=== PATIENT | female | born 1965 ===

== ENCOUNTER → 2020-01-28 09:34 | Outpatient (BNVA) | payer BC, SELFPAY | PROVIDERS: PCP Internal Medicine; Visit Provider Internal Medicine Cardiovascular Disease | DX: Z76.89 Persons encountering health services in other specified circumstances (principal) ==

== ENCOUNTER → 2020-02-03 08:39 | Outpatient (BNVA) | payer BC, SELFPAY | PROVIDERS: PCP Internal Medicine; Referring Provider Internal Medicine; Visit Provider Student in an Organized Health Care Education/Training Program | DX: Z76.89 Persons encountering health services in other specified circumstances (principal) ==

== ENCOUNTER → 2020-04-01 14:09 | Outpatient (REF) | payer BC, SELFPAY ==
--- NOTE | 2020-04-01 14:16 | ECG_ITS ---
Hook-up date: 2020-04-01 14:28:00 Duration: 47:59:00 Test Indications: PALPITATIONS Medications: [id number] QRS complexes 9 Ventricular ectopics which represent <1 % of total QRS comp. 5 Supraventricular ectopics which represent <1 % of total QRS comp. * Paced QRS complexs which represent % of total QRS comp. VENTRICULAR ECTOPY 9 Isolated 0 Bigeminal Cycles 0 Couplets 0 Runs 0 Beats in Runs * Beats LONGEST at * BPM at :: -- * Beats FASTEST at * BPM at :: -- SUPRAVENTRICULAR ECTOPY 5 Isolated 0 Couplets 0 Runs 0 Beats in Runs * Beats LONGEST at * BPM at :: -- * Beats FASTEST at * BPM at :: -- HEART RATES 63 MIN at 05:36:31 2020-04-02 87 AVG 118 MAX at 12:34:45 2020-04-02 LONGEST RR 0.9760 secs at 06:26:23 2020-04-02 S-T LEVELS Channel 1 - 128 mm at 14:28:00 2020-04-01 - 128 mm at 14:28:00 2020-04-01 Channel 2 - 128 mm at 14:28:00 2020-04-01 - 128 mm at 14:28:00 2020-04-01 Channel 3 - 128 mm at 03:34:71 -- - 128 mm at 03:34:71 Basic rhythm Normal sinus rhythm No long pause or profound bradycardia No dangerous dysrhythm periods Patient did not report any symptoms in the diary Referred By: Giuliano Shelton Overread By: DELBERT GIBSON MD
== END ==
LOC: HO.CARD 14:09
PROVIDERS: PCP Internal Medicine; Visit Provider Internal Medicine Cardiovascular Disease
DX: R00.2 Palpitations (principal)
CPT/HCPCS: 93225; 93226

== ENCOUNTER → 2021-06-08 14:58 | Outpatient (BNVA) | payer BC, SELFPAY | PROVIDERS: PCP Internal Medicine; Referring Provider Internal Medicine; Visit Provider Internal Medicine Cardiovascular Disease | DX: R07.9 Chest pain, unspecified (principal); M54.2 Cervicalgia; M79.606 Pain in leg, unspecified | CPT/HCPCS: 93005 ==

== ENCOUNTER 2022-11-08 11:31 | Outpatient (AMB) | payer BC, SELFPAY ==
--- NOTE | 2022-11-08 11:36 | MHC.OFFVIS ---
Intake Vital Signs 11/08/22 11:37 Height 5 ft 5 in Weight 189 lb 2.506 oz BMI 31.5 BP 140/84 H Blood Pressure Location Lt brachial Position Sitting Pulse 88 Pulse Source Monitor Intake Visit Reasons: follow up per patient Intake Note: Follow up with EKG. Prototype Model Maker Required: No Accompanied by: Self / Same As Patient Allergies hydrochlorothiazide Allergy (Unknown, Verified 11/08/22 11:38) Leg cramps lisinopril Allergy (Unknown, Verified 11/08/22 11:38) Cough sulfamethoxazole [From Bactrim] Allergy (Verified 11/08/22 11:38) Hives trimethoprim [From Bactrim] Allergy (Verified 11/08/22 11:38) Hives Medication List - Last Reconciled 11/08/22 by Giuliano Shelton MD amlodipine 10 mg PO DAILY 90 days cholecalciferol (vitamin D3) 50 mcg PO DAILY clonazepam 0.5 mg PO BID PRN metoprolol succinate ER 25 mg PO DAILY HPI HPI Comments History of Present Illness Details 56-year-old female here for follow-up. She was seen for chest pain previously. She was referred for stress echocardiogram. She underwent stress test on 12/18/2019 which she was able to exercise for 8 minutes achieving 10.[address] No abnormal [address]-T changes were noticed on the EKG and no significant wall motion abnormalities were noticed pre and post stress. She is here for follow-up today. Blood pressure is 142/84. She has been taking amlodipine 2 times a week. She was started on Toprol by Dr. Romero but she has not started Toprol yet. She is worried that her blood pressure may drop from it. She has no chest pain or shortness of breath. She is very anxious and seems quite stressed. She is saying that she is stressed at work all the time. 11/08/22/: She returns for follow-up. She has been taking amlodipine 10 mg daily and Toprol-XL 25 mg at bedtime. She said her blood pressure readings have been high and at work specially when she is under stress blood pressure readings at are as high as 200/130. She also has been experiencing some pressure-like feeling in her chest which is again random and can happen at any time. She was experiencing it during the office visit today too. She has significant is ID and has been using clonazepam as needed. She was given sertraline but could not tolerate it. She has never tried bupropion before. [facility] Medical History COVID-19 virus infection Family history of cancer Surgical History H/O: hysterectomy History of fusion of cervical spine Family History Father Diabetes Prostate cancer HTN (hypertension) CVD (cardiovascular disease) Mother HTN (hypertension) Cervical cancer Lung cancer Maternal Grandmother Lung cancer Daughter In good health Daughter No problems noted. Brother In good health Son No problems noted. Social History Housing: House Alcohol intake: current Alcohol intake frequency: holidays/special occasions only Patient Tobacco Use Status: Current everyday Tobacco user Tobacco use type: Cigarette Cigarette Packs Per Day: 1 Cigarettes Per Day: 10 Years Smoked: 40 +/- e-Cigarette/Vaping Use: Never Used Second Hand Smoke Exposure: No service: No Current occupational status: employed Cognitive needs: No Hearing needs: No Vision needs: No Review of Systems Const Denies weakness ENT Denies dizziness Card Denies chest pain, Denies chest pain with activity, Denies syncope, Denies rapid heart rate, Denies pedal edema, Denies edema, Denies leg edema, Denies lightheadedness, Denies palpitations, Denies dyspnea, Denies dyspnea on exertion and Denies orthopnea Resp Denies cough, Denies dyspnea and Denies dyspnea on exertion GI Denies hematochezia and Denies change in stool character Musc Denies abnormal gait, Denies muscle cramps, Denies muscle weakness, Denies numbness, Denies radiating pain into limb and Denies tingling Neuro Denies abnormal gait, Denies dizziness, Denies syncope, Denies numbness, Denies tingling and Denies weakness Endo Denies palpitations Physical Exam Vital Signs: Last Vital Signs Pulse 88 11/08/22 11:37 BP 140/84 H 11/08/22 11:37 BMI result Body Mass Index 31.5 GENERAL APPEARANCE: in no acute distress, pleasant. NECK: no carotid bruit, no jugular venous distention. SKIN: no suspicious lesions, warm and dry. HEART: no murmurs, regular rate and rhythm. LUNGS: clear to auscultation bilaterally. ABDOMEN: soft, nontender. EXTREMITIES: no edema. PERIPHERAL PULSES: equal. NEUROLOGIC: No gross deficits, AAO X 3 Office Procedures EKG Details: Sinus rhythm 88 beats per minute, septal infarct, QTC 481 milliseconds. [id number], Complete Assessment & Plan Assessment & Plan (1) Hypertension: Code(s): I10 - Essential (primary) hypertension Qualifiers: Hypertension type: essential hypertension Qualified Code(s): I10 - Essential (primary) hypertension (2) Chest pain: Code(s): R07.9 - Chest pain, unspecified Plan Pleasant 57 year female here for follow-up. She has hypertension and is currently taking amlodipine 10 mg daily and metoprolol succinate 25 mg daily. At work she is under stress and at times she has noticed her blood pressure to be quite high and is reporting blood pressure reading more than 200/100. She definitely has anxiety and has been using clonazepam for that. I think she needs to be in a better agent for anxiety disorder. Continue amlodipine 10 mg daily. Changing metoprolol succinate to carvedilol 6.25 mg twice a day. I think beta-geoff will help her with sympathetic surge that she is describing while at work. She has some pressure-like feeling in the chest which happens randomly. EKGs showing septal infarct right thing that is due to lead placement. I think we control blood pressure and then reassess her. If she continues to get chest discomfort then we will arrange exercise stress test for her. She previously had a stress echocardiogram with [facility] in December 2019 which was felt to be normal with adequate workload. Thank you for allowing me to participate in the care of your patient. Please feel free to contact me if you have any questions. Medications: New carvedilol must administer with a meal/food 6.25 mg PO BID 60 tabs 3RF I10 - Essential (primary) hypertension Coding Level of Care Code Est Pt Level 4 (24581) Diagnoses Hypertension I10 Hypertension type: essential hypertension Chest pain R07.9 CPT Codes EKG - CPT: [id number], Complete ([id number])
[2022-11-08 11:37] VITALS: BP 140/84; PULSE 88; BMI 31.5
== END 2022-11-08 12:00 | disposition home or self-care (01) ==
PROVIDERS: PCP Nurse Practitioner Family; Referring Provider Nurse Practitioner Family; Visit Provider Internal Medicine Cardiovascular Disease
DX: I10 Essential (primary) hypertension (principal); R07.9 Chest pain, unspecified
CPT/HCPCS: 93010; 99214

== ENCOUNTER → 2022-11-08 11:31 | Outpatient (BNVA) | payer BC, SELFPAY | PROVIDERS: PCP Nurse Practitioner Family; Referring Provider Nurse Practitioner Family; Visit Provider Internal Medicine Cardiovascular Disease | DX: I10 Essential (primary) hypertension (principal); R07.9 Chest pain, unspecified; Z79.899 Other long term (current) drug therapy | CPT/HCPCS: 93005 ==

== ENCOUNTER 2022-12-29 16:43 | Outpatient (AMB) | payer BC, SELFPAY ==
[2022-12-29 16:47] VITALS: BP 140/86; PULSE 103; O2SAT 96; BMI 31.6
--- NOTE | 2022-12-29 16:47 | A.OFFPC_ITS ---
Vital Signs 12/29/22 16:47 Height 5 ft 5 in Weight 190 lb BMI 31.6 BP 140/86 H Blood Pressure Location Lt brachial Position Sitting Pulse 103 H Pulse Source Pulse Oximeter Pulse Oximetry (%) 96 Oxygen Delivery Method Room Air Intake Visit Reasons: [facility] 12/17/22 Allergies hydrochlorothiazide Allergy (Unknown, Verified 12/29/22 16:56) Leg cramps lisinopril Allergy (Unknown, Verified 12/29/22 16:56) Cough sulfamethoxazole [From Bactrim] Allergy (Verified 12/29/22 16:56) Hives trimethoprim [From Bactrim] Allergy (Verified 12/29/22 16:56) Hives Medication List - Last Reconciled 12/29/22 by BONNIE Kim albuterol sulfate 90 mcg/actuation 2 inhalations inhalation Q4-6H PRN amlodipine 10 mg PO DAILY 90 days cholecalciferol (vitamin D3) 50 mcg PO DAILY clonazepam 0.5 mg PO BID PRN Tobacco use date assessed: 12/29/22 Dental Screening Dental Screen Date: 12/29/22 Did you have a dental visit in the last 12 months?: Yes Did you have a dental problem in the last 6 months where you did not have access to dental care?: No Was dental information given to patient?: Patient has dentist HPI [facility] 12/17/22 HPI Details Patient is a 57-year-old female who presents today to follow-up after [facility] Emergency Department visit 12/17/2022. Discharge diagnosis bronchitis. Patient presented to the emergency department with shortness of breath, headache, cough. COVID and flu swabs were negative. Random glucose was 176. AST 142, ALT 178. Patient was diagnosed with COPD exacerbation, she reports she was not diagnosed with COPD in the past. Patient reports smoking for the past 40 years and she has nicotine gum and patch at home. She has an upcoming low-dose chest CT scan 01/10/2023 at [facility]. Patient was discharged home with prednisone that she finished. She also uses albuterol inhaler p.r.n.. She reports intermittent cough with clear sputum as well as nasal clear discharge. Reports that her symptoms are improving. Patient also have diagnosis of fatty liver and she was seen by GI provider in the past and would like to reestablish with them as well. Reports intermittent right upper abdominal pain. Reports no alcohol consumption for the past 6 months. Patient was encouraged to complete her blood work, also will order A1c due to elevated glucose in hospital. [facility] Medical History (Updated 12/31/22 @ 07:37 by BONNIE Kim) Neck pain Leg pain Alcohol abuse, in remission COVID-19 virus infection Family history of cancer Surgical History History of fusion of cervical spine H/O: hysterectomy Family History Father Diabetes Prostate cancer HTN (hypertension) CVD (cardiovascular disease) Mother HTN (hypertension) Cervical cancer Lung cancer Maternal Grandmother Lung cancer Daughter In good health Daughter No problems noted. Brother In good health Son No problems noted. Social History Housing: House Alcohol intake: current Alcohol intake frequency: holidays/special occasions only Patient Tobacco Use Status: Current everyday Tobacco user Tobacco use type: Cigarette Cigarette Packs Per Day: 1 Cigarettes Per Day: 10 Years Smoked: 40 +/- Packs Per Year: 0 Packs per year/per ci.00 e-Cigarette/Vaping Use: Never Used Second Hand Smoke Exposure: No service: No Current occupational status: employed Cognitive needs: No Hearing needs: No Vision needs: No Questionnaire Thrive Questionnaire Date Thrive assessed: 08/05/21 AUDIT C Alcohol Use Questionnaire (AUDIT-C) 1. How often do you have a drink containing alcohol?: Never 3. How often do you have six or more drinks on one occasion?: Never Total Score: 0 Score Reviewed/Action Taken: No FREDY-7 AMB Questionnaire FREDY-7 Date FREDY - 7 assessed: 01/20/22 Source: Developed by Drs. Rome Grullon, Ginny Reyes, Nikko Mahajan and colleagues, with an educational rodney from [employer]. Review of Systems Const Denies body aches, Denies chills, Denies fever(s) and Denies headache(s) Eyes Denies change in vision ENT Denies dizziness, Denies otalgia, Denies headache(s), Reports nasal discharge, Denies sinus pain and Denies sore throat Card Denies chest pain, Denies edema, Denies lightheadedness and Denies dyspnea Resp Reports cough, Denies dyspnea and Denies wheezing GI Reports abdominal pain Denies dysuria Musc Denies myalgias Skin/Breast Denies rash Neuro Denies dizziness and Denies headache(s) Aller/Immun Denies wheezing Physical exam (Primary Care) Vital Signs: Last Vital Signs Pulse 103 H 12/29/22 16:47 BP 140/86 H 12/29/22 16:47 Pulse Ox 96 12/29/22 16:47 Oxygen Delivery Method Room Air 12/29/22 16:47 BMI result Body Mass Index 31.6 Tobacco/Smoking Status: Tobacco use Status Tobacco use date assessed 12/29/22 12/29/22 16:50 Patient Tobacco Use Status Current everyday Tobacco 12/29/22 16:48 Tobacco use type Cigarette 12/29/22 16:48 e-Cigarette/Vaping Use Never Used 12/29/22 16:48 Thrive Assessment: Date of Thrive Assessment Date Thrive assessed 08/05/21 12/29/22 16:48 Const General: cooperative and no acute distress Orientation/consciousness: patient oriented x3 HENMT Head: Yes normocephalic and Yes atraumatic Face and sinus: Yes sinuses nontender Mouth: oropharynx normal and moist mucous membranes Throat: Yes posterior oropharynx normal Eyes General: appearance normal, both eyes and all related structures Neck Neck: Yes normal visual inspection and Yes full ROM Resp Effort & Inspection: normal respiratory effort and able to speak in complete sentences Auscultation: clear to auscultation bilaterally, no crackles, no rales, no rhonchi and no wheezes Cardio Rate: regular rate Rhythm: regular rhythm Heart sounds: S1 normal heart sound present and S2 normal heart sound present GI Palpation (GI): Soft to palpation, not firm, Tenderness to palpation present (GI) in the RUQ; with no rebound tenderness, no guarding, not rigid and no hepatosplenomegaly Auscultation: normal bowel sounds Skin General skin exam: no rashes or lesions noted Neuro General: patient oriented x3 Gait exam (Neuro): Normal gait present Extrem General: Yes full ROM and No edema Office Procedures Flu Questionnaire Does the patient have a severe egg allergy?: No Does the patient have severe life threatening allergies?: No Does the patient have a fever or illness today?: No Has the patient ever had Guillain-[place] Syndrome?: No Has the patient ever had any past reaction to a flu shot?: No Immunizations flu vacc [id number] 6mos up(PF) 60 mcg(15 mcgx4)/0.5 mL IM syringe Performing Provider: BONNIE Kim [facility] Administered by: NANDA Wiseman on 12/29/22 16:55 Dose Route Admin Location Dispensed Lot Number Expiration Date NDC Electrocardiograph Operator 0.5 mL IM Left Deltoid 0.5 mL [id number] 09/16/23 [id number] [employer] VIS Given Date VIS Provided VIS Publication Date 12/29/22 Single Vaccine 20 Eligibility Eligibility Date Funding Source Not [facility] Eligible 12/29/22 Private Assessment and Plan Assessment & Plan (1) Bronchitis: Code(s): J40 - Bronchitis, not specified as acute or chronic Plan: Lungs are clear to auscultation Continue albuterol inhaler p.r.n. Will order PFTs - patient reports smoking for the past 40 years and reports she was not diagnosed in the past with COPD Signs and symptoms reviewed when to notify provider or go to the emergency department (2) Elevated glucose: Code(s): R73.09 - Other abnormal glucose Plan: A1c ordered (3) Fatty liver: Code(s): K76.0 - Fatty (change of) liver, not elsewhere classified Plan: Patient would like to reestablish with GI provider, referral placed Low-cholesterol diet and weight loss (4) Tobacco abuse: Code(s): Z72.0 - Tobacco use Plan: Encouraged smoking cessation Plan Patient was encouraged to complete her blood work Keep appointment with PCP as scheduled or follow-up sooner as needed Orders: Orders Influenza [id number] Immunization 12/29/22 Z23 - Encounter for immunization Hemoglobin A1c 12/29/22 R73.09 - Other abnormal glucose PFT pulmonary function test 12/29/22 J40 - Bronchitis, not specified as acute or chronic, Z72.0 - Tobacco use Referrals Gastroenterology Referral K76.0 - Fatty (change of) liver, not elsewhere classified Coding Level of Care Code Est Pt Level 3 (20150) Diagnoses Bronchitis J40 Elevated glucose R73.09 Fatty liver K76.0 Tobacco abuse Z72.0
== END 2022-12-29 17:16 | disposition home or self-care (01) ==
PROVIDERS: PCP Nurse Practitioner Family; Visit Provider Nurse Practitioner Family
DX: Z23 Encounter for immunization (principal)
CPT/HCPCS: 90471; 90686; 99213

== ENCOUNTER 2023-03-08 13:55 | Outpatient (AMB) | payer BC, SELFPAY ==
--- NOTE | 2023-03-08 13:55 | MHC.PC.OV ---
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 Required: No Allergies hydrochlorothiazide Allergy (Unknown, Verified 03/08/23 13:56) Leg cramps lisinopril Allergy (Unknown, Verified 03/08/23 13:56) Cough sulfamethoxazole [From Bactrim] Allergy (Verified 03/08/23 13:56) Hives trimethoprim [From Bactrim] Allergy (Verified 03/08/23 13:56) Hives Medication List - Last Reconciled 03/08/23 by Tariq Romero MD albuterol sulfate 90 mcg/actuation 2 inhalations inhalation Q4-6H PRN amlodipine 10 mg PO DAILY 90 days cholecalciferol (vitamin D3) 50 mcg PO DAILY clonazepam 0.5 mg PO TID PRN 30 days Tobacco use date assessed: 03/08/23 HPI Follow up,[facility], HPI Details 57-year-old obese female smoker with generalized anxiety disorder hypercholesterolemia hypertension last seen in July 2021. Due for mammogram, and colonoscopy,. Review of the notes was seen by nurse practitioner in December following hospitalization for bronchitis and before that in May was seen by the nurse practitioner patient has renal calculi also. Patient when seen in the hospital for the bronchitis was told that the liver function was elevated a lot and was told to follow-up. Blood work has not been done and will be doing them. ON LICENSE OF [facility] Medical History (Updated 03/08/23 @ 14:13 by Tariq Romero MD) COVID-19 virus infection Neck pain Leg pain Alcohol abuse, in remission Family history of cancer Surgical History History of fusion of cervical spine H/O: hysterectomy Family History Father Diabetes Prostate cancer HTN (hypertension) CVD (cardiovascular disease) Mother HTN (hypertension) Cervical cancer Lung cancer Maternal Grandmother Lung cancer Daughter In good health Daughter No problems noted. Brother In good health Son No problems noted. Social History Housing: House Alcohol intake: current Alcohol intake frequency: holidays/special occasions only Patient Tobacco Use Status: Current everyday Tobacco user Tobacco use type: Cigarette Cigarette Packs Per Day: 1 Cigarettes Per Day: 10 Years Smoked: 40 +/- e-Cigarette/Vaping Use: Never Used Second Hand Smoke Exposure: No service: No Current occupational status: employed Cognitive needs: No Hearing needs: No Vision needs: No Questionnaire Thrive Questionnaire Date Thrive assessed: 08/05/21 AUDIT C Alcohol Use Questionnaire (AUDIT-C) 1. How often do you have a drink containing alcohol?: Never 3. How often do you have six or more drinks on one occasion?: Never Total Score: 0 Score Reviewed/Action Taken: No FREDY-7 AMB Questionnaire FREDY-7 Date FREDY - 7 assessed: 01/20/22 Source: Developed by Drs. Rome Grullon, Ginny Reyes, Nikko Mahajan and colleagues, with an educational rodney from [employer]. Physical exam (Primary Care) Tobacco/Smoking Status: Tobacco use Status Tobacco use date assessed 03/08/23 03/08/23 13:58 Patient Tobacco Use Status Current everyday Tobacco 03/08/23 13:58 Tobacco use type Cigarette 03/08/23 13:58 e-Cigarette/Vaping Use Never Used 03/08/23 13:58 Thrive Assessment: Date of Thrive Assessment Date Thrive assessed 08/05/21 03/08/23 13:58 Telehealth Telehealth Location of provider rendering services: practice address Location of patient: address on file Patient Identification confirmed using: Name, : Yes Telehealth method: video (iphone ) Patient verbally consented to treatment: Yes Patient verbally consented to billing insurance company: Yes Patient informed of any privacy concerns related to visit: Yes Minutes spent on Phone/Video with Pt.: 25 Assessment and Plan Assessment & Plan (1) Nephrolithiasis: Comment: February 2022 right renal calculi multiple Code(s): N20.0 - Calculus of kidney Plan: Keep well hydrated (2) Tobacco abuse: Code(s): Z72.0 - Tobacco use Plan: Strongly advised to stop! (3) Hypertension: Code(s): I10 - Essential (primary) hypertension Qualifiers: Hypertension type: essential hypertension Qualified Code(s): I10 - Essential (primary) hypertension Plan: Continue with blood pressure medication. Decrease salt intake and exercise on amlodipine 10 mg once a day (4) Generalized anxiety disorder: Code(s): F41.1 - Generalized anxiety disorder Plan: Continue with therapy. (5) Breast cancer screening by mammogram: Code(s): Z12.31 - Encounter for screening mammogram for malignant neoplasm of breast Plan: reminded (6) Colon cancer screening: Code(s): Z12.11 - Encounter for screening for malignant neoplasm of colon Plan: appointment sunday with Dr. Frausto (7) COVID-19 virus infection: Comment: December 2020, 03/08/2023 Code(s): U07.1 - COVID-19 Plan: Increase oral fluids call if there is a problem. Orders: Orders Complete Blood Count Auto Diff Today K76.0 - Fatty (change of) liver, not elsewhere classified Free T4 (Free Thyroxine) Today K76.0 - Fatty (change of) liver, not elsewhere classified Vitamin B12 and Folate Today K76.0 - Fatty (change of) liver, not elsewhere classified Vitamin D 25-OH Total Today K76.0 - Fatty (change of) liver, not elsewhere classified Comprehensive Met. Panel Today K76.0 - Fatty (change of) liver, not elsewhere classified Lipid Panel Today E78.00 - Pure hypercholesterolemia, unspecified, K76.0 - Fatty (change of) liver, not elsewhere classified Thyroid Stimulating Hormone Today K76.0 - Fatty (change of) liver, not elsewhere classified Medications: Refilled amlodipine Must call and schedule cardiology appt for refills 10 mg PO DAILY 90 tabs 2RF 90 days I10 - Essential (primary) hypertension Coding Level of Care Code Est Pt Level 4 (90023) Diagnoses Nephrolithiasis N20.0 Tobacco abuse Z72.0 Essential hypertension I10 Hypertension type: essential hypertension Generalized anxiety disorder F41.1 Breast cancer screening by mammogram Z12.31 Colon cancer screening Z12.11 COVID-19 virus infection U07.1
== END 2023-03-08 16:14 | disposition home or self-care (01) ==
LOC: HO.HMGH 13:55
PROVIDERS: PCP Internal Medicine; Visit Provider Internal Medicine
DX: N20.0 Calculus of kidney (principal); Z72.0 Tobacco use; I10 Essential (primary) hypertension; F41.1 Generalized anxiety disorder; Z12.31 Encounter for screening mammogram for malignant neoplasm of breast; Z12.11 Encounter for screening for malignant neoplasm of colon; U07.1 COVID-19
CPT/HCPCS: 99214

== ENCOUNTER 2023-03-26 15:11 | Outpatient (AMB) | payer BC, SELFPAY ==
[2023-03-26 15:15] VITALS: BP 140/70; PULSE 97; BMI 31.8
--- NOTE | 2023-03-26 15:15 | MHC.OFFVIS ---
Intake Vital Signs 03/26/23 15:15 Height 5 ft 5 in Weight 190 lb 14.725 oz BMI 31.8 BP 140/70 H Blood Pressure Location Rt brachial Position Sitting Pulse 97 Intake Visit Reasons: 4 wk fu Intake Note: 4 wk f/up pt its having some slight chest pain. 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 Accompanied by: Self / Same As Patient Allergies hydrochlorothiazide Allergy (Unknown, Verified 03/08/23 13:56) Leg cramps lisinopril Allergy (Unknown, Verified 03/08/23 13:56) Cough sulfamethoxazole [From Bactrim] Allergy (Verified 03/08/23 13:56) Hives trimethoprim [From Bactrim] Allergy (Verified 03/08/23 13:56) Hives Medication List - Last Reconciled 03/26/23 by Giuliano Shelton MD albuterol sulfate 90 mcg/actuation 2 inhalations inhalation Q4-6H PRN amlodipine 10 mg PO DAILY 90 days cholecalciferol (vitamin D3) 50 mcg PO DAILY clonazepam 0.5 mg PO TID PRN 30 days HPI HPI Comments History of Present Illness Details 56-year-old female here for follow-up. She was seen for chest pain previously. She was referred for stress echocardiogram. She underwent stress test on 12/18/2019 which she was able to exercise for 8 minutes achieving 10.[address] No abnormal ST-T changes were noticed on the EKG and no significant wall motion abnormalities were noticed pre and post stress. She is here for follow-up today. Blood pressure is 142/84. She has been taking amlodipine 2 times a week. She was started on Toprol by Dr. Romero but she has not started Toprol yet. She is worried that her blood pressure may drop from it. She has no chest pain or shortness of breath. She is very anxious and seems quite stressed. She is saying that she is stressed at work all the time. 11/08/22/: She returns for follow-up. She has been taking amlodipine 10 mg daily and Toprol-XL 25 mg at bedtime. She said her blood pressure readings have been high and at work specially when she is under stress blood pressure readings at are as high as 200/130. She also has been experiencing some pressure-like feeling in her chest which is again random and can happen at any time. She was experiencing it during the office visit today too. She has significant is ID and has been using clonazepam as needed. She was given sertraline but could not tolerate it. She has never tried bupropion before. March 2023: She returns for follow-up. She continues to have mildly elevated blood pressures. She said she did not parts picker carvedilol. We will send a script for her and she plans to pick it up and start taking it. She continues to get chest pains off and on. These are usually nonexertional. She also is complaining of fatigue and tiredness. She gets out of breath easily. [facility] Medical History (Updated 03/08/23 @ 14:13 by Tariq Romero MD) COVID-19 virus infection Neck pain Leg pain Alcohol abuse, in remission Family history of cancer Surgical History History of fusion of cervical spine H/O: hysterectomy Family History Father Diabetes Prostate cancer HTN (hypertension) CVD (cardiovascular disease) Mother HTN (hypertension) Cervical cancer Lung cancer Maternal Grandmother Lung cancer Daughter In good health Daughter No problems noted. Brother In good health Son No problems noted. Social History Housing: House Alcohol intake: current Alcohol intake frequency: holidays/special occasions only Patient Tobacco Use Status: Current everyday Tobacco user Tobacco use type: Cigarette Cigarette Packs Per Day: 1 Cigarettes Per Day: 10 Years Smoked: 40 +/- e-Cigarette/Vaping Use: Never Used Second Hand Smoke Exposure: No service: No Current occupational status: employed Cognitive needs: No Hearing needs: No Vision needs: No Review of Systems Const Reports chills, Reports fatigue, Reports fever(s), Reports frequent falls, Reports weakness, Reports weight gain and Reports weight loss ENT Reports dizziness Card Reports chest pain, Reports leg edema, Reports lightheadedness, Reports palpitations, Reports dyspnea and Reports dyspnea on exertion Resp Reports cough, Reports dyspnea and Reports dyspnea on exertion GI Reports hematochezia Musc Reports abnormal gait, Reports muscle weakness, Reports numbness, Reports radiating pain into limb and Reports tingling Neuro Reports abnormal gait, Reports dizziness, Reports frequent falls, Reports numbness, Reports tingling and Reports weakness Endo Reports fatigue and Reports palpitations Physical Exam Vital Signs: BMI result Body Mass Index 31.8 GENERAL APPEARANCE: in no acute distress, pleasant. NECK: no carotid bruit, no jugular venous distention. SKIN: no suspicious lesions, warm and dry. HEART: no murmurs, regular rate and rhythm. LUNGS: clear to auscultation bilaterally. ABDOMEN: soft, nontender. EXTREMITIES: no edema. PERIPHERAL PULSES: equal. NEUROLOGIC: No gross deficits, AAO X 3 Office Procedures EKG Details: Sinus rhythm 97 beats per minute, otherwise normal EKG, QTC 469 milliseconds. [id number], Complete Assessment & Plan Assessment & Plan (1) Chest pain: Code(s): R07.9 - Chest pain, unspecified (2) Dyspnea: Code(s): R06.00 - Dyspnea, unspecified (3) Hypertension: Code(s): I10 - Essential (primary) hypertension Qualifiers: Hypertension type: essential hypertension Qualified Code(s): I10 - Essential (primary) hypertension Plan Pleasant 57 year female here for follow-up. She has background history of hypertension. She is on amlodipine 10 mg daily. I have advised her to start carvedilol 6.25 mg twice a day because her blood pressure is elevated. Will send a script for her. She continues to complain of chest discomfort off and on. She also has dyspnea with activity. We will arrange stress echocardiogram for her. Follow-up with us in 4 months. Thank you for allowing me to participate in the care of your patient. Please feel free to contact me if you have any questions. Orders: Orders CA echo stress exercise Today R07.9 - Chest pain, unspecified Medications: New carvedilol must administer with a meal/food 6.25 mg PO BID 100 tabs 3RF I10 - Essential (primary) hypertension Coding Level of Care Code Est Pt Level 4 (69848) Diagnoses Chest pain R07.9 Dyspnea R06.00 Essential hypertension I10 Hypertension type: essential hypertension CPT Codes EKG - CPT: 18945-[id number], Complete ([id number])
== END 2023-03-26 15:47 | disposition home or self-care (01) ==
PROVIDERS: PCP Internal Medicine; Visit Provider Internal Medicine Cardiovascular Disease
DX: R07.9 Chest pain, unspecified (principal); R06.00 Dyspnea, unspecified; I10 Essential (primary) hypertension
CPT/HCPCS: 93010; 99214

== ENCOUNTER → 2023-03-26 15:11 | Outpatient (BNVA) | payer BC, SELFPAY | PROVIDERS: PCP Nurse Practitioner Family; Visit Provider Internal Medicine Cardiovascular Disease | DX: R07.9 Chest pain, unspecified (principal); R06.00 Dyspnea, unspecified; I10 Essential (primary) hypertension | CPT/HCPCS: 93005 ==

== ENCOUNTER 2023-04-16 14:59 | Outpatient (AMB) | payer BC, SELFPAY ==
[2023-04-16 15:00] VITALS: BP 130/86; PULSE 98; O2SAT 99; BMI 31.6
--- NOTE | 2023-04-16 15:00 | A.OFFPC_ITS ---
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 Allergies hydrochlorothiazide Allergy (Unknown, Verified 04/16/23 15:00) Leg cramps lisinopril Allergy (Unknown, Verified 04/16/23 15:00) Cough sulfamethoxazole [From Bactrim] Allergy (Verified 04/16/23 15:00) Hives trimethoprim [From Bactrim] Allergy (Verified 04/16/23 15:00) Hives Medication List - Last Reconciled 04/16/23 by Tariq Romero MD albuterol sulfate 90 mcg/actuation 2 inhalations inhalation Q4-6H PRN amlodipine 10 mg PO DAILY 90 days carvedilol 6.25 mg PO BID cholecalciferol (vitamin D3) 1,250 mcg PO QWEEK 90 days clonazepam 0.5 mg PO TID PRN 30 days Tobacco use date assessed: 04/16/23 Dental Screening Dental Screen Date: 04/16/23 Did you have a dental visit in the last 12 months?: Yes Did you have a dental problem in the last 6 months where you did not have access to dental care?: No Was dental information given to patient?: Patient has dentist HPI Discuss Lab Results HPI Details 57-year-old obese female smoker with hyp ertension generalized anxiety disorder coming in for follow-up patient also has a history of nephrolithiasis. Patient was seen in February and was reminded about colonoscopy and mammogram. Patient did see gastroenterology March 2023. Scheduled for colonoscopy June 05 blood work done showing erythrocytosis hypertriglyceridemia to 345 elevated liver function test and very low vitamin-D. Patient also was seen by Cardiology blood pressure remains to be elevated and has not picked up carvedilol. Patient will be arranged to have another stress echocardiogram.. reminded mammogram, on Sunday US abd to be done. Otherwise patient continues to be anxious and able to handle changes 100 time. [facility] Medical History (Updated 04/16/23 @ 15:32 by Tariq Romero MD) COVID-19 virus infection Neck pain Leg pain Alcohol abuse, in remission Family history of cancer Surgical History History of fusion of cervical spine H/O: hysterectomy Family History Father Diabetes Prostate cancer HTN (hypertension) CVD (cardiovascular disease) Mother HTN (hypertension) Cervical cancer Lung cancer Maternal Grandmother Lung cancer Daughter In good health Daughter No problems noted. Brother In good health Son No problems noted. Social History Housing: House Alcohol intake: current Alcohol intake frequency: holidays/special occasions only Patient Tobacco Use Status: Current everyday Tobacco user Tobacco use type: Cigarette Cigarette Packs Per Day: 1 Cigarettes Per Day: 10 Years Smoked: 40 +/- e-Cigarette/Vaping Use: Never Used Second Hand Smoke Exposure: No service: No Current occupational status: employed Cognitive needs: No Hearing needs: No Vision needs: No Questionnaire PHQ-9 Over the last 2 weeks, how often have you been bothered by any of the following problems? 1. Little interest or pleasure in doing things: not at all 2. Feeling down, depressed, or hopeless: not at all 3. Trouble falling or staying asleep, or sleeping too much: not at all 4. Feeling tired or having little energy: not at all 5. Poor appetite or overeating: not at all 6. Feeling bad about yourself - or that you are a failure or have let yourself or your family down: not at all 7. Trouble concentrating on things, such as reading the newspaper or watching television: not at all 8. Moving or speaking so slowly that other people could have noticed. Or the opposite - being so fidgety or restless that you have been moving around a lot more than usual: not at all 9. Thoughts that you would be better off or of hurting yourself in some way: not at all Total score: 0 Depression Screening Interpretation: Negative Depression Screening Done: Yes 54962 - PHQ-9 Billing: Yes Source: Developed by Drs. Rome Grullon, Ginny Reyes, Nikko Mahajan and colleagues, with an educational rodney from [employer]. Thrive Questionnaire Date Thrive assessed: 08/05/21 AUDIT C Alcohol Use Questionnaire (AUDIT-C) 1. How often do you have a drink containing alcohol?: Never 3. How often do you have six or more drinks on one occasion?: Never Total Score: 0 Score Reviewed/Action Taken: No FREDY-7 AMB Questionnaire FREDY-7 Date FREDY - 7 assessed: 04/16/23 Source: Developed by Drs. Rome Grullon, Ginny Reyes, Nikko Mahajan and colleagues, with an educational rodney from [employer]. Physical exam (Primary Care) Vital Signs: Last Vital Signs Pulse 98 04/16/23 15:00 BP 130/86 04/16/23 15:00 Pulse Ox 99 04/16/23 15:00 Oxygen Delivery Method Room Air 04/16/23 15:00 BMI result Body Mass Index 31.6 Tobacco/Smoking Status: Tobacco use Status Tobacco use date assessed 04/16/23 04/16/23 15:01 Patient Tobacco Use Status Current everyday Tobacco 04/16/23 15:01 Tobacco use type Cigarette 04/16/23 15:01 e-Cigarette/Vaping Use Never Used 04/16/23 15:01 PHQ-9: PHQ-9 Score PHQ-9: Total score 0 04/16/23 15:01 Depression Screening Interpretation: Negative Thrive Assessment: Date of Thrive Assessment Date Thrive assessed 08/05/21 04/16/23 15:01 Const General: alert; No acute distress Eyes Conjunctivae: conjunctivae normal Resp Auscultation: clear to auscultation bilaterally Cardio Rate: regular rate Rhythm: regular rhythm GI Inspection: Yes normal to inspection Extrem General: Yes normal to inspection and No edema Assessment and Plan Assessment & Plan (1) Colon cancer screening: Code(s): Z12.11 - Encounter for screening for malignant neoplasm of colon Plan: Patient has seen gastroenterology and scheduled for June 05. Noted elevated liver function tests which need to be followed up ultrasound pending (2) Tobacco abuse: Comment: Lung cancer screening program November 2021 Code(s): Z72.0 - Tobacco use Plan: Strongly advised to stop smoking! (3) Chest pain: Code(s): R07.9 - Chest pain, unspecified Plan: Patient has seen the cardiology and stress echo ordered (4) Hypercholesterolemia: Code(s): E78.00 - Pure hypercholesterolemia, unspecified Plan: Avoid fried foods, chicken skin, eggs, butter margarine, pastries and meat. Be it pork or beef they have a lot of cholesterol LDL goal of less than 130 and triglyceride of less than 150 (5) Vitamin D deficiency: Code(s): E55.9 - Vitamin D deficiency, unspecified Plan: Will request for vitamin-D. (6) Hypertension: Code(s): I10 - Essential (primary) hypertension Qualifiers: Hypertension type: essential hypertension Qualified Code(s): I10 - Essential (primary) hypertension Plan: Continue with blood pressure medication. Decrease salt intake and exercise patient on amlodipine 10 mg once a day and advised by Cardiology to get the carvedilol. (7) Generalized anxiety disorder: Code(s): F41.1 - Generalized anxiety disorder Plan: Continue with present medication and advised to follow-up with counseling (8) Erythrocytosis: Code(s): D75.1 - Secondary polycythemia Plan: Discussed my concerns about erythrocytosis and so will do a referral to Hematology Oncology. (9) Conjunctivitis: Code(s): H10.9 - Unspecified conjunctivitis Plan: Antibiotics sent in Orders: Orders Lipid Panel 3 Months E78.00 - Pure hypercholesterolemia, unspecified Complete Blood Count Auto Diff 3 Months E55.9 - Vitamin D deficiency, unspecified Comprehensive Met. Panel 3 Months E78.00 - Pure hypercholesterolemia, unspecified Vitamin D 25-OH Total 3 Months E55.9 - Vitamin D deficiency, unspecified Referrals Hematology & Oncology Referral D75.1 - Secondary polycythemia Medications: New fenofibrate 160 mg PO DAILY 90 tabs 1RF E78.00 - Pure hypercholesterolemia, unspecified cholecalciferol (vitamin D3) 1,250 mcg PO QWEEK 90 days 13 caps 1RF E55.9 - Vitamin D deficiency, unspecified gentamicin 0.3% Right eye 1 drp ophthalmic (eye) TID 5 days 5 mL 0RF H10.9 - Unspecified conjunctivitis Coding Level of Care Code Est Pt Level 4 (80041) Diagnoses Colon cancer screening Z12.11 Tobacco abuse Z72.0 Chest pain R07.9 Hypercholesterolemia E78.00 Vitamin D deficiency E55.9 Essential hypertension I10 Hypertension type: essential hypertension Generalized anxiety disorder F41.1 Erythrocytosis D75.1 Conjunctivitis H10.9
== END 2023-04-16 16:23 | disposition home or self-care (01) ==
PROVIDERS: PCP Internal Medicine; Visit Provider Internal Medicine
DX: Z12.11 Encounter for screening for malignant neoplasm of colon (principal); Z72.0 Tobacco use; R07.9 Chest pain, unspecified; E78.00 Pure hypercholesterolemia, unspecified; E55.9 Vitamin D deficiency, unspecified; I10 Essential (primary) hypertension; F41.1 Generalized anxiety disorder; D75.1 Secondary polycythemia; H10.9 Unspecified conjunctivitis
CPT/HCPCS: 99214

== ENCOUNTER → 2023-05-16 10:23 | Outpatient (BNV) | payer BC, SELFPAY | PROVIDERS: PCP Internal Medicine; Referring Provider Internal Medicine; Visit Provider Internal Medicine Medical Oncology | DX: D75.1 Secondary polycythemia (principal) | CPT/HCPCS: 99204 ==

== ENCOUNTER 2023-07-25 16:11 | Outpatient (AMB) | payer BC, SELFPAY ==
[2023-07-25 16:14] VITALS: BP 134/82; PULSE 82; BMI 31.8
--- NOTE | 2023-07-25 16:14 | A.OFFPC_ITS ---
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 Accompanied by: Self / Same As Patient Allergies hydrochlorothiazide Allergy (Unknown, Verified 07/25/23 16:14) Leg cramps lisinopril Allergy (Unknown, Verified 07/25/23 16:14) Cough sulfamethoxazole [From Bactrim] Allergy (Verified 07/25/23 16:14) Anaphylaxis trimethoprim [From Bactrim] Allergy (Verified 07/25/23 16:14) Anaphylaxis Medication List - Last Reconciled 07/25/23 by Tariq Romero MD albuterol sulfate 90 mcg/actuation 2 inhalations inhalation Q4-6H PRN amlodipine 10 mg PO DAILY 90 days carvedilol 6.25 mg PO BID cholecalciferol (vitamin D3) 50 mcg PO DAILY 90 days clonazepam 0.5 mg PO TID PRN 30 days fenofibrate 160 mg PO DAILY gentamicin 0.3% 1 drp ophthalmic (eye) TID 5 days tirzepatide (weight loss) (Zepbound) 2.5 mg (0.5 mL) subcut QWEEK 4 weeks Tobacco use date assessed: 04/16/23 Dental Screening Dental Screen Date: 04/16/23 HPI 3mth f/u HPI Details 57-year-old obese female smoker with hyp ercholesterolemia hypertension generalized anxiety disorder last seen in March 2023. Mammogram is due colonoscopy is due review of the notes did receive colonoscopy 07/23/2023 and noted polyps 5 and advised repeat colonoscopy in 3 years. Received note also from [facility] June 2023 for a dog bite and cellulitis left hand started on Keflex then placed on Augmentin puncture wound on the dorsal aspect of the hand has advised IV antibiotics but went home against medical advice. Patient has erythrocytosis and discussed that smoking has a big risk for this did refer to Hematology-Oncology [facility] Medical History (Updated 07/25/23 @ 16:40 by Tariq Romero MD) High cholesterol High blood pressure Alcohol abuse, in remission Neck pain Leg pain COVID-19 virus infection Family history of cancer Surgical History (Updated 05/16/23 @ 10:42 by Alyssa Oshea MD) History of fusion of cervical spine H/O: hysterectomy Family History Father Diabetes Prostate cancer HTN (hypertension) CVD (cardiovascular disease) Mother HTN (hypertension) Cervical cancer Lung cancer Maternal Grandmother Lung cancer Daughter In good health Daughter No problems noted. Brother In good health Son No problems noted. Social History (Updated 05/16/23 @ 10:32 by Daniela Martínez) Housing: House Alcohol intake: current Alcohol intake frequency: holidays/special occasions only Patient Tobacco Use Status: Current everyday Tobacco user Tobacco use type: Cigarette Cigarette Packs Per Day: 1 Years Smoked: 40 +/- e-Cigarette/Vaping Use: Never Used Second Hand Smoke Exposure: No service: No Current occupational status: employed Cognitive needs: No Hearing needs: No Vision needs: No Questionnaire Thrive Questionnaire Date Thrive assessed: 08/05/21 FREDY-7 AMB Questionnaire FREDY-7 Date FREDY - 7 assessed: 04/16/23 Source: Developed by Drs. Rome Grullon, Ginny Reyes, Nikko Mahajan and colleagues, with an educational rodney from [employer]. Physical exam (Primary Care) Vital Signs: Last Vital Signs Pulse 82 07/25/23 16:14 BP 134/82 07/25/23 16:14 Oxygen Delivery Method Room Air 07/25/23 16:14 BMI result Body Mass Index 31.8 Tobacco/Smoking Status: Tobacco use Status Tobacco use date assessed 04/16/23 07/25/23 16:15 Patient Tobacco Use Status Current everyday Tobacco 07/25/23 16:15 Tobacco use type Cigarette 07/25/23 16:15 e-Cigarette/Vaping Use Never Used 07/25/23 16:15 Thrive Assessment: Date of Thrive Assessment Date Thrive assessed 08/05/21 07/25/23 16:15 Const General: alert; No acute distress Eyes Conjunctivae: conjunctivae normal Resp Auscultation: clear to auscultation bilaterally Cardio Rate: regular rate Rhythm: regular rhythm GI Inspection: Yes normal to inspection Extrem General: Yes normal to inspection and No edema Assessment and Plan Assessment & Plan (1) Cellulitis of left hand: Code(s): L03.114 - Cellulitis of left upper limb Plan: Patient has taken Augmentin, left against medical advice in [facility] this has resolved (2) Dog bite: Code(s): W54.0XXA - Bitten by dog, initial encounter (3) Tobacco abuse: Comment: Lung cancer screening program November 2021 Code(s): Z72.0 - Tobacco use Plan: Strongly advised to stop! Patient knows to schedule for the CT scan of the chest for the lung cancer screening (4) Erythrocytosis: Code(s): D75.1 - Secondary polycythemia Plan: Patient has seen hematology oncology and workup declined most likely from smoking. Patient has a pending blood work (5) Multiple polyps of sigmoid colon: Comment: June 2023 Code(s): K63.5 - Polyp of colon Plan: patient will ff up with pipe liner. Was told in 3 years (6) Generalized anxiety disorder: Code(s): F41.1 - Generalized anxiety disorder Plan: Refill done on clonazepam (7) Obesity (BMI 30.0-34.9): Code(s): E66.9 - Obesity, unspecified Plan: Diet and exercise. Prescription sent Medications: New cholecalciferol (vitamin D3) 50 mcg PO DAILY 90 days 90 caps 3RF E55.9 - Vitamin D deficiency, unspecified, E66.9 - Obesity, unspecified tirzepatide (weight loss) (Zepbound) 2.5 mg (0.5 mL) subcut QWEEK 4 weeks 2 mL 0RF E66.9 - Obesity, unspecified Refilled clonazepam 0.5 mg PO TID 30 days PRN 75 tabs 1RF anxiety F41.9 - Anxiety disorder, unspecified Discontinued cholecalciferol (vitamin D3) Discontinued Reason: Doctor's Order 1,250 mcg PO QWEEK 90 days 13 caps 1RF E55.9 - Vitamin D deficiency, unspecified Coding Level of Care Code Est Pt Level 4 (25538) Diagnoses Cellulitis of left hand L03.114 Dog bite W54.0XXA Tobacco abuse Z72.0 Erythrocytosis D75.1 Multiple polyps of sigmoid colon K63.5 Generalized anxiety disorder F41.1 Obesity (BMI 30.0-34.9) E66.9
== END 2023-07-25 17:21 | disposition home or self-care (01) ==
PROVIDERS: PCP Internal Medicine; Visit Provider Internal Medicine
DX: F41.1 Generalized anxiety disorder (principal); E66.9 Obesity, unspecified; Z68.31 Body mass index [BMI] 31.0-31.9, adult; Z72.0 Tobacco use; D75.1 Secondary polycythemia; K63.5 Polyp of colon
CPT/HCPCS: 99214

== ENCOUNTER 2023-08-01 14:59 | Outpatient (AMB) | payer BC, SELFPAY ==
[2023-08-01 15:04] VITALS: BP 120/70; PULSE 96; BMI 31.8
--- NOTE | 2023-08-01 15:04 | MHC.OFFVIS ---
Vital Signs 08/01/23 15:04 Height 5 ft 5 in Weight 190 lb 14.725 oz BMI 31.8 BP 120/70 Blood Pressure Location Lt brachial Position Sitting Pulse 96 Pulse Source Pulse Oximeter Intake Visit Reasons: 4 mth f/up Straightener Required: No Accompanied by: Self / Same As Patient Allergies hydrochlorothiazide Allergy (Unknown, Verified 07/25/23 16:14) Leg cramps lisinopril Allergy (Unknown, Verified 07/25/23 16:14) Cough sulfamethoxazole [From Bactrim] Allergy (Verified 07/25/23 16:14) Anaphylaxis trimethoprim [From Bactrim] Allergy (Verified 07/25/23 16:14) Anaphylaxis Medication List - Last Reconciled 08/01/23 by Giuliano Shelton MD albuterol sulfate 90 mcg/actuation 2 inhalations inhalation Q4-6H PRN amlodipine 10 mg PO DAILY 90 days carvedilol 6.25 mg PO BID cholecalciferol (vitamin D3) 50 mcg PO DAILY 90 days clonazepam 0.5 mg PO TID PRN 30 days fenofibrate 160 mg PO DAILY gentamicin 0.3% 1 drp ophthalmic (eye) TID 5 days HPI Comments Details: 57-year-old female here for follow-up. She was seen for chest pain previously. She was referred for stress echocardiogram. She underwent stress test on 12/18/2019 which she was able to exercise for 8 minutes achieving 10.[address] No abnormal ST-T changes were noticed on the EKG and no significant wall motion abnormalities were noticed pre and post stress. She is here for follow-up today. Blood pressure is 142/84. She has been taking amlodipine 2 times a week. She was started on Toprol by Dr. Romero but she has not started Toprol yet. She is worried that her blood pressure may drop from it. She has no chest pain or shortness of breath. She is very anxious and seems quite stressed. She is saying that she is stressed at work all the time. 11/08/22/: She returns for follow-up. She has been taking amlodipine 10 mg daily and Toprol-XL 25 mg at bedtime. She said her blood pressure readings have been high and at work specially when she is under stress blood pressure readings at are as high as 200/130. She also has been experiencing some pressure-like feeling in her chest which is again random and can happen at any time. She was experiencing it during the office visit today too. She has significant is ID and has been using clonazepam as needed. She was given sertraline but could not tolerate it. She has never tried bupropion before. March 2023: She returns for follow-up. She continues to have mildly elevated blood pressures. She said she did not greens picker carvedilol. We will send a script for her and she plans to pick it up and start taking it. She continues to get chest pains off and on. These are usually nonexertional. She also is complaining of fatigue and tiredness. She gets out of breath easily. 08/01/23: She returns for follow-up. Blood pressure is better controlled while she is taking amlodipine and carvedilol 6.25 mg twice a day. On last visit we discussed about doing stress echocardiogram. She is saying that she needs to arrange it in [facility] because the her insurance will not cover it. We will arrange a date [facility]. She continues to get some chest tightness off and on. No background history of asthma. [facility] Medical History (Updated 07/25/23 @ 16:40 by Tariq Romero MD) High cholesterol High blood pressure Alcohol abuse, in remission Neck pain Leg pain COVID-19 virus infection Family history of cancer Surgical History History of fusion of cervical spine H/O: hysterectomy Family History Father Diabetes Prostate cancer HTN (hypertension) CVD (cardiovascular disease) Mother HTN (hypertension) Cervical cancer Lung cancer Maternal Grandmother Lung cancer Daughter In good health Daughter No problems noted. Brother In good health Son No problems noted. Social History Housing: House Alcohol intake: current Alcohol intake frequency: holidays/special occasions only Patient Tobacco Use Status: Current everyday Tobacco user Tobacco use type: Cigarette Cigarette Packs Per Day: 1 Years Smoked: 40 +/- e-Cigarette/Vaping Use: Never Used Second Hand Smoke Exposure: No service: No Current occupational status: employed Cognitive needs: No Hearing needs: No Vision needs: No Review of Systems Const Denies chills, Denies fatigue, Denies fever(s), Denies frequent falls, Denies weakness, Denies weight gain and Denies weight loss ENT Denies dizziness Card Denies chest pain, Denies leg edema, Denies lightheadedness, Denies palpitations, Denies dyspnea and Denies dyspnea on exertion Resp Denies cough, Denies dyspnea and Denies dyspnea on exertion GI Denies hematochezia Musc Denies abnormal gait, Denies muscle weakness, Denies numbness, Denies radiating pain into limb and Denies tingling Neuro Denies abnormal gait, Denies dizziness, Denies frequent falls, Denies numbness, Denies tingling and Denies weakness Endo Denies fatigue and Denies palpitations Physical Exam Vital Signs: Last Vital Signs Pulse 96 08/01/23 15:04 BP 120/70 08/01/23 15:04 BMI result Body Mass Index 31.8 GENERAL APPEARANCE: in no acute distress, pleasant. NECK: no carotid bruit, no jugular venous distention. SKIN: no suspicious lesions, warm and dry. HEART: no murmurs, regular rate and rhythm. LUNGS: clear to auscultation bilaterally. ABDOMEN: soft, nontender. EXTREMITIES: no edema. PERIPHERAL PULSES: equal. NEUROLOGIC: No gross deficits, AAO X 3 Assessment & Plan Assessment & Plan (1) Hypertension: Code(s): I10 - Essential (primary) hypertension Category: Medical Qualifiers: Hypertension type: essential hypertension Qualified Code(s): I10 - Essential (primary) hypertension (2) Dyspnea: Code(s): R06.00 - Dyspnea, unspecified Category: Medical (3) Chest pain: Code(s): R07.9 - Chest pain, unspecified Category: Medical Plan Pleasant 57 year female who is here for follow-up. Blood pressure is better controlled on amlodipine and carvedilol. She will continue both medications going forward. In terms of her chest discomfort and shortness of breath with activity, or plan was do a stress echocardiogram. She works at [employer] in insurance would not cover stress testing in another hospital. We will arrange stress echocardiogram at [facility]. She will follow-up with us in 4 months. Thank you for allowing me to participate in the care of your patient. Please feel free to contact me if you have any questions. Coding Level of Care Code Est Pt Level 4 (18705) Diagnoses Essential hypertension I10 Hypertension type: essential hypertension Dyspnea R06.00 Chest pain R07.9
== END 2023-08-01 15:23 | disposition home or self-care (01) ==
PROVIDERS: PCP Internal Medicine; Visit Provider Internal Medicine Cardiovascular Disease
DX: I10 Essential (primary) hypertension (principal); R06.00 Dyspnea, unspecified; R07.9 Chest pain, unspecified
CPT/HCPCS: 99214

== ENCOUNTER → 2023-08-01 14:59 | Outpatient (BNVA) | payer BC, SELFPAY | PROVIDERS: PCP Internal Medicine; Visit Provider Internal Medicine Cardiovascular Disease ==

== ENCOUNTER 2023-10-25 13:53 | Outpatient (AMB) | payer BC, SELFPAY ==
--- NOTE | 2023-10-25 14:03 | A.OFFPC_ITS ---
Vital Signs 10/25/23 14:05 Height 5 ft 5 in Weight 192 lb 0.3 oz BMI 32.0 BP 140/92 H Blood Pressure Location Lt brachial Position Sitting Pulse 90 Pulse Source Pulse Oximeter Pulse Oximetry (%) 98 Oxygen Delivery Method Room Air Intake Visit Reasons: [facility] 10/16 Intake Note: Patient is here for hospital discharge follow up. Patient was [facility] from [facility] on 10/17/2023 Miner Required: No Allergies hydrochlorothiazide Allergy (Unknown, Verified 10/25/23 14:09) Leg cramps lisinopril Allergy (Unknown, Verified 10/25/23 14:09) Cough sulfamethoxazole [From Bactrim] Allergy (Verified 10/25/23 14:09) Anaphylaxis trimethoprim [From Bactrim] Allergy (Verified 10/25/23 14:09) Anaphylaxis Medication List - Last Reconciled 10/25/23 by Rhonda Gallardo PA-C albuterol sulfate 90 mcg/actuation 2 inhalations inhalation Q4-6H PRN amlodipine 10 mg PO DAILY 90 days carvedilol 6.25 mg PO BID cholecalciferol (vitamin D3) 50 mcg PO DAILY 90 days clonazepam 0.5 mg PO TID PRN 30 days fenofibrate 160 mg PO DAILY gentamicin 0.3% 1 drp ophthalmic (eye) TID 5 days Tobacco use date assessed: 04/16/23 Dental Screening Dental Screen Date: 04/16/23 HPI [facility] 10/16 HPI Details 58-year-old female with past medical his tory hypertension, hypercholesterolemia, generalized anxiety disorder, fatty liver, and pulmonary lung nodule last seen by Dr. Romero 07/2023 coming in for hospital discharge follow up.? In review of the notes, patient presented to [place] ED for evaluation of abdominal pain.? CT renal stone was negative, EKG, labs, urine were all negative.? Patient was discharged home on Keflex for interstitial cystitis. She tells us today her symptoms started three weeks ago with urinary frequency, fullness in the suprapubic area and low back pain. She was seen in urgent care and the following day went to the ER. After being discharged from the ER she was seen by outpatient urology who she met with and told her to drink more water as she was likely passing kidney stoned. On her last CT she had small renal calculi within the kidney with no evidence of habing passed a kidney stone. She is still having continued pelvic pressure which is 10/10 without pain or low back pain. She also mentions she has the urge to urinate and then only passes small amounts of urine. She also continues to have random sharp pains that migrate around the abdomen and back. Also mentioned she has been having diarrhea during this time. [facility] Medical History (Updated 10/25/23 @ 15:02 by Rhonda Gallardo PA-C) High cholesterol High blood pressure Alcohol abuse, in remission Neck pain Leg pain COVID-19 virus infection Family history of cancer Surgical History History of fusion of cervical spine H/O: hysterectomy Family History Father Diabetes Prostate cancer HTN (hypertension) CVD (cardiovascular disease) Mother HTN (hypertension) Cervical cancer Lung cancer Maternal Grandmother Lung cancer Daughter In good health Daughter No problems noted. Brother In good health Son No problems noted. Social History Housing: House Alcohol intake: current Alcohol intake frequency: holidays/special occasions only Patient Tobacco Use Status: Current everyday Tobacco user Tobacco use type: Cigarette Cigarette Packs Per Day: 1 Years Smoked: 40 +/- e-Cigarette/Vaping Use: Never Used Second Hand Smoke Exposure: No service: No Current occupational status: employed Cognitive needs: No Hearing needs: No Vision needs: No Questionnaire Thrive Questionnaire Date Thrive assessed: 08/05/21 AUDIT C Alcohol Use Questionnaire (AUDIT-C) 1. How often do you have a drink containing alcohol?: Never 3. How often do you have six or more drinks on one occasion?: Never Total Score: 0 Score Reviewed/Action Taken: No FREDY-7 AMB Questionnaire FREDY-7 Date FREDY - 7 assessed: 04/16/23 Source: Developed by Drs. Rome Grullon, Ginny Reyes, Nikko Mahajan and colleagues, with an educational rodney from [employer]. Review of Systems Const Denies body aches, Denies chills, Denies fever(s) and Denies poor appetite Eyes Reports no additional complaints ENT Denies dizziness Card Denies chest pain, Denies syncope, Denies edema, Denies irregular heart rhythm, Denies lightheadedness and Denies dyspnea Resp Denies cough and Denies dyspnea GI Reports abdominal pain (Random shooting pain), Denies constipation, Reports diarrhea (Fatty stools), Reports nausea and Denies vomiting Reports as per HPI Musc Reports no additional complaints and Denies abnormal gait Skin/Breast Reports system reviewed and no additional complaints, except as documented Neuro Denies abnormal gait, Denies dizziness and Denies syncope Psych Reports no additional complaints Physical exam (Primary Care) Tobacco/Smoking Status: Tobacco use Status Tobacco use date assessed 04/16/23 07/25/23 16:15 Patient Tobacco Use Status Current everyday Tobacco 07/25/23 16:15 Tobacco use type Cigarette 07/25/23 16:15 e-Cigarette/Vaping Use Never Used 07/25/23 16:15 Thrive Assessment: Date of Thrive Assessment Date Thrive assessed 08/05/21 07/25/23 16:15 Const General: cooperative, healthy appearing, comfortable and no acute distress Orientation/consciousness: patient oriented x3 HENMT Head: Yes normocephalic Ears: hearing grossly normal bilaterally General nose exam: Normal external nose present Eyes General: appearance normal, both eyes and all related structures Conjunctivae: conjunctivae normal Neck Neck: Yes full ROM and Yes no lymphadenopathy Resp Effort & Inspection: normal respiratory effort Auscultation: clear to auscultation bilaterally, no crackles, no rales, no rhonchi and no wheezes Cardio Rate: regular rate Rhythm: regular rhythm GI Other: Pain to palpation in left upper quadrant no pain to palpation in suprapubic area. Palpation (GI): Soft to palpation, no guarding, not rigid and No Rebound tenderness present General: Yes CVA tenderness on the left Back/Spine/Pelvis Back: CVA tenderness Skin General skin exam: no rashes or lesions noted Neuro General: patient oriented x3 Gait exam (Neuro): Normal gait present Extrem General: Yes normal to inspection, Yes full ROM and No edema Psych Affect: normal affect Attitude: cooperative Insight: Good insight present (Psych) Judgement: Good judgement present (Psych) Assessment and Plan Assessment & Plan (1) Suprapubic pressure: Code(s): R10.2 - Pelvic and perineal pain Plan: Patient has been having 3 weeks of suprapubic pressure that has been evaluated by multiple providers. Patient finishing a course of antibiotics for presumed UTI. Urine was negative while in the ER. Patient did see outpatient urologist who diagnosed with kidney stones. The CT showed evidence of renal calculi within the right kidney and no evidence of passing a kidney stone. She did continue to have blood in the urine as well as left-sided CVA tenderness. Per ER notes suspecting interstitial cystitis. We will refer urgently to Urology due to continued pain. Urinalysis with culture ordered. Zofran given for nausea associated with pressure. (2) Diarrhea: Code(s): R19.7 - Diarrhea, unspecified Plan: Patient has been having greasy, fatty, floating diarrhea for the past 3 weeks. She denies any known trigger and does not associate it with food or eating. Most recent colonoscopy was negative for inflammation and 7 polyps were removed which were all benign. Advised patient to reach out to carbon dioxide operator to schedule follow up. Plan This note was constructed using voice recognition software. While every effort has been made to ensure accuracy and wood dowel machine operator, still areas may have been included sometimes these areas may affect the content or meeting of the given symptoms. Total time spent caring for the patient today was 30 minutes. This includes time spent before the visit reviewing the chart, time spent during the visit, and time spent after the visit and documentation. Orders: Orders UA CC w/rflx Micro + Cult Today R10.2 - Pelvic and perineal pain Referrals Urology Referral R10.2 - Pelvic and perineal pain COSMETICS MACHINE OPERATOR Referral Z00.00 - Encounter for general adult medical examination without abnormal findings Medications: New ondansetron 4 mg PO Q8H PRN 14 tabs 0RF nausea and vomiting Coding Level of Care Code Est Pt Level 4 (63553) Diagnoses Suprapubic pressure R10.2 Diarrhea R19.7
[2023-10-25 14:05] VITALS: BP 140/92; PULSE 90; O2SAT 98; BMI 32.0
== END 2023-10-25 14:52 | disposition home or self-care (01) ==
PROVIDERS: PCP Internal Medicine
DX: R10.2 Pelvic and perineal pain (principal); R19.7 Diarrhea, unspecified
CPT/HCPCS: 99214

== ENCOUNTER 2023-11-30 16:14 | Outpatient (AMB) | payer BC, SELFPAY ==
--- NOTE | 2023-11-30 16:15 | A.OFFPC_ITS ---
Vital Signs 11/30/23 16:16 11/30/23 16:48 Height 5 ft 5 in Weight 190 lb BMI 31.6 BP 142/82 H 136/84 Blood Pressure Location Lt brachial Lt brachial Position Sitting Sitting Pulse 88 Pulse Source Pulse Oximeter Pulse Oximetry (%) 96 Oxygen Delivery Method Room Air Intake Visit Reasons: PE Aesthetics Instructor Required: No Accompanied by: Self / Same As Patient Allergies hydrochlorothiazide Allergy (Unknown, Verified 11/30/23 16:18) Leg cramps lisinopril Allergy (Unknown, Verified 11/30/23 16:18) Cough sulfamethoxazole [From Bactrim] Allergy (Verified 11/30/23 16:18) Anaphylaxis trimethoprim [From Bactrim] Allergy (Verified 11/30/23 16:18) Anaphylaxis Medication List - Last Reconciled 11/30/23 by Tariq Romero MD albuterol sulfate 90 mcg/actuation 2 inhalations inhalation Q4-6H PRN amlodipine 10 mg PO DAILY 90 days carvedilol 6.25 mg PO BID 90 days cholecalciferol (vitamin D3) 50 mcg PO DAILY 90 days clonazepam 0.5 mg PO TID PRN 30 days fenofibrate 160 mg PO DAILY Tobacco use date assessed: 04/16/23 Dental Screening Dental Screen Date: 04/16/23 HPI PE HPI Details 58-year-old obese female smoker with hyp ertension hypercholesterolemia generalized anxiety disorder, nephrolithiasis coming in for physical exam last seen in 10/25/2023. Patient had abdominal pain noted to have a renal calculi in the right kidney treated as interstitial cystitis. Referred to urology. Patient's mammogram is due, colonoscopy is up-to-date 08/06/2023. Patient did see Urology November 07 advise cystoscopy. Patient has also seen Cardiology patient has been placed on amlodipine and carvedilol for the blood pressure patient was advised to get a stress echocardiogram but will need to be in another hospital. cystoscopy end of the month, nausea, occ wakes up decline controller inhaler, gerd problem decline workup and med diarrhea greasy stools- ahd USn done liver and waiting [facility] Medical History (Updated 11/30/23 @ 16:44 by Tariq Romero MD) High cholesterol High blood pressure Alcohol abuse, in remission Neck pain Leg pain COVID-19 virus infection Family history of cancer Surgical History History of fusion of cervical spine H/O: hysterectomy Family History (Updated 11/30/23 @ 16:52 by Tariq Romero MD) Father Diabetes Prostate cancer HTN (hypertension) CVD (cardiovascular disease) Mother HTN (hypertension) Cervical cancer Lung cancer Maternal Grandmother Lung cancer Daughter In good health Daughter No problems noted. Brother In good health Son No problems noted. Maternal Grandfather Leukemia Paternal Grandfather CVD (cardiovascular disease) Paternal Aunt CVD (cardiovascular disease) Social History (Updated 11/30/23 @ 16:52 by Tariq Romero MD) Housing: House Alcohol intake: former Comment: 2021 Patient Tobacco Use Status: Current everyday Tobacco user Tobacco use type: Cigarette Cigarette Packs Per Day: 1 Cigarettes Per Day: 10 Years Smoked: 40 +/- e-Cigarette/Vaping Use: Never Used Second Hand Smoke Exposure: No service: No Current occupational status: employed Cognitive needs: No Hearing needs: No Vision needs: No Questionnaire PHQ-9 Over the last 2 weeks, how often have you been bothered by any of the following problems? 1. Little interest or pleasure in doing things: not at all 2. Feeling down, depressed, or hopeless: not at all 3. Trouble falling or staying asleep, or sleeping too much: not at all 4. Feeling tired or having little energy: not at all 5. Poor appetite or overeating: not at all 6. Feeling bad about yourself - or that you are a failure or have let yourself or your family down: not at all 7. Trouble concentrating on things, such as reading the newspaper or watching television: not at all 8. Moving or speaking so slowly that other people could have noticed. Or the opposite - being so fidgety or restless that you have been moving around a lot more than usual: not at all 9. Thoughts that you would be better off or of hurting yourself in some way: not at all Total score: 0 Depression Screening Interpretation: Negative Depression Screening Done: Yes 31218 - PHQ-9 Billing: Yes Source: Developed by Drs. Rome Grullon, Ginny Reyes, Nikko Mahajan and colleagues, with an educational rodney from [employer]. Thrive Questionnaire Date Thrive assessed: 11/30/23 I am a: Patient What is your living situation today?: I have a steady place to live Within the past 12 months, did the food you bought not last and you didn't have the money to get more?: I choose not to answer this question Within the past 12 months, did you worry whether your food would run out before you got money to buy more?: I choose not to answer this question Do you have trouble paying for medicines?: No Do you have trouble getting transportation to medical appointments?: No Do you have trouble paying your heating and electricity bill?: No Do you have trouble taking care of your child, family member or friend?: No Do you have trouble with day-to-day activities such as bathing, preparing meals, shopping, managing finances, etc.?: No Are you currently unemployed and looking for a job?: No Are you interested in more education?: No Please select the resources that you would like help with: None Currently or been in a relationship where the following occur: No concerns reported THRIVE Score: 0 AUDIT C Alcohol Use Questionnaire (AUDIT-C) 1. How often do you have a drink containing alcohol?: Never Total Score: 0 FREDY-7 AMB Questionnaire FREDY-7 Date FREDY - 7 assessed: 04/16/23 Feeling nervous, anxious, or on edge: 1 = Several days Not being able to stop or control worryin = Several days Worrying too much about different things: 0 = Not at all Trouble relaxin = Several days Being so restless that it is hard to sit still: 0 = Not at all Becoming easily annoyed or irritable: 0 = Not at all Feeling afraid as if something awful might happen: 0 = Not at all Total FREDY-7 score (0-4 normal; 5-9 mild; 10-14 moderate; 15-21 severe): 3 Source: Developed by Drs. Rome Grullon, Ginny Reyes, Nikko Mahajan and colleagues, with an educational rodney from [employer]. Review of Systems Const Denies poor appetite and Denies weakness Eyes Denies no additional complaints ENT Reports Normal hearing present, Denies dizziness, Denies nasal congestion, Denies tinnitus and Denies sore throat Card Denies chest pain, Denies syncope, Denies rapid heart rate and Denies dyspnea Resp Denies cough and Denies dyspnea GI Denies change in stool character, Reports constipation, Denies diarrhea, Denies nausea and Denies vomiting Denies urinary frequency, Denies difficulty voiding and Denies dysuria Neuro Reports Normal hearing present, Denies confusion, Denies dizziness, Denies syncope and Denies weakness Psych Denies confusion Physical exam (Primary Care) Vital Signs: Last Vital Signs Pulse 88 11/30/23 16:16 BP 142/82 H 11/30/23 16:16 Pulse Ox 96 11/30/23 16:16 Oxygen Delivery Method Room Air 11/30/23 16:16 BMI result Body Mass Index 31.6 Tobacco/Smoking Status: Tobacco use Status Tobacco use date assessed 04/16/23 11/30/23 16:21 Patient Tobacco Use Status Current everyday Tobacco 11/30/23 16:21 Tobacco use type Cigarette 11/30/23 16:21 e-Cigarette/Vaping Use Never Used 11/30/23 16:21 PHQ-9: PHQ-9 Score PHQ-9: Total score 0 11/30/23 16:21 Depression Screening Interpretation: Negative Thrive Assessment: Date of Thrive Assessment Date Thrive assessed 11/30/23 11/30/23 16:21 Currently or been in a relationship where the following occur: No concerns reported Const General: No confusion Orientation/consciousness: No confusion HENMT Head: Yes normocephalic Ears: external ears normal and TM's normal bilaterally Face and sinus: Yes normal facial exam Mouth: moist mucous membranes Throat: Yes tonsils normal Eyes Conjunctivae: conjunctivae normal Pupils: Equal, round and reactive pupils present and Pupil accommodation reflex normal Direct Ophthalmoscopy: normal light reflex Neck Neck: No lymphadenopathy Thyroid: Thyroid normal Chest Chest palpation & inspection: normal inspection of the chest Resp Effort & Inspection: normal respiratory effort and no audible wheezes Auscultation: clear to auscultation bilaterally, no crackles, no wheezes and lung sounds not diminished Cardio Rate: regular rate Rhythm: regular rhythm Peripheral pulses: radial pulses present and dorsalis pedis present GI Palpation (GI): no masses Auscultation: normal bowel sounds and normoactive bowel sounds Rectal Exam - Female: deferred Skin General skin exam: no rashes or lesions noted Rashes: no rashes Neuro General: No confusion Cranial nerves: Yes Equal, round and reactive pupils present and Yes Normal hearing present Cognition (Neuro): normal cognition Gait exam (Neuro): Normal gait present Motor exam (neuro): 5/5 motor strength present throughout Deep tendon reflexes (DTR's): Right brachioradialis reflex intensity grade: 2+, Left brachioradialis reflex intensity grade: 2+, Right patellar reflex intensity grade: 2+ and Left patellar reflex intensity grade: 2+ Extrem General: No edema Assessment and Plan Assessment & Plan (1) Annual physical exam: Code(s): Z00.00 - Encounter for general adult medical examination without abnormal findings Plan: Patient is advised to eat healthy, keep well hydrated, keep active and have adequate sleep. (2) Tobacco abuse: Comment: Lung cancer screening program November 2021 Code(s): Z72.0 - Tobacco use Plan: patient was strongly advised to stop smoking! Patient is not ready to stop smoking and declined any help (3) Hypertension: Code(s): I10 - Essential (primary) hypertension Qualifiers: Hypertension type: essential hypertension Qualified Code(s): I10 - Essential (primary) hypertension Plan: Continue with blood pressure medication. Decrease salt intake and exercise on amlodipine 10 mg once a day and carvedilol 6.25 mg twice a day. Declined getting a blood pressure monitor to check blood pressure. Will just continue to have her follow-up to check blood pressure. (4) Hypercholesterolemia: Code(s): E78.00 - Pure hypercholesterolemia, unspecified Plan: Avoid fried foods, chicken skin, eggs, butter margarine, pastries and meat. Be it pork or beef they have a lot of cholesterol LDL goal of less than 130 and triglyceride of less than 150. Patient needs a repeat blood work as last blood work was earlier this year. Patient is advised to get blood work done for cholesterol (5) Generalized anxiety disorder: Code(s): F41.1 - Generalized anxiety disorder Plan: Continue with present medication. Declined any referral for counseling (6) Nephrolithiasis: Comment: February 2022 right renal calculi multiple Code(s): N20.0 - Calculus of kidney Plan: Keep well hydrated patient follows up with urology and will have cystoscopy done . (7) Fatty liver: Code(s): K76.0 - Fatty (change of) liver, not elsewhere classified Plan: Low-fat diet and exercise. Patient follows up with Gastroenterology also (8) Breast cancer screening by mammogram: Code(s): Z12.31 - Encounter for screening mammogram for malignant neoplasm of breast Plan: Reminded about mammogram (9) Erythrocytosis: Code(s): D75.1 - Secondary polycythemia Plan: Patient follows up with Hematology-Oncology and blood count most likely from [facility] (10) Obesity (BMI 30.0-34.9): Code(s): E66.9 - Obesity, unspecified Plan: Diet and exercise Coding Level of Care Code Est Pt Prev Care 40-64y(38679) Diagnoses Annual physical exam Z00.00 Tobacco abuse Z72.0 Essential hypertension I10 Hypertension type: essential hypertension Hypercholesterolemia E78.00 Generalized anxiety disorder F41.1 Nephrolithiasis N20.0 Fatty liver K76.0 Breast cancer screening by mammogram Z12.31 Erythrocytosis D75.1 Obesity (BMI 30.0-34.9) E66.9
[2023-11-30 16:16] VITALS: BP 142/82; PULSE 88; O2SAT 96; BMI 31.6
[2023-11-30 16:48] VITALS: BP 136/84
== END 2023-11-30 17:11 | disposition home or self-care (01) ==
PROVIDERS: PCP Internal Medicine; Visit Provider Internal Medicine
DX: Z00.00 Encounter for general adult medical examination without abnormal findings (principal); F17.210 Nicotine dependence, cigarettes, uncomplicated; I10 Essential (primary) hypertension; E78.00 Pure hypercholesterolemia, unspecified; F41.1 Generalized anxiety disorder; N20.0 Calculus of kidney; K76.0 Fatty (change of) liver, not elsewhere classified; Z12.31 Encounter for screening mammogram for malignant neoplasm of breast; D75.1 Secondary polycythemia; E66.9 Obesity, unspecified
CPT/HCPCS: 99396

== ENCOUNTER 2024-04-01 15:48 | Outpatient (AMB) | payer BC, SELFPAY ==
--- NOTE | 2024-04-01 15:50 | MHC.PC.OV ---
Vital Signs 04/01/24 15:52 Height 5 ft 5 in Weight 192 lb BMI 31.9 BP 112/72 Blood Pressure Location Lt brachial Position Sitting Pulse 99 Pulse Source Pulse Oximeter Temp 97.1 F Temp Source Skin Pulse Oximetry (%) 94 Oxygen Delivery Method Room Air Intake Visit Reasons: abnormal lab results follow up Intake Note: Patient is here to follow up on abnormal lab result. Roofer Helper Required: No Die Cutter Diamond: Not Required per policy Accompanied by: Self / Same As Patient Allergies hydrochlorothiazide Allergy (Unknown, Verified 04/01/24 15:52) Leg cramps lisinopril Allergy (Unknown, Verified 04/01/24 15:52) Cough sulfamethoxazole [From Bactrim] Allergy (Verified 04/01/24 15:52) Anaphylaxis trimethoprim [From Bactrim] Allergy (Verified 04/01/24 15:52) Anaphylaxis Tobacco use date assessed: 04/01/24 Dental Screening Dental Screen Date: 04/01/24 Did you have a dental visit in the last 12 months?: Yes Did you have a dental problem in the last 6 months where you did not have access to dental care?: No Was dental information given to patient?: Patient has dentist HPI abnormal lab results follow up HPI Details The patient is a 58-year-old female presenting with hyperlipidemia and fatty liver disease. The patient has a history of elevated cholesterol and hypertriglyceridemia, for which she is currently on fenofibrate; however, her triglycerides remain elevated, and her LDL cholesterol is at 131, which is above the recommended level for patients with existing atherosclerosis. The patient admits to being able to make improvements in managing her cholesterol levels. She has been diagnosed with fatty liver disease, identified during previous hospital visits following falls, which required several CT scans and an MRI. These liver findings have shown elevated liver enzymes in the past, but recent tests indicate improvement. The patient also has a history of aortic atherosclerosis, with weight and cholesterol levels recognized as contributing issues. Additionally, she reports a small umbilical hernia detected during imaging, causing no pain but requiring her to be cautious with lifting activities. She also has a history of polycythemia, with hematology advice to undergo phlebotomy due to a reported red blood cell count of 19. The patient acknowledges her smoking habit but remains unsure about cessation. The patient has been reminded about the importance of dietary regulation and regular physical activities. She is also aware of the necessary follow-ups with different specialists, including hematology and urology. Her family members are noted to be involved in her healthcare discussions, notably her [id number], who is completing her medical residency. [facility] Medical History (Updated 04/01/24 @ 16:07 by Tariq Romero MD) High cholesterol High blood pressure Alcohol abuse, in remission Neck pain Leg pain COVID-19 virus infection Family history of cancer Surgical History History of fusion of cervical spine H/O: hysterectomy Family History Father Diabetes Prostate cancer HTN (hypertension) CVD (cardiovascular disease) Mother HTN (hypertension) Cervical cancer Lung cancer Maternal Grandmother Lung cancer Daughter In good health Daughter No problems noted. Brother In good health Son No problems noted. Maternal Grandfather Leukemia Paternal Grandfather CVD (cardiovascular disease) Paternal Aunt CVD (cardiovascular disease) Social History Housing: House Alcohol intake: former Comment: 2021 Patient Tobacco Use Status: Current everyday Tobacco user Tobacco use type: Cigarette Cigarette Packs Per Day: 0.5 Cigarettes Per Day: 10 Years Smoked: 40 +/- e-Cigarette/Vaping Use: Never Used Second Hand Smoke Exposure: Yes service: No Current occupational status: employed Cognitive needs: No Hearing needs: No Vision needs: No Questionnaire PHQ-9 Over the last 2 weeks, how often have you been bothered by any of the following problems? 1. Little interest or pleasure in doing things: not at all 2. Feeling down, depressed, or hopeless: not at all 3. Trouble falling or staying asleep, or sleeping too much: not at all 4. Feeling tired or having little energy: not at all 5. Poor appetite or overeating: not at all 6. Feeling bad about yourself - or that you are a failure or have let yourself or your family down: not at all 7. Trouble concentrating on things, such as reading the newspaper or watching television: not at all 8. Moving or speaking so slowly that other people could have noticed. Or the opposite - being so fidgety or restless that you have been moving around a lot more than usual: not at all 9. Thoughts that you would be better off or of hurting yourself in some way: not at all Total score: 0 Depression Screening Interpretation: Negative Depression Screening Done: Yes Source: Developed by Drs. Rome Grullon, Nikko Shi and colleagues, with an educational rodney from [employer]. Thrive Questionnaire Date Thrive assessed: 04/01/24 AUDIT C Alcohol Use Questionnaire (AUDIT-C) 1. How often do you have a drink containing alcohol?: Never Total Score: 0 FREDY-7 AMB Questionnaire FREDY-7 Date FREDY - 7 assessed: 04/01/24 Feeling nervous, anxious, or on edge: 2 = More than half the days Not being able to stop or control worryin = Not at all Worrying too much about different things: 0 = Not at all Trouble relaxin = Not at all Being so restless that it is hard to sit still: 0 = Not at all Becoming easily annoyed or irritable: 0 = Not at all Feeling afraid as if something awful might happen: 0 = Not at all Total FREDY-7 score (0-4 normal; 5-9 mild; 10-14 moderate; 15-21 severe): 2 Source: Developed by Drs. Rome Grullon, Ginny Reyes, Nikko Mahajan and colleagues, with an educational rodney from [employer]. Physical exam (Primary Care) Vital Signs: Last Vital Signs Temp 97.1 F 04/01/24 15:52 Pulse 99 04/01/24 15:52 BP 112/72 04/01/24 15:52 Pulse Ox 94 04/01/24 15:52 Oxygen Delivery Method Room Air 04/01/24 15:52 BMI result Body Mass Index 31.9 Tobacco/Smoking Status: Tobacco use Status Tobacco use date assessed 04/01/24 04/01/24 15:59 Patient Tobacco Use Status Current everyday Tobacco 04/01/24 15:59 Tobacco use type Cigarette 04/01/24 15:59 e-Cigarette/Vaping Use Never Used 04/01/24 15:59 PHQ-9: PHQ-9 Score PHQ-9: Total score 0 04/01/24 15:59 Depression Screening Interpretation: Negative Thrive Assessment: Date of Thrive Assessment Date Thrive assessed 04/01/24 04/01/24 15:59 Const General: alert; No acute distress Eyes Conjunctivae: conjunctivae normal Resp Auscultation: clear to auscultation bilaterally Cardio Rate: regular rate Rhythm: regular rhythm GI Inspection: Yes normal to inspection Extrem General: Yes normal to inspection and No edema Coding Level of Care Code Est Pt Level 4 (74560) Complex EM visit Add On G2211 Diagnoses Obesity (BMI 30.0-34.9) E66.9 Erythrocytosis D75.1 Tobacco abuse Z72.0 Nephrolithiasis N20.0 Fatty liver K76.0 Hypercholesterolemia E78.00 Essential hypertension I10 Hypertension type: essential hypertension Atherosclerosis I70.90 Umbilical hernia K42.9 Assessment & Plan Assessment & Plan (1) Obesity (BMI 30.0-34.9): Code(s): E66.9 - Obesity, unspecified Category: Medical (2) Erythrocytosis: Code(s): D75.1 - Secondary polycythemia Category: Medical (3) Tobacco abuse: Comment: Lung cancer screening program November 2021 Code(s): Z72.0 - Tobacco use Category: Medical (4) Nephrolithiasis: Comment: February 2022 right renal calculi multiple Code(s): N20.0 - Calculus of kidney Category: Medical (5) Fatty liver: Code(s): K76.0 - Fatty (change of) liver, not elsewhere classified Category: Medical (6) Hypercholesterolemia: Code(s): E78.00 - Pure hypercholesterolemia, unspecified Category: Medical (7) Hypertension: Code(s): I10 - Essential (primary) hypertension Category: Medical Qualifiers: Hypertension type: essential hypertension Qualified Code(s): I10 - Essential (primary) hypertension (8) Atherosclerosis: Comment: aortic Code(s): I70.90 - Unspecified atherosclerosis Category: Medical (9) Umbilical hernia: Code(s): K42.9 - Umbilical hernia without obstruction or gangrene Category: Medical Plan - Monitor and manage hyperlipidemia with continued use of fenofibrate and ensure dietary changes for improved cholesterol levels. - Encourage smoking cessation, offering pharmacological support such as patches or gum if desired. - Advise careful activity to prevent exacerbation of the umbilical hernia; avoid heavy lifting. - Follow up with hematology for management of polycythemia, considering phlebotomy as advised. - Regular monitoring of liver function tests to track the status of fatty liver disease. - Continue with preventative care measures, such as regular blood work, low-dose CAT scans, and mammograms. - Reinforce the need for dietary and lifestyle changes to support overall health and specifically target atherosclerosis. - Monitor immunizations and encourage necessary vaccinations for flu, pneumonia, and other seasonal diseases. Orders: Orders Free T4 (Free Thyroxine) Today E78.00 - Pure hypercholesterolemia, unspecified Hemoglobin A1c Today E78.00 - Pure hypercholesterolemia, unspecified Thyroid Stimulating Hormone Today E78.00 - Pure hypercholesterolemia, unspecified Lipid Panel Today E78.00 - Pure hypercholesterolemia, unspecified Vitamin D 25-OH Total Today E78.00 - Pure hypercholesterolemia, unspecified Medications: Refilled clonazepam 0.5 mg PO TID 30 days PRN 75 tabs 1RF anxiety F41.9 - Anxiety disorder, unspecified
[2024-04-01 15:52] VITALS: BP 112/72; PULSE 99; TEMP 36.2; O2SAT 94; BMI 31.9
== END 2024-04-01 17:23 | disposition home or self-care (01) ==
PROVIDERS: PCP Internal Medicine; Visit Provider Internal Medicine
DX: D75.1 Secondary polycythemia (principal); N20.0 Calculus of kidney; E66.9 Obesity, unspecified; Z68.31 Body mass index [BMI] 31.0-31.9, adult; Z72.0 Tobacco use; K76.0 Fatty (change of) liver, not elsewhere classified; E78.00 Pure hypercholesterolemia, unspecified; I10 Essential (primary) hypertension; I70.90 Unspecified atherosclerosis; K42.9 Umbilical hernia without obstruction or gangrene

== ENCOUNTER 2024-05-27 15:06 | Outpatient (AMB) | payer BC, SELFPAY ==
--- NOTE | 2024-05-27 15:15 | A.OFFPC_ITS ---
Vital Signs 05/27/24 15:16 Height 5 ft 5 in Weight 189 lb 6 oz BMI 31.5 BP 112/70 Blood Pressure Location Lt brachial Position Sitting Pulse 92 Pulse Source Pulse Oximeter Temp 97.5 F Temp Source Temporal Artery Scan Pulse Oximetry (%) 97 Oxygen Delivery Method Room Air Intake Visit Reasons: [facility] 05/22 chest pain Intake Note: Patient is here to follow-up after a visit the emergency department at [facility] on 05/22/24 [employer] Check[employer] Required: No Stores [employer]: Not Required per policy Accompanied by: Self / Same As Patient Allergies hydrochlorothiazide Allergy (Unknown, Verified 05/27/24 15:16) Leg cramps lisinopril Allergy (Unknown, Verified 05/27/24 15:16) Cough sulfamethoxazole [From Bactrim] Allergy (Verified 05/27/24 15:16) Anaphylaxis trimethoprim [From Bactrim] Allergy (Verified 05/27/24 15:16) Anaphylaxis Medication List - Last Reconciled 05/27/24 by Rhonda Gallardo PA-C albuterol sulfate 90 mcg/actuation 2 inhalations inhalation Q4-6H PRN amlodipine 10 mg PO DAILY 90 days carvedilol 6.25 mg PO BID 90 days cholecalciferol (vitamin D3) 50 mcg PO DAILY 90 days clonazepam 0.5 mg PO TID PRN 30 days fenofibrate 160 mg PO DAILY Tobacco use date assessed: 05/27/24 Dental Screening Dental Screen Date: 04/01/24 HPI [facility] 05/22 chest pain 2 HPI Details 58-year-old female with past medical his tory of hypertension, hypercholesterolemia, generalized anxiety disorder, fatty liver and pulmonary lung nodule last seen by Dr. Romero 03/2024 coming in for hospital discharge follow up.?In review of the notes, patient was seen in [facility] ED 05/22/2024 for chest pain workup was reassuring patient was discharged home. The patient is a 58-year-old female presenting with multiple health concerns including recent chest pain, hematological disorder, and potential relapse in alcohol use. The chest pain began recently at work without any exertional triggers, ranking as 5 out of 10 in intensity, and did not improve with intervention, warranting an ECG. The patient was informed of a prolonged QT interval from an ECG, which was attributed to medication use. Hematological concerns have been present over the past year, with elevated red blood count suggesting a hypercoagulable state and need for phlebotomy. The patient is struggling with stress-induced cravings for alcohol and sought insight on pharmacologic options to manage these cravings. Current tobacco use continues with no desire to quit. Coordination of care with cardiology for upcoming tests has been performed, and concerns regarding musculoskeletal discomfort haven to restless leg syndrome were expressed. Patient complaining of bilateral calf pain which has been ongoing for the last month. [facility] Medical History (Updated 05/27/24 @ 16:03 by Rhonda Gallardo PA-C) Alcohol abuse, in remission High cholesterol High blood pressure Neck pain Leg pain COVID-19 virus infection Family history of cancer Surgical History History of fusion of cervical spine H/O: hysterectomy Family History Father Diabetes Prostate cancer HTN (hypertension) CVD (cardiovascular disease) Mother HTN (hypertension) Cervical cancer Lung cancer Maternal Grandmother Lung cancer Daughter In good health Daughter No problems noted. Brother In good health Son No problems noted. Maternal Grandfather Leukemia Paternal Grandfather CVD (cardiovascular disease) Paternal Aunt CVD (cardiovascular disease) Social History Housing: House Alcohol intake: former Comment: 2021 Patient Tobacco Use Status: Current everyday Tobacco user Tobacco use type: Cigarette Cigarette Packs Per Day: 0.5 Cigarettes Per Day: 10 Years Smoked: 40 +/- e-Cigarette/Vaping Use: Never Used Second Hand Smoke Exposure: Yes service: No Current occupational status: employed Cognitive needs: No Hearing needs: No Vision needs: No Questionnaire Thrive Questionnaire Date Thrive assessed: 04/01/24 FREDY-7 AMB Questionnaire FREDY-7 Date FREDY - 7 assessed: 04/01/24 Source: Developed by Drs. Rome Grullon, Ginny Reyes, Nikko Mahajan and colleagues, with an educational rodney from [employer]. Review of Systems Const Denies body aches, Denies chills, Denies fever(s), Denies headache(s) and Denies poor appetite Eyes Reports no additional complaints ENT Denies dysphagia, Denies dizziness, Denies headache(s) and Denies odynophagia Card Denies chest pain, Denies syncope, Denies edema, Denies irregular heart rhythm, Denies lightheadedness and Denies dyspnea Resp Denies cough and Denies dyspnea GI Denies abdominal pain, Denies constipation, Denies dysphagia, Denies diarrhea, Denies nausea, Denies odynophagia and Denies vomiting Reports no additional complaints Musc Reports no additional complaints and Denies abnormal gait Skin/Breast Reports system reviewed and no additional complaints, except as documented Neuro Denies abnormal gait, Denies dizziness, Denies syncope and Denies headache(s) Psych Reports no additional complaints Physical exam (Primary Care) Tobacco/Smoking Status: Tobacco use Status Tobacco use date assessed 04/01/24 04/01/24 15:59 Patient Tobacco Use Status Current everyday Tobacco 04/01/24 15:59 Tobacco use type Cigarette 04/01/24 15:59 e-Cigarette/Vaping Use Never Used 04/01/24 15:59 Thrive Assessment: Date of Thrive Assessment Date Thrive assessed 04/01/24 04/01/24 15:59 Const General: cooperative, healthy appearing, comfortable and no acute distress Orientation/consciousness: patient oriented x3 HENMT Head: Yes normocephalic Ears: hearing grossly normal bilaterally General nose exam: Normal external nose present Eyes General: appearance normal, both eyes and all related structures Conjunctivae: conjunctivae normal Neck Neck: Yes full ROM and Yes no lymphadenopathy Resp Effort & Inspection: normal respiratory effort Auscultation: clear to auscultation bilaterally, no crackles, no rales, no rhonchi and no wheezes Cardio Rate: regular rate Rhythm: regular rhythm Skin General skin exam: no rashes or lesions noted Neuro General: patient oriented x3 Gait exam (Neuro): Normal gait present Extrem Other: Bilateral calves without redness, warmth or swelling. Very mild tenderness to palpation in bilateral calves and over anterior aspect of lower leg. Pulses strength and sensation intact in bilateral lower extremities General: Yes normal to inspection, Yes full ROM and No edema Psych Affect: normal affect Attitude: cooperative Insight: Good insight present (Psych) Judgement: Good judgement present (Psych) Coding Level of Care Code Est Pt Level 4 (84692) Diagnoses Obesity (BMI 30.0-34.9) E66.9 Fatty liver K76.0 Tobacco abuse Z72.0 Essential hypertension I10 Hypertension type: essential hypertension Bilateral calf pain M79.661; M79.662 Chest pain R07.9 Alcohol abuse, in remission F10.11 Assessment & Plan Assessment & Plan (1) Obesity (BMI 30.0-34.9): Code(s): E66.9 - Obesity, unspecified Category: Medical Plan: Healthy diet and regular exercise is encouraged. (2) Fatty liver: Code(s): K76.0 - Fatty (change of) liver, not elsewhere classified Category: Medical Plan: Healthy diet and regular exercise is encouraged. Monitor liver test (3) Tobacco abuse: Comment: Lung cancer screening program November 2021 Code(s): Z72.0 - Tobacco use Category: Medical Plan: Smoking cigarettes and the use of tobacco can be harmful. We discussed the importance of stopping and options to aid in smoking cessation. Declined nicotine replacement therapy (4) Hypertension: Code(s): I10 - Essential (primary) hypertension Category: Medical Qualifiers: Hypertension type: essential hypertension Qualified Code(s): I10 - Essential (primary) hypertension Plan: Continue on current blood pressure medication. Avoid salt intake and encourage healthy diet and regular exercise. (5) Bilateral calf pain: Code(s): M79.661 - Pain in right lower leg; M79.662 - Pain in left lower leg Category: Medical Plan: Pain has been ongoing for 1 month. Exam is reassuring there is no calf swelling, redness or warmth there is mild tenderness to palpation in bilateral calves and over the anterior aspect of the lower leg. Plan to order for D-dimer and can consider ultrasound if elevated. Likely musculoskeletal in nature advised patient to use muscle creams as needed for pain. Patient also complaining of bilateral leg numbness and tingling primarily at nighttime likely related to neuropathy however declining gabapentin at this time (6) Chest pain: Code(s): R07.9 - Chest pain, unspecified Category: Medical Plan: Further cardiac evaluation and management of chest pain have been prioritized, with plans to complete an echo stress test as indicated. Patient is seeing Cardiology tomorrow. (7) Alcohol abuse, in remission: Code(s): F10.11 - Alcohol abuse, in remission Category: Medical Plan: Patient complaining of alcohol cravings related to stress. Plan to start on naltrexone 50 mg. Patient declined referral to comprehensive Care Clinic at this time. Plan to follow up in 3 months. Plan This note was constructed using voice recognition software. While every effort has been made to ensure accuracy and census clerk, still areas may have been included sometimes these areas may affect the content or meeting of the given symptoms. Total time spent caring for the patient today was twenty minutes. This includes time spent before the visit reviewing the chart, time spent during the visit, and time spent after the visit and documentation. Patient was informed and verbally consented to the use of an ambient scribe for clinic note documentation during this visit. Orders: Orders D Dimer High Sensitivity Today M79.661 - Pain in right lower leg Medications: New naltrexone 50 mg PO DAILY 30 tabs 2RF
[2024-05-27 15:16] VITALS: BP 112/70; PULSE 92; TEMP 36.4; O2SAT 97; BMI 31.5
--- OUTSIDE RECORDS SUMMARY | 2024-05-27 18:22 | XMS_ITS | Encounter Summary ---
Author Organization [facility] Address [address] [place] [address] Care Team Providers Care Scow Hand Name Role Phone Tariq Romero MD Primary Care Provider [phone] Encounter Details Date Type Department Care Team (Latest Contact Info) Description 05/13/2024 Lab Requisition [facility] - Main Lab [address] [facility] [place] [address] Maya Oshea MD [address] [place] [address] ATTN: HEMATOLOGY/[place] [address] Familial erythrocytosis Social History Tobacco Use Types Packs/Day Years Used Date Smoking Tobacco: Every Day Cigarettes Smokeless Tobacco: Never Alcohol Use Standard Drinks/Week Comments Not Currently 0 (1 standard drink = 0.6 oz pur e alcohol) Comments Unknown Sex and Gender Information Value Date Recorded Sex Assigned at Female 02/19/2024 4:26 PM EST Legal Sex Female 9:00 PM EST Gender Identity Female 02/19/2024 4:26 PM EST Sexual Orientation Straight 02/19/2024 4: 26 PM EST documented as of this encounter Plan of Treatment Not on file documented as of this encounter Procedures Procedure Name Priority Date/Time Associated Diagnosis Comments JAK2 GENE, V617F MUTATION, QUANTITATIVE, MOLECULAR STUDY Routine 05/13/2024 9:05 AM EST Familial erythrocytosis CBC WITH AUTO DIFFERENTIAL Routine 05/13/2024 9:05 AM EST Familial erythrocytosis LAVENDER - EDTA Routine 05/13/2024 9:05 AM EST Familial erythrocytosis CBC AND DIFFERENTIAL Routine 05/13/2024 9:05 AM EST Familial erythrocytosis CARBOXYHEMOGLOBIN Routine 05/13/2024 9:0 5 AM EST Familial erythrocytosis COMPREHENSIVE METABOLIC PANEL Routine 05/13/2024 9:05 AM EST Familial erythrocytosis documented in this encounter Results * Lavender tube (05/13/2024 9:05 AM EST) Pathologist [facility] Extra Tube Hold for add-ons. 05/13/2024 1:02 PM EST [facility] Comment:Auto resulted. Blood Venous blood specimen / Unknown 05/13/2024 9:05 AM EST 05/13/2024 11:01 AM EST us Maya Oshea MD LAB BLOOD ORDERABLES Final Resu lt [facility] [address] [place] [address], * (ABNORMAL) CBC auto differential (05/13/2024 9:05 AM EST) Pathologist [facility] WBC 10.1 4.8 - 10.8 K/mcL LAB HEMETOLOGY METHOD 05/13/2024 12:14 PM [facility] RBC 5.80(H) 3.80 - 4.80 M/mcL LAB HEMETOLOGY METHOD 05/13/2024 12:14 PM [facility] Hemoglobin 18.2(H) 11.5 - 16.0 g/dL LAB HEMETOLOGY METHOD 05/13/2024 12:14 PM [facility] Hematocrit 55.7(H) 35.0 - 47.0 % LAB HEMETOLOGY METHOD 05/13/2024 12:14 PM [facility] MCV 96.7 79.0 - 98.0 FL LAB HEMETOLOGY METHOD 05/13/2024 12:14 PM [facility] MCH 31.6 27.0 - 32.0 pcg LAB HEMETOLOGY METHOD 05/13/2024 12:14 PM [facility] MCHC 32.7 32.0 - 37.0 g/dL LAB HEMETOLOGY METHOD 05/13/2024 12:14 PM [facility] RDW 15.5(H) 11.0 - 15.0 % LAB HEMETOLOGY METHOD 05/13/2024 12:14 PM [facility] Platelets 289 130 - 400 K/mcL LAB HEMETOLOGY METHOD 05/13/2024 12:14 PM [facility] MPV 10.9 7.0 - 11.0 FL LAB HEMETOLOGY METHOD 05/13/2024 12:14 PM [facility] NRBC 0.0 <1.0 % LAB HEMETOLOGY METHOD 05/13/2024 12:14 PM [facility] NRBC Absolute 0.00 <0.10 K/mcL LAB HEMETOLOGY METHOD 05/13/2024 12:14 PM [facility] Neutrophils Relative 60.2 % LAB HEMETOLOGY METHOD 05/13/2024 12:14 PM [facility] Lymphocytes Relative 28.4 % LAB HEMETOLOGY METHOD 05/13/2024 12:14 PM [facility] Monocytes Relative 9.0 % LAB HEMETOLOGY METHOD 05/13/2024 12:14 PM [facility] Eosinophils Relative 1.2 % LAB HEMETOLOGY METHOD 05/13/2024 12:14 PM [facility] Basophils Relative 0.6 % LAB HEMETOLOGY METHOD 05/13/2024 12:14 PM EST [facility] Immature Granulocytes Relative 0.6 % LAB HEMETOLOGY METHOD 05/13/2024 12:14 PM EST [facility] Neutrophils Absolute 6.05 1.50 - 7.00 K/[facility] HEMETOLOGY METHOD 05/13/2024 12:14 PM EST [facility] Lymphocytes Absolute 2.86 1.00 - 5.00 K/[facility] HEMETOLOGY METHOD 05/13/2024 12:14 PM EST [facility] Monocytes Absolute 0.91 0.20 - 1.00 K/[facility] HEMETOLOGY METHOD 05/13/2024 12:14 PM EST [facility] Eosinophils Absolute 0.12 0.00 - 0.50 K/[facility] HEMETOLOGY METHOD 05/13/2024 12:14 PM [facility] Basophils Absolute 0.06 0.00 - 0.20 K/mcL LAB HEMETOLOGY METHOD 05/13/2024 12:14 PM EST [facility] Immature Granulocytes Absolute 0.06(H) 0.00 - 0.03 K/mcL LAB HEMETOLOGY METHOD 05/13/2024 12:14 PM EST [facility] Blood Venous blood specimen / Unknown Venipuncture / Unknown 05/13/2024 9:05 AM EST 05/13/2024 11:01 AM EST us Maya Oshea MD LAB BLOOD ORDERABLES Final Resu lt [facility] [address] [place] [address], * JAK2 gene, V617F mutation, quantitative, molecular study (05/13/2024 9:05 AM EST) Scan Result See Scanned Result 05/18/2024 9:49 AM EST [facility] Blood Venous blood specimen / Unknown Venipuncture / Unknown 05/13/2024 9:05 AM EST 05/13/2024 11:01 AM EST Maya Oshea MD LAB MOLECULAR DIAGNOSTICS ORDER BENEDICTO Final Result Performing Organization Address [facility] de Phone Number [facility] * Carboxyhemoglobin (05/13/2024 9:05 AM EST) [facility] Carboxyhemoglobin 8 %TOTAL HGB 05/18/2024 7:40 PM EST [facility] Comment: ?Nonsmoker: ?? <2 % of Total HgB ? Average Smoker: ??4-5 % of Total HgB ? Heavy Smoker: 8-12 % of Total HgB ?Potentially Toxic: ??>15 % of Total HgB Test Performed at: [facility] [address] [place], [place] ? Zay Ramirez MD, PhD Blood Venous blood specimen / Unknown Venipuncture / Unknown 05/13/2024 9:05 AM EST 05/13/2024 11:01 AM EST Maya Oshea MD LAB BLOOD ORDERABLES Final Resu lt Performing Organization Address [facility] de Phone Number [facility] [address] [place] [address] * (ABNORMAL) Comprehensive metabolic panel (05/13/2024 9:05 AM EST) [facility] Sodium 139 133 - 145 mmol/L LAB CHEMISTRY METHOD 05/13/2024 1:39 PM EST [facility] Potassium 4.6 3.5 - 5.5 mmol/L LAB CHEMISTRY METHOD 05/13/2024 1:39 PM EST [facility] Chloride 109 96 - 110 mmol/L LAB CHEMISTRY METHOD 05/13/2024 1:39 PM [facility] CO2 21 21 - 32 mmol/L LAB CHEMISTRY METHOD 05/13/2024 1:39 PM [facility] Anion Gap 9 3 - 11 LAB CHEMISTRY METHOD 05/13/2024 1:39 PM [facility] Glucose 83 70 - 100 mg/dL LAB CHEMISTRY METHOD 05/13/2024 1:39 PM [facility] BUN 14 5 - 25 mg/dL LAB CHEMISTRY METHOD 05/13/2024 1:39 PM [facility] Creatinine 0.57 0.50 - 1.10 mg/dL LAB CHEMISTRY METHOD 05/13/2024 1:39 PM [facility] eGFR 106 >=60 mL/min/1. 73m2 LAB CHEMISTRY METHOD 05/13/2024 1:39 PM [facility] Comment:Calculation based on the??Chronic Kidney Disease Epidemiology Collaboration (CKD-EPI) equation refit??without adjustment for race. BUN/Creatinine Ratio 24.6 LAB CHEMISTRY METHOD 05/13/2024 1:39 PM [facility] Calcium 9.8 8.5 - 10.5 mg/dL LAB CHEMISTRY METHOD 05/13/2024 1:39 PM [facility] AST (SGOT) 79(H) 10 - 42 unit/L LAB CHEMISTRY METHOD 05/13/2024 1:39 PM [facility] ALT (SGPT) 102(H) 10 - 60 unit/L LAB CHEMISTRY METHOD 05/13/2024 1:39 PM [facility] Alkaline Phosphatase 120 42 - 121 unit/L LAB CHEMISTRY METHOD 05/13/2024 1:39 PM [facility] Total Protein 7.6 6.0 - 8.0 g/dL LAB CHEMISTRY METHOD 05/13/2024 1:39 PM [facility] Albumin 4.1 3.2 - 5.0 g/dL LAB CHEMISTRY METHOD 05/13/2024 1:39 PM EST [facility] Total Bilirubin 1.0 0.0 - 1.4 mg/dL LAB CHEMISTRY METHOD 05/13/2024 1:39 PM EST [facility] Blood Venous blood specimen / Unknown Venipuncture / Unknown 05/13/2024 9:05 AM EST 05/13/2024 11:01 AM EST us Maya Oshea MD LAB BLOOD ORDERABLES Final Resu lt [facility] [address] [place] [address], documented in this encounter Visit Diagnoses Diagnosis Familial erythrocytosis Familial polycythemia documented in this encounter Care Teams Scow Hand Relationship Specialty Start Date End Date Tariq Romero MD [address] [place] [address] Dr [address] [facility] [place] [address] PCP - General Internal Medicine 03/03/11 documented as of this encounter
--- OUTSIDE RECORDS SUMMARY | 2024-05-27 18:22 | XMS_ITS | Clinical Summary ---
Author Organization [facility] Address [address] [place] [address] Care Team Providers Care Supervisor Contact Lens Name Role Phone Tariq Romero MD Primary Care Provider [phone] Allergies Active Allergy Reactions Criticality Noted Date Comments Sulfamethoxazole-Trimethoprim Anaphylaxis High 12/17 Nitrofurantoin Hives 10/17/2023 Medications Medication Sig Dispensed Refills Start Date End Date Status metoprolol succinate (TOPROL-XL) 24 hr tablet 25 mg 0 09/26/2022 Active amLODIPine (NORVASC) tablet 10 mg 0 10/03/2022 Active famotidine (PEPCID) 20 MG tablet Twice A Day 0 05/07/2015 Active Cholecalciferol 50 MCG (1999 UT) CAPS Take by mouth. 0 Active Vibegron (Gemtesa) 75 MG TABSIndications:Urinar y frequency,Urinary urgency,Pelvic pressure in female Take 75 mg by mouth daily. 90 tablet 3 10/23/2023 Active Active Problems No known active problems Immunizations Name Administration Dates Next Due Tdap 06/21/2023 Social History Tobacco Use Types Packs/Day Years Used Date Smoking Tobacco: Every Day Cigarettes 0.5 Smokeless Tobacco: Never Tobacco Cessation:Ready to Q uit: Not Asked; Counseling Given: Not Answered Alcohol Use Standard Drinks/Week Comments Not Currently 0 (1 standard drink = 0.6 oz pur e alcohol) sociall Sex and Gender Information Value Date Recorded Sex Assigned at Female 02/24/2022 7:02 PM EST Gender Identity Not on file Sexual Orientation Not on file Job Start Date Occupation Industry Not on file Not on file Not on file Last Filed Vital Signs Vital Sign Reading Time Taken Comments Blood Pressure 132/80 10/17/2023 4:05 PM EDT Pulse 74 10/17/2023 4:05 PM EDT Temperature 36.6 ??C (97.9 ??F) 10/17/2023 4:05 PM ED T Respiratory Rate 18 10/17/2023 4:05 PM EDT Oxygen Saturation 95% 10/17/2023 4:05 PM EDT Inhaled Oxygen Concentration - - Weight 86.2 kg (190 lb) 10/17/2023 1:57 PM EDT Height 167.6 cm (5' 6 ) 10/17/2023 1:57 PM EDT Body Mass Index 30.67 10/17/2023 1:57 PM EDT Plan of Treatment Health Maintenance Due Date Last Done Comments Hepatitis B Vaccines (1 of 3 - 3-dose series) 1966 Hepatitis C Screening 1966 Pneumococcal Vaccine (1 of 2 - PCV) 1972 Depression Screening 1978 BMI Counseling 1984 Preventative Health Evaluation 1984 Tobacco Cessation Counseling 1984 Cervical Cancer Screening (P ap Smear) 09/26/1987 Colon Cancer Screening (Colonoscopy) 09/26/2011 Breast Cancer Screening (Mammogram) 2016 Shingrix-Zoster Vaccine (1 of 2) 2016 COVID-19 Vaccine (2 - 2023-2 5 season) 2023 04/28/2021 Influenza Vaccine (#1) 2023 01/30/2019 DTap / Tdap / Td (2 - Td or Tdap) 06/20/2033 024 RSV Ped < 20 months Aged Out No longe r eligible based on patient's age to complete this topic Care Teams Supervisor Contact Lens Relationship Specialty Start Date End Date Tariq Romero MD [address] [place] [address] [address] [facility] [place] [address] PCP - General Internal Medicine 02/24/22
--- OUTSIDE RECORDS SUMMARY | 2024-05-27 18:23 | XMS_ITS | Encounter Summary ---
Author Organization [facility] [place] [address] Care Team Providers Care Lead Manufacturing Engineer Name Role Phone Tariq Romero MD Primary Care Provider [phone] Encounter Details Date Type Department Care Team (Late st Contact Info) Description 01/29/2024 Lab Requisition [facility] - Main Lab [address] [facility] [place] [id number] Venkatesh Padilla MD [address] [place] [address] Dysuria Social History Tobacco Use Types Packs/Day Years [...] Procedure Name Priority Date/Time Associated Diagnosis Comments URINALYSIS WITH REFLEX MICROSCOPIC Routine 01/29/2024 7:00 AM EST Dysuria URINALYSIS WITH REFLEX MICROSCOPIC Routine 01/29/2024 7:00 AM EST Dysuria CULTURE URINE Routine 01/29/2024 7:00 AM EST Dysuria documented in this encounter Results * (ABNORMAL) Urinalysis with reflex microscopic (01/29/2024 7:00 AM EST) Specific [place] Urine >=1.030 1.003 - 1.030 LAB URINALYSIS - AUTOMATED METHOD 01/29/2024 9:32 AM [facility] pH, Urine 6.0 5.0 - 8.0 pH LAB URINALYSIS - AUTOMATED METHOD 01/29/2024 9:32 AM [facility] Leukocytes, Urine Negative Negative LAB URINALYSIS - AUTOMATED METHOD 01/29/2024 9:32 AM [facility] Nitrite, Urine Negative Negative LAB URINALYSIS - AUTOMATED METHOD 01/29/2024 9:32 AM [facility] Protein, Urine Trace <=Trace mg/dL LAB URINALYSIS - AUTOMATED METHOD 01/29/2024 9:32 AM [facility] Glucose, Urine Negative Negative mg/dL LAB URINALYSIS - AUTOMATED METHOD 01/29/2024 9:32 AM [facility] Ketones, Urine Trace(A) Negative mg/dL LAB URINALYSIS - AUTOMATED METHOD 01/29/2024 9:32 AM [facility] Urobilinogen , Urine 0.2 0.2 - 1.0 mg/dL LAB URINALYSIS - AUTOMATED METHOD 01/29/2024 9:32 AM [facility] Bilirubin, Urine Small(A) Negative LAB URINALYSIS - AUTOMATED METHOD 01/29/2024 9:32 AM [facility] Blood, Urine Trace(A) Negative LAB URINALYSIS - AUTOMATED METHOD 01/29/2024 9:32 AM [facility] RBC, Urine 4.0 0 - 4 /HPF LAB URINALYSIS - AUTOMATED METHOD 01/29/2024 9:32 AM [facility] WBC, Urine 2.6 0 - 4 /HPF LAB URINALYSIS - AUTOMATED METHOD 01/29/2024 9:32 AM [facility] Squamous Epithelial, Urine 69(H) 0 - 60 /LPF LAB URINALYSIS - AUTOMATED METHOD 01/29/2024 9:32 AM [facility] Crystals, Urine MOD CALCIUM OXALATE /LPF LAB URINALYSIS - AUTOMATED METHOD 01/29/2024 9:32 AM [facility] Bacteria, Urine Negative Negative /HPF LAB URINALYSIS - AUTOMATED METHOD 01/29/2024 9:32 AM [facility] Hyaline Casts, Urine 2.4 0 - 3 /LPF LAB URINALYSIS - AUTOMATED METHOD 01/29/2024 9:32 AM [facility] Urine Urine specimen obtained by clean catch procedure / Unknown 01/29/2024 7:00 AM EST 01/29/2024 9:12 AM EST Venkatesh Padilla MD LAB URINE ORDERABLES Final Result Performing Organization Address [facility]/ZIP Co de Phone Number [facility] [address] [place] [address], [place] [phone] * Culture urine (01/29/2024 7:00 AM EST) Culture, Urine No growth 01/30/2024 9:01 AM [facility] Urine Urine specimen obtained by clean catch procedure / Unknown 01/29/2024 7:00 AM EST 01/29/2024 9:12 AM EST Venkatesh Padilla MD LAB MICROBIOLOGY - GENERAL ORDERABLES Final Result Performing Organization Address [facility]/ZIP Co de Phone Number [facility] [address] [place] [address], [place] [phone] documented in this encounter Visit Diagnoses Diagnosis Dysuria documented in this encounter Care Teams Lead Manufacturing Engineer Relationship Specialty Start Date End Date Tariq Romero MD [address] [place] [address] [address] [facility] [place] [address] PCP - General Internal Medicine 03/03/11 documented as of this encounter
--- OUTSIDE RECORDS SUMMARY | 2024-05-27 18:23 | XMS_ITS ---
Author Name [facility] Organization Unknown Results Test Name/Text Value Interpretation Date Range Source BNP SerPl-mCnc 12pcg/mL Normal [id number] 0 - 100 [facility] Troponin I SerPl HS-mCnc 3ng/L Normal [id number] 0 - 14 [facility] Troponin I SerPl HS-mCnc 4ng/L Normal [id number] 0 - 14 [facility] Magnesium SerPl-mCnc 2.1mg/dL Normal [id number] 1.7 - 2.8 [facility] Glucose SerPl-mCnc 101mg/dL Normal [id number] 70 - 199 [facility] Calcium SerPl-mCnc 10.6mg/dL Above high normal [id number] 8.4 - 10.2 [facility] Sodium SerPl-sCnc 138mmol/L Normal [id number] 135 - 145 [facility] BUN SerPl-mCnc 18mg/dL Above high normal [id number] 7 - 17 [facility] ALP SerPl-cCnc 100unit/L Normal [id number] 34 - 104 [facility] Anion Gap SerPl-sCnc 10 Normal [id number] 5 - 14 [facility] Albumin SerPl-mCnc 4.7g/dL Normal [id number] 3.5 - 5 [facility] ALT SerPl-cCnc 99unit/L Above high normal [id number] 7 - 52 [facility] eGFRcr SerPlBld CKD-EPI 2021 96mL/min/1.73m2 Normal [id number] - [facility] Creat SerPl-mCnc 0.73mg/dL Normal [id number] 0.5 - 1 [facility] AST SerPl-cCnc 67unit/L Above high normal [id number] 5 - 40 [facility] CO2 SerPl-sCnc 25mmol/L Normal [id number] 24 - 32 [facility] BUN/Creat SerPl 24.7 Above high normal [id number] 12 - 20 [facility] Bilirub SerPl-mCnc 1.2mg/dL Above high normal [id number] 0.3 - 1 [facility] Chloride SerPl-sCnc 103mmol/L Normal [id number] 98 - 107 [facility] Potassium SerPl-sCnc 3.9mmol/L Normal [id number] 3.5 - 5.1 [facility] Prot SerPl-mCnc 7.6g/dL Normal [id number] 6.4 - 8.5 [facility] Lipase SerPl-cCnc 16unit/L Normal [id number] 11 - 82 [facility] MCV RBC Auto 92.7FL Normal [id number] 78 - 100 [facility] Lymphocytes # Bld Auto 3.83K/mcL Above high normal [id number] 1 - 3.2 [facility] WBC # Bld Auto 11.7K/mcL Above high normal [id number] 4 - 10.5 [facility] Monocytes/leuk NFr Bld Auto 9.3% Normal [id number] 2 - 12 [facility] Platelet # Bld Auto 293K/mcL Normal [id number] 150 - 450 [facility] PMV Bld Auto 10.1FL Normal [id number] 7.4 - 11.4 [facility] MCH RBC Qn Auto 33.1pcg Above high normal [id number] 25 - 33 [facility] Eosinophil # Bld Auto 0.14K/mcL Normal [id number] 0 - 0.5 [facility] Neutrophils/leuk NFr Bld Auto 55.6% Normal [id number] 44 - 74 [facility] RBC # Bld Auto 5.47M/mcL Above high normal [id number] 4.2 - 5.4 [facility] Monocytes # Bld Auto 1.09K/mcL Above high normal [id number] 0 - 0.8 [facility] RDW RBC Auto-Rto 14.6% Normal [id number] 12.1 - 16. 2 [facility] Lymphocytes/leuk NFr Bld Auto 32.7% Normal [id number] 20 - 48 [facility] Eosinophil/leuk NFr Bld Auto 1.2% Normal [id number] 0 - 6 [facility] Basophils # Bld Auto 0.08K/mcL Normal [id number] 0 - 0.2 [facility] Neutrophils # Bld Auto 6.51K/mcL Normal [id number] 1.8 - 7.8 [facility] Hct VFr Bld Auto 50.7% Above high normal [id number] 37 - 47 [facility] Hgb Bld-mCnc 18.1g/dL Above high normal [id number] 12.5 - 16 [facility] MCHC RBC Auto-mCnc 35.7g/dL Normal [id number] 32 - 36 [facility] Basophils/leuk NFr Bld Auto 0.7% Normal [id number] 0 - 2 [facility] Glucose SerPl-mCnc 117mg/dL Normal [id number] 70 - 199 [facility] Calcium SerPl-mCnc 9.5mg/dL Normal [id number] 8.4 - 10 .2 [facility] Sodium SerPl-sCnc 139mmol/L Normal [id number] 135 - 145 [facility] BUN SerPl-mCnc 18mg/dL Above high normal [id number] 7 - 17 [facility] ALP SerPl-cCnc 99unit/L Normal [id number] 34 - 104 [facility] Anion Gap SerPl-sCnc 8 Normal [id number] 5 - 14 [facility] Albumin SerPl-mCnc 4.6g/dL Normal [id number] 3.5 - 5 [facility] ALT SerPl-cCnc 76unit/L Above high normal [id number] 7 - 52 [facility] eGFRcr SerPlBld CKD-EPI 1 103mL/min/1.73m 2 Normal [id number] - [facility] Creat SerPl-mCnc 0.64mg/dL Normal [id number] 0.5 - 1 [facility] AST SerPl-cCnc 54unit/L Above high normal [id number] 5 - 40 [facility] CO2 SerPl-sCnc 23mmol/L Below low normal [id number] 24 - 32 [facility] BUN/Creat SerPl 28.1 Above high normal [id number] 12 - 20 [facility] Bilirub SerPl-mCnc 0.6mg/dL Normal [id number] 0.3 - 1 [facility] Chloride SerPl-sCnc 108mmol/L Above high normal [id number] 98 - 107 [facility] Potassium SerPl-sCnc 4mmol/L Normal [id number] 3.5 - 5.1 [facility] Prot SerPl-mCnc 7.5g/dL Normal [id number] 6.4 - 8.5 [facility] MCV RBC Auto 93.8FL Normal [id number] 78 - 100 [facility] Lymphocytes # Bld Auto 2.67K/mcL Normal [id number] 1 - 3.2 [facility] WBC # Bld Auto 9.8K/mcL Normal [id number] 4 - 10.5 [facility] Monocytes/leuk NFr Bld Auto 8.2% Normal [id number] 2 - 12 [facility] Platelet # Bld Auto 289K/mcL Normal [id number] 150 - 450 [facility] PMV Bld Auto 10.3FL Normal [id number] 7.4 - 11.4 [facility] MCH RBC Qn Auto 31.7pcg Normal [id number] 25 - 33 [facility] Eosinophil # Bld Auto 0.19K/mcL Normal [id number] 0 - 0.5 [facility] Neutrophils/leuk NFr Bld Auto 61.6% Normal [id number] 44 - 74 [facility] RBC # Bld Auto 6M/mcL Above high normal [id number] 4.2 - 5.4 [facility] Monocytes # Bld Auto 0.81K/mcL Above high normal [id number] 0 - 0.8 [facility] RDW RBC Auto-Rto 12.8% Normal [id number] 12.1 - 16. 2 [facility] Lymphocytes/leuk NFr Bld Auto 27.2% Normal [id number] 20 - 48 [facility] Eosinophil/leuk NFr Bld Auto 1.9% Normal [id number] 0 - 6 [facility] Basophils # Bld Auto 0.07K/mcL Normal 0 - 0.2 [facility] Neutrophils # Bld Auto 6.05K/mcL Normal [id number] 1.8 - 7.8 [facility] Hct VFr Bld Auto 56.3% Above high normal 37 - 47 [facility] Hgb Bld-mCnc 19g/dL Above high normal 12.5 - 16 [facility] MCHC RBC Auto-mCnc 33.7g/dL Normal 32 - 36 [facility] Basophils/leuk NFr Bld Auto 0.7% Normal 0 - 2 [facility] Lipase SerPl-cCnc 19unit/L Normal 11 - 82 [facility] Glucose SerPl-mCnc 89mg/dL Normal 70 - 199 [facility] Calcium SerPl-mCnc 9.9mg/dL Normal 8.4 - 10 .2 [facility] Sodium SerPl-sCnc 140mmol/L Normal 135 - 145 [facility] BUN SerPl-mCnc 13mg/dL Normal 7 - 17 [facility] ALP SerPl-cCnc 91unit/L Normal 34 - 104 [facility] Anion Gap SerPl-sCnc 6 Normal 5 - 14 [facility] Albumin SerPl-mCnc 4.8g/dL Normal 3.5 - 5 [facility] ALT SerPl-cCnc 117unit/L Above high normal 7 - 52 [facility] eGFRcr SerPlBld CKD-EPI 2020 95mL/min/1.73m2 Normal - [facility] Creat SerPl-mCnc 0.74mg/dL Normal 0.5 - 1 [facility] AST SerPl-cCnc 66unit/L Above high normal 5 - 40 [facility] CO2 SerPl-sCnc 30mmol/L Normal 24 - 32 [facility] BUN/Creat SerPl 17.6 Normal 12 - 20 [facility] Bilirub SerPl-mCnc 0.8mg/dL Normal 0.3 - 1 [facility] Chloride SerPl-sCnc 104mmol/L Normal 98 - 107 [facility] Potassium SerPl-sCnc 4.5mmol/L Normal 3.5 - 5.1 [facility] Prot SerPl-mCnc 7.8g/dL Normal 6.4 - 8.5 [facility] MCV RBC Auto 95.1FL Normal 78 - 100 [facility] Lymphocytes # Bld Auto 2.83K/mcL Normal 1 - 3.2 [facility] WBC # Bld Auto 8.9K/mcL Normal 4 - 10.5 [facility] Monocytes/leuk NFr Bld Auto 8.8% Normal 2 - 12 [facility] Platelet # Bld Auto 251K/mcL Normal 150 - 450 [facility] PMV Bld Auto 10.4FL Normal 7.4 - 11.4 [facility] MCH RBC Qn Auto 32.1pcg Normal 25 - 33 [facility] Eosinophil # Bld Auto 0.2K/mcL Normal 0 - 0.5 [facility] Neutrophils/leuk NFr Bld Auto 55.7% Normal 44 - 74 [facility] RBC # Bld Auto 5.92M/mcL Above high normal 4.2 - 5.4 [facility] Monocytes # Bld Auto 0.78K/mcL Normal 0 - 0.8 [facility] RDW RBC Auto-Rto 13% Normal 12.1 - 16. 2 [facility] Lymphocytes/leuk NFr Bld Auto 31.9% Normal 20 - 48 [facility] Eosinophil/leuk NFr Bld Auto 2.3% Normal 0 - 6 [facility] Basophils # Bld Auto 0.07K/mcL Normal 0 - 0.2 [facility] Neutrophils # Bld Auto 4.95K/mcL Normal 1.8 - 7.8 [facility] Hct VFr Bld Auto 56.3% Above high normal 37 - 47 [facility] Hgb Bld-mCnc 19g/dL Above high normal 12.5 - 16 [facility] MCHC RBC Auto-mCnc 33.7g/dL Normal 32 - 36 [facility] Basophils/leuk NFr Bld Auto 0.8% Normal 0 - 2 [facility] LDH SERPL L TO P CCNC 269U/L Above high normal [id number] 125 - 220 [facility] AST SERPL CCNC 81U/L Above high normal 5 - 40 [facility] ALP SERPL-CCNC 101U/L Normal 34 - 104 [facility] ALT SERPL CCNC 97U/L Above high normal 7 - 52 [facility] AMYLASE SERPL CCNC 36U/L Normal [id number] 29 - 103 [facility] LIPASE SERPL CCNC 16U/L Normal 11 - 82 [facility] BILIRUB SERPL MCNC 0.7mg/dL Normal [id number] 0.3 - 1 [facility] BILIRUB DIRECT SERPL MCNC 0.1mg/dL Normal [id number] 0 - 0.2 [facility] SQUAMOUS NO./AREA URNS LPF 6/LPF Above high normal [id number] 0 - 5 [facility] RBC number/area UrnS Auto 3/HPF Normal 0 - 3 [facility] WBC number/area UrnS Auto 3/HPF Normal [id number] 0 - 5 [facility] Clarity Ur Refract.auto CLEAR Normal [facility] Prot Ur Ql Strip.auto NEGATIVE Normal [id number] - [facility] Glucose Ur Ql Strip.auto NEGATIVE Normal [id number] - [facility] Nitrite Ur Ql Strip.auto NEGATIVE Normal [id number] - [facility] Sp Gr Ur Strip.auto >1.030 Above high normal [id number] 1.005 - 1.03 [facility] Hgb Ur Ql Strip.auto TRACE Abnormal [id number] - [facility] Ketones Ur Ql Strip.auto TRACE Abnormal - [facility] Leukocyte esterase Ur Ql Strip.auto NEGATIVE Normal [id number] - [facility] pH Ur Strip.auto 5.5 Normal [id number] 4.5 - 8 [facility] CREAT SERPL MCNC 0.7mg/dL Normal [id number] 0.5 - 1 [facility] CALCIUM SERPL MCNC 9.4mg/dL Normal [id number] 8.4 - 10 .2 [facility] SODIUM SERPL SCNC 138mmol/L Normal [id number] 135 - 145 [facility] ANION GAP SERPL SCNC 9mmol/L Normal [id number] 5 - 14 [facility] Glomerular filtration rate/1.73 sq M. predicted 101 Normal [id number] 60 - [facility] HCO3 SER SCNC 24mmol/L Normal [id number] 24 - 32 [facility] GLUCOSE SERPL MCNC 153mg/dL Normal [id number] 70 - 199 [facility] BUN SERPL MCNC 16mg/dL Normal [id number] 7 - 17 [facility] CHLORIDE SERPL SCNC 105mmol/L Normal [id number] 98 - 107 [facility] POTASSIUM SERPL SCNC 3.5mmol/L Normal [id number] 3.5 - 5.1 [facility] PLATELET NO. BLD AUTO 260K/uL Normal [id number] 150 - 450 [facility] RBC NO. BLD AUTO 5.35M/uL Normal [id number] 4.2 - 5.4 [facility] NUCLEATED RBC 0% Normal 0 - 1 [facility] HS LYMPHOCYTES NO. BLD AUTO 3.1K/uL Normal [id number] 1 - 3.2 [facility] EOSINOPHIL NO. BLD AUTO 0.1K/uL Normal 0 - 0.5 [facility] MCH RBC QN AUTO 32pg Normal [id number] 25 - 33 [facility] MCHC RBC AUTO MCNC 34.2g/dL Normal [id number] 32 - 36 [facility] MONOCYTES NFR BLD AUTO 7.1% Normal [id number] 2 - 12 [facility] IMMATURE GRANULOCYTE, ABSOLUTE 0.06k/uL Normal [id number] - 0.1 [facility] LYMPHOCYTES NFR BLD AUTO 29.5% Normal [id number] 20 - 48 [facility] EOSINOPHIL NFR BLD AUTO 1% Normal [id number] 0 - 6 [facility] HGB BLD MCNC 17.1g/dL Above high normal [id number] 12.5 - 16 [facility] NEUTROPHILS NO. BLD AUTO 6.4K/uL Normal [id number] 1.8 - 7.8 [facility] WBC NO. BLD AUTO 10.3K/uL Normal [id number] 4 - 10.5 [facility] BASOPHILS NFR BLD AUTO 0.5% Normal 0 - 2 [facility] MONOCYTES NO. BLD AUTO 0.7K/uL Normal 0 - 0.8 [facility] MCV RBC AUTO 93.5fL Normal [id number] 78 - 100 [facility] NEUTROPHILS NFR BLD AUTO 61.3% Normal 44 - 74 [facility] IMMATURE GRANULOCYTE, PERCENT 0.6% Normal 0 - 1 [facility] BASOPHILS IN BLOOD BY AUTOMATED COUNT 0.1K/uL Normal [id number] 0 - 0.2 [facility] PMV BLD AUTO 10.5fL Normal [id number] 7.4 - 11.4 [facility] RDW RBC AUTO RTO 13.4% Normal [id number] 12.1 - 16. 2 [facility] HCT VFR BLD AUTO 50% Above high normal [id number] 37 - 47 [facility] SPECIMEN SOURCE XXX URINE CLEAN CATCH Normal [id number] [facility] PROT SERPL MCNC 7.2g/dL Normal [id number] 6.4 - 8.5 [facility] BILIRUB SERPL MCNC 0.7mg/dL Normal [id number] 0.3 - 1 [facility] ALBUMIN/GLOB SERPL MRTO 1.5 Normal [id number] [facility] AST SERPL CCNC 47U/L Above high normal [id number] 5 - 40 [facility] ALBUMIN SERPL BCG MCNC 4.3g/dL Normal [id number] 3.5 - 5 [facility] ALP SERPL-CCNC 117U/L Above high normal [id number] 34 - 104 [facility] ALT SERPL CCNC 71U/L Above high normal [id number] 7 - 52 [facility] BILIRUB DIRECT SERPL MCNC 0.1mg/dL Normal [id number] 0 - 0.2 [facility] CREAT SERPL MCNC 0.7mg/dL Normal [id number] 0.5 - 1 [facility] CALCIUM SERPL MCNC 9.8mg/dL Normal 8.4 - 10 .2 [facility] SODIUM SERPL SCNC 137mmol/L Normal [id number] 135 - 145 [facility] ANION GAP SERPL SCNC 8mmol/L Normal [id number] 5 - 14 [facility] Glomerular filtration rate/1.73 sq M. predicted 101 Normal [id number] 60 - [facility] HCO3 SER SCNC 26mmol/L Normal 24 - 32 [facility] GLUCOSE SERPL MCNC 105mg/dL Normal 70 - 199 [facility] BUN SERPL MCNC 17mg/dL Normal 7 - 17 [facility] CHLORIDE SERPL SCNC 103mmol/L Normal [id number] 98 - 107 [facility] POTASSIUM SERPL SCNC 3.8mmol/L Normal 3.5 - 5.1 [facility] MAGNESIUM SERPL MCNC 2.1mg/dL Normal [id number] 1.7 - 2.8 [facility] LACTATE SERPL SCNC 1.3mmol/L Normal [id number] 0.5 - 2 [facility] PLATELET NO. BLD AUTO 269K/uL Normal [id number] 150 - 450 [facility] RBC NO. BLD AUTO 5.58M/uL Above high normal [id number] 4. 2 - 5.4 [facility] NUCLEATED RBC 0% Normal 0 - 1 [facility] LYMPHOCYTES NO. BLD AUTO 2.8K/uL Normal [id number] 1 - 3.2 [facility] EOSINOPHIL NO. BLD AUTO 0.1K/uL Normal [id number] 0 - 0.5 [facility] MCH RBC QN AUTO 31.2pg Normal [id number] 25 - 33 [facility] MCHC RBC AUTO MCNC 34.1g/dL Normal [id number] 32 - 36 [facility] MONOCYTES NFR BLD AUTO 7% Normal [id number] 2 - 12 [facility] IMMATURE GRANULOCYTE, ABSOLUTE 0.04k/uL Normal [id number] - 0.1 [facility] LYMPHOCYTES NFR BLD AUTO 26.5% Normal [id number] 20 - 48 [facility] EOSINOPHIL NFR BLD AUTO 0.7% Normal [id number] 0 - 6 [facility] HGB BLD MCNC 17.4g/dL Above high normal [id number] 12.5 - 16 [facility] NEUTROPHILS NO. BLD AUTO 6.9K/uL Normal [id number] 1.8 - 7.8 [facility] WBC NO. BLD AUTO 10.7K/uL Above high normal [id number] 4 - 10.5 [facility] BASOPHILS NFR BLD AUTO 0.6% Normal [id number] 0 - 2 [facility] MONOCYTES NO. BLD AUTO 0.8K/uL Normal [id number] 0 - 0.8 [facility] MCV RBC AUTO 91.4fL Normal [id number] 78 - 100 [facility] NEUTROPHILS NFR BLD AUTO 64.8% Normal [id number] 44 - 74 [facility] IMMATURE GRANULOCYTE, PERCENT 0.4% Normal [id number] 0 - 1 [facility] BASOPHILS IN BLOOD BY AUTOMATED COUNT 0.1K/uL Normal [id number] 0 - 0.2 [facility] PMV BLD AUTO 9.9fL Normal [id number] 7.4 - 11.4 [facility] RDW RBC AUTO RTO 13.8% Normal [id number] 12.1 - 16. 2 [facility] HCT VFR BLD AUTO 51% Above high normal [id number] 37 - 47 [facility] History of Medication Use Medication Directions Dispensed Refills Start Date End Date Status carvediloL (COREG) 6.25 mg tablet Take 1 tablet (6.25 mg total) by mouth 2 (two) times a day with meals. 4 active fenofibrate (LOFIBRA) 160 mg tablet Take 1 tablet (160 mg total) by mouth 1 (one) time each day. active cholecalciferol (VITAMIN D-3) 50 mcg (2,000 unit) capsule Take by mouth. active clonazepam (KLONOPIN ORAL) KlonopinTakeNo date recordedNo form recordedNo frequency recordedNo route recordedNo set duration recordedNo set duration amount recordedactiveNo dosage strength recordedNo dosage strength units of measure recorded active predniSONE (DELTASONE) 20 mg tablet Take 2 tablets (40 mg total) by mouth daily for 5 days. Take with food. 5 active albuterol sulfate 90 mcg/actuation HFA aerosol inhaler Inhale 2 puffs into the lungs every 6 (six) hours as needed for wheezing. 5 active NORVASC 10 mg tablet 6.25 mg. ac tive albuterol (PROVENTIL, VENTOLIN) 2.5 mg /3 mL (0.083 %) nebulizer solution Take 3 mLs by nebulization every 6 (six) hours as needed for shortness of breath. 5 active amlodipine-atorvasta tin (CADUET) 10-10 mg per tablet Take 1 tablet by mouth daily. active amLODIPine (NORVASC) tablet 10 mg 3 active MacrobidTake 1 Capsule 2 times per day for 7 [id number] times per dayNo route [id number] suspended KlonopinTakeNo date recordedNo form recordedNo frequency recordedNo route recordedNo set duration recordedNo set duration amount recordedactiveNo dosage strength recordedNo dosage strength units of measure recorded active metoprolol succinateTakeNo date recordedNo form recordedNo frequency recordedNo route recordedNo set duration recordedNo set duration amount recordedactiveNo dosage strength recordedNo dosage strength units of measure recorded active iopamidol (ISOVUE-370) 76 % injection 0-150 mL 0-150 mL, Intravenous, IMG once as needed, contrast, Starting on Kelli 06/21/23 at 1612, For 1 dose, Radiology Contrast 4 06/21/19 24 completed ZoloftTakeNo date recordedNo form recordedNo frequency recordedNo route recordedNo set duration recordedNo set duration amount recordedactiveNo dosage strength recordedNo dosage strength units of measure recorded active famotidine (PEPCID) 20 MG tablet Twice A Day 6 active amoxicillin-pot clavulanateTake 1 Tablet (oral) 2 times per day for 10 [id number] times per [id number] 4 suspended cholecalciferol (VITAMIN D-3) 50 mcg (2,000 unit) capsule Take by mouth. active amlodipineTakeNo date recordedNo form recordedNo frequency recordedNo route recordedNo set duration recordedNo set duration amount recordedactiveNo dosage strength recordedNo dosage strength units of measure recorded active KlonopinTakeNo date recordedNo form recordedNo frequency recordedNo route recordedNo set duration recordedNo set duration amount recordedactiveNo dosage strength recordedNo dosage strength units of measure recorded active Cholecalciferol 50 MCG (2000 UT) CAPS Take by mouth. ac tive AlbuterolTakeNo date recordedNo form recordedNo frequency recordedNo route recordedNo set duration recordedNo set duration amount recordedactiveNo dosage strength recordedNo dosage strength units of measure recorded active famotidine (PEPCID) 20 MG tablet Twice A Day 6 active sodium chloride 0.9 % flush 10 mL 10 mL, intravenous, Once, On Sun02/27/24 at 1417, For 1 dose 4 02/27/20 24 completed metoprolol succinateTakeNo date recordedNo form recordedNo frequency recordedNo route recordedNo set duration recordedNo set duration amount recordedactiveNo dosage strength recordedNo dosage strength units of measure recorded active Allergies Allergen Reaction Severity Comment Documented Date Source Statu s MACROBID Not Indicated [facility] anaphylaxis [facility] Problems Problem Status Onset Date Problem Type Date of Resolution Source Nicotine dependence with nicotine-induced disorder, unspecified nicotine product type active EncounterDiagnosisAct [facility] Chest pain, unspecified type active EncounterDiagnosisAct [facility] Acute cough active 2024-04-11 ProblemAct [facility] RSV infection active 2024-04-11 ProblemAct [facility] Other asthma active ProblemAct [facility] Hypertension active ProblemAct [facility] Urgency of urination active 2023-10-16 ProblemAct [facility] Kidney stone active EncounterDiagnosisAct [facility] Urinary frequency active EncounterDiagnosisAct [facility] Urinary urgency active EncounterDiagnosisAct [facility] Pelvic pressure in female active EncounterDiagnosisAct [facility] Hematuria active EncounterDiagnosisAct [facility] Elevated liver enzymes active EncounterDiagnosisAct [facility] Immunizations Vaccine Date Source Lot Number Status Tdap 06/21/2023 [facility] [id number] completed Encounters Encounter Type Encounter Reason Primary Diagnosis Location Date Emergency irregular ekg SOB Chest pain, unspecified [facility] 05/22/2024 Ambulatory Cough Cough [facility] 04/11/2024 Emergency WC abd fullness Unspecified abdominal pain [facility] 02/27/2024 Emergency FALL WC Unspecified fall , initial encounter [facility] 02/19/2024 Emergency Hematuria, unspecified Hematuria, unspecified [facility] 10/17/2023 Emergency Open bite of left hand, initial encounter Open bite of left hand, initial encounter [facility] 06/21/2023 Ambulatory [facility] 06/20/2023 Emergency Chronic obstructive pulmonary disease with (acute) exacerbation Chronic obstructive pulmonary disease with (acute) exacerbation [facility] 12/17/2022 Ambulatory [facility] 12/17/2022 Care Team Organization Name Specialty Phone Email Start Date End [facility] 04/11/2024 [facility] 02/22/2024 [facility] 02/20/2024 [facility] Not Found Primary Care 04/08/2023 [facility] 04/08/2023 [facility] 023 [facility] 2022 [facility] 023 12/17/2022 [facility] PO Primary Care 202212/17/2022
--- OUTSIDE RECORDS SUMMARY | 2024-05-27 18:23 | XMS_ITS | Clinical Summary ---
Author Organization [address] Address [address] [place] [id number] Care Team Providers Care Sciences Dean Name Role Phone Unavailable Primary Care Provider Unavailabl e Allergies Active Allergy Reactions Criticality Noted Date Comments Hydrochlorothiazide Unknown 01/09/2024 Leg cramps* Lisinopril Cough 01/09/2024 Cough* Nitrofurantoin Hives High 10/17/2023 Nitrofurantoin Monohyd/M-Cryst Unknown 04/11 Sulfamethoxazole-Trimethoprim Anaphylaxis High 12/17 Medications NORVASC 10 mg tablet 6.25 mg. Active amlodipine-nicolás rvastatin (CADUET) 10-10 mg per tablet Take 1 tablet by mouth daily. Active cholecalcifero l (VITAMIN D-3) 50 mcg (2,000 unit) capsule Take by mouth. Activ e clonazepam (KLONOPIN ORAL) KlonopinTakeNo date recordedNo form recordedNo frequency recordedNo route recordedNo set duration recordedNo set duration amount recordedactiveNo dosage strength recordedNo dosage strength units of measure recorded Active albuterol sulfate 90 mcg/actuation HFA aerosol inhalerIndicat ions:Acute cough Inhale 2 puffs into the lungs every 6 (six) hours as needed for wheezing. 18 g 04/11/19 25 Active albuterol (PROVENTIL, VENTOLIN) 2.5 mg /3 mL (0.083 %) nebulizer solutionIndica tions:Acute cough Take 3 mLs by nebulization every 6 (six) hours as needed for shortness of breath. 25 mL 04/11/19 25 Active Active Problems Problem Noted Date Diagnosed Date Acute cough 04/11/2024 RSV infection 04/11/2024 Encounters Date Type Department Care Team Description 04/11/2024 1:45 PM EST Office Visit [facility] [address] [place] [address] Joe Soni, PA Acute cough (Primary Dx); RSV infection from Last 3 Months Social History Tobacco Use Types Packs/Day Years Used Date Smoking Tobacco: Never Smokeless Tobacco: Never Tobacco Cessation:Counseling Given: Not Answered Alcohol Use Standard Drinks/Week Comments Not Currently 0 (1 standard drink = 0.6 oz pur e alcohol) Comments No Sex and Gender Information Value Date Recorded Sex Assigned at Not on file Legal Sex Female 3:54 PM EDT Gender Identity Not on file Sexual Orientation Not on file Last Filed Vital Signs Vital Sign Reading Time Taken Comments Blood Pressure 117/87 04/11/2024 2:01 PM EST Pulse 101 04/11/2024 2:01 PM EST Temperature 37.4 ??C (99.4 ??F) 04/11/2024 2:01 PM ES T Respiratory Rate 20 04/11/2024 2:01 PM EST Oxygen Saturation 97% 04/11/2024 2:01 PM EST Inhaled Oxygen Concentration - - Weight 86.2 kg (190 lb) 04/11/2024 2:01 PM EST Height 165.1 cm (5' 5 ) 04/11/2024 2:01 PM EST Body Mass Index 31.62 04/11/2024 2:01 PM EST Plan of Treatment Health Maintenance Due Date Last Done Comments HIV screening 09/26/1979 Hepatitis C screening 1984 Cervical cancer screening 09/26/1987 Breast cancer screening 2006 Lipid disorder screening 2006 Colon cancer screening, Colonoscopy 09/26/2011 Diabetes screening 09/26/2011 Shingles vaccine (Shingrix) (1 of 2 - Shingrix (RZV) 2 Dose Standard Series) 2016 Influenza vaccine 10/18/2023 01/30/2019 Covid-19 vaccine series ( - season) 2023 Pneumococcal Vaccine (50+ ye ars) (1 of 1 - PCV) 09/26/2031 Tetanus adult (Td q 10,TDAP once) 06/20/2033 024 RSV Discussion (1 - 1-dose 7 5+ series) 2041 Meningococcal Vaccine Aged Out No bertha kb eligible based on patient's age to complete this topic Pneumococcal Vaccine (2 - 49 years) Aged Out No longer eligible b ased on patient's age to complete this topic Procedures Procedure Name Priority Date/Time Associated Diagnosis Comments POCT SARS COV-2 (COVID-19) PCR ([facility]) Routine 04/11/2024 2:19 PM EST Acute cough POCT INFLUENZA A+B/RSV ([facility]) Routine 04/11/2024 2:19 PM EST Acute cough from Last 3 Months Results * POCT LILIANA COV-2 (COVID-19) PCR (In-Clinic) (04/11/2024 2:19 PM EST) POC SARS-CoV-2 (COVID-19) PCR Not Detected Not Detected POC Kit Lot Number [id number] POC Expiration Date 01/16/2025 Nasal Swab 04/11/2024 2:19 PM EST Joe TOSCANO POINT OF CARE ORDERS W/FUTURE F inal Result * (ABNORMAL) POCT Influenza A+B/RSV (In-Clinic) (04/11/2024 2:19 PM EST) POC Influenza A Not Detected Not Detected POC Influenza B Not Detected Not Detected POC RSV Detected(A) Not Detected POC Kit Lot Number [id number] POC Expiration Date 11/16/2025 Nasal Swab 04/11/2024 2:19 PM EST Joe TOSCANO POINT OF CARE ORDERS W/FUTURE F inal Result from Last 3 Months Insurance BS ([employer]) [address]
--- OUTSIDE RECORDS SUMMARY | 2024-05-27 18:23 | XMS_ITS | Encounter Summary ---
Author Organization [facility] Address [address] [place] [address] Care Team Providers Care Equity Structurer Name Role Phone Tariq Romero MD Primary Care Provider [phone] Encounter Details Date Type Department Care Team (Late st Contact Info) Description 05/13/2024 Lab Requisition [facility] - Main Lab [address] [facility] [place] [address] Social History Tobacco Use Types Packs/Day Years [...] on file documented as of this encounter Visit Diagnoses Not on filedocumented in this encounter Care Teams Equity Structurer Relationship Specialty Start Date End Date Tariq Romero MD [address] [place] [address] [address] [facility] [place] [address] PCP - General Internal Medicine 03/03/11 documented as of this encounter
--- OUTSIDE RECORDS SUMMARY | 2024-05-27 18:23 | XMS_ITS | Clinical Summary ---
Author Organization LL [address] [place] [address] [place] [phone] Phone Care Team Providers Care Athletic Team Physician Name Role Phone Tariq Romero MD Primary Care Provider [phone] Allergies Active Allergy Reactions Criticality Noted Date Comments Hydrochlorothiazide 01/09/2024 Leg cramps* Lisinopril Cough 01/09/2024 Cough* Nitrofurantoin Monohyd/M-Cryst Unknown 04/11 Sulfamethoxazole-Trimethoprim Anaphylaxis High 12/17 Medications cholecalciferol (VITAMIN D-3) 50 mcg (2,000 unit) capsule Take by mouth. Active metoprolol succinate (TOPROL-XL) 25 mg 24 hr tablet Take 25 mg by mouth daily. 25 mg PO daily 90 days tabs 1RF 09/26/2022 Active amLODIPine-atorv astatin (CADUET) 10-10 mg per tablet Take 1 tablet by mouth daily. Active clonazePAM (KlonoPIN) 0.5 mg tablet Take 0.5 mg by mouth 2 times daily as needed. Active carvediloL (COREG) 6.25 mg tablet Take 1 tablet (6.25 mg total) by mouth 2 (two) times a day with meals. 11/22/2023 Active fenofibrate (LOFIBRA) 160 mg tablet Take 1 tablet (160 mg total) by mouth 1 (one) time each day. 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 MRI [address] [place] [id number] Abnormal finding on imaging of liver Discharge Disposition: Home or Self Care 02/28/2024 Telephone Gastroenterology - [address] [phone] Blanche Walton MA 02/27/2024 12:47 PM EST - 02/27/2024 4:20 PM EST Emergency [facility] Emergency [address] [place] [phone] Kandi Booth MD Right sided abdominal pain (Primary Dx); Elevated hemoglobin (CMS/HCC); Hepatomegaly Discharge Disposition: Home or Self Care from Last 3 Months Medical History Medical History Date Comments Bronchitis DX:Bronchitis Social History Tobacco Use Types Packs/Day Years [...] Orientation Straight 02/19/2024 4: 26 PM EST Obstetrics History Last Filed Vital Signs Vital Sign Reading Time Taken Comments Blood Pressure 121/81 05/22/2024 3:04 PM EST Pulse 72 05/22/2024 3:04 PM EST Temperature 36.9 ??C (98.4 ??F) 05/22/2024 1:22 PM ES T Respiratory Rate 18 05/22/2024 3:04 PM EST Oxygen Saturation 94% 05/22/2024 3:04 PM EST Inhaled Oxygen Concentration - - Weight 83.9 kg (185 lb) 05/22/2024 1:25 PM EST Height 165.1 cm (5' 5 ) 05/22/2024 1:25 PM EST Body Mass Index 30.79 05/22/2024 1:25 PM EST Plan of Treatment Health Maintenance Due Date Last Done Comments Hepatitis B Vaccines (1 of 3 - 19+ 3-dose series) 1985 Pneumococcal Vaccine: 50+ Years (1 of 2 - PCV) 1985 Pneumococcal Vaccine: Pediatrics (0 to 5 Years) and At-Risk Patients (6 to 64 Years) (1 of 2 - PCV) 1985 Cervical Cancer Screening: Pap Smear 09/26/1987 Zoster Vaccines (1 of 2) 2016 Cholesterol Screening (Lipid Panel) 02/25/2022 Colorectal Cancer Screening: Colonoscopy 02/25/2022 Depression Screening 02/25/2022 HIV Screening 02/25/2022 Hepatitis C Screening 02/25/2022 Social Influencers of Health Screening 02/25/2022 Lung Cancer Screening (Low Dose CT) 01/06/2023 01/06/2022 Breast Cancer Screening 09/24/2023 09/24/19 22, 07/16/2020, 05/28/2019, Additional history exists COVID-19 Vaccine ( season) 2023 04/28/2021, 05/06/2020, 04/15/2020 Influenza Vaccine (#1) 2023 , 01/04/2021, 01/30/2019, Additional history exists DTaP,Tdap,and Td Vaccines (3 - Td or Tdap) 06/20/2033 06/21/2023, 04/16/2015 HIB Vaccines Aged Out No longer eligi ble based on patient's age to complete this topic HPV Vaccines Aged Out No longer eligi ble based on patient's age to complete this topic Hepatitis A Vaccines Aged Out No long er eligible based on patient's age to complete this topic IPV Vaccines Aged Out No longer eligi ble based on patient's age to complete this topic MMR Vaccines Aged Out No longer eligi ble based on patient's age to complete this topic Meningococcal ACWY Vaccine Aged Out N o longer eligible based on patient's age to complete this topic Meningococcal B Vacine Aged Out No lo nger eligible based on patient's age to complete this topic RSV Immunization Patients Under 20 months Aged Out No longer eligible based on patient's age to complete this topic Varicella Vaccines Aged Out No longer eligible based on patient's age to complete this topic Procedures Procedure Name Priority Date/Time Associated Diagnosis Comments TROPONIN I HIGH SENSITIVITY STAT 05/22/2024 4:39 PM EST XR CHEST 1 VIEW STAT 05/22/2024 1:57 PM EST ECG 12-LEAD STAT 05/22/2024 1:37 PM EST CBC WITH AUTO DIFFERENTIAL STAT 05/22/2024 1:37 PM EST B-TYPE NATRIURETIC PEPTIDE STAT 05/22/2024 1:37 PM EST MAGNESIUM STAT 05/22/2024 1:37 PM EST LIPASE STAT 05/22/2024 1:37 PM EST COMPREHENSIVE METABOLIC PANEL STAT 05/22/2024 1:37 PM EST TROPONIN I HIGH SENSITIVITY STAT 05/22/2024 1:37 PM EST CBC AND DIFFERENTIAL STAT 05/22/2024 1:37 PM EST LAVENDER - EDTA Routine 05/13/2024 9:05 AM EST Familial erythrocytosis CBC WITH AUTO DIFFERENTIAL Routine 05/13/2024 9:05 AM EST Familial erythrocytosis JAK2 GENE, V617F MUTATION, QUANTITATIVE, MOLECULAR STUDY Routine 05/13/2024 9:05 AM EST Familial erythrocytosis CARBOXYHEMOGLOBIN Routine 05/13/2024 9:0 5 AM EST Familial erythrocytosis COMPREHENSIVE METABOLIC PANEL Routine 05/13/2024 9:05 AM EST Familial erythrocytosis CBC AND DIFFERENTIAL Routine 05/13/2024 9:05 AM EST Familial erythrocytosis MR ABDOMEN WO AND W CONTRAST Routine 02/28/2024 6:42 PM EST Abnormal finding on imaging of liver CT CHEST/ABDOMEN/PELVIS W CONTRAST STAT 02/27/2024 2:18 PM EST CBC WITH AUTO DIFFERENTIAL STAT 02/27/2024 1:17 PM EST LIPASE STAT 02/27/2024 1:17 PM EST COMPREHENSIVE METABOLIC PANEL STAT 02/27/2024 1:17 PM EST CBC AND DIFFERENTIAL STAT 02/27/2024 1:[address] LUNG SCREENING LOW DOSE Routine 01/06/2022 6:06 PM EDT Personal history of nicotine dependence AVA SCREENING DIGITAL Routine 09/23/2021 2:57 PM EDT Encounter for screening mammogram for malignant neoplasm of breast from Last 3 Months or Most Recently Relevant to Health Maintenance Results * Troponin I high sensitivity (05/22/2024 4:39 PM EST) Only the most recent of2 resultswithin the time period is included. High Sensitivity Troponin I 3 0 - 14 ng/L LAB CHEMISTRY METHOD 05/22/2024 5:08 PM EST [facility] [place] [place] [facility] Blood Venous blood specimen / Unknown Venipuncture / Unknown 05/22/2024 4:39 PM EST 05/22/2024 4:41 PM EST Narrative [facility] - 05/22/2024 5:08 PM EST HSTnI results stratify to HIGH RISK category if any value >100 ng/L or delta at 1 hour is greater than or equal to 15 ng/L (male and female). Note: Delta values are not applicable if symptoms began more than 12 hours pre-arrival. Risk stratification should include the calculation of the HEART score. Testing performed using [employer] AccuTnI+3 Assay. us Chandrika TOSCANO LAB BLOOD ORDERABLES Final Result [facility] [address] [place] [address], [place] [phone] * XR Chest 1 View (05/22/2024 1:57 PM EST) Anatomical Region Laterality Modality Body Radiographic Claire ging 05/22/2024 1:58 PM EST Impressions 05/22/2024 1:59 PM EST No acute cardiopulmonary abnormality. Report reviewed and signed by : Dr. Navneet Jang on 05/22/2024 1:59 PM. Workstation Name - [id number] -------- FINAL REPORT -------- Dictated By: Navneet Jang Dictated Date: 05/22/2024 13:58 ET Assigned Physician: Navneet Jang Reviewed and Electronically Signed By: Navneet Jang Signed Date: 05/22/2024 13:59 ET Workstation ID: [id number] Transcribed By: Self Edit Transcribed Date: 05/22/2024 13:58 ET Narrative 05/22/2024 1:59 PM EST EXAMINATION: XR CHEST 1 VIEW ?? 05/22/2024 1:45 PM CLINICAL HISTORY: ??chest pain COMPARISON: ??Chest radiograph 12/17/2022 FINDINGS: Clear lungs. No pleural effusion or pneumothorax. Cardiomediastinal silhouette is unchanged, unremarkable. Procedure Note Navneet Jang MD - 05/22/2024 EXAMINATION: XR CHEST 1 VIEW 05/22/2024 1:45 PM CLINICAL HISTORY: chest pain COMPARISON: Chest radiograph 12/17/2022 FINDINGS: Clear lungs. No pleural effusion or pneumothorax. Cardiomediastinal silhouette is unchanged, unremarkable. IMPRESSION: No acute cardiopulmonary abnormality. Report reviewed and signed by : Dr. Navneet Jang on 05/22/2024 1:59 PM.Workstation Name - [id number] -------- FINAL REPORT -------- Dictated By: Navneet Jang Dictated Date: 05/22/2024 13:58 ET Assigned Physician: Navneet Jang Reviewed and Electronically Signed By: Navneet Jang Signed Date: 05/22/2024 13:59 ET Workstation ID: [id number] Transcribed By: Self Edit Transcribed Date: 05/22/2024 13:58 ET Italo Ellis MD IMG XR PROCEDURES Final Result * ECG 12 lead (05/22/2024 1:37 PM EST) Ventricular Rate ECG 80 BPM GEMUSE Atrial Rate 80 BPM GEMUSE P-R Interval 138 ms GEMUSE QRS Duration 74 ms GEMUSE Q-T Interval 418 ms GEMUSE QTc 482 ms GEMUSE P Wave [facility] 58 degrees GEMUSE R [place] 56 degrees GEMUSE T [facility] 55 degrees GEMUSE ECG Interpretation Normal sinus rhythm Prolonged QT Abnormal ECG When compared with ECG of 17-DEC-2022 19:36, Criteria for Septal infarct are no longer present Confirmed by Nikolay Christianson ([id number]) on 05/22/2024 5:02:56 PM GEMUSE 05/22/2024 1:37 PM EST 05/22/2024 5:02 PM EST us Italo Ellis MD ECG ORDERABLES Final Result GEMUSE * (ABNORMAL) CBC auto differential (05/22/2024 1:37 PM EST) Only the most recent of3 resultswithin the time period is included. WBC 11.7(H) 4.0 - 10.5 K/mcL LAB HEMETOLOGY METHOD 05/22/2024 1:45 PM [facility] RBC 5.47(H) 4.20 - 5.40 M/mcL LAB HEMETOLOGY METHOD 05/22/2024 1:45 PM [facility] Hemoglobin 18.1(H) 12.5 - 16.0 g/dL LAB HEMETOLOGY METHOD 05/22/2024 1:45 PM [facility] Hematocrit 50.7(H) 37.0 - 47.0 % LAB HEMETOLOGY METHOD 05/22/2024 1:45 PM [facility] MCV 92.7 78.0 - 100.0 FL LAB HEMETOLOGY METHOD 05/22/2024 1:45 PM [facility] MCH 33.1(H) 25.0 - 33.0 pcg LAB HEMETOLOGY METHOD 05/22/2024 1:45 PM [facility] MCHC 35.7 32.0 - 36.0 g/dL LAB HEMETOLOGY METHOD 05/22/2024 1:45 PM [facility] RDW 14.6 12.1 - 16.2 % LAB HEMETOLOGY METHOD 05/22/2024 1:45 PM [facility] Platelets 293 150 - 450 K/mcL LAB HEMETOLOGY METHOD 05/22/2024 1:45 PM [facility] MPV 10.1 7.4 - 11.4 FL LAB HEMETOLOGY METHOD 05/22/2024 1:45 PM [facility] Neutrophils Relative 55.6 44.0 - 74.0 % LAB HEMETOLOGY METHOD 05/22/2024 1:45 PM EST [facility] Lymphocytes Relative 32.7 20.0 - 48.0 % LAB HEMETOLOGY METHOD 05/22/2024 1:45 PM [facility] Monocytes Relative 9.3 2.0 - 12.0 % LAB HEMETOLOGY METHOD 05/22/2024 1:45 PM [facility] Eosinophils Relative 1.2 0.0 - 6.0 % LAB HEMETOLOGY METHOD 05/22/2024 1:45 PM EST [facility] Basophils Relative 0.7 0.0 - 2.0 % LAB HEMETOLOGY METHOD 05/22/2024 1:45 PM [facility] Neutrophils Absolute 6.51 1.80 - 7.80 K/mcL LAB HEMETOLOGY METHOD 05/22/2024 1:45 PM EST [facility] Lymphocytes Absolute 3.83(H) 1.00 - 3.20 K/mcL LAB HEMETOLOGY METHOD 05/22/2024 1:45 PM EST [facility] Monocytes Absolute 1.09(H) 0.00 - 0.80 K/mcL LAB HEMETOLOGY METHOD 05/22/2024 1:45 PM [facility] Eosinophils Absolute 0.14 0.00 - 0.50 K/mcL LAB HEMETOLOGY METHOD 05/22/2024 1:45 PM EST [facility] Basophils Absolute 0.08 0.00 - 0.20 K/mcL LAB HEMETOLOGY METHOD 05/22/2024 1:45 PM [facility] Blood Venous blood specimen / Unknown Venipuncture / Unknown 05/22/2024 1:37 PM EST 05/22/2024 1:42 PM EST us Italo Ellis MD LAB BLOOD ORDERABLES Final Resu lt [facility] [address] [place] [address], [place] [phone] * B-type natriuretic peptide (05/22/2024 1:37 PM EST) [facility] BNP 12 0 - 100 pcg/mL LAB CHEMISTRY METHOD 05/22/2024 5:13 PM EST [facility] Blood Venous blood specimen / Unknown Venipuncture / Unknown 05/22/2024 1:37 PM EST 05/22/2024 4:42 PM EST us Italo Ellis MD LAB BLOOD ORDERABLES Final Resu lt Performing Organization Address City/[facility]/ZIP Co de Phone Number [facility] [address] [place] [address], * Magnesium (05/22/2024 1:37 PM EST) [facility] Magnesium 2.1 1.7 - 2.8 mg/dL LAB CHEMISTRY METHOD 05/22/2024 2:05 PM EST [facility] Comment:Slight Hemolysis may affect test result(s). Blood Venous blood specimen / Unknown Venipuncture / Unknown 05/22/2024 1:37 PM EST 05/22/2024 1:42 PM EST us Italo Ellis MD LAB BLOOD ORDERABLES Final Resu lt [facility] [address] [place] [address], [place] [phone] * Lipase (05/22/2024 1:37 PM EST) Only the most recent of2 resultswithin the time period is included. [facility] Lipase 16 11 - 82 unit/L LAB CHEMISTRY METHOD 05/22/2024 2:04 PM EST [facility] Blood Venous blood specimen / Unknown Venipuncture / Unknown 05/22/2024 1:37 PM EST 05/22/2024 1:42 PM EST us Italo Ellis MD LAB BLOOD ORDERABLES Final Resu lt [facility] [address] [place] [address], [place] [phone] * (ABNORMAL) Comprehensive metabolic panel (05/22/2024 1:37 PM EST) Only the most recent of3 resultswithin the time period is included. Sodium 138 135 - 145 mmol/L LAB CHEMISTRY METHOD 05/22/2024 2:04 PM [facility] Potassium 3.9 3.5 - 5.1 mmol/L LAB CHEMISTRY METHOD 05/22/2024 2:04 PM [facility] Comment:Slight Hemolysis may affect test result(s). Chloride 103 98 - 107 mmol/L LAB CHEMISTRY METHOD 05/22/2024 2:04 PM [facility] CO2 25 24 - 32 mmol/L LAB CHEMISTRY METHOD 05/22/2024 2:04 PM [facility] Anion Gap 10 5 - 14 LAB CHEMISTRY METHOD 05/22/2024 2:04 PM [facility] Glucose 101 70 - 199 mg/dL LAB CHEMISTRY METHOD 05/22/2024 2:04 PM [facility] BUN 18(H) 7 - 17 mg/dL LAB CHEMISTRY METHOD 05/22/2024 2:04 PM [facility] Creatinine 0.73 0.50 - 1.00 mg/dL LAB CHEMISTRY METHOD 05/22/2024 2:04 PM [facility] eGFR 96 >=60 mL/min/1. 73m2 LAB CHEMISTRY METHOD 05/22/2024 2:04 PM [facility] Comment:Calculation based on the??Chronic Kidney Disease Epidemiology Collaboration (CKD-EPI) equation refit??without adjustment for race. BUN/Creatinine Ratio 24.7(H) 12.0 - 20.0 LAB CHEMISTRY METHOD 05/22/2024 2:04 PM [facility] Calcium 10.6(H) 8.4 - 10.2 mg/dL LAB CHEMISTRY METHOD 05/22/2024 2:04 PM [facility] AST (SGOT) 67(H) 5 - 40 unit/L LAB CHEMISTRY METHOD 05/22/2024 2:04 PM [facility] Comment:Slight Hemolysis may affect test result(s). ALT (SGPT) 99(H) 7 - 52 unit/L LAB CHEMISTRY METHOD 05/22/2024 2:04 PM [facility] Alkaline Phosphatase 100 34 - 104 unit/L LAB CHEMISTRY METHOD 05/22/2024 2:04 PM EST [facility] Total Protein 7.6 6.4 - 8.5 g/dL LAB CHEMISTRY METHOD 05/22/2024 2:04 PM [facility] Albumin 4.7 3.5 - 5.0 g/dL LAB CHEMISTRY METHOD 05/22/2024 2:04 PM [facility] Total Bilirubin 1.2(H) 0.3 - 1.0 mg/dL LAB CHEMISTRY METHOD 05/22/2024 2:04 PM EST [facility] Blood Venous blood specimen / Unknown Venipuncture / Unknown 05/22/2024 1:37 PM EST 05/22/2024 1:42 PM EST us Italo Ellis MD LAB BLOOD ORDERABLES Final Resu lt [facility] [address] [place] [address], [place] [phone] * JAK2 gene, V617F mutation, quantitative, molecular study (05/13/2024 9:05 AM EST) Pathologist [facility] Scan Result See Scanned Result 05/18/2024 9:49 AM EST [facility] Blood Venous blood specimen / Unknown Venipuncture / Unknown 05/13/2024 9:05 AM EST 05/13/2024 11:01 AM EST us Maya Oshea MD LAB MOLECULAR DIAGNOSTICS ORDER BENEDICTO Final Result [facility] * Lavender tube (05/13/2024 9:05 AM EST) [facility] Extra Tube Hold for add-ons. 05/13/2024 1:02 PM EST [facility] Comment:Auto resulted. Blood Venous blood specimen / Unknown 05/13/2024 9:05 AM EST 05/13/2024 11:01 AM EST us Maya Oshea MD LAB BLOOD ORDERABLES Final Resu lt Performing Organization Address City/[facility]/ZIP Co de Phone Number [facility] [address] [place] [address], * Carboxyhemoglobin (05/13/2024 9:05 AM EST) Pathologist [facility] Carboxyhemoglobin 8 %TOTAL HGB 05/18/2024 7:40 PM EST [facility] Comment: ?Nonsmoker: ?? <2 % of Total HgB ? Average Smoker: ??4-5 % of Total HgB ? Heavy Smoker: 8-12 % of Total HgB ?Potentially Toxic: ??>15 % of Total HgB Test Performed at: [facility] [address] [place], [place] ? P Tye Ramirez MD, PhD Blood Venous blood specimen / Unknown Venipuncture / Unknown 05/13/2024 9:05 AM EST 05/13/2024 11:01 AM EST us Maya Oshea MD LAB BLOOD ORDERABLES Final Resu lt [facility] [address] [place] [address] * MR Abdomen wo and w Contrast (02/28/2024 6:42 PM EST) Anatomical Region Laterality Modality Body Magnetic Resonan ce 02/29/2024 10:0 5 AM EST Impressions 02/29/2024 10:12 AM EST Hepatic steatosis with small right anterior inferior benign hepatic hemangioma. ??No suspicious liver lesions. -------- FINAL REPORT -------- Dictated By: STAN SWEET Dictated Date: 02/29/2024 10:05 ET Assigned Physician: STAN SWEET Reviewed and Electronically Signed By: STAN SWEET Signed Date: 02/29/2024 10:12 ET Workstation ID: [id number] Transcribed By: Self Edit Transcribed Date: 02/29/2024 10:05 ET Narrative 02/29/2024 10:12 AM EST PROCEDURE: Abdominal MRI INDICATION: Liver lesions TECHNIQUE: Multiplanar, multisequence MRI of the abdomen without and with contrast. ??15 mL Dotarem injected intravenously without complication. COMPARISON: ??CT 03/02/2022 FINDINGS: Hepatic steatosis with loss of hepatic signal on out of phase imaging. There is a T2 hyperintense lesion in the right inferior liver anteriorly which measures 13 mm. ??The lesion demonstrates peripheral enhancement on arterial phase imaging which fills in with contrast on the 5 minute delayed images compared to the arterial phase images. ??Other smaller T2 hyperintense lesions are seen throughout the liver are nonenhancing and are consistent with cysts. Gallbladder and biliary tree are normal. Pancreas, spleen, and adrenal glands are normal. Kidneys are normal. Portal vein is patent. ??Abdominal aorta is normal in size. No retroperitoneal or mesenteric lymphadenopathy. Visualized portions of the bowel are normal. ??No ascites or fluid collection. Elevated right diaphragm with right basilar atelectasis. ??Soft tissues and bones are normal. Procedure Note Stan Sweet MD - 02/29/2024 PROCEDURE: Abdominal MRI INDICATION: Liver lesions TECHNIQUE: Multiplanar, multisequence MRI of the abdomen without and withcontrast. 15 mL Dotarem injected intravenously without complication. COMPARISON: CT 03/02/2022 FINDINGS: Hepatic steatosis with loss of hepatic signal on out of phase imaging. There is a T2 hyperintense lesion in the right inferior liver anteriorlywhich measures 13 mm. The lesion demonstrates peripheral enhancement onarterial phase imaging which fills in with contrast on the 5 minutedelayed images compared to the arterial phase images. Other smaller [id number] lesions are seen throughout the liver are nonenhancing andare consistent with cysts. Gallbladder and biliary tree are normal. Pancreas, spleen, and adrenal glands are normal. Kidneys are normal. Portal vein is patent. Abdominal aorta is normal in size. No retroperitoneal or mesenteric lymphadenopathy. Visualized portions of the bowel are normal. No ascites or fluidcollection. Elevated right diaphragm with right basilar atelectasis. Soft tissues andbones are normal. IMPRESSION: Hepatic steatosis with small right anterior inferior benign hepatichemangioma. No suspicious liver lesions. -------- FINAL REPORT -------- Dictated By: STAN SWEET Dictated Date: 02/29/2024 10:05 ET Assigned Physician: STAN SWEET Reviewed and Electronically Signed By: STAN SWEET Signed Date: 02/29/2024 10:12 ET Workstation ID: [id number] Transcribed By: Self Edit Transcribed Date: 02/29/2024 10:05 ET Rossy RAPP MRI PROCEDURES Final Result * CT Chest/Abdomen/Pelvis w Contrast (02/27/2024 2:18 PM EST) Anatomical Region Laterality Modality Body Computed Tomogra phy 02/27/2024 2:52 PM EST Impressions 02/27/2024 2:57 PM EST 1. ??No acute abnormality in the chest, abdomen, or pelvis. 2. ??Hepatic steatosis and borderline hepatomegaly. 3. ??Aortic atherosclerosis. Report reviewed and signed by : Dr. Misbah Pickard on 02/27/2024 2:57 PM. Workstation Name - [id number] -------- FINAL REPORT -------- Dictated By: Misbah Pickard Dictated Date: 02/27/2024 14:52 ET Assigned Physician: Misbah Pickard Reviewed and Electronically Signed By: Misbah Pickard Signed Date: 02/27/2024 14:57 ET Workstation ID: [id number] Transcribed By: Self Edit Transcribed Date: 02/27/2024 14:52 ET Narrative 02/27/2024 2:[address] OF THE CHEST/ABDOMEN/PELVIS WITH IV CONTRAST CLINICAL HISTORY: right chest pain, RUQ pain TECHNIQUE: Serial axial images obtained. Sagittal reconstructed images obtained. Coronal reconstructed images obtained. Postprocessing, MIPS were obtained. Exam is performed with 100 mL of Isovue-300 intravenous contrast. Per PQRS, CT exam is performed using one or more of the following dose reduction techniques: Automated exposure control, adjustment of the mA and/or KV according to patient size, or use of iterative reconstruction techniques. COMPARISON: 02/19/2024 FINDINGS: HEART: A normal-sized heart is seen. VASCULATURE: Aortic atherosclerosis. Negative for aortic aneurysm or aortic dissection. There is normal caliber of the pulmonary artery trunk in relation to the aorta. THORAX: Bibasilar atelectasis. No suspicious pulmonary nodule or consolidation, and no pneumothorax or pleural effusion. CHEST TALBOT: Appearance is unremarkable. THYROID: Unremarkable. VISCERA: Appearance is unremarkable. ESOPHAGUS: Appearance is unremarkable. STOMACH: Appearance is unremarkable. PANCREAS: Appearance is unremarkable. GALLBLADDER: Appearance is unremarkable. LIVER: Hepatic steatosis with fatty sparing along the gallbladder fossa. Borderline enlarged liver measuring up to 18.8 cm in the craniocaudal dimension. ADRENALS: Appearance is unremarkable. SPLEEN: Appearance is unremarkable. KIDNEYS: Appearance is unremarkable. BLADDER: Appearance is unremarkable. GENITAL: Status post hysterectomy. SMALL BOWEL: Appearance is unremarkable. Negative for small bowel dilatation. APPENDIX: Normal appendix. COLON: Appearance is unremarkable. ABDOMINAL/PELVIC TALBOT: Small fat-containing umbilical hernia. BONES: Minimal degenerative changes of the spine, and mild scoliosis. Procedure Note Misbah Pickard MD - 02/27/2024 CT OF THE CHEST/ABDOMEN/PELVIS WITH IV CONTRAST CLINICAL HISTORY: right chest pain, RUQ pain TECHNIQUE: Serial axial images obtained. Sagittal reconstructed images obtained. Coronal reconstructed images obtained. Postprocessing, MIPS wereobtained. Exam is performed with 100 mL of Isovue-300 intravenous contrast. Per PQRS, CT exam is performed using one or more of the following dosereduction techniques: Automated exposure control, adjustment of the mAand/or KV according to patient size, or use of iterative reconstructiontechniques. COMPARISON: 02/19/2024 FINDINGS: HEART: A normal-sized heart is seen. VASCULATURE: Aortic atherosclerosis. Negative for aortic aneurysm or aortic dissection. There is normal caliber of the pulmonary artery trunk in relation to theaorta. THORAX: Bibasilar atelectasis. No suspicious pulmonary nodule orconsolidation, and no pneumothorax or pleural effusion. CHEST TALBOT: Appearance is unremarkable. THYROID: Unremarkable. VISCERA: Appearance is unremarkable. ESOPHAGUS: Appearance is unremarkable. STOMACH: Appearance is unremarkable. PANCREAS: Appearance is unremarkable. GALLBLADDER: Appearance is unremarkable. LIVER: Hepatic steatosis with fatty sparing along the gallbladder fossa.Borderline enlarged liver measuring up to 18.8 cm in the craniocaudaldimension. ADRENALS: Appearance is unremarkable. SPLEEN: Appearance is unremarkable. KIDNEYS: Appearance is unremarkable. BLADDER: Appearance is unremarkable. GENITAL: Status post hysterectomy. SMALL BOWEL: Appearance is unremarkable. Negative for small boweldilatation. APPENDIX: Normal appendix. COLON: Appearance is unremarkable. ABDOMINAL/PELVIC TALBOT: Small fat-containing umbilical hernia. BONES: Minimal degenerative changes of the spine, and mild scoliosis. IMPRESSION: 1. No acute abnormality in the chest, abdomen, or pelvis. 2. Hepatic steatosis and borderline hepatomegaly. 3. Aortic atherosclerosis. Report reviewed and signed by : Dr. Misbah Pickard on 02/27/2024 2:57 PM.Workstation Name - [id number] -------- FINAL REPORT -------- Dictated By: Misbah Pickard Dictated Date: 02/27/2024 14:52 ET Assigned Physician: Misbah Pickard Reviewed and Electronically Signed By: Mibsah Pickard Signed Date: 02/27/2024 14:57 ET Workstation ID: [id number] Transcribed By: Self Edit Transcribed Date: 02/27/2024 14:52 ET us Kandi Booth MD IMG CT PROCEDURES Final Resu lt * CT LUNG SCREENING LOW DOSE (01/06/2022 6:06 PM EDT) Anatomical Region Laterality Modality Computed Tomogra phy 01/06/2022 2:26 PM EDT Narrative 01/06/2022 6:06 PM EDT [facility] Diagnostic Imaging Department [address] [place] [address] Patient: ??DUGLAS JAIN A ?/Age/Sex: 1965 - 56 - F Unit#: ??[id number] ? Location/Status: ??SPDICATLS/REG CLI ? [facility] Ordering Physician: ??MEGAN ROSAS MD CT Lung Screening Low Dose - 01/06/22 - 143 History: ??56 year-old 40 pack-year current smoker, asymptomatic, for lung cancer screening. Comparison: No comparison imaging at this institution. Technique: Helical volumetric imaging of the thorax was performed, using low- dose technique, without IV contrast. DLP: 101.52 mGy/cm ??CTDIvol: 3.22 mGy Servio VCT Iterative reconstruction technique Findings: Lungs and Airways: The trachea and central bronchial tree are patent. Diffuse bronchial wall thickening is seen bilaterally, consistent with bronchitis in this setting. Centrilobular emphysema is noted. There is also a subtle pattern of centrilobular groundglass opacity which is compatible with respiratory bronchiolitis. There is subsegmental atelectasis in the lower lungs. There are rare, sub-5 mm solid, noncalcified pulmonary nodules. No suspicious pulmonary nodule is identified. Pleura: No pleural or pericardial effusions are seen. Base of neck, mediastinum and heart: No thoracic lymphadenopathy is seen. The heart is not enlarged. Minimal coronary artery calcification is noted. Soft tissues: The overlying soft tissues are unremarkable. Abdomen: This study was performed without contrast and with lower than standard dose. These factors reduce the sensitivity for detection of small lesions in the upper abdomen. The hepatic attenuation is diffusely diminished, partially imaged, consistent with fatty infiltration. Impression: Rare, sub-5 mm pulmonary nodules. No suspicious nodule is identified. Lung RADS 2: Benign Appearance or Behavior - Continue annual screening with LDCT in 12 months. [id number] [id number] [id number] G9551 Dictating Physician: ??DIANA BHAT MD Electronically Signed by: ??DIANA BHAT MD Dic Date/Time: ??01/06/22 1800 Sign date/Time: ??01/06/22 1806 Procedure Note Diana Bhat MD - 03/08/2022 [facility] Diagnostic Imaging Department [address] [place] [address] Patient: DUGLAS JAIN Lacey /Age/Sex: 1965 - 56 - F Unit#: [id number] Location/Status: SPDICATLS/REG CLI Mnemonic/Ordering Site: [facility] Ordering Physician: MEGAN ROSAS MD CT Lung Screening Low Dose - 01/06/22 - 1431 History: 56 year-old 40 pack-year current smoker, asymptomatic, for lungcancer screening. Comparison: No comparison imaging at this institution. Technique: Helical volumetric imaging of the thorax was performed, usinglow- dose technique, without IV contrast. DLP: 101.52 mGy/cm CTDIvol: 3.22 mGy Servio VCT Iterative reconstruction technique Findings: Lungs and Airways: The trachea and central bronchial tree are patent.Diffuse bronchial wall thickening is seen bilaterally, consistent with bronchitisin this setting. Centrilobular emphysema is noted. There is also a subtlepattern of centrilobular groundglass opacity which is compatible withrespiratory bronchiolitis. There is subsegmental atelectasis in the lower lungs. There are rare, sub-5 mm solid, noncalcified pulmonary nodules. Nosuspicious pulmonary nodule is identified. Pleura: No pleural or pericardial effusions are seen. Base of neck, mediastinum and heart: No thoracic lymphadenopathy is seen.The heart is not enlarged. Minimal coronary artery calcification is noted. Soft tissues: The overlying soft tissues are unremarkable. Abdomen: This study was performed without contrast and with lower thanstandard dose. These factors reduce the sensitivity for detection of small lesionsin the upper abdomen. The hepatic attenuation is diffusely diminished,partially imaged, consistent with fatty infiltration. Impression: Rare, sub-5 mm pulmonary nodules. No suspicious nodule is identified. Lung RADS 2: Benign Appearance or Behavior - Continue annual screeningwith LDCT in 12 months. 27381 G9637 G9557 G9551 Dictating Physician: DIANA BHAT MD Electronically Signed by: DIANA BHAT MD Dic Date/Time: 01/06/22 1800 Sign date/Time: 01/06/22 180 us Megan Rosas MD IMG CT PROCEDURES Final Result * AVA SCREENING DIGITAL (09/23/2021 2:57 PM EDT) Anatomical Region Laterality Modality Mammography 09/23/2021 2:08 PM EDT Narrative 09/23/2021 2:57 PM EDT [facility] Diagnostic Imaging Department [address] [place], [place] [id number] Patient: ??DUGLAS JAIN ?/Age/Sex: 1965 - 56 - F Unit#: ??[id number] ? Location/Status: ??SPDIMAM/REG CLI ? Mnemonic/Ordering Site: ??[facility]/SPMAM Ordering Physician: ??TARIQ ROMERO MD Ava Screening Digital - 09/23/21 - 2 EXAM: [facility] Screening Digital EXAM DATE AND TIME: 09/23/2021 2:32 PM HISTORY: ??Screening. COMPARISON: ??12/14/20, 07/16/20, 05/28/19, 05/22/18 TECHNIQUE: CC and MLO views of both breasts were obtained using full field digital mammography. Bilateral digital breast tomosynthesis was performed in the MLO projection. Computer aided detection with the [employer].2-H was employed. TISSUE DENSITY: a. The breasts are almost entirely fatty. FINDINGS: No suspicious masses, grouped microcalcifications, or areas of architectural distortion are seen. The skin and vascularity are unremarkable. IMPRESSION: Stable mammographic appearance of the breasts. ??No evidence of malignancy is seen. A negative mammogram in the presence of a clinically suspicious palpable abnormality does not preclude the possibility of malignancy or alter the indic ations for biopsy. BI-RADS: ??Category 1: Negative RECOMMENDATION(S): 1: Routine screening mammogram BILATERAL in 1 year. 73673, 00129 3341F, 7025F Dictating Physician: ??DIANA BHAT MD Electronically Signed by: ??DIANA BHAT MD Dic Date/Time: ??09/23/211456 Sign date/Time: ??09/23/211456 Procedure Note Diana Bhat MD - 03/08/2022 [facility] Diagnostic Imaging Department [address] [place] [address] Patient: SUSYDUGLAS./Age/Sex: 1965 - 56 - F Unit#: [id number] Location/Status: [facility]/REG CLI Mnemonic/Ordering Site: [facility] Ordering Physician: TARIQ ROMERO MD [facility] Screening Digital - 09/23/21 - 1431 EXAM: [facility] Screening Digital EXAM DATE AND TIME: 09/23/2021 2:32 PM HISTORY: Screening. COMPARISON: 12/14/20, 07/16/20, 05/28/19, 05/22/18 TECHNIQUE: CC and MLO views of both breasts were obtained using fullfield digital mammography. Bilateral digital breast tomosynthesis was performedin the MLO projection. 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 TISSUE DENSITY: a. The breasts are almost entirely fatty. FINDINGS: No suspicious masses, grouped microcalcifications, or areas ofarchitectural distortion are seen. The skin and vascularity are unremarkable. IMPRESSION: Stable mammographic appearance of the breasts. No evidence of malignancyis seen. A negative mammogram in the presence of a clinically suspicious palpable abnormality does not preclude the possibility of malignancy or alter theindic ations for biopsy. BI-RADS: Category 1: Negative RECOMMENDATION(S): 1: Routine screening mammogram BILATERAL in 1 year. 08034, 34539 3341F, 7016F Dictating Physician: DIANA BHAT MD Electronically Signed by: DIANA BHAT MD Dic Date/Time: 09/23/211456 Sign date/Time: 09/23/211456 Tariq Romero MD IMG BI PROCEDURES Final Result from Last 3 Months or Most Recently Relevant to Health Maintenance [place] [address] GENERIC Care Teams Athletic Team Physician Relationship Specialty Start Date End Date Tariq Romero MD [address] [place] [address] [address] [facility] [place] [address] PCP - General Internal Medicine 03/03/11
--- OUTSIDE RECORDS SUMMARY | 2024-05-27 18:23 | XMS_ITS | Encounter Summary ---
Author Organization [facility] [place] [address] Care Team Providers Care Ampoule Filler Name Role Phone Tariq Romero MD Primary Care Provider [phone] Reason for Visit * Reason Comments Chest Pain Nausea Shoulder Pain Patient reports feel ing chest pain and tightness to her left neck and shoulder. She did an EKG at work and was concerned Encounter Details Date Type Department Care Team (Late st Contact Info) Description 05/22/2024 1:26 PM EST - 05/22/2024 5:19 PM EST Emergency [facility] Emergency [address] [place] [address] Chest pain, unspecified type (Primary Dx); Nicotine dependence with nicotine-induced disorder, unspecified nicotine product type Discharge Disposition: Left Against Medical Advice Social History Tobacco Use Types Packs/Day Years [...] PM EST documented as of this encounter Last Filed Vital Signs Vital Sign Reading [...] Mass Index 30.79 05/22/2024 1:25 PM EST documented in this encounter Discharge Instructions * Discharge Instructions* EVERTON Brown - 05/22/2024 4:37 PM EST Please return to the emergency room immediately if you have any other concerns, recurrence or worsening of symptoms, or cannot obtain a follow up appointment as recommended regarding this ER visit. Please read below for general discharge instructions regarding emergency room visits: Contact your primary care provider or specialist upon discharge to let them know you were seen in the emergency room and need to coordinate a follow-up visit within the recommended timeframe. During that follow-up visit, please go over all results from today's ER visit with your primary care provider and/or specialist. There may be some nonspecific findings which may, or may not, be related to your visit today, and may require further evaluation and monitoring by your primary care provider or specialist. If you had a laceration repaired today, the chance of foreign body always remains despite a thorough exam in the ER. You should follow-up with your primary care provider for a wound check in 3-5 days, or sooner if any signs of infection (worsening redness, pus, swelling, increasing pain, or fevers). If you had an x-ray done, there is a chance that a fracture could have been missed on the initial read. You should follow-up with your primary care provider or specialist for repeat x-rays if symptoms persist. If your blood pressure was elevated, please have it rechecked by your primary care provider within the next few days. If you were given a narcotic or other controlled medications in the emergency room, you are not allowed to drive or operate any type of heavy machinery while taking this medication. You will need to obtain a safe ride home from the ER today. Narcotics can also make you feel dizzy or nauseous, and can cause severe constipation. I strongly recommend using an [id number]-rpriyjg stool softener and drinking plenty of water while using pain medications to try to avoid constipation. If you have a fever, you can take acetaminophen (tylenol) every 6 hours for further relief. If you have pain, can take ibuprofen/motrin and/or tylenol as needed. If you do not have a primary care provider, Josse Jackson NP is taking new patients. His information is below, please make an appointment. Recommend re- evaluation of current visit by a PCP [id number] days after ER visit. 7 [facility] [id number] It was my pleasure to meet and care for you today. I would like to thank you for visiting the [facility] Emergency Department and entrusting me with your care. * Attachments The following attachments cannot be sent through Care Everywhere. * Chest Pain (Vietnamese) documented in this encounter Medications at Time of Discharge amLODIPine-atorva statin (CADUET) 10-10 mg per tablet Take 1 tablet by mouth daily. carvediloL (COREG) 6.25 mg tablet Take 1 tablet (6.25 mg total) by mouth 2 (two) times a day with meals. 11/22/2023 cholecalciferol (VITAMIN D-3) 50 mcg (2,000 unit) capsule Take by mouth. clonazePAM (KlonoPIN) 0.5 mg tablet Take 0.5 mg by mouth 2 times daily as needed. fenofibrate (LOFIBRA) 160 mg tablet Take 1 tablet (160 mg total) by mouth 1 (one) time each day. metoprolol succinate (TOPROL-XL) 25 mg 24 hr tablet Take 25 mg by mouth daily. 25 mg PO daily 90 days tabs 1RF 09/26/2022 documented as of this encounter Discharge Disposition Disposition Code Departure Means Destination Comment s Left Against Medical Advice documented in this encounter Progress Notes * EVERTON Brown - 05/22/2024 12:59 PM EST Chief Complaint: Chief Complaint Patient presents with Chest Pain Nausea Shoulder Pain Patient reports feeling chest pain and tightness to her left neck and shoulder. She did an EKG at work and was concerned History of Present Illness: 58-year-old female presenting for evaluation of chest pain. Patient states that around 10 AM she developed chest pain in the left side of her chest that radiated to her left shoulder she also endorsed nausea without emesis. Denies lightheadedness or dizziness. Due to symptoms patient came here for further evaluation. Patient admits to daily nicotine use. 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 Denies any fever or chills. Denies dyspnea. Reports improvement in her chest pain. Past Medical History: Diagnosis Date Bronchitis DX:Bronchitis No past surgical history on file. No family history on file. Social History Tobacco Use Smoking status: Every Day Current packs/day: 0.50 Types: Cigarettes Smokeless tobacco: Never Substance Use Topics Alcohol use: Not Currently Drug use: Not Currently Review of Systems: Review of Systems Constitutional: Negative for chills and fever. HENT: Negative for sore throat. Eyes: Negative for visual disturbance. Respiratory: Positive for chest tightness. Negative for shortness of breath and wheezing. Cardiovascular: Positive for chest pain. Gastrointestinal: Negative for abdominal pain, constipation, diarrhea, nausea and vomiting. Genitourinary: Negative for dysuria. Musculoskeletal: Positive for arthralgias and myalgias. Skin: Negative for rash. Neurological: Negative for headaches. Psychiatric/Behavioral: Negative for behavioral problems. Physical Exam: Visit Vitals BP 121/81 (BP Location: Left arm, Patient Position: Lying) Pulse 72 Temp 36.9 ??C (98.4 ??F) (Oral) Resp 18 Vitals: 05/22/24 1504 BP: 121/81 Pulse: 72 Resp: 18 Temp: SpO2: 94% Physical Exam Vitals and nursing note reviewed. Exam conducted with a manager process present. Constitutional: General: She is not in acute distress. Appearance: Normal appearance. HENT: Head: Normocephalic and atraumatic. Nose: Nose normal. Mouth/Throat: Mouth: Mucous membranes are moist. Eyes: Extraocular Movements: Extraocular movements intact. Pupils: Pupils are equal, round, and reactive to light. Cardiovascular: Rate and Rhythm: Normal rate and regular rhythm. Pulses: Normal pulses. Heart sounds: Normal heart sounds. Heart sounds not distant. No murmur heard. Pulmonary: Effort: Pulmonary effort is normal. No respiratory distress. Breath sounds: Normal breath sounds. No stridor. Abdominal: General: Abdomen is flat. Palpations: Abdomen is soft. Tenderness: There is no abdominal tenderness. Musculoskeletal: Cervical back: Normal range of motion and neck supple. Skin: General: Skin is warm and dry. Neurological: Mental Status: She is alert. Comments: CN II-XII grossly intact BL Psychiatric: Mood and Affect: Mood normal. Behavior: Behavior normal. ED Course: Procedures XR Chest 1 View Final Result No acute cardiopulmonary abnormality. Report reviewed and signed by : Dr. Navneet Jang on 05/22/2024 1:59 PM. Workstation Name - [id number] -------- FINAL REPORT -------- Dictated By: Navneet Jang Dictated Date: 05/22/2024 13:58 ET Assigned Physician: Navneet Jang Reviewed and Electronically Signed By: Navneet Jang Signed Date: 05/22/2024 13:59 ET Workstation ID: [id number] Transcribed By: Self Edit Transcribed Date: 05/22/2024 13:58 ET Labs Reviewed COMPREHENSIVE METABOLIC PANEL - Abnormal Result Value Sodium 138 Potassium 3.9 Chloride 103 CO2 25 Anion Gap 10 Glucose 101 BUN 18 (*) Creatinine 0.73 eGFR 96 BUN/Creatinine Ratio 24.7 (*) Calcium 10.6 (*) AST (SGOT) 67 (*) ALT (SGPT) 99 (*) Alkaline Phosphatase 100 Total Protein 7.6 Albumin 4.7 Total Bilirubin 1.2 (*) CBC WITH AUTO DIFFERENTIAL - Abnormal WBC 11.7 (*) RBC 5.47 (*) Hemoglobin 18.1 (*) Hematocrit 50.7 (*) MCV 92.7 MCH 33.1 (*) MCHC 35.7 RDW 14.6 Platelets 293 MPV 10.1 Neutrophils Relative 55.6 Lymphocytes Relative 32.7 Monocytes Relative 9.3 Eosinophils Relative 1.2 Basophils Relative 0.7 Neutrophils Absolute 6.51 Lymphocytes Absolute 3.83 (*) Monocytes Absolute 1.09 (*) Eosinophils Absolute 0.14 Basophils Absolute 0.08 TROPONIN I HIGH SENSITIVITY - Normal High Sensitivity Troponin I 4 Narrative: HSTnI results stratify to HIGH RISK category if any value >100 ng/L or delta at 1 hour is greater than or equal to 15 ng/L (male and female). Note: Delta values are not applicable if symptoms began more than 12 hours pre- arrival. Risk stratification should include the calculation of the HEART score. Testing performed using [employer] Access AccuTnI+3 Assay. LIPASE - Normal Lipase 16 MAGNESIUM - Normal Magnesium 2.1 B-TYPE NATRIURETIC PEPTIDE - Normal BNP 12 TROPONIN I HIGH SENSITIVITY - Normal High Sensitivity Troponin I 3 Narrative: HSTnI results stratify to HIGH RISK category if any value >100 ng/L or delta at 1 hour is greater than or equal to 15 ng/L (male and female). Note: Delta values are not applicable if symptoms began more than 12 hours pre- arrival. Risk stratification should include the calculation of the HEART score. Testing performed using [employer] Access AccuTnI+3 Assay. CBC AND DIFFERENTIAL Narrative: The following orders were created for panel order CBC and differential. Procedure Abnormality Status --------- ------ CBC auto differential[[id number]] Abnormal Final result Please view results for these tests on the individual orders. Medical Decision Making 58-year-old female presenting for evaluation of chest pain radiating to left shoulder. Additional blood work and imaging warranted. Differential diagnosis: ACS, PE, pneumonia, bronchitis, costochondritis Smoking Cessation Counselin-10 minutes provided: The patient smokes or uses nicotine containing products. I counseled the patient on cessation and informed them that smoking and the use of nicotine containing products are a serious health risk, which can cause many serious health ailments, such as cancer, lung disease, heart disease, stroke, diabetes, hypertension, and premature . I encouraged them to consider nicotine patches or gum, if necessary, to curb the cravings initially, and to discuss other prescription medication options with their PCP in follow-up to today's ED visit. I encouraged them to pick a quit date and to try to stick to it. I informed them that quitting is the most important thing they can do to improve their health now and in the future. Amount and/or Complexity of Data Reviewed Labs: ordered. Details: I independently interpreted the results of all lab studies. Radiology: ordered and independent interpretation performed. Details: Imaging interpreted by myself, I agree with radiology report. ECG/medicine tests: ordered and independent interpretation performed. Details: EKG interpreted by myself, is a rate of 80 and normal sinus rhythm, MT 138, QRS [address] elevation or depression. Risk OTC drugs. Decision regarding hospitalization. Diagnosis or treatment significantly limited by social determinants of health. ED Course as of 05/22/24 1738 Kelli May 22, 2024 1637 Patient initially requesting to leave AMA. I advised against this and recommended repeat troponin testing. On further discussion with patient and she is agreeable to only obtaining troponin testing. I did offer and recommend workup for PE as well given her symptoms however she declined at thismoment. [BS] 1715 The patient is clinically not intoxicated, free from distracting pain, appears to have intact insight, judgment and reason, and in my medical opinion has the capacity to make decisions. The patient is also not under any duress to leave the hospital. In this scenario, it would be battery to subject this patient to treatment against their will. I have voiced my concerns for the patient's health given that a full evaluation and treatment had not occurred. I have discussed the need for continued evaluation to determine if their symptoms are caused by a condition that presents risk of or morbidity. Risks including, but not limited to, , permanent disability, prolonged hospitalization, and prolonged illness were discussed. I discussed the specific benefits of additional treatment, as well as tried offering alternative options in hopes that the patient might be amenable to partial evaluation and treatment, which would be medically beneficial to the patient. However, the patient declined my options and insisted on leaving. Because I have been unable to convince the patient to stay, I answered all of their questions about their condition and asked them to return to the ED as soon as possible to complete their evaluation, especially if their symptoms worsen or do not improve. I emphasized that leaving against medical advice does not preclude returning here for further evaluation. I asked the patient to return if they change their mind about the further evaluation and treatment. I strongly encouraged the patient to return to this Emergency Department or any Emergency Department at any time, particularly with worsening symptoms. [BS] 1725 Repeat troponin not elevated. Low suspicion for ACS at this time. [BS] ED Course User Index [BS] EVERTON Brown Clinical Impressions as of 05/22/24 1738 Chest pain, unspecified type Nicotine dependence with nicotine-induced disorder, unspecified nicotine product type Diagnoses: ICD-10-CM ICD-9-CM 1. Chest pain, unspecified type R07.9 786.50 2. Nicotine dependence with nicotine-induced disorder, unspecified nicotine product type F17.209 292.9 305.1 Discharge Medication List as of 05/22/2024 5:19 PM Complexity Summary Category 1 Components - Tests, documents, or independent historians: [x] Reviewed prior external records from a unique source(s) as described in my note [x] Ordered unique test(s) [x] Reviewed unique test(s) [] Discussed case with independent historian(s) as described in my note [] Considered specific lab(s), imaging, and/or treatment(s) which not may not have been ultimately pursued as described in my note Category 2 Components - Independent interpretation of tests: [] Independently interpreted outside testing/imaging ordered by another provider as described in mynote [] Independently interpreted EKG(s) as included in my note [x] Independently interpreted lab(s) as included in my note [] Independently interpreted xray(s) as included in my note [] Independently interpreted CT(s) as included in my note [] Independently interpreted ultrasound and/or POCUS as included in my note [] Independently interpreted rhythm strip(s) as included in my note Category 3 Components - Discussion of management and/or test results: [] Consultation - Discussed management and/or test interpretation with external health director long term care [] Admission/Observation - Patient's presentation, diagnostics, and/or treatment was discussed withthe admitting provider Risk Summary High: [x] Decisions made regarding hospitalization or escalation of care [] CT scan with IV contrast performed [] Drug therapy requiring intensive monitoring for toxicity was utilized [] Parenteral controlled substances were administered [] Anticoagulation therapy administered [] High risk diagnostic/clinical decision support tool utilized [] Physical restraints utilized [] Decisions made regarding procedures performed that could classify as major surgery [] Decisions made regarding emergency major surgery [] Decisions made regarding elective major surgery with identified patient or procedure risk factors [] Decisions made to not resuscitate or to de-escalate care because of poor prognosis Moderate: [] Prescription drug management [] Administration of IV fluids [x] Radiation exposure from CT scan, or head/neck/torso x-rays [x] Diagnosis or treatment significantly limited by social determinants of health as described in my note [] Rigid musculoskeletal immobilization applied [] Decisions made regarding procedures performed that could classify as minor surgery [] Decisions made regarding minor surgery with identified patient or procedure risk factors [] Infant/pediatric OTC meds administered (Tylenol < 24 mo, Ibuprofen < 6 mo, Benadryl < 6yrs) Low: [] Radiation exposure from extremity x-rays [] Art wrap and/or superficial dressing applied [] Pediatric OTC meds administered (Tylenol > 24 mo, Ibuprofen > 6 mo, Benadryl > 6 yrs) 12-Lead EKG Interpretation [x] I independently interpreted the 12-lead EKG as documented in my note Rhythm Strip Interpretation [] I independently interpreted the rhythm strip as documented in my note Smoking Cessation Counseling [x] I provided smoking cessation counseling as documented in my note ED Observation [x] ED Observation services were provided as documented in my note Critical Care [] Critical care was provided as documented in my note Medication Assisted Treatment for Opioid Dependence [] I initiated Medication Assisted Treatment in the ED as documented in my note Please note that this chart has been created using speech recognition software and may contain errors related to that system, including errors in grammar, punctuation, and spelling. It may also include errors in words and phrases. If there are any questions or concerns, please feel free to contact me for clarification. EVERTON Brown 05/22/24 1654 EVERTON Brown 05/22/24 1738 Cosigned by Italo Ellis MD at 05/23/2024 7:31 AM EST Associated attestation - Italo Ellis MD - 05/23/2024 7:31 AM EST The Advanced Practice Provider (PA or TEASELER) provided care for the patient during their visit. As the ED attending physician, I was available for consultation; however, the ADONIS managed and formulated a disposition without my involvement. documented in this encounter Plan of Treatment Not on file documented as of this encounter Procedures Procedure Name Priority Date/Time Associated Diagnosis Comments TROPONIN I HIGH SENSITIVITY STAT 05/22/2024 4:39 PM EST XR CHEST 1 VIEW STAT 05/22/2024 1:57 PM EST ECG 12-LEAD STAT 05/22/2024 1:37 PM EST TROPONIN I HIGH SENSITIVITY STAT 05/22/2024 1:37 PM EST CBC WITH AUTO DIFFERENTIAL STAT 05/22/2024 1:37 PM EST CBC AND DIFFERENTIAL STAT 05/22/2024 1:37 PM EST B-TYPE NATRIURETIC PEPTIDE STAT 05/22/2024 1:37 PM EST MAGNESIUM STAT 05/22/2024 1:37 PM EST LIPASE STAT 05/22/2024 1:37 PM EST COMPREHENSIVE METABOLIC PANEL STAT 05/22/2024 1:37 PM EST documented in this encounter Results * Troponin I high sensitivity (05/22/2024 4:39 PM EST) High Sensitivity Troponin I 3 0 - 14 ng/L LAB CHEMISTRY METHOD 05/22/2024 5:08 PM EST [facility] Blood Venous blood specimen / Unknown Venipuncture / Unknown 05/22/2024 4:39 PM EST 05/22/2024 4:41 PM EST Narrative [facility] - 05/22/2024 5:08 PM EST HSTnI results stratify to HIGH RISK category if any value >100 ng/L or delta at 1 hour is greater than or equal to 15 ng/L (male and female). Note: Delta values are not applicable if symptoms began more than 12 hours pre-arrival. Risk stratification should include the calculation of the HEART score. Testing performed using [employer] Access AccuTnI+3 Assay. Chandrika TOSCANO LAB BLOOD ORDERABLES Final Result [facility] [address] [facility] [place] [address], [place] [phone] * XR Chest 1 View (05/22/2024 1:57 PM EST) Anatomical Region Laterality Modality Body Radiographic Claire ging 05/22/2024 1:58 PM EST Impressions 05/22/2024 1:59 PM EST No acute cardiopulmonary abnormality. Report reviewed and signed by : Dr. Navneet Jang on 05/22/2024 1:59 PM. Workstation Name - [id number] -------- FINAL REPORT -------- Dictated By: Navneet Jang Dictated Date: 05/22/2024 13:58 ET Assigned Physician: Navneet Jang Reviewed and Electronically Signed By: Navneet Jang Signed Date: 05/22/2024 13:59 ET Workstation ID: [id number] Transcribed By: Self Edit Transcribed Date: 05/22/2024 [...] Jang on 05/22/2024 1:59 PM.Workstation Name - [id number] -------- FINAL REPORT -------- Dictated By: Navneet Jang Dictated Date: 05/22/2024 13:58 ET Assigned Physician: Navneet Jang Reviewed and Electronically Signed By: Navneet Jang Signed Date: 05/22/2024 13:59 ET Workstation ID: [id number] Transcribed By: Self Edit Transcribed Date: 05/22/2024 13:58 ET Italo Ellis MD IMG XR PROCEDURES Final Result * ECG 12 lead (05/22/2024 1:37 PM EST) Pathologist [facility] [place] Ventricular Rate ECG 80 BPM GEMUSE Atrial Rate 80 BPM GEMUSE P-R Interval 138 ms GEMUSE QRS Duration 74 ms GEMUSE Q-T Interval 418 ms GEMUSE QTc 482 ms GEMUSE P Wave [place] 58 degrees GEMUSE R [place] 56 degrees GEMUSE T [place] 55 degrees GEMUSE ECG Interpretation Normal sinus rhythm Prolonged QT Abnormal ECG When compared with ECG of 17-DEC-2022 19:36, Criteria for Septal infarct are no longer present Confirmed by Nikolay Christianson ([id number]) on 05/22/2024 5:02:56 PM GEMUSE 05/22/2024 1:37 PM EST 05/22/2024 5:02 PM EST Italo Ellis MD ECG ORDERABLES Final Result GEMUSE * (ABNORMAL) CBC auto differential (05/22/2024 1:37 PM EST) Pathologist [facility] [place] WBC 11.7(H) 4.0 - 10.5 K/[facility] LAB HEMETOLOGY METHOD 05/22/2024 1:45 PM EST [facility] RBC 5.47(H) 4.20 - 5.40 M/mcL LAB HEMETOLOGY METHOD 05/22/2024 1:45 PM EST [facility] Hemoglobin 18.1(H) 12.5 - 16.0 g/dL LAB HEMETOLOGY METHOD 05/22/2024 1:45 PM EST [facility] Hematocrit 50.7(H) 37.0 - 47.0 % LAB HEMETOLOGY METHOD 05/22/2024 1:45 PM [facility] MCV 92.7 78.0 - 100.0 FL LAB HEMETOLOGY METHOD 05/22/2024 1:45 PM [facility] MCH 33.1(H) 25.0 - 33.0 pcg LAB HEMETOLOGY METHOD 05/22/2024 1:45 PM [facility] MCHC 35.7 32.0 - 36.0 g/dL LAB HEMETOLOGY METHOD 05/22/2024 1:45 PM [facility] RDW 14.6 12.1 - 16.2 % LAB HEMETOLOGY METHOD 05/22/2024 1:45 PM [facility] Platelets 293 150 - 450 K/mcL LAB HEMETOLOGY METHOD 05/22/2024 1:45 PM [facility] MPV 10.1 7.4 - 11.4 FL LAB HEMETOLOGY METHOD 05/22/2024 1:45 PM [facility] Neutrophils Relative 55.6 44.0 - 74.0 % LAB HEMETOLOGY METHOD 05/22/2024 1:45 PM [facility] Lymphocytes Relative 32.7 20.0 - 48.0 % LAB HEMETOLOGY METHOD 05/22/2024 1:45 PM [facility] Monocytes Relative 9.3 2.0 - 12.0 % LAB HEMETOLOGY METHOD 05/22/2024 1:45 PM [facility] Eosinophils Relative 1.2 0.0 - 6.0 % LAB HEMETOLOGY METHOD 05/22/2024 1:45 PM [facility] Basophils Relative 0.7 0.0 - 2.0 % LAB HEMETOLOGY METHOD 05/22/2024 1:45 PM [facility] Neutrophils Absolute 6.51 1.80 - 7.80 K/mcL LAB HEMETOLOGY METHOD 05/22/2024 1:45 PM EST [facility] Lymphocytes Absolute 3.83(H) 1.00 - 3.20 K/mcL LAB HEMETOLOGY METHOD 05/22/2024 1:45 PM EST [facility] Monocytes Absolute 1.09(H) 0.00 - 0.80 K/mcL LAB HEMETOLOGY METHOD 05/22/2024 1:45 PM EST [facility] Eosinophils Absolute 0.14 0.00 - 0.50 K/[facility] LAB HEMETOLOGY METHOD 05/22/2024 1:45 PM EST [facility] Basophils Absolute 0.08 0.00 - 0.20 K/mcL LAB HEMETOLOGY METHOD 05/22/2024 1:45 PM EST [facility] Blood Venous blood specimen / Unknown Venipuncture / Unknown 05/22/2024 1:37 PM EST 05/22/2024 1:42 PM EST us Italo Ellis MD LAB BLOOD ORDERABLES Final Resu lt [facility] [address] [place] [address], [place] [phone] * B-type natriuretic peptide (05/22/2024 1:37 PM EST) [facility] BNP 12 0 - 100 pcg/mL LAB CHEMISTRY METHOD 05/22/2024 5:13 PM EST [facility] Blood Venous blood specimen / Unknown Venipuncture / Unknown 05/22/2024 1:37 PM EST 05/22/2024 4:42 PM EST us Italo Ellis MD LAB BLOOD ORDERABLES Final Resu lt [facility] [address] [place] [address], * Magnesium (05/22/2024 1:37 PM EST) [facility] Magnesium 2.1 1.7 - 2.8 mg/dL LAB CHEMISTRY METHOD 05/22/2024 2:05 PM EST [facility] Comment:Slight Hemolysis may affect test result(s). Blood Venous blood specimen / Unknown Venipuncture / Unknown 05/22/2024 1:37 PM EST 05/22/2024 1:42 PM EST us Italo Ellis MD LAB BLOOD ORDERABLES Final Resu lt Performing Organization Address City/[facility]/ZIP Co de Phone Number [facility] [address] [place] [address], * Lipase (05/22/2024 1:37 PM EST) [facility] Lipase 16 11 - 82 unit/L LAB CHEMISTRY METHOD 05/22/2024 2:04 PM EST [facility] Blood Venous blood specimen / Unknown Venipuncture / Unknown 05/22/2024 1:37 PM EST 05/22/2024 1:42 PM EST us Italo Ellis MD LAB BLOOD ORDERABLES Final Resu lt [facility] [address] [place] [address], [place] [phone] * (ABNORMAL) Comprehensive metabolic panel (05/22/2024 1:37 PM EST) [facility] Sodium 138 135 - 145 mmol/L LAB CHEMISTRY METHOD 05/22/2024 2:04 PM EST [facility] Potassium 3.9 3.5 - 5.1 mmol/L LAB CHEMISTRY METHOD 05/22/2024 2:04 PM [facility] Comment:Slight Hemolysis may affect test result(s). Chloride 103 98 - 107 mmol/L LAB CHEMISTRY METHOD 05/22/2024 2:04 PM [facility] CO2 25 24 - 32 mmol/L LAB CHEMISTRY METHOD 05/22/2024 2:04 PM [facility] Anion Gap 10 5 - 14 LAB CHEMISTRY METHOD 05/22/2024 2:04 PM [facility] Glucose 101 70 - 199 mg/dL LAB CHEMISTRY METHOD 05/22/2024 2:04 PM [facility] BUN 18(H) 7 - 17 mg/dL LAB CHEMISTRY METHOD 05/22/2024 2:04 PM [facility] Creatinine 0.73 0.50 - 1.00 mg/dL LAB CHEMISTRY METHOD 05/22/2024 2:04 PM [facility] eGFR 96 >=60 mL/min/1. 73m2 LAB CHEMISTRY METHOD 05/22/2024 2:04 PM [facility] Comment:Calculation based on the??Chronic Kidney Disease Epidemiology Collaboration (CKD-EPI) equation refit??without adjustment for race. BUN/Creatinine Ratio 24.7(H) 12.0 - 20.0 LAB CHEMISTRY METHOD 05/22/2024 2:04 PM [facility] Calcium 10.6(H) 8.4 - 10.2 mg/dL LAB CHEMISTRY METHOD 05/22/2024 2:04 PM [facility] AST (SGOT) 67(H) 5 - 40 unit/L LAB CHEMISTRY METHOD 05/22/2024 2:04 PM [facility] Comment:Slight Hemolysis may affect test result(s). ALT (SGPT) 99(H) 7 - 52 unit/L LAB CHEMISTRY METHOD 05/22/2024 2:04 PM EST [facility] Alkaline Phosphatase 100 34 - 104 unit/L LAB CHEMISTRY METHOD 05/22/2024 2:04 PM EST [facility] Total Protein 7.6 6.4 - 8.5 g/dL LAB CHEMISTRY METHOD 05/22/2024 2:04 PM EST [facility] Albumin 4.7 3.5 - 5.0 g/dL LAB CHEMISTRY METHOD 05/22/2024 2:04 PM EST [facility] Total Bilirubin 1.2(H) 0.3 - 1.0 mg/dL LAB CHEMISTRY METHOD 05/22/2024 2:04 PM [facility] Blood Venous blood specimen / Unknown Venipuncture / Unknown 05/22/2024 1:37 PM EST 05/22/2024 1:42 PM EST Italo Ellis MD LAB BLOOD ORDERABLES Final Resu lt [facility] [address] [place] [address], [place] [phone] * Troponin I high sensitivity (05/22/2024 1:37 PM EST) High Sensitivity Troponin I 4 0 - 14 ng/L LAB CHEMISTRY METHOD 05/22/2024 2:11 PM EST [facility] Blood Venous blood specimen / Unknown Venipuncture / Unknown 05/22/2024 1:37 PM EST 05/22/2024 1:42 PM EST Narrative [facility] - 05/22/2024 2:11 PM EST HSTnI results stratify to HIGH RISK category if any value >100 ng/L or delta at 1 hour is greater than or equal to 15 ng/L (male and female). Note: Delta values are not applicable if symptoms began more than 12 hours pre-arrival. Risk stratification should include the calculation of the HEART score. Testing performed using [employer] Access AccuTnI+3 Assay. us Italo Ellis MD LAB BLOOD ORDERABLES Final Resu lt [facility] [address] [place] [address], [place] [phone] documented in this encounter Visit Diagnoses Diagnosis Chest pain, unspecified type- Primary Nicotine dependence with nicotine-induced disorder, unspecified nicotine product type documented in this encounter Historical Medications * This list may reflect changes made after this encounter. fenofibrate (LOFIBRA) 160 mg tablet Take 1 tablet (160 mg total) by mouth 1 (one) time each day. carvediloL (COREG) 6.25 mg tablet Take 1 tablet (6.25 mg total) by mouth 2 (two) times a day with meals. 11/22/2023 added in this encounter Orders EKG Orders Without Results Count Last Ordered D ate First Ordered Date ECG 12-LEAD 1 05/22/2024 IV Count Last Ordered Date First Orde red Date SALINE LOCK IV 1 05/22/2024 documented in this encounter Care Teams Ampoule Filler Relationship Specialty Start Date End Date Tariq Romero MD [address] [place] [address] [address] [facility] [place] [address] PCP - General Internal Medicine 03/03/11 documented as of this encounter
--- OUTSIDE RECORDS SUMMARY | 2024-05-27 18:48 | XMS_ITS | Encounter Summary ---
Author Organization [facility] Address [address] [place] [address] Care Team Providers Care Valuation Manager Name Role Phone Tariq Romero MD Primary Care Provider [phone] Encounter Details Date Type Department Care Team (Latest Contact Info) Description 05/13/2024 Lab Requisition [facility] - Main Lab [address] [facility] [place] [address] Maya Oshea MD [address] [place] [address] ATTN: HEMATOLOGY/[place] [address] Familial erythrocytosis Social History Tobacco Use Types [...] Lavender tube (05/13/2024 9:05 AM EST) Pathologist [facility] Extra Tube Hold for add-ons. 05/13/2024 1:02 PM EST [facility] Comment:Auto resulted. Blood Venous blood specimen / Unknown 05/13/2024 9:05 AM EST 05/13/2024 11:01 AM EST us Maya Oshea MD LAB BLOOD ORDERABLES Final Resu lt [facility] [address] [place] [address], * (ABNORMAL) CBC auto differential (05/13/2024 9:05 AM EST) Pathologist [facility] WBC 10.1 4.8 - 10.8 K/mcL LAB HEMETOLOGY METHOD 05/13/2024 12:14 PM [facility] RBC 5.80(H) 3.80 - 4.80 M/mcL LAB HEMETOLOGY METHOD 05/13/2024 12:14 PM [facility] Hemoglobin 18.2(H) 11.5 - 16.0 g/dL LAB HEMETOLOGY METHOD 05/13/2024 12:14 PM [facility] Hematocrit 55.7(H) 35.0 - 47.0 % LAB HEMETOLOGY METHOD 05/13/2024 12:14 PM [facility] MCV 96.7 79.0 - 98.0 FL LAB HEMETOLOGY METHOD 05/13/2024 12:14 PM [facility] MCH 31.6 27.0 - 32.0 pcg LAB HEMETOLOGY METHOD 05/13/2024 12:14 PM [facility] MCHC 32.7 32.0 - 37.0 g/dL LAB HEMETOLOGY METHOD 05/13/2024 12:14 PM [facility] RDW 15.5(H) 11.0 - 15.0 % LAB HEMETOLOGY METHOD 05/13/2024 12:14 PM [facility] Platelets 289 130 - 400 K/mcL LAB HEMETOLOGY METHOD 05/13/2024 12:14 PM [facility] MPV 10.9 7.0 - 11.0 FL LAB HEMETOLOGY METHOD 05/13/2024 12:14 PM [facility] NRBC 0.0 <1.0 % LAB HEMETOLOGY METHOD 05/13/2024 12:14 PM [facility] NRBC Absolute 0.00 <0.10 K/mcL LAB HEMETOLOGY METHOD 05/13/2024 12:14 PM [facility] Neutrophils Relative 60.2 % LAB HEMETOLOGY METHOD 05/13/2024 12:14 PM [facility] Lymphocytes Relative 28.4 % LAB HEMETOLOGY METHOD 05/13/2024 12:14 PM [facility] Monocytes Relative 9.0 % LAB HEMETOLOGY METHOD 05/13/2024 12:14 PM [facility] Eosinophils Relative 1.2 % LAB HEMETOLOGY METHOD 05/13/2024 12:14 PM [facility] Basophils Relative 0.6 % LAB HEMETOLOGY METHOD 05/13/2024 12:14 PM EST [facility] Immature Granulocytes Relative 0.6 % LAB HEMETOLOGY METHOD 05/13/2024 12:14 PM EST [facility] Neutrophils Absolute 6.05 1.50 - 7.00 K/[facility] LAB HEMETOLOGY METHOD 05/13/2024 12:14 PM EST [facility] Lymphocytes Absolute 2.86 1.00 - 5.00 K/[facility] HEMETOLOGY METHOD 05/13/2024 12:14 PM EST [facility] Monocytes Absolute 0.91 0.20 - 1.00 K/[facility] HEMETOLOGY METHOD 05/13/2024 12:14 PM EST [facility] Eosinophils Absolute 0.12 0.00 - 0.50 K/[facility] HEMETOLOGY METHOD 05/13/2024 12:14 PM [facility] Basophils Absolute 0.06 0.00 - 0.20 K/mcL LAB HEMETOLOGY METHOD 05/13/2024 12:14 PM EST [facility] Immature Granulocytes Absolute 0.06(H) 0.00 - 0.03 K/mcL LAB HEMETOLOGY METHOD 05/13/2024 12:14 PM EST [facility] Blood Venous blood specimen / Unknown Venipuncture / Unknown 05/13/2024 9:05 AM EST 05/13/2024 11:01 AM EST us Maya Oshea MD LAB BLOOD ORDERABLES Final Resu lt [facility] [address] [place] [address], * JAK2 gene, [id number] mutation, quantitative, molecular study (05/13/2024 9:05 AM EST) Scan Result See Scanned Result 05/18/2024 9:49 AM EST [facility] Blood Venous blood specimen / Unknown Venipuncture / Unknown 05/13/2024 9:05 AM EST 05/13/2024 11:01 AM EST Maya Oshea MD LAB MOLECULAR DIAGNOSTICS ORDER BENEDICTO Final Result Performing Organization Address [facility] de Phone Number [facility] * Carboxyhemoglobin (05/13/2024 9:05 AM EST) [facility] Carboxyhemoglobin 8 %TOTAL HGB 05/18/2024 7:40 PM EST [facility] Comment: ?Nonsmoker: ?? <2 % of Total HgB ? Average Smoker: ??4-5 % of Total HgB ? Heavy Smoker: 8-12 % of Total HgB ?Potentially Toxic: ??>15 % of Total HgB Test Performed at: [facility] [address] [place], [place] ? Zay Ramirez MD, PhD Blood Venous blood specimen / Unknown Venipuncture / Unknown 05/13/2024 9:05 AM EST 05/13/2024 11:01 AM EST Maya Oshea MD LAB BLOOD ORDERABLES Final Resu lt Performing Organization Address [facility] de Phone Number [facility] [address] [place] [address] * (ABNORMAL) Comprehensive metabolic panel (05/13/2024 9:05 AM EST) [facility] Sodium 139 133 - 145 mmol/L LAB CHEMISTRY METHOD 05/13/2024 1:39 PM EST [facility] Potassium 4.6 3.5 - 5.5 mmol/L LAB CHEMISTRY METHOD 05/13/2024 1:39 PM EST [facility] Chloride 109 96 - 110 mmol/L LAB CHEMISTRY METHOD 05/13/2024 1:39 PM [facility] CO2 21 21 - 32 mmol/L LAB CHEMISTRY METHOD 05/13/2024 1:39 PM [facility] Anion Gap 9 3 - 11 LAB CHEMISTRY METHOD 05/13/2024 1:39 PM [facility] Glucose 83 70 - 100 mg/dL LAB CHEMISTRY METHOD 05/13/2024 1:39 PM [facility] BUN 14 5 - 25 mg/dL LAB CHEMISTRY METHOD 05/13/2024 1:39 PM [facility] Creatinine 0.57 0.50 - 1.10 mg/dL LAB CHEMISTRY METHOD 05/13/2024 1:39 PM [facility] eGFR 106 >=60 mL/min/1. 73m2 LAB CHEMISTRY METHOD 05/13/2024 1:39 PM [facility] Comment:Calculation based on the??Chronic Kidney Disease Epidemiology Collaboration (CKD-EPI) equation refit??without adjustment for race. BUN/Creatinine Ratio 24.6 LAB CHEMISTRY METHOD 05/13/2024 1:39 PM [facility] Calcium 9.8 8.5 - 10.5 mg/dL LAB CHEMISTRY METHOD 05/13/2024 1:39 PM [facility] AST (SGOT) 79(H) 10 - 42 unit/L LAB CHEMISTRY METHOD 05/13/2024 1:39 PM [facility] ALT (SGPT) 102(H) 10 - 60 unit/L LAB CHEMISTRY METHOD 05/13/2024 1:39 PM [facility] Alkaline Phosphatase 120 42 - 121 unit/L LAB CHEMISTRY METHOD 05/13/2024 1:39 PM [facility] Total Protein 7.6 6.0 - 8.0 g/dL LAB CHEMISTRY METHOD 05/13/2024 1:39 PM [facility] Albumin 4.1 3.2 - 5.0 g/dL LAB CHEMISTRY METHOD 05/13/2024 1:39 PM EST [facility] Total Bilirubin 1.0 0.0 - 1.4 mg/dL LAB CHEMISTRY METHOD 05/13/2024 1:39 PM EST [facility] Blood Venous blood specimen / Unknown Venipuncture / Unknown 05/13/2024 9:05 AM EST 05/13/2024 11:01 AM EST us Maya Oshea MD LAB BLOOD ORDERABLES Final Resu lt [facility] [address] [place] [address], documented in this encounter 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
--- OUTSIDE RECORDS SUMMARY | 2024-05-27 18:48 | XMS_ITS | Encounter Summary ---
Author Organization [facility] Address [address] [place] [address] Care Team Providers Care Crm Administrator Name Role Phone Tariq Romero MD Primary Care Provider [phone] Encounter Details Date Type Department Care Team (Late st Contact Info) Description 05/13/2024 Lab Requisition [facility] - Main Lab [address] [facility] [place] [address] Social History Tobacco Use Types [...] on filedocumented in this encounter Care Teams Crm Administrator Relationship Specialty Start Date End Date Tariq Romero MD [address] [place] [address] [address] [facility] [place] [address] PCP - General Internal Medicine 03/03/11 documented as of this encounter
--- OUTSIDE RECORDS SUMMARY | 2024-05-27 18:48 | XMS_ITS | Encounter Summary ---
Author Organization [facility] [place] [address] Care Team Providers Care Skeins Yarn Examiner Name Role Phone Tariq Romeor MD Primary Care Provider [phone] Encounter Details Date Type Department Care Team (Late st Contact Info) Description 01/29/2024 Lab Requisition [facility] - Main Lab [address] [facility] [place] [id number] Venkatesh Padilla MD [address] [place] [address] Dysuria Social History Tobacco Use Types Packs/Day [...] reflex microscopic (01/29/2024 7:00 AM EST) Specific [place] Urine >=1.030 1.003 - 1.030 LAB URINALYSIS - AUTOMATED METHOD 01/29/2024 9:32 AM [facility] pH, Urine 6.0 5.0 - 8.0 pH LAB URINALYSIS - AUTOMATED METHOD 01/29/2024 9:32 AM [facility] Leukocytes, Urine Negative Negative LAB URINALYSIS - AUTOMATED METHOD 01/29/2024 9:32 AM [facility] Nitrite, Urine Negative Negative LAB URINALYSIS - AUTOMATED METHOD 01/29/2024 9:32 AM [facility] Protein, Urine Trace <=Trace mg/dL LAB URINALYSIS - AUTOMATED METHOD 01/29/2024 9:32 AM [facility] Glucose, Urine Negative Negative mg/dL LAB URINALYSIS - AUTOMATED METHOD 01/29/2024 9:32 AM [facility] Ketones, Urine Trace(A) Negative mg/dL LAB URINALYSIS - AUTOMATED METHOD 01/29/2024 9:32 AM [facility] Urobilinogen , Urine 0.2 0.2 - 1.0 mg/dL LAB URINALYSIS - AUTOMATED METHOD 01/29/2024 9:32 AM [facility] Bilirubin, Urine Small(A) Negative LAB URINALYSIS - AUTOMATED METHOD 01/29/2024 9:32 AM [facility] Blood, Urine Trace(A) Negative LAB URINALYSIS - AUTOMATED METHOD 01/29/2024 9:32 AM [facility] RBC, Urine 4.0 0 - 4 /HPF LAB URINALYSIS - AUTOMATED METHOD 01/29/2024 9:32 AM [facility] WBC, Urine 2.6 0 - 4 /HPF LAB URINALYSIS - AUTOMATED METHOD 01/29/2024 9:32 AM [facility] Squamous Epithelial, Urine 69(H) 0 - 60 /LPF LAB URINALYSIS - AUTOMATED METHOD 01/29/2024 9:32 AM [facility] Crystals, Urine MOD CALCIUM OXALATE /LPF LAB URINALYSIS - AUTOMATED METHOD 01/29/2024 9:32 AM [facility] Bacteria, Urine Negative Negative /HPF LAB URINALYSIS - AUTOMATED METHOD 01/29/2024 9:32 AM [facility] Hyaline Casts, Urine 2.4 0 - 3 /LPF LAB URINALYSIS - AUTOMATED METHOD 01/29/2024 9:32 AM [facility] Urine Urine specimen obtained by clean catch procedure / Unknown 01/29/2024 7:00 AM EST 01/29/2024 9:12 AM EST Venkatesh Padilla MD LAB URINE ORDERABLES Final Result Performing Organization Address [facility]/ZIP Co de Phone Number [facility] [address] [place] [address], [place] [phone] * Culture urine (01/29/2024 7:00 AM EST) Culture, Urine No growth 01/30/2024 9:01 AM [facility] Urine Urine specimen obtained by clean catch procedure / Unknown 01/29/2024 7:00 AM EST 01/29/2024 9:12 AM EST Venkatesh Padilla MD LAB MICROBIOLOGY - GENERAL ORDERABLES Final Result Performing Organization Address [facility]/ZIP Co de Phone Number [facility] [address] [place] [address], [place] [phone] documented in this encounter Visit Diagnoses Diagnosis Dysuria documented in this encounter Care Teams Skeins Yarn Examiner Relationship Specialty Start Date End Date Tariq Romero MD [address] [place] [address] [address] [facility] [place] [address] PCP - General Internal Medicine 03/03/11 documented as of this encounter
--- OUTSIDE RECORDS SUMMARY | 2024-05-27 18:48 | XMS_ITS | Clinical Summary ---
Author Organization [address] Address [address] [place] [phone] Care Team Providers Care Extrusion Engineer Name Role Phone Unavailable Primary Care Provider [...] Description 04/11/2024 1:45 PM EST Office Visit [facility] [address] [place] [address] Joe Soni, PA Acute cough (Primary Dx); [...] Diagnosis Comments POCT SARS COV-2 (COVID-19) PCR ([facility]) Routine 04/11/2024 2:19 PM EST Acute cough POCT INFLUENZA A+B/RSV ([facility]) Routine 04/11/2024 2:19 PM EST Acute cough from Last 3 Months Results * POCT LILIANA COV-2 (COVID-19) PCR (In-Clinic) (04/11/2024 2:19 PM EST) POC SARS-CoV-2 (COVID-19) PCR Not Detected Not Detected POC Kit Lot Number [id number] POC Expiration Date 01/16/2025 Nasal Swab 04/11/2024 2:19 PM EST Joe TOSCANO POINT OF CARE ORDERS W/FUTURE F inal Result * (ABNORMAL) POCT Influenza A+B/RSV (In-Clinic) (04/11/2024 2:19 PM EST) POC Influenza A Not Detected Not Detected POC Influenza B Not Detected Not Detected POC RSV Detected(A) Not Detected POC Kit Lot Number [id number] POC Expiration Date 11/16/2025 Nasal Swab 04/11/2024 2:19 PM EST Joe TOSCANO POINT OF CARE ORDERS W/FUTURE F inal Result from Last 3 Months Insurance BS ([place]) [address]
--- OUTSIDE RECORDS SUMMARY | 2024-05-27 18:48 | XMS_ITS | Clinical Summary ---
Author Organization LL [address] [place] [address] [place] [phone] Phone Care Team Providers Care Glueline Worker Name Role Phone Tariq Romero MD Primary Care Provider [phone] Allergies Active Allergy Reactions Criticality Noted Date [...] PM EST - 05/22/2024 5:19 PM EST [facility] Emergency [address] [place] [phone] Chest pain, unspecified type (Primary Dx); Nicotine dependence with nicotine-induced disorder, unspecified nicotine product type Discharge Disposition: Left Against Medical Advice 05/13/2024 Lab Requisition [facility] - Main Lab [address] [place] [phone] 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 Lab Requisition [facility] - Main Lab [address] [place] [phone] 02/29/2024 Telephone Gastroenterology - [address] [phone] Rossy Antoine PA 02/28/2024 3:40 PM EST - 02/28/2024 11:59 PM EST Hospital Encounter [facility] MRI [address] [place] [phone] Abnormal finding on imaging of liver Discharge Disposition: Home or Self Care 02/28/2024 Telephone Gastroenterology - [address] [phone] Blanche Walton MA 02/27/2024 12:47 PM EST - 02/27/2024 4:20 PM EST Emergency [facility] Emergency [address] [place] [phone] Kandi Booth MD Right sided abdominal pain [...] LAB CHEMISTRY METHOD 05/22/2024 5:08 PM EST [facility] [place] [place] [facility] Blood Venous blood specimen / Unknown Venipuncture / Unknown 05/22/2024 4:39 PM EST 05/22/2024 4:41 PM EST Narrative [facility] - 05/22/2024 5:08 PM EST HSTnI results stratify to HIGH RISK category if any value >100 ng/L or delta at 1 hour is greater than or equal to 15 ng/L (male and female). Note: Delta values are not applicable if symptoms began more than 12 hours pre-arrival. Risk stratification should include the calculation of the HEART score. Testing performed using [employer] Access AccuTnI+3 Assay. us Chandrika TOSCANO LAB BLOOD ORDERABLES Final Result [facility] [address] [place] [address], [place] [phone] * XR Chest 1 View (05/22/2024 1:57 PM EST) Anatomical Region Laterality Modality Body Radiographic Claire ging 05/22/2024 1:58 PM EST Impressions 05/22/2024 1:59 PM EST No acute cardiopulmonary abnormality. Report reviewed and signed by : Dr. Navneet Jang on 05/22/2024 1:59 PM. Workstation Name - [id number] -------- FINAL REPORT -------- Dictated By: Navneet Jang Dictated Date: 05/22/2024 13:58 ET Assigned Physician: Navneet Jang Reviewed and Electronically Signed By: Navneet Jang Signed Date: 05/22/2024 13:59 ET Workstation ID: [id number] Transcribed By: Self Edit Transcribed Date: 05/22/2024 [...] Jang on 05/22/2024 1:59 PM.Workstation Name - [id number] -------- FINAL REPORT -------- Dictated By: Navneet Jang Dictated Date: 05/22/2024 13:58 ET Assigned Physician: Navneet Jang Reviewed and Electronically Signed By: Navneet Jang Signed Date: 05/22/2024 13:59 ET Workstation ID: [id number] Transcribed By: Self Edit Transcribed Date: 05/22/2024 13:58 ET Italo Ellis MD IMG XR PROCEDURES Final Result * ECG 12 lead (05/22/2024 1:37 PM EST) Ventricular Rate ECG 80 BPM GEMUSE Atrial Rate 80 BPM GEMUSE P-R Interval 138 ms GEMUSE QRS Duration 74 ms GEMUSE Q-T Interval 418 ms GEMUSE QTc 482 ms GEMUSE P Wave Centenary 58 degrees GEMUSE R Centenary 56 degrees GEMUSE T Centenary 55 degrees GEMUSE ECG Interpretation Normal sinus rhythm Prolonged QT Abnormal ECG When compared with ECG of 17-DEC-2022 19:36, Criteria for Septal infarct are no longer present Confirmed by Nikolay Christianson ([id number]) on 05/22/2024 5:02:56 PM GEMUSE 05/22/2024 1:37 PM EST 05/22/2024 5:02 PM EST us Italo Ellis MD ECG ORDERABLES Final Result GEMUSE * (ABNORMAL) CBC auto differential (05/22/2024 1:37 PM EST) Only the most recent of3 resultswithin the time period is included. WBC 11.7(H) 4.0 - 10.5 K/mcL LAB HEMETOLOGY METHOD 05/22/2024 1:45 PM [facility] RBC 5.47(H) 4.20 - 5.40 M/mcL LAB HEMETOLOGY METHOD 05/22/2024 1:45 PM [facility] Hemoglobin 18.1(H) 12.5 - 16.0 g/dL LAB HEMETOLOGY METHOD 05/22/2024 1:45 PM [facility] Hematocrit 50.7(H) 37.0 - 47.0 % LAB HEMETOLOGY METHOD 05/22/2024 1:45 PM [facility] MCV 92.7 78.0 - 100.0 FL LAB HEMETOLOGY METHOD 05/22/2024 1:45 PM [facility] MCH 33.1(H) 25.0 - 33.0 pcg LAB HEMETOLOGY METHOD 05/22/2024 1:45 PM [facility] MCHC 35.7 32.0 - 36.0 g/dL LAB HEMETOLOGY METHOD 05/22/2024 1:45 PM [facility] RDW 14.6 12.1 - 16.2 % LAB HEMETOLOGY METHOD 05/22/2024 1:45 PM [facility] Platelets 293 150 - 450 K/mcL LAB HEMETOLOGY METHOD 05/22/2024 1:45 PM [facility] MPV 10.1 7.4 - 11.4 FL LAB HEMETOLOGY METHOD 05/22/2024 1:45 PM [facility] Neutrophils Relative 55.6 44.0 - 74.0 % LAB HEMETOLOGY METHOD 05/22/2024 1:45 PM EST [facility] Lymphocytes Relative 32.7 20.0 - 48.0 % LAB HEMETOLOGY METHOD 05/22/2024 1:45 PM [facility] Monocytes Relative 9.3 2.0 - 12.0 % LAB HEMETOLOGY METHOD 05/22/2024 1:45 PM [facility] Eosinophils Relative 1.2 0.0 - 6.0 % LAB HEMETOLOGY METHOD 05/22/2024 1:45 PM EST [facility] Basophils Relative 0.7 0.0 - 2.0 % LAB HEMETOLOGY METHOD 05/22/2024 1:45 PM [facility] Neutrophils Absolute 6.51 1.80 - 7.80 K/mcL LAB HEMETOLOGY METHOD 05/22/2024 1:45 PM EST [facility] Lymphocytes Absolute 3.83(H) 1.00 - 3.20 K/mcL LAB HEMETOLOGY METHOD 05/22/2024 1:45 PM EST [facility] Monocytes Absolute 1.09(H) 0.00 - 0.80 K/mcL LAB HEMETOLOGY METHOD 05/22/2024 1:45 PM [facility] Eosinophils Absolute 0.14 0.00 - 0.50 K/mcL LAB HEMETOLOGY METHOD 05/22/2024 1:45 PM EST [facility] Basophils Absolute 0.08 0.00 - 0.20 K/mcL LAB HEMETOLOGY METHOD 05/22/2024 1:45 PM [facility] Blood Venous blood specimen / Unknown Venipuncture / Unknown 05/22/2024 1:37 PM EST 05/22/2024 1:42 PM EST us Italo Ellis MD LAB BLOOD ORDERABLES Final Resu lt [facility] [address] [place] [address], [place] [phone] * B-type natriuretic peptide (05/22/2024 1:37 PM EST) [facility] BNP 12 0 - 100 pcg/mL LAB CHEMISTRY METHOD 05/22/2024 5:13 PM EST [facility] Blood Venous blood specimen / Unknown Venipuncture / Unknown 05/22/2024 1:37 PM EST 05/22/2024 4:42 PM EST us Italo Ellis MD LAB BLOOD ORDERABLES Final Resu lt Performing Organization Address City/[facility]/ZIP Co de Phone Number [facility] [address] [place] [address], * Magnesium (05/22/2024 1:37 PM EST) [facility] Magnesium 2.1 1.7 - 2.8 mg/dL LAB CHEMISTRY METHOD 05/22/2024 2:05 PM EST [facility] Comment:Slight Hemolysis may affect test result(s). Blood Venous blood specimen / Unknown Venipuncture / Unknown 05/22/2024 1:37 PM EST 05/22/2024 1:42 PM EST us Italo Ellis MD LAB BLOOD ORDERABLES Final Resu lt [facility] [address] [place] [address], [place] [phone] * Lipase (05/22/2024 1:37 PM EST) Only the most recent of2 resultswithin the time period is included. [facility] Lipase 16 11 - 82 unit/L LAB CHEMISTRY METHOD 05/22/2024 2:04 PM EST [facility] Blood Venous blood specimen / Unknown Venipuncture / Unknown 05/22/2024 1:37 PM EST 05/22/2024 1:42 PM EST us Italo Ellis MD LAB BLOOD ORDERABLES Final Resu lt [facility] [address] [place] [address], [place] [phone] * (ABNORMAL) Comprehensive metabolic panel (05/22/2024 1:37 PM EST) Only the most recent of3 resultswithin the time period is included. Sodium 138 135 - 145 mmol/L LAB CHEMISTRY METHOD 05/22/2024 2:04 PM [facility] Potassium 3.9 3.5 - 5.1 mmol/L LAB CHEMISTRY METHOD 05/22/2024 2:04 PM [facility] Comment:Slight Hemolysis may affect test result(s). Chloride 103 98 - 107 mmol/L LAB CHEMISTRY METHOD 05/22/2024 2:04 PM [facility] CO2 25 24 - 32 mmol/L LAB CHEMISTRY METHOD 05/22/2024 2:04 PM [facility] Anion Gap 10 5 - 14 LAB CHEMISTRY METHOD 05/22/2024 2:04 PM [facility] Glucose 101 70 - 199 mg/dL LAB CHEMISTRY METHOD 05/22/2024 2:04 PM [facility] BUN 18(H) 7 - 17 mg/dL LAB CHEMISTRY METHOD 05/22/2024 2:04 PM [facility] Creatinine 0.73 0.50 - 1.00 mg/dL LAB CHEMISTRY METHOD 05/22/2024 2:04 PM [facility] eGFR 96 >=60 mL/min/1. 73m2 LAB CHEMISTRY METHOD 05/22/2024 2:04 PM [facility] Comment:Calculation based on the??Chronic Kidney Disease Epidemiology Collaboration (CKD-EPI) equation refit??without adjustment for race. BUN/Creatinine Ratio 24.7(H) 12.0 - 20.0 LAB CHEMISTRY METHOD 05/22/2024 2:04 PM [facility] Calcium 10.6(H) 8.4 - 10.2 mg/dL LAB CHEMISTRY METHOD 05/22/2024 2:04 PM [facility] AST (SGOT) 67(H) 5 - 40 unit/L LAB CHEMISTRY METHOD 05/22/2024 2:04 PM [facility] Comment:Slight Hemolysis may affect test result(s). ALT (SGPT) 99(H) 7 - 52 unit/L LAB CHEMISTRY METHOD 05/22/2024 2:04 PM [facility] Alkaline Phosphatase 100 34 - 104 unit/L LAB CHEMISTRY METHOD 05/22/2024 2:04 PM EST [facility] Total Protein 7.6 6.4 - 8.5 g/dL LAB CHEMISTRY METHOD 05/22/2024 2:04 PM [facility] Albumin 4.7 3.5 - 5.0 g/dL LAB CHEMISTRY METHOD 05/22/2024 2:04 PM [facility] Total Bilirubin 1.2(H) 0.3 - 1.0 mg/dL LAB CHEMISTRY METHOD 05/22/2024 2:04 PM EST [facility] Blood Venous blood specimen / Unknown Venipuncture / Unknown 05/22/2024 1:37 PM EST 05/22/2024 1:42 PM EST us Italo Ellis MD LAB BLOOD ORDERABLES Final Resu lt [facility] [address] [place] [address], [place] [phone] * JAK2 gene, V617F mutation, quantitative, molecular study (05/13/2024 9:05 AM EST) Pathologist [facility] Scan Result See Scanned Result 05/18/2024 9:49 AM EST [facility] Blood Venous blood specimen / Unknown Venipuncture / Unknown 05/13/2024 9:05 AM EST 05/13/2024 11:01 AM EST us Maya Oshea MD LAB MOLECULAR DIAGNOSTICS ORDER BENEDICTO Final Result [facility] * Lavender tube (05/13/2024 9:05 AM EST) [facility] Extra Tube Hold for add-ons. 05/13/2024 1:02 PM EST [facility] Comment:Auto resulted. Blood Venous blood specimen / Unknown 05/13/2024 9:05 AM EST 05/13/2024 11:01 AM EST us Maya Oshea MD LAB BLOOD ORDERABLES Final Resu lt Performing Organization Address City/[facility]/ZIP Co de Phone Number [facility] [address] [place] [address], * Carboxyhemoglobin (05/13/2024 9:05 AM EST) Pathologist [facility] Carboxyhemoglobin 8 %TOTAL HGB 05/18/2024 7:40 PM EST [facility] Comment: ?Nonsmoker: ?? <2 % of Total HgB ? Average Smoker: ??4-5 % of Total HgB ? Heavy Smoker: 8-12 % of Total HgB ?Potentially Toxic: ??>15 % of Total HgB Test Performed at: [facility]/[place] [address] [place], [place] ? P Tye Ramirez MD, PhD Blood Venous blood specimen / Unknown Venipuncture / Unknown 05/13/2024 9:05 AM EST 05/13/2024 11:01 AM EST us Maya Oshea MD LAB BLOOD ORDERABLES Final Resu lt [facility] [address] [place] [address] * MR Abdomen wo and w Contrast [...] Signed Date: 02/29/2024 10:12 ET Workstation ID: [id number] Transcribed By: Self Edit Transcribed Date: 02/29/2024 [...] to the arterial phase images. Other smaller [id number] lesions are seen throughout the liver are [...] Signed Date: 02/29/2024 10:12 ET Workstation ID: [id number] Transcribed By: Self Edit Transcribed Date: 02/29/2024 [...] on 02/27/2024 2:57 PM. Workstation Name - [id number] -------- FINAL REPORT -------- Dictated By: Misbah Pickard Dictated Date: 02/27/2024 14:52 ET Assigned Physician: Misbah Pickard Reviewed and Electronically Signed By: Misbah Pickard Signed Date: 02/27/2024 14:57 ET Workstation ID: [id number] Transcribed By: Self Edit Transcribed Date: 02/27/2024 [...] Pickard on 02/27/2024 2:57 PM.Workstation Name - [id number] -------- FINAL REPORT -------- Dictated By: Misbah Pickard Dictated Date: 02/27/2024 14:52 ET Assigned Physician: Misbah Pickard Reviewed and Electronically Signed By: Misbah Pickard Signed Date: 02/27/2024 14:57 ET Workstation ID: [id number] Transcribed By: Self Edit Transcribed Date: 02/27/2024 14:52 ET us Kandi Booth MD IMG CT PROCEDURES Final Resu lt * CT LUNG SCREENING LOW DOSE (01/06/2022 6:06 PM EDT) Anatomical Region Laterality Modality Computed Tomogra phy 01/06/2022 2:26 PM EDT Narrative 01/06/2022 6:06 PM EDT [facility] Diagnostic Imaging Department [address] [place] [address] Patient: ??DUGLAS JAIN A ?/Age/Sex: 1965 - 56 - F Unit#: ??[id number] ? Location/Status: ??SPDICATLS/REG CLI ? [facility] Ordering Physician: ??MEGAN ROSAS MD CT Lung Screening Low Dose - 01/06/22 - 143 History: ??56 year-old 40 pack-year current smoker, asymptomatic, for lung cancer screening. Comparison: No comparison imaging at this institution. Technique: Helical volumetric imaging of the thorax was performed, using low- dose technique, without IV contrast. DLP: 101.52 mGy/cm ??CTDIvol: 3.22 mGy [employer] VCT Iterative reconstruction technique Findings: Lungs and [...] annual screening with LDCT in 12 months. [id number] G9637 G9557 G9551 Dictating Physician: ??DIANA BHAT MD Electronically Signed by: ??DIANA BHAT MD Dic Date/Time: ??01/06/22 1800 Sign date/Time: ??01/06/22 1806 Procedure Note Diana Bhat MD - 03/08/2022 [facility] Diagnostic Imaging Department [address] [place] [address] Patient: DUGLAS JAIN Lacey /Age/Sex: 1965 - 56 - F Unit#: [id number] Location/Status: SPDICATLS/REG CLI Mnemonic/Ordering Site: [facility] [place] Ordering Physician: MEGAN ROSAS MD CT Lung Screening Low Dose - 01/06/22 - 1431 History: 56 year-old 40 pack-year current smoker, asymptomatic, for lungcancer screening. Comparison: No comparison imaging at this institution. Technique: Helical volumetric imaging of the thorax was performed, usinglow- dose technique, without IV contrast. DLP: 101.52 mGy/cm CTDIvol: 3.22 mGy [employer] VCT Iterative reconstruction technique Findings: Lungs and [...] Continue annual screeningwith LDCT in 12 months. 27787 G9637 G9557 G9551 Dictating Physician: DIANA BHAT MD Electronically Signed by: DIANA BHAT MD Dic Date/Time: 01/06/22 1800 Sign date/Time: 01/06/22 180 us Megan Rosas MD IMG CT PROCEDURES Final Result * AVA SCREENING DIGITAL (09/23/2021 2:57 PM EDT) Anatomical Region Laterality Modality Mammography 09/23/2021 2:08 PM EDT Narrative 09/23/2021 2:57 PM EDT [facility] Diagnostic Imaging Department [address] [place], [place] [id number] Patient: ??DUGLAS JAIN ?/Age/Sex: 1965 - 56 - F Unit#: ??[id number] ? Location/Status: ??SPDIMAM/REG CLI ? Mnemonic/Ordering Site: ??[facility]/SPMAM Ordering Physician: ??TARIQ ROMERO MD Ava Screening Digital - 09/23/21 - 2 EXAM: [facility] Screening Digital EXAM DATE AND TIME: 09/23/2021 2:32 PM HISTORY: ??Screening. COMPARISON: ??12/14/20, 07/16/20, 05/28/19, 05/22/18 TECHNIQUE: CC and MLO views of both breasts were obtained using full field digital mammography. Bilateral digital breast tomosynthesis was performed in the MLO projection. Computer aided detection with the [employer] 7.2-H was employed. TISSUE DENSITY: a. The [...] Routine screening mammogram BILATERAL in 1 year. [address], [address]686 3341F, 7025F Dictating Physician: ??DIANA BHAT MD Electronically Signed by: ??DIANA BHAT MD Dic Date/Time: ??09/23/211456 Sign date/Time: ??09/23/211456 Procedure Note Diana Bhat MD - 03/08/2022 [facility] Diagnostic Imaging Department [address] [place] [address] Patient: SUSYDUGLAS./Age/Sex: 1965 - 56 - F Unit#: [id number] Location/Status: [facility]/REG CLI Mnemonic/Ordering Site: [facility] Ordering Physician: TARIQ ROMERO MD [facility] Screening Digital - 09/23/21 - 1431 EXAM: [facility] Screening Digital EXAM DATE AND TIME: 09/23/2021 2:32 PM HISTORY: Screening. COMPARISON: 12/14/20, 07/16/20, 05/28/19, 05/22/18 TECHNIQUE: CC and MLO views of both breasts were obtained using fullfield digital mammography. Bilateral digital breast tomosynthesis was performedin the MLO projection. 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 TISSUE DENSITY: a. The breasts are [...] Routine screening mammogram BILATERAL in 1 year. [address]284, 89869 3341F, 7040F Dictating Physician: DIANA BHAT MD Electronically Signed by: DIANA BHAT MD Dic Date/Time: 09/23/211456 Sign date/Time: 09/23/211456 Tariq Romero MD IMG BI PROCEDURES Final Result from Last 3 Months or Most Recently Relevant to Health Maintenance [place] [address] GENERIC Care Teams Glueline Worker Relationship Specialty Start Date End Date Tariq Romero MD [address] [place] [address] [address] [facility] [place] [address] PCP - General Internal Medicine 03/03/11
--- OUTSIDE RECORDS SUMMARY | 2024-05-27 18:48 | XMS_ITS | Encounter Summary ---
Author Organization [facility] [place] [address] Care Team Providers Care Ben Day Artist Name Role Phone Tariq Romero MD Primary Care Provider [phone] Reason for Visit * Reason Comments Chest Pain Nausea Shoulder Pain Patient reports feel ing chest pain and tightness to her left neck and shoulder. She did an EKG at work and was concerned Encounter Details Date Type Department Care Team (Late st Contact Info) Description 05/22/2024 1:26 PM EST - 05/22/2024 5:19 PM EST Emergency [facility] Emergency [address] [place] [address] Chest pain, unspecified type (Primary [...] severe constipation. I strongly recommend using an [id number] stool softener and drinking plenty of water [...] evaluation of current visit by a PCP [id number] days after ER visit. 7 [employer] [facility] [address] It was my pleasure to meet and care for you today. I would like to thank you for visiting the [facility] Emergency Department and entrusting me with your care. * Attachments The following attachments cannot be sent through Care Everywhere. * Chest Pain (Croatian) documented in this encounter Medications at Time [...] daily nicotine use. 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 Denies any fever or chills. Denies dyspnea. [...] nursing note reviewed. Exam conducted with a school counsellor present. Constitutional: General: She is not in [...] on 05/22/2024 1:59 PM. Workstation Name - [id number] -------- FINAL REPORT -------- Dictated By: Navneet Jang Dictated Date: 05/22/2024 13:58 ET Assigned Physician: Navneet Jang Reviewed and Electronically Signed By: Navneet Jang Signed Date: 05/22/2024 13:59 ET Workstation ID: [id number] Transcribed By: Self Edit Transcribed Date: 05/22/2024 [...] performed using Filomena Nathanael Access AccuTnI+3 Assay. CBC AND DIFFERENTIAL Narrative: The following orders were created for panel order CBC and differential. Procedure Abnormality Status --------- ------ CBC auto differential[[id number]] Abnormal Final result Please view results for [...] rate of 80 and normal sinus rhythm, CA 138, QRS [address] elevation or depression. Risk OTC [...] management and/or test interpretation with external health wild animal caretaker [] Admission/Observation - Patient's presentation, diagnostics, and/or [...] EST The Advanced Practice Provider (PA or CAFE WORKER) provided care for the patient during their [...] LAB CHEMISTRY METHOD 05/22/2024 5:08 PM EST [facility] Blood Venous blood specimen / Unknown Venipuncture / Unknown 05/22/2024 4:39 PM EST 05/22/2024 4:41 PM EST Narrative [facility] - 05/22/2024 5:08 PM EST HSTnI results stratify to HIGH RISK category if any value >100 ng/L or delta at 1 hour is greater than or equal to 15 ng/L (male and female). Note: Delta values are not applicable if symptoms began more than 12 hours pre-arrival. Risk stratification should include the calculation of the HEART score. Testing performed using Cluey Access AccuTnI+3 Assay. Chandrika TOSCANO LAB BLOOD ORDERABLES Final Result [facility] ([facility]) [facility] [address] [place] [address], [place] [phone] * XR Chest 1 View (05/22/2024 1:57 PM EST) Anatomical Region Laterality Modality Body Radiographic Claire ging 05/22/2024 1:58 PM EST Impressions 05/22/2024 1:59 PM EST No acute cardiopulmonary abnormality. Report reviewed and signed by : Dr. Navneet Jang on 05/22/2024 1:59 PM. Workstation Name - [id number] -------- FINAL REPORT -------- Dictated By: Navneet Jang Dictated Date: 05/22/2024 13:58 ET Assigned Physician: Navneet Jang Reviewed and Electronically Signed By: Navneet Jang Signed Date: 05/22/2024 13:59 ET Workstation ID: [id number] Transcribed By: Self Edit Transcribed Date: 05/22/2024 [...] Jang on 05/22/2024 1:59 PM.Workstation Name - [id number] -------- FINAL REPORT -------- Dictated By: Navneet Jang Dictated Date: 05/22/2024 13:58 ET Assigned Physician: Navneet Jang Reviewed and Electronically Signed By: Navneet Jang Signed Date: 05/22/2024 13:59 ET Workstation ID: [id number] Transcribed By: Self Edit Transcribed Date: 05/22/2024 13:58 ET Italo Ellis MD IMG XR PROCEDURES Final Result * ECG 12 lead (05/22/2024 1:37 PM EST) Pathologist [facility] Ventricular Rate ECG 80 BPM GEMUSE Atrial Rate 80 BPM GEMUSE P-R Interval 138 ms GEMUSE QRS Duration 74 ms GEMUSE Q-T Interval 418 ms GEMUSE QTc 482 ms GEMUSE P Wave [place] 58 degrees GEMUSE R [place] 56 degrees GEMUSE T [place] 55 degrees GEMUSE ECG Interpretation Normal sinus rhythm Prolonged QT Abnormal ECG When compared with ECG of 17-DEC-2022 19:36, Criteria for Septal infarct are no longer present Confirmed by Nikolay Christianson ([id number]) on 05/22/2024 5:02:56 PM GEMUSE 05/22/2024 1:37 PM EST 05/22/2024 5:02 PM EST Italo Ellis MD ECG ORDERABLES Final Result GEMUSE * (ABNORMAL) CBC auto differential (05/22/2024 1:37 PM EST) Pathologist [facility] WBC 11.7(H) 4.0 - 10.5 K/[facility] LAB HEMETOLOGY METHOD 05/22/2024 1:45 PM EST [facility] RBC 5.47(H) 4.20 - 5.40 M/mcL LAB HEMETOLOGY METHOD 05/22/2024 1:45 PM EST [facility] Hemoglobin 18.1(H) 12.5 - 16.0 g/dL LAB HEMETOLOGY METHOD 05/22/2024 1:45 PM EST [facility] Hematocrit 50.7(H) 37.0 - 47.0 % LAB HEMETOLOGY METHOD 05/22/2024 1:45 PM [facility] MCV 92.7 78.0 - 100.0 FL LAB HEMETOLOGY METHOD 05/22/2024 1:45 PM [facility] MCH 33.1(H) 25.0 - 33.0 pcg LAB HEMETOLOGY METHOD 05/22/2024 1:45 PM [facility] MCHC 35.7 32.0 - 36.0 g/dL LAB HEMETOLOGY METHOD 05/22/2024 1:45 PM [facility] RDW 14.6 12.1 - 16.2 % LAB HEMETOLOGY METHOD 05/22/2024 1:45 PM [facility] Platelets 293 150 - 450 K/mcL LAB HEMETOLOGY METHOD 05/22/2024 1:45 PM [facility] MPV 10.1 7.4 - 11.4 FL LAB HEMETOLOGY METHOD 05/22/2024 1:45 PM [facility] Neutrophils Relative 55.6 44.0 - 74.0 % LAB HEMETOLOGY METHOD 05/22/2024 1:45 PM [facility] Lymphocytes Relative 32.7 20.0 - 48.0 % LAB HEMETOLOGY METHOD 05/22/2024 1:45 PM [facility] Monocytes Relative 9.3 2.0 - 12.0 % LAB HEMETOLOGY METHOD 05/22/2024 1:45 PM [facility] Eosinophils Relative 1.2 0.0 - 6.0 % LAB HEMETOLOGY METHOD 05/22/2024 1:45 PM [facility] Basophils Relative 0.7 0.0 - 2.0 % LAB HEMETOLOGY METHOD 05/22/2024 1:45 PM [facility] Neutrophils Absolute 6.51 1.80 - 7.80 K/mcL LAB HEMETOLOGY METHOD 05/22/2024 1:45 PM EST [facility] Lymphocytes Absolute 3.83(H) 1.00 - 3.20 K/mcL LAB HEMETOLOGY METHOD 05/22/2024 1:45 PM EST [facility] Monocytes Absolute 1.09(H) 0.00 - 0.80 K/mcL LAB HEMETOLOGY METHOD 05/22/2024 1:45 PM EST [facility] Eosinophils Absolute 0.14 0.00 - 0.50 K/[facility] LAB HEMETOLOGY METHOD 05/22/2024 1:45 PM EST [facility] Basophils Absolute 0.08 0.00 - 0.20 K/mcL LAB HEMETOLOGY METHOD 05/22/2024 1:45 PM EST [facility] Blood Venous blood specimen / Unknown Venipuncture / Unknown 05/22/2024 1:37 PM EST 05/22/2024 1:42 PM EST us Italo Ellis MD LAB BLOOD ORDERABLES Final Resu lt [facility] [address] [place] [address], [place] [phone] * B-type natriuretic peptide (05/22/2024 1:37 PM EST) [facility] BNP 12 0 - 100 pcg/mL LAB CHEMISTRY METHOD 05/22/2024 5:13 PM EST [facility] Blood Venous blood specimen / Unknown Venipuncture / Unknown 05/22/2024 1:37 PM EST 05/22/2024 4:42 PM EST us Italo Ellis MD LAB BLOOD ORDERABLES Final Resu lt [facility] [address] [place] [address], * Magnesium (05/22/2024 1:37 PM EST) [facility] Magnesium 2.1 1.7 - 2.8 mg/dL LAB CHEMISTRY METHOD 05/22/2024 2:05 PM EST [facility] Comment:Slight Hemolysis may affect test result(s). Blood Venous blood specimen / Unknown Venipuncture / Unknown 05/22/2024 1:37 PM EST 05/22/2024 1:42 PM EST us Italo Ellis MD LAB BLOOD ORDERABLES Final Resu lt Performing Organization Address City/[facility]/ZIP Co de Phone Number [facility] [address] [place] [address], * Lipase (05/22/2024 1:37 PM EST) [facility] Lipase 16 11 - 82 unit/L LAB CHEMISTRY METHOD 05/22/2024 2:04 PM EST [facility] Blood Venous blood specimen / Unknown Venipuncture / Unknown 05/22/2024 1:37 PM EST 05/22/2024 1:42 PM EST us Italo Ellis MD LAB BLOOD ORDERABLES Final Resu lt [facility] [address] [place] [address], [place] [phone] * (ABNORMAL) Comprehensive metabolic panel (05/22/2024 1:37 PM EST) [facility] Sodium 138 135 - 145 mmol/L LAB CHEMISTRY METHOD 05/22/2024 2:04 PM EST [facility] Potassium 3.9 3.5 - 5.1 mmol/L LAB CHEMISTRY METHOD 05/22/2024 2:04 PM [facility] Comment:Slight Hemolysis may affect test result(s). Chloride 103 98 - 107 mmol/L LAB CHEMISTRY METHOD 05/22/2024 2:04 PM [facility] CO2 25 24 - 32 mmol/L LAB CHEMISTRY METHOD 05/22/2024 2:04 PM [facility] Anion Gap 10 5 - 14 LAB CHEMISTRY METHOD 05/22/2024 2:04 PM [facility] Glucose 101 70 - 199 mg/dL LAB CHEMISTRY METHOD 05/22/2024 2:04 PM [facility] BUN 18(H) 7 - 17 mg/dL LAB CHEMISTRY METHOD 05/22/2024 2:04 PM [facility] Creatinine 0.73 0.50 - 1.00 mg/dL LAB CHEMISTRY METHOD 05/22/2024 2:04 PM [facility] eGFR 96 >=60 mL/min/1. 73m2 LAB CHEMISTRY METHOD 05/22/2024 2:04 PM [facility] Comment:Calculation based on the??Chronic Kidney Disease Epidemiology Collaboration (CKD-EPI) equation refit??without adjustment for race. BUN/Creatinine Ratio 24.7(H) 12.0 - 20.0 LAB CHEMISTRY METHOD 05/22/2024 2:04 PM [facility] Calcium 10.6(H) 8.4 - 10.2 mg/dL LAB CHEMISTRY METHOD 05/22/2024 2:04 PM [facility] AST (SGOT) 67(H) 5 - 40 unit/L LAB CHEMISTRY METHOD 05/22/2024 2:04 PM [facility] Comment:Slight Hemolysis may affect test result(s). ALT (SGPT) 99(H) 7 - 52 unit/L LAB CHEMISTRY METHOD 05/22/2024 2:04 PM EST [facility] Alkaline Phosphatase 100 34 - 104 unit/L LAB CHEMISTRY METHOD 05/22/2024 2:04 PM EST [facility] Total Protein 7.6 6.4 - 8.5 g/dL LAB CHEMISTRY METHOD 05/22/2024 2:04 PM EST [facility] Albumin 4.7 3.5 - 5.0 g/dL LAB CHEMISTRY METHOD 05/22/2024 2:04 PM EST [facility] Total Bilirubin 1.2(H) 0.3 - 1.0 mg/dL LAB CHEMISTRY METHOD 05/22/2024 2:04 PM [facility] Blood Venous blood specimen / Unknown Venipuncture / Unknown 05/22/2024 1:37 PM EST 05/22/2024 1:42 PM EST Italo Ellis MD LAB BLOOD ORDERABLES Final Resu lt [facility] [address] [place] [address], [place] [phone] * Troponin I high sensitivity (05/22/2024 1:37 PM EST) High Sensitivity Troponin I 4 0 - 14 ng/L LAB CHEMISTRY METHOD 05/22/2024 2:11 PM EST [facility] Blood Venous blood specimen / Unknown Venipuncture / Unknown 05/22/2024 1:37 PM EST 05/22/2024 1:42 PM EST Narrative [facility] - 05/22/2024 2:11 PM EST HSTnI results stratify to HIGH RISK category if any value >100 ng/L or delta at 1 hour is greater than or equal to 15 ng/L (male and female). Note: Delta values are not applicable if symptoms began more than 12 hours pre-arrival. Risk stratification should include the calculation of the HEART score. Testing performed using Cluey Access AccuTnI+3 Assay. us Italo Ellis MD LAB BLOOD ORDERABLES Final Resu lt [facility] ([facility] [place]) [facility] [address] [place] [address], [place] [phone] documented in this encounter Visit Diagnoses Diagnosis [...] 05/22/2024 documented in this encounter Care Teams Ben Day Artist Relationship Specialty Start Date End Date Tariq Romero MD [address] [place] [address] [address] [facility] [place] [address] PCP - General Internal Medicine 03/03/11 documented as of this encounter
--- OUTSIDE RECORDS SUMMARY | 2024-05-27 18:48 | XMS_ITS | Clinical Summary ---
Author Organization [facility] Address [address] [place] [address] Care Team Providers Care Machine Made Shoe Unit Worker Name Role Phone Tariq Romero MD Primary Care Provider [phone] Allergies Active Allergy Reactions Criticality Noted Date [...] age to complete this topic Care Teams Machine Made Shoe Unit Worker Relationship Specialty Start Date End Date Tariq Romero MD [address] [place] [address] [address] [facility] [place] [address] PCP - General Internal Medicine 02/24/22
== END 2024-05-27 15:59 | disposition home or self-care (01) ==
PROVIDERS: PCP Internal Medicine
DX: I10 Essential (primary) hypertension (principal); E66.9 Obesity, unspecified; Z68.30 Body mass index [BMI] 30.0-30.9, adult; K76.0 Fatty (change of) liver, not elsewhere classified; Z72.0 Tobacco use; M79.661 Pain in right lower leg; M79.662 Pain in left lower leg; R07.9 Chest pain, unspecified; F10.11 Alcohol abuse, in remission

== ENCOUNTER 2024-05-28 15:52 | Outpatient (AMB) | payer BC, SELFPAY ==
--- NOTE | 2024-05-28 15:55 | A.OFFVIS_ITS ---
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 Process Required: No Accompanied by: Self / Same As Patient Allergies hydrochlorothiazide Allergy (Unknown, Verified 05/27/24 15:16) Leg cramps lisinopril Allergy (Unknown, Verified 05/27/24 15:16) Cough sulfamethoxazole [From Bactrim] Allergy (Verified 05/27/24 15:16) Anaphylaxis trimethoprim [From Bactrim] Allergy (Verified 05/27/24 15:16) Anaphylaxis Medication List - Last Reconciled 05/28/24 by Giuliano Shelton MD albuterol sulfate 90 mcg/actuation 2 inhalations inhalation Q4-6H PRN amlodipine 10 mg PO DAILY 90 days carvedilol 6.25 mg PO BID 90 days cholecalciferol (vitamin D3) 50 mcg PO DAILY 90 days clonazepam 0.5 mg PO TID PRN 30 days fenofibrate 160 mg PO DAILY naltrexone 50 mg PO DAILY HPI Comments Details: 58-year-old female here for follow-up. She was seen for chest pain previously. She was referred for stress echocardiogram. She underwent stress test on 12/18/2019 which she was able to exercise for 8 minutes achieving 10.[address] No abnormal ST-T changes were noticed on the EKG and no significant wall motion abnormalities were noticed pre and post stress. She is here for follow-up today. Blood pressure is 142/84. She has been taking amlodipine 2 times a week. She was started on Toprol by Dr. Romero but she has not started Toprol yet. She is worried that her blood pressure may drop from it. She has no chest pain or shortness of breath. She is very anxious and seems quite stressed. She is saying that she is stressed at work all the time. 11/08/22/: She returns for follow-up. She has been taking amlodipine 10 mg daily and Toprol-XL 25 mg at bedtime. She said her blood pressure readings have been high and at work specially when she is under stress blood pressure readings at are as high as 200/130. She also has been experiencing some pressure-like feeling in her chest which is again random and can happen at any time. She was experiencing it during the office visit today too. She has significant is ID and has been using clonazepam as needed. She was given sertraline but could not tolerate it. She has never tried bupropion before. March 2023: She returns for follow-up. She continues to have mildly elevated blood pressures. She said she did not potato picker carvedilol. We will send a script for her and she plans to pick it up and start taking it. She continues to get chest pains off and on. These are usually nonexertional. She also is complaining of fatigue and tiredness. She gets out of breath easily. 08/01/23: She returns for follow-up. Blood pressure is better controlled while she is taking amlodipine and carvedilol 6.25 mg twice a day. On last visit we discussed about doing stress echocardiogram. She is saying that she needs to arrange it in [facility] because the her insurance will not cover it. We will arrange a date [facility]. She continues to get some chest tightness off and on. No background history of asthma. 05/28/24: She is here for f/u. She had CP and went to [facility] and was ruled out. ECG was normal and troponins negative. She had prolonged QTc 480 msec on one ECG. It appears she had atypical chest pain. She was due to get stress testing. [facility] Medical History (Updated 05/27/24 @ 16:03 by Rhonda Gallardo PA-C) Alcohol abuse, in remission High cholesterol High blood pressure Neck pain Leg pain COVID-19 virus infection Family history of cancer Surgical History History of fusion of cervical spine H/O: hysterectomy Family History Father Diabetes Prostate cancer HTN (hypertension) CVD (cardiovascular disease) Mother HTN (hypertension) Cervical cancer Lung cancer Maternal Grandmother Lung cancer Daughter In good health Daughter No problems noted. Brother In good health Son No problems noted. Maternal Grandfather Leukemia Paternal Grandfather CVD (cardiovascular disease) Paternal Aunt CVD (cardiovascular disease) Social History Housing: House Alcohol intake: former Comment: 2021 Patient Tobacco Use Status: Current everyday Tobacco user Tobacco use type: Cigarette Cigarette Packs Per Day: 0.5 Cigarettes Per Day: 10 Years Smoked: 40 +/- e-Cigarette/Vaping Use: Never Used Second Hand Smoke Exposure: Yes service: No Current occupational status: employed Cognitive needs: No Hearing needs: No Vision needs: No Review of Systems Const Denies chills, Denies fatigue, Denies fever(s), Denies frequent falls, Denies weakness, Denies weight gain and Denies weight loss ENT Denies dizziness Card Denies chest pain, Denies leg edema, Denies lightheadedness, Denies palpitations, Denies dyspnea and Denies dyspnea on exertion Resp Denies cough, Denies dyspnea and Denies dyspnea on exertion GI Denies hematochezia Musc Denies abnormal gait, Denies muscle weakness, Denies numbness, Denies radiating pain into limb and Denies tingling Neuro Denies abnormal gait, Denies dizziness, Denies frequent falls, Denies numbness, Denies tingling and Denies weakness Endo Denies fatigue and Denies palpitations Physical Exam Vital Signs: Last Vital Signs Pulse 91 05/28/24 15:59 BP 130/64 05/28/24 15:59 BMI result Body Mass Index 31.5 GENERAL APPEARANCE: in no acute distress, pleasant. NECK: no carotid bruit, no jugular venous distention. SKIN: no suspicious lesions, warm and dry. HEART: no murmurs, regular rate and rhythm. LUNGS: clear to auscultation bilaterally. ABDOMEN: soft, nontender. EXTREMITIES: no edema. PERIPHERAL PULSES: equal. NEUROLOGIC: No gross deficits, AAO X 3 Assessment & Plan Assessment & Plan (1) Chest pain: Code(s): R07.9 - Chest pain, unspecified Category: Medical Plan 58 female here for f/u. She has been experiencing chest pains off and on and plan was to do a stress test. She apparently can only get it done at [facility]. I have discussed with her to do a coronary CTA instead as it will provide more information about nonobstructive plaque too and may help risk stratify her better, She is agreeable and we will arrange coronary CTA. f/u in few months. Orders: Orders CT Cardiac Coronary Angio 05/28/24 R07.9 - Chest pain, unspecified Basic Metabolic Panel 05/28/24 R07.9 - Chest pain, unspecified Medications: New aspirin (Adult Aspirin Regimen) 81 mg PO DAILY 1 tab 0RF Coding Level of Care Code Est Pt Level 4 (17607) Diagnoses Chest pain R07.9
[2024-05-28 15:59] VITALS: BP 130/64; PULSE 91; BMI 31.5
--- OUTSIDE RECORDS SUMMARY | 2024-05-28 18:26 | XMS_ITS | Encounter Summary ---
Author Organization [facility] Address [address] [place] [address] Care Team Providers Care Area Counselor Name Role Phone Tariq Romero MD Primary Care Provider [phone] Encounter Details Date Type Department Care Team (Late st Contact Info) Description 01/29/2024 Lab Requisition [facility] [address] [facility] [place] [id number] Venkatesh Padilla MD [address] [place] [address] Dysuria Social History Tobacco Use Types Packs/Day [...] reflex microscopic (01/29/2024 7:00 AM EST) Specific [place] Urine >=1.030 1.003 - 1.030 LAB URINALYSIS - AUTOMATED METHOD 01/29/2024 9:32 AM [facility] pH, Urine 6.0 5.0 - 8.0 pH LAB URINALYSIS - AUTOMATED METHOD 01/29/2024 9:32 AM [facility] Leukocytes, Urine Negative Negative LAB URINALYSIS - AUTOMATED METHOD 01/29/2024 9:32 AM [facility] Nitrite, Urine Negative Negative LAB URINALYSIS - AUTOMATED METHOD 01/29/2024 9:32 AM [facility] Protein, Urine Trace <=Trace mg/dL LAB URINALYSIS - AUTOMATED METHOD 01/29/2024 9:32 AM [facility] Glucose, Urine Negative Negative mg/dL LAB URINALYSIS - AUTOMATED METHOD 01/29/2024 9:32 AM [facility] Ketones, Urine Trace(A) Negative mg/dL LAB URINALYSIS - AUTOMATED METHOD 01/29/2024 9:32 AM [facility] Urobilinogen , Urine 0.2 0.2 - 1.0 mg/dL LAB URINALYSIS - AUTOMATED METHOD 01/29/2024 9:32 AM [facility] Bilirubin, Urine Small(A) Negative LAB URINALYSIS - AUTOMATED METHOD 01/29/2024 9:32 AM [facility] Blood, Urine Trace(A) Negative LAB URINALYSIS - AUTOMATED METHOD 01/29/2024 9:32 AM [facility] RBC, Urine 4.0 0 - 4 /HPF LAB URINALYSIS - AUTOMATED METHOD 01/29/2024 9:32 AM [facility] WBC, Urine 2.6 0 - 4 /HPF LAB URINALYSIS - AUTOMATED METHOD 01/29/2024 9:32 AM [facility] Squamous Epithelial, Urine 69(H) 0 - 60 /LPF LAB URINALYSIS - AUTOMATED METHOD 01/29/2024 9:32 AM [facility] Crystals, Urine MOD CALCIUM OXALATE /LPF LAB URINALYSIS - AUTOMATED METHOD 01/29/2024 9:32 AM [facility] Bacteria, Urine Negative Negative /HPF LAB URINALYSIS - AUTOMATED METHOD 01/29/2024 9:32 AM [facility] Hyaline Casts, Urine 2.4 0 - 3 /LPF LAB URINALYSIS - AUTOMATED METHOD 01/29/2024 9:32 AM [facility] Urine Urine specimen obtained by clean catch procedure / Unknown 01/29/2024 7:00 AM EST 01/29/2024 9:12 AM EST Venkatesh Padilla MD LAB URINE ORDERABLES Final Result Performing Organization Address [facility]/ZIP Co de Phone Number [facility] [address] [place] [address], [place] [phone] * Culture urine (01/29/2024 7:00 AM EST) Culture, Urine No growth 01/30/2024 9:01 AM [facility] Urine Urine specimen obtained by clean catch procedure / Unknown 01/29/2024 7:00 AM EST 01/29/2024 9:12 AM EST Venkatesh Padilla MD LAB MICROBIOLOGY - GENERAL ORDERABLES Final Result Performing Organization Address [facility]/ZIP Co de Phone Number [facility] [address] [place] [address], [place] [phone] documented in this encounter Visit Diagnoses Diagnosis Dysuria documented in this encounter Care Teams Area Counselor Relationship Specialty Start Date End Date Tariq Romero MD [address] [place] [address] [address] [facility] [place] [address] PCP - General Internal Medicine 03/03/11 documented as of this encounter
--- OUTSIDE RECORDS SUMMARY | 2024-05-28 18:26 | XMS_ITS | Encounter Summary ---
Author Organization [facility] Address [address] [place] [address] Care Team Providers Care Paper Baler Name Role Phone Tariq Romero MD Primary Care Provider [phone] Encounter Details Date Type Department Care Team (Late st Contact Info) Description 05/13/[address] [facility] - Main Lab [address] [facility] [place] [address] Social History Tobacco Use Types [...] on filedocumented in this encounter Care Teams Paper Baler Relationship Specialty Start Date End Date Tariq Romero MD [address] [place] [address] [address] [facility] [place] [address] PCP - General Internal Medicine 03/03/11 documented as of this encounter
--- OUTSIDE RECORDS SUMMARY | 2024-05-28 18:26 | XMS_ITS | Clinical Summary ---
Author Organization [facility] Address [address] [place] [address] Care Team Providers Care Upsetting Machine Operator Name Role Phone Tariq Romero MD Primary Care Provider [phone] Allergies Active Allergy Reactions Criticality Noted Date [...] age to complete this topic Care Teams Upsetting Machine Operator Relationship Specialty Start Date End Date Tariq Romero MD [address] [place] [address] [address] [facility] [place] [address] PCP - General Internal Medicine 02/24/22
--- OUTSIDE RECORDS SUMMARY | 2024-05-28 18:26 | XMS_ITS | Encounter Summary ---
Author Organization [facility] [place] [address] Care Team Providers Care Emulsion Operator Name Role Phone Tariq Romero MD Primary Care Provider [phone] Reason for Visit * Reason Comments Chest Pain Nausea Shoulder Pain Patient reports feel ing chest pain and tightness to her left neck and shoulder. She did an EKG at work and was concerned Encounter Details Date Type Department Care Team (Late st Contact Info) Description 05/22/2024 1:26 PM EST - 05/22/2024 5:19 PM EST Emergency [facility] Emergency [address] [place] [address] Chest pain, unspecified type (Primary [...] severe constipation. I strongly recommend using an lnhf-oei-drcgaic stool softener and drinking plenty of water [...] evaluation of current visit by a PCP [id number] days after ER visit. 7 [employer] [facility] [address] [facility] [address] It was my pleasure to meet and care for you today. I would like to thank you for visiting the [facility] Emergency Department and entrusting me with your care. * Attachments The following attachments cannot be sent through Care Everywhere. * Chest Pain (Serbian) documented in this encounter Medications at Time [...] daily nicotine use. 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 Denies any fever or chills. Denies dyspnea. [...] nursing note reviewed. Exam conducted with a principal trainer present. Constitutional: General: She is not in [...] on 05/22/2024 1:59 PM. Workstation Name - [id number] -------- FINAL REPORT -------- Dictated By: Navneet Jang Dictated Date: 05/22/2024 13:58 ET Assigned Physician: Navneet Jang Reviewed and Electronically Signed By: Navneet Jang Signed Date: 05/22/2024 13:59 ET Workstation ID: [id number] Transcribed By: Self Edit Transcribed Date: 05/22/2024 [...] Procedure Abnormality Status --------- ------ CBC auto differential[[id number]] Abnormal Final result Please view results for [...] rate of 80 and normal sinus rhythm, KY 138, QRS [id number] elevation or depression. Risk OTC [...] management and/or test interpretation with external health managed care manager [] Admission/Observation - Patient's presentation, diagnostics, and/or [...] EST The Advanced Practice Provider (PA or SUPERVISOR SOLDERING) provided care for the patient during their [...] LAB CHEMISTRY METHOD 05/22/2024 5:08 PM EST [facility] Blood Venous blood specimen / Unknown Venipuncture / Unknown 05/22/2024 4:39 PM EST 05/22/2024 4:41 PM EST Narrative [facility] - 05/22/2024 5:08 PM EST HSTnI results stratify to HIGH RISK category if any value >100 ng/L or delta at 1 hour is greater than or equal to 15 ng/L (male and female). Note: Delta values are not applicable if symptoms began more than 12 hours pre-arrival. Risk stratification should include the calculation of the HEART score. Testing performed using [employer] Access AccuTnI+3 Assay. Chandrika TOSCANO LAB BLOOD ORDERABLES Final Result [facility] ([facility] [address] [facility] [place] [address], [place] [phone] * XR Chest 1 View (05/22/2024 1:57 PM EST) Anatomical Region Laterality Modality Body Radiographic Claire ging 05/22/2024 1:58 PM EST Impressions 05/22/2024 1:59 PM EST No acute cardiopulmonary abnormality. Report reviewed and signed by : Dr. Navneet Jang on 05/22/2024 1:59 PM. Workstation Name - [id number] -------- FINAL REPORT -------- Dictated By: Navneet Jang Dictated Date: 05/22/2024 13:58 ET Assigned Physician: Navneet Jang Reviewed and Electronically Signed By: Navneet Jang Signed Date: 05/22/2024 13:59 ET Workstation ID: [id number] Transcribed By: Self Edit Transcribed Date: 05/22/2024 [...] Jang on 05/22/2024 1:59 PM.Workstation Name - [id number] -------- FINAL REPORT -------- Dictated By: Navneet Jagn Dictated Date: 05/22/2024 13:58 ET Assigned Physician: Navneet Jang Reviewed and Electronically Signed By: Navneet Jang Signed Date: 05/22/2024 13:59 ET Workstation ID: [id number] Transcribed By: Self Edit Transcribed Date: 05/22/2024 13:58 ET Italo Ellis MD IMG XR PROCEDURES Final Result * ECG 12 lead (05/22/2024 1:37 PM EST) Pathologist [facility] Ventricular Rate ECG 80 BPM GEMUSE Atrial Rate 80 BPM GEMUSE P-R Interval 138 ms GEMUSE QRS Duration 74 ms GEMUSE Q-T Interval 418 ms GEMUSE QTc 482 ms GEMUSE P Wave [place] 58 degrees GEMUSE R [place] 56 degrees GEMUSE T [place] 55 degrees GEMUSE ECG Interpretation Normal sinus rhythm Prolonged QT Abnormal ECG When compared with ECG of 17-DEC-2022 19:36, Criteria for Septal infarct are no longer present Confirmed by Nikolay Christianson ([id number]) on 05/22/2024 5:02:56 PM GEMUSE 05/22/2024 1:37 PM EST 05/22/2024 5:02 PM EST Italo Ellis MD ECG ORDERABLES Final Result GEMUSE * (ABNORMAL) CBC auto differential (05/22/2024 1:37 PM EST) Pathologist [facility] WBC 11.7(H) 4.0 - 10.5 K/[facility] LAB HEMETOLOGY METHOD 05/22/2024 1:45 PM EST [facility] RBC 5.47(H) 4.20 - 5.40 M/mcL LAB HEMETOLOGY METHOD 05/22/2024 1:45 PM EST [facility] Hemoglobin 18.1(H) 12.5 - 16.0 g/dL LAB HEMETOLOGY METHOD 05/22/2024 1:45 PM EST [facility] Hematocrit 50.7(H) 37.0 - [...] METHOD 05/22/2024 1:45 PM [facility] Lymphocytes Relative 32.7 20.0 - 48.0 % LAB HEMETOLOGY METHOD 05/22/2024 1:45 PM [facility] Monocytes Relative 9.3 2.0 - 12.0 % LAB HEMETOLOGY METHOD 05/22/2024 1:45 PM [facility] Eosinophils Relative 1.2 0.0 - 6.0 % LAB HEMETOLOGY METHOD 05/22/2024 1:45 PM [facility] Basophils Relative 0.7 0.0 - 2.0 % LAB HEMETOLOGY METHOD 05/22/2024 1:45 PM [facility] Neutrophils Absolute 6.51 1.80 - 7.80 K/mcL LAB HEMETOLOGY METHOD 05/22/2024 1:45 PM EST [facility] Lymphocytes Absolute 3.83(H) 1.00 - 3.20 K/mcL LAB HEMETOLOGY METHOD 05/22/2024 1:45 PM EST [facility] Monocytes Absolute 1.09(H) 0.00 - 0.80 K/mcL LAB HEMETOLOGY METHOD 05/22/2024 1:45 PM EST [facility] Eosinophils Absolute 0.14 0.00 - 0.50 K/[facility] LAB HEMETOLOGY METHOD 05/22/2024 1:45 PM EST [facility] Basophils Absolute 0.08 0.00 - 0.20 K/mcL LAB HEMETOLOGY METHOD 05/22/2024 1:45 PM EST [facility] Blood Venous blood specimen / Unknown Venipuncture / Unknown 05/22/2024 1:37 PM EST 05/22/2024 1:42 PM EST us Italo Ellis MD LAB BLOOD ORDERABLES Final Resu lt [facility] [address] [place] [address], [place] [phone] * B-type natriuretic peptide (05/22/2024 1:37 PM EST) [facility] BNP 12 0 - 100 pcg/mL LAB CHEMISTRY METHOD 05/22/2024 5:13 PM EST [facility] Blood Venous blood specimen / Unknown Venipuncture / Unknown 05/22/2024 1:37 PM EST 05/22/2024 4:42 PM EST us Italo Ellis MD LAB BLOOD ORDERABLES Final Resu lt [facility] [address] [place] [address], * Magnesium (05/22/2024 1:37 PM EST) [facility] Magnesium 2.1 1.7 - 2.8 mg/dL LAB CHEMISTRY METHOD 05/22/2024 2:05 PM EST [facility] Comment:Slight Hemolysis may affect test result(s). Blood Venous blood specimen / Unknown Venipuncture / Unknown 05/22/2024 1:37 PM EST 05/22/2024 1:42 PM EST us Italo Ellis MD LAB BLOOD ORDERABLES Final Resu lt Performing Organization Address City/[facility]/ZIP Co de Phone Number [facility] [address] [place] [address], * Lipase (05/22/2024 1:37 PM EST) [facility] Lipase 16 11 - 82 unit/L LAB CHEMISTRY METHOD 05/22/2024 2:04 PM EST [facility] Blood Venous blood specimen / Unknown Venipuncture / Unknown 05/22/2024 1:37 PM EST 05/22/2024 1:42 PM EST us Italo Ellis MD LAB BLOOD ORDERABLES Final Resu lt [facility] [address] [place] [address], [place] [phone] * (ABNORMAL) Comprehensive metabolic panel (05/22/2024 1:37 PM EST) [facility] Sodium 138 135 - 145 mmol/L LAB CHEMISTRY METHOD 05/22/2024 2:04 PM EST [facility] Potassium 3.9 3.5 - [...] LAB CHEMISTRY METHOD 05/22/2024 2:04 PM EST [facility] Alkaline Phosphatase 100 34 - 104 unit/L LAB CHEMISTRY METHOD 05/22/2024 2:04 PM EST [facility] Total Protein 7.6 6.4 - 8.5 g/dL LAB CHEMISTRY METHOD 05/22/2024 2:04 PM EST [facility] Albumin 4.7 3.5 - 5.0 g/dL LAB CHEMISTRY METHOD 05/22/2024 2:04 PM EST [facility] Total Bilirubin 1.2(H) 0.3 - 1.0 mg/dL LAB CHEMISTRY METHOD 05/22/2024 2:04 PM [facility] Blood Venous blood specimen / Unknown Venipuncture / Unknown 05/22/2024 1:37 PM EST 05/22/2024 1:42 PM EST Italo Ellis MD LAB BLOOD ORDERABLES Final Resu lt [facility] [address] [place] [address], [place] [phone] * Troponin I high sensitivity (05/22/2024 1:37 PM EST) High Sensitivity Troponin I 4 0 - 14 ng/L LAB CHEMISTRY METHOD 05/22/2024 2:11 PM EST [facility] Blood Venous blood specimen / Unknown Venipuncture / Unknown 05/22/2024 1:37 PM EST 05/22/2024 1:42 PM EST Narrative [facility] - 05/22/2024 2:11 PM EST HSTnI results stratify to HIGH RISK category if any value >100 ng/L or delta at 1 hour is greater than or equal to 15 ng/L (male and female). Note: Delta values are not applicable if symptoms began more than 12 hours pre-arrival. Risk stratification should include the calculation of the HEART score. Testing performed using [employer] Access AccuTnI+3 Assay. us Italo Ellis MD LAB BLOOD ORDERABLES Final Resu lt [facility] ([facility] [address] [place] [address], [place] [phone] documented in this encounter Visit Diagnoses Diagnosis [...] 05/22/2024 documented in this encounter Care Teams Emulsion Operator Relationship Specialty Start Date End Date Tariq Romero MD [address] [place] [address] [address] [facility] [place] [address] PCP - General Internal Medicine 03/03/11 documented as of this encounter
--- OUTSIDE RECORDS SUMMARY | 2024-05-28 18:26 | XMS_ITS | Encounter Summary ---
Author Organization [facility] Address [address] [place] [address] Care Team Providers Care Welt Treater Name Role Phone Tariq Romero MD Primary Care Provider [phone] Encounter Details Date Type Department Care Team (Latest Contact Info) Description 05/13/2024 Lab Requisition [facility] - Main Lab [address] [facility] [place] [address] Maya Oshea MD [address] [place] [address] ATTN: HEMATOLOGY/[place] [address] Familial erythrocytosis Social History Tobacco Use Types [...] Lavender tube (05/13/2024 9:05 AM EST) Pathologist [facility] Extra Tube Hold for add-ons. 05/13/2024 1:02 PM EST [facility] Comment:Auto resulted. Blood Venous blood specimen / Unknown 05/13/2024 9:05 AM EST 05/13/2024 11:01 AM EST us Maya Oshea MD LAB BLOOD ORDERABLES Final Resu lt [facility] [address] [place] [address], * (ABNORMAL) CBC auto differential (05/13/2024 9:05 AM EST) Pathologist [facility] WBC 10.1 4.8 - 10.8 K/mcL LAB HEMETOLOGY METHOD 05/13/2024 12:14 PM [facility] RBC 5.80(H) 3.80 - 4.80 M/mcL LAB HEMETOLOGY METHOD 05/13/2024 12:14 PM [facility] Hemoglobin 18.2(H) 11.5 - 16.0 g/dL LAB HEMETOLOGY METHOD 05/13/2024 12:14 PM [facility] Hematocrit 55.7(H) 35.0 - 47.0 % LAB HEMETOLOGY METHOD 05/13/2024 12:14 PM [facility] MCV 96.7 79.0 - 98.0 FL LAB HEMETOLOGY METHOD 05/13/2024 12:14 PM [facility] MCH 31.6 27.0 - 32.0 pcg LAB HEMETOLOGY METHOD 05/13/2024 12:14 PM [facility] MCHC 32.7 32.0 - 37.0 g/dL LAB HEMETOLOGY METHOD 05/13/2024 12:14 PM [facility] RDW 15.5(H) 11.0 - 15.0 % LAB HEMETOLOGY METHOD 05/13/2024 12:14 PM [facility] Platelets 289 130 - 400 K/mcL LAB HEMETOLOGY METHOD 05/13/2024 12:14 PM [facility] MPV 10.9 7.0 - 11.0 FL LAB HEMETOLOGY METHOD 05/13/2024 12:14 PM [facility] NRBC 0.0 <1.0 % LAB HEMETOLOGY METHOD 05/13/2024 12:14 PM [facility] NRBC Absolute 0.00 <0.10 K/mcL LAB HEMETOLOGY METHOD 05/13/2024 12:14 PM [facility] Neutrophils Relative 60.2 % LAB HEMETOLOGY METHOD 05/13/2024 12:14 PM [facility] Lymphocytes Relative 28.4 % LAB HEMETOLOGY METHOD 05/13/2024 12:14 PM [facility] Monocytes Relative 9.0 % LAB HEMETOLOGY METHOD 05/13/2024 12:14 PM [facility] Eosinophils Relative 1.2 % LAB HEMETOLOGY METHOD 05/13/2024 12:14 PM [facility] Basophils Relative 0.6 % LAB HEMETOLOGY METHOD 05/13/2024 12:14 PM EST [facility] Immature Granulocytes Relative 0.6 % LAB HEMETOLOGY METHOD 05/13/2024 12:14 PM EST [facility] Neutrophils Absolute 6.05 1.50 - 7.00 K/[facility] LAB HEMETOLOGY METHOD 05/13/2024 12:14 PM EST [facility] Lymphocytes Absolute 2.86 1.00 - 5.00 K/[facility] LAB HEMETOLOGY METHOD 05/13/2024 12:14 PM EST [facility] Monocytes Absolute 0.91 0.20 - 1.00 K/[facility] LAB HEMETOLOGY METHOD 05/13/2024 12:14 PM EST [facility] Eosinophils Absolute 0.12 0.00 - 0.50 K/[facility] LAB HEMETOLOGY METHOD 05/13/2024 12:14 PM [facility] Basophils Absolute 0.06 0.00 - 0.20 K/mcL LAB HEMETOLOGY METHOD 05/13/2024 12:14 PM EST [facility] Immature Granulocytes Absolute 0.06(H) 0.00 - 0.03 K/mcL LAB HEMETOLOGY METHOD 05/13/2024 12:14 PM EST [facility] Blood Venous blood specimen / Unknown Venipuncture / Unknown 05/13/2024 9:05 AM EST 05/13/2024 11:01 AM EST us Maya Oshea MD LAB BLOOD ORDERABLES Final Resu lt [facility] [address] [place] [address], * JAK2 gene, V617F mutation, quantitative, molecular study (05/13/2024 9:05 AM EST) Scan Result See Scanned Result 05/18/2024 9:49 AM EST [facility] Blood Venous blood specimen / Unknown Venipuncture / Unknown 05/13/2024 9:05 AM EST 05/13/2024 11:01 AM EST Maya Oshea MD LAB MOLECULAR DIAGNOSTICS ORDER BENEDICTO Final Result Performing Organization Address [facility] de Phone Number [email or web address] * Carboxyhemoglobin (05/13/2024 9:05 AM EST) [facility] Carboxyhemoglobin 8 %TOTAL HGB 05/18/2024 7:40 PM EST [facility] Comment: ?Nonsmoker: ?? <2 % of Total HgB ? Average Smoker: ??4-5 % of Total HgB ? Heavy Smoker: 8-12 % of Total HgB ?Potentially Toxic: ??>15 % of Total HgB Test Performed at: [employer] [address] [place], [place] ? Zay Ramirez MD, PhD Blood Venous blood specimen / Unknown Venipuncture / Unknown 05/13/2024 9:05 AM EST 05/13/2024 11:01 AM EST Maya Oshea MD LAB BLOOD ORDERABLES Final Resu lt Performing Organization Address [facility] de Phone Number [facility] [address] [place] [address] * (ABNORMAL) Comprehensive metabolic panel (05/13/2024 9:05 AM EST) [facility] Sodium 139 133 - 145 mmol/L LAB CHEMISTRY METHOD 05/13/2024 1:39 PM EST [facility] Potassium 4.6 3.5 - 5.5 mmol/L LAB CHEMISTRY METHOD 05/13/2024 1:39 PM EST [facility] Chloride 109 96 - 110 mmol/L LAB CHEMISTRY METHOD 05/13/2024 1:39 PM [facility] CO2 21 21 - 32 mmol/L LAB CHEMISTRY METHOD 05/13/2024 1:39 PM [facility] Anion Gap 9 3 - 11 LAB CHEMISTRY METHOD 05/13/2024 1:39 PM [facility] Glucose 83 70 - 100 mg/dL LAB CHEMISTRY METHOD 05/13/2024 1:39 PM [facility] BUN 14 5 - 25 mg/dL LAB CHEMISTRY METHOD 05/13/2024 1:39 PM [facility] Creatinine 0.57 0.50 - 1.10 mg/dL LAB CHEMISTRY METHOD 05/13/2024 1:39 PM [facility] eGFR 106 >=60 mL/min/1. 73m2 LAB CHEMISTRY METHOD 05/13/2024 1:39 PM [facility] Comment:Calculation based on the??Chronic Kidney Disease Epidemiology Collaboration (CKD-EPI) equation refit??without adjustment for race. BUN/Creatinine Ratio 24.6 LAB CHEMISTRY METHOD 05/13/2024 1:39 PM [facility] Calcium 9.8 8.5 - 10.5 mg/dL LAB CHEMISTRY METHOD 05/13/2024 1:39 PM [facility] AST (SGOT) 79(H) 10 - 42 unit/L LAB CHEMISTRY METHOD 05/13/2024 1:39 PM [facility] ALT (SGPT) 102(H) 10 - 60 unit/L LAB CHEMISTRY METHOD 05/13/2024 1:39 PM [facility] Alkaline Phosphatase 120 42 - 121 unit/L LAB CHEMISTRY METHOD 05/13/2024 1:39 PM [facility] Total Protein 7.6 6.0 - 8.0 g/dL LAB CHEMISTRY METHOD 05/13/2024 1:39 PM [facility] Albumin 4.1 3.2 - 5.0 g/dL LAB CHEMISTRY METHOD 05/13/2024 1:39 PM EST [facility] Total Bilirubin 1.0 0.0 - 1.4 mg/dL LAB CHEMISTRY METHOD 05/13/2024 1:39 PM EST [facility] Blood Venous blood specimen / Unknown Venipuncture / Unknown 05/13/2024 9:05 AM EST 05/13/2024 11:01 AM EST us Maya Oshea MD LAB BLOOD ORDERABLES Final Resu lt [facility] [address] [place] [address], documented in this encounter 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
--- OUTSIDE RECORDS SUMMARY | 2024-05-28 18:26 | XMS_ITS | Clinical Summary ---
Author Organization LL [address] [place] [address] [place] [phone] Phone Care Team Providers Care Keymodule Assembly Machine Tender Name Role Phone Tariq Romero MD Primary Care Provider [phone] Allergies Active Allergy Reactions Criticality Noted Date [...] EST [facility] Emergency [address] [place] [phone] Chest pain, unspecified type (Primary Dx); Nicotine dependence with nicotine-induced disorder, unspecified nicotine product type Discharge Disposition: Left Against Medical Advice 05/13/2024 Lab Requisition [facility] - Main Lab [address] [place] [phone] 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 Lab Requisition [facility] - Main Lab [address] [place] [phone] 02/29/2024 Telephone Gastroenterology - [address] [phone] Rossy Antoine PA 02/28/2024 3:40 PM EST - 02/28/2024 11:59 PM EST Hospital Encounter [facility] MRI [address] [place] [phone] Abnormal finding on imaging of liver Discharge Disposition: Home or Self Care 02/28/2024 Telephone Gastroenterology - [address] [phone] Blanche Walton MA from Last 3 Months Medical History Medical [...] CT) 01/06/2023 01/06/2022 Breast Cancer Screening 09/24/2023 09/24/19, 07/16/2020, 05/28/2019, Additional history exists COVID-19 Vaccine [...] Abnormal finding on imaging of liver CT LUNG SCREENING LOW DOSE Routine 01/06/2022 [...] LAB CHEMISTRY METHOD 05/22/2024 5:08 PM EST [facility] Blood Venous blood specimen / Unknown Venipuncture / Unknown 05/22/2024 4:39 PM EST 05/22/2024 4:41 PM EST Narrative [facility] - 05/22/2024 5:08 PM EST HSTnI results stratify to HIGH RISK category if any value >100 ng/L or delta at 1 hour is greater than or equal to 15 ng/L (male and female). Note: Delta values are not applicable if symptoms began more than 12 hours pre-arrival. Risk stratification should include the calculation of the HEART score. Testing performed using [employer] Access AccuTnI+3 Assay. us Chandrika TOSCANO LAB BLOOD ORDERABLES Final Result [facility] [address] [place] [address], [place] [phone] * XR Chest 1 View (05/22/2024 1:57 PM EST) Anatomical Region Laterality Modality Body Radiographic Claire ging 05/22/2024 1:58 PM EST Impressions 05/22/2024 1:59 PM EST No acute cardiopulmonary abnormality. Report reviewed and signed by : Dr. Navneet Jang on 05/22/2024 1:59 PM. Workstation Name - [id number] -------- FINAL REPORT -------- Dictated By: Navneet Jang Dictated Date: 05/22/2024 13:58 ET Assigned Physician: Navneet Jang Reviewed and Electronically Signed By: Navneet Jang Signed Date: 05/22/2024 13:59 ET Workstation ID: [id number] Transcribed By: Self Edit Transcribed Date: 05/22/2024 [...] Jang on 05/22/2024 1:59 PM.Workstation Name - [id number] -------- FINAL REPORT -------- Dictated By: Navneet Jang Dictated Date: 05/22/2024 13:58 ET Assigned Physician: Navneet Jang Reviewed and Electronically Signed By: Navneet Jang Signed Date: 05/22/2024 13:59 ET Workstation ID: [id number] Transcribed By: Self Edit Transcribed Date: 05/22/2024 13:58 ET Italo Ellis MD IMG XR PROCEDURES Final Result * ECG 12 lead (05/22/2024 1:37 PM EST) [facility] Ventricular Rate ECG 80 BPM GEMUSE Atrial Rate 80 BPM GEMUSE P-R Interval 138 ms GEMUSE QRS Duration 74 ms GEMUSE Q-T Interval 418 ms GEMUSE QTc 482 ms GEMUSE P Wave Sterling 58 degrees GEMUSE R Sterling 56 degrees GEMUSE T Sterling 55 degrees GEMUSE ECG Interpretation Normal sinus rhythm Prolonged QT Abnormal ECG When compared with ECG of 17-DEC-2022 19:36, Criteria for Septal infarct are no longer present Confirmed by Nikolay Christianson ([id number]) on 05/22/2024 5:02:56 PM GEMUSE 05/22/2024 1:37 PM EST 05/22/2024 5:02 PM EST Italo Ellis MD ECG ORDERABLES Final Result GEMUSE * (ABNORMAL) CBC auto differential (05/22/2024 1:37 PM EST) Only the most recent of2 resultswithin the time period is included. [facility] WBC 11.7(H) 4.0 - 10.5 K/mcL LAB HEMETOLOGY METHOD 05/22/2024 1:45 PM [facility] RBC 5.47(H) 4.20 - 5.40 M/mcL LAB HEMETOLOGY METHOD 05/22/2024 1:[address] [facility] Hemoglobin 18.1(H) 12.5 - 16.0 g/dL LAB HEMETOLOGY METHOD 05/22/2024 1:45 PM [facility] Hematocrit 50.7(H) 37.0 - 47.0 % LAB HEMETOLOGY METHOD 05/22/2024 1:45 PM [facility] MCV 92.7 78.0 - 100.0 FL LAB HEMETOLOGY METHOD 05/22/2024 1:45 PM [facility] MCH 33.1(H) 25.0 - 33.0 pcg LAB HEMETOLOGY METHOD 05/22/2024 1:45 PM [facility] MCHC 35.7 32.0 - 36.0 g/dL LAB HEMETOLOGY METHOD 05/22/2024 1:45 PM [facility] RDW 14.6 12.1 - 16.2 % LAB HEMETOLOGY METHOD 05/22/2024 1:45 PM [facility] Platelets 293 150 - 450 K/mcL LAB HEMETOLOGY METHOD 05/22/2024 1:45 PM [facility] MPV 10.1 7.4 - 11.4 FL LAB HEMETOLOGY METHOD 05/22/2024 1:45 PM [facility] Neutrophils Relative 55.6 44.0 - 74.0 % LAB HEMETOLOGY METHOD 05/22/2024 1:45 PM [facility] Lymphocytes Relative 32.7 20.0 - 48.0 % LAB HEMETOLOGY METHOD 05/22/2024 1:45 PM [facility] Monocytes Relative 9.3 2.0 - 12.0 % LAB HEMETOLOGY METHOD 05/22/2024 1:45 PM [facility] Eosinophils Relative 1.2 0.0 - 6.0 % LAB HEMETOLOGY METHOD 05/22/2024 1:45 PM [facility] Basophils Relative 0.7 0.0 - 2.0 % LAB HEMETOLOGY METHOD 05/22/2024 1:45 PM [facility] Neutrophils Absolute 6.51 1.80 - 7.80 K/mcL LAB HEMETOLOGY METHOD 05/22/2024 1:45 PM [facility] Lymphocytes Absolute 3.83(H) 1.00 - 3.20 K/mcL LAB HEMETOLOGY METHOD 05/22/2024 1:[address] [facility] Monocytes Absolute 1.09(H) 0.00 - 0.80 K/mcL LAB HEMETOLOGY METHOD 05/22/2024 1:[address] [facility] Eosinophils Absolute 0.14 0.00 - 0.50 K/mcL LAB HEMETOLOGY METHOD 05/22/2024 1:[address] [facility] Basophils Absolute 0.08 0.00 - 0.20 K/mcL LAB HEMETOLOGY METHOD 05/22/2024 1:[address] [facility] Blood Venous blood specimen / Unknown Venipuncture / Unknown 05/22/2024 1:37 PM EST 05/22/2024 1:42 PM EST us Italo Ellis MD LAB BLOOD ORDERABLES Final Resu lt [facility] [address] [place] [address], [place] [phone] * B-type natriuretic peptide (05/22/2024 1:37 PM EST) [facility] BNP 12 0 - 100 pcg/mL LAB CHEMISTRY METHOD 05/22/2024 5:[address] [facility] Blood Venous blood specimen / Unknown Venipuncture / Unknown 05/22/2024 1:37 PM EST 05/22/2024 4:42 PM EST us Italo Ellis MD LAB BLOOD ORDERABLES Final Resu lt [facility] [address] [place] [address], [place] [phone] * Magnesium (05/22/2024 1:37 PM EST) [facility] Magnesium 2.1 1.7 - 2.8 mg/dL LAB CHEMISTRY METHOD 05/22/2024 2:[address] [facility] Comment:Slight Hemolysis may affect test result(s). Blood Venous blood specimen / Unknown Venipuncture / Unknown 05/22/2024 1:37 PM EST 05/22/2024 1:42 PM EST Italo Ellis MD LAB BLOOD ORDERABLES Final Resu lt [facility] [address] [place] [address], [place] [phone] * Lipase (05/22/2024 1:37 PM EST) [facility] Lipase 16 11 - 82 unit/L LAB CHEMISTRY METHOD 05/22/2024 2:[address] [facility] Blood Venous blood specimen / Unknown Venipuncture / Unknown 05/22/2024 1:37 PM EST 05/22/2024 1:42 PM EST us Italo Ellis MD LAB BLOOD ORDERABLES Final Resu lt [facility] [address] [place] [address], [place] [phone] * (ABNORMAL) Comprehensive metabolic panel (05/22/2024 1:37 PM EST) Only the most recent of2 resultswithin the time period is included. [facility] Sodium 138 135 - 145 mmol/L LAB CHEMISTRY METHOD 05/22/2024 2:[address] [facility] Potassium 3.9 3.5 - 5.1 mmol/L LAB CHEMISTRY METHOD 05/22/2024 2:[address] [facility] Comment:Slight Hemolysis may affect test result(s). Chloride 103 98 - 107 mmol/L LAB CHEMISTRY METHOD 05/22/2024 2:04 PM [facility] CO2 25 24 - 32 mmol/L LAB CHEMISTRY METHOD 05/22/2024 2:04 PM [facility] Anion Gap 10 5 - 14 LAB CHEMISTRY METHOD 05/22/2024 2:04 PM [facility] Glucose 101 70 - 199 mg/dL LAB CHEMISTRY METHOD 05/22/2024 2:04 PM [facility] BUN 18(H) 7 - 17 mg/dL LAB CHEMISTRY METHOD 05/22/2024 2:04 PM [facility] Creatinine 0.73 0.50 - 1.00 mg/dL LAB CHEMISTRY METHOD 05/22/2024 2:04 PM [facility] eGFR 96 >=60 mL/min/1. 73m2 LAB CHEMISTRY METHOD 05/22/2024 2:04 PM [facility] Comment:Calculation based on the??Chronic Kidney Disease Epidemiology Collaboration (CKD-EPI) equation refit??without adjustment for race. BUN/Creatinine Ratio 24.7(H) 12.0 - 20.0 LAB CHEMISTRY METHOD 05/22/2024 2:04 PM [facility] Calcium 10.6(H) 8.4 - 10.2 mg/dL LAB CHEMISTRY METHOD 05/22/2024 2:04 PM [facility] AST (SGOT) 67(H) 5 - 40 unit/L LAB CHEMISTRY METHOD 05/22/2024 2:04 PM [facility] Comment:Slight Hemolysis may affect test result(s). ALT (SGPT) 99(H) 7 - 52 unit/L LAB CHEMISTRY METHOD 05/22/2024 2:04 PM [facility] Alkaline Phosphatase 100 34 - 104 unit/L LAB CHEMISTRY METHOD 05/22/2024 2:[address] [facility] Total Protein 7.6 6.4 - 8.5 g/dL LAB CHEMISTRY METHOD 05/22/2024 2:[address] [facility] Albumin 4.7 3.5 - 5.0 g/dL LAB CHEMISTRY METHOD 05/22/2024 2:[address] [facility] Total Bilirubin 1.2(H) 0.3 - 1.0 mg/dL LAB CHEMISTRY METHOD 05/22/2024 2:[address] [facility] Blood Venous blood specimen / Unknown Venipuncture / Unknown 05/22/2024 1:37 PM EST 05/22/2024 1:42 PM EST us Italo Ellis MD LAB BLOOD ORDERABLES Final Resu lt [facility] [address] [place] [address], [place] [phone] * JAK2 gene, V617F mutation, quantitative, molecular study (05/13/2024 9:05 AM EST) Scan Result See Scanned Result 05/18/2024 9:49 AM EST [facility] Blood Venous blood specimen / Unknown Venipuncture / Unknown 05/13/2024 9:05 AM EST 05/13/2024 11:01 AM EST Maya Oshea MD LAB MOLECULAR DIAGNOSTICS ORDER BENEDICTO Final Result [facility] * Lavender tube (05/13/2024 9:05 AM EST) Extra Tube Hold for add-ons. 05/13/2024 1:02 PM EST [facility] Comment:Auto resulted. Blood Venous blood specimen / Unknown 05/13/2024 9:05 AM EST 05/13/2024 11:01 AM EST Maya Oshea MD LAB BLOOD ORDERABLES Final Resu lt Performing Organization Address [facility] de Phone Number [facility] [address] [place] [address], [place] [phone] * Carboxyhemoglobin (05/13/2024 9:05 AM EST) Carboxyhemoglobin 8 %TOTAL HGB 05/18/2024 7:40 PM EST [facility] Comment: ?Nonsmoker: ?? <2 % of Total HgB ? Average Smoker: ??4-5 % of Total HgB ? Heavy Smoker: 8-12 % of Total HgB ?Potentially Toxic: ??>15 % of Total HgB Test Performed at: [facility] [place], [place] ? Zay Ramirez MD, PhD Blood Venous blood specimen / Unknown Venipuncture / Unknown 05/13/2024 9:05 AM EST 05/13/2024 11:01 AM EST Maya Oshea MD LAB BLOOD ORDERABLES Final Resu lt Performing Organization Address City/[facility]/ZIP Co de Phone Number [facility] [address] [place] [address] * MR Abdomen wo and w Contrast [...] Signed Date: 02/29/2024 10:12 ET Workstation ID: [id number] Transcribed By: Self Edit Transcribed Date: 02/29/2024 [...] to the arterial phase images. Other smaller B1prcmbsgysofe lesions are seen throughout the liver are [...] Signed Date: 02/29/2024 10:12 ET Workstation ID: [id number] Transcribed By: Self Edit Transcribed Date: 02/29/2024 10:05 ET us Rossy TOSCANO IMG MRI PROCEDURES Final Result * CT LUNG SCREENING LOW DOSE (01/06/2022 6:06 PM EDT) Anatomical Region Laterality Modality Computed Tomogra phy 01/06/2022 2:26 PM EDT Narrative 01/06/2022 6:06 PM EDT [facility] Diagnostic Imaging Department [address] [place], [place] [phone] Patient: ??SUSYDUGLAS MEZA A ?/Age/Sex: 1965 - 56 - F Unit#: ??[id number] ? Location/Status: ??SPDICATLS/REG CLI ? Mnemonic/Ordering Site: ??CTLUNGLD/SPCT Ordering Physician: ??MEGAN ROSAS MD CT Lung Screening Low Dose - 01/06/22 - 1431 History: ??56 year-old 40 pack-year current smoker, asymptomatic, for lung cancer screening. Comparison: No comparison imaging at this institution. Technique: Helical volumetric imaging of the thorax was performed, using low- dose technique, without IV contrast. DLP: 101.52 mGy/cm ??CTDIvol: 3.22 mGy K[employer] Iterative reconstruction technique Findings: Lungs and Airways: [...] annual screening with LDCT in 12 months. [id number] G9637 G9557 G9551 Dictating Physician: ??DIANA BHAT MD Electronically Signed by: ??DIANA BHAT MD Dic Date/Time: ??01/06/22 1800 Sign date/Time: ??01/06/22 1806 Procedure Note Diana Bhat MD - 03/08/2022 [facility] Diagnostic Imaging Department [address] [place] [phone] Patient: DUGLAS JAIN Lacey Jiménez./Age/Sex: 1965 - 56 - F Unit#: [id number] Location/Status: SPDICATLS/REG CLI Mnemonic/Ordering Site: CTLUNGLD/SPCT Ordering Physician: MEGAN ROSAS MD CT Lung Screening Low Dose - 01/06/22 - 1431 History: 56 year-old 40 pack-year current smoker, asymptomatic, for lungcancer screening. Comparison: No comparison imaging at this institution. Technique: Helical volumetric imaging of the thorax was performed, usinglow- dose technique, without IV contrast. DLP: 101.52 mGy/cm CTDIvol: 3.22 mGy [employer] VCT Iterative reconstruction technique Findings: Lungs and [...] Continue annual screeningwith LDCT in 12 months. [id number] G9637 G9557 G9551 Dictating Physician: DIANA BHAT MD Electronically Signed by: DINAA BHAT MD Dic Date/Time: 01/06/22 1800 Sign date/Time: 01/06/22 180 us Megan Rosas MD IMG CT PROCEDURES Final Result * AVA SCREENING DIGITAL (09/23/2021 2:57 PM EDT) Anatomical Region Laterality Modality Mammography 09/23/2021 2:08 PM EDT Narrative 09/23/2021 2:57 PM EDT [facility] Diagnostic Imaging Department [address] [place] [id number] Patient: ??DUGLAS JAIN ?/Age/Sex: 1965 - 56 - F Unit#: ??[id number] ? Location/Status: ??SPDIMAM/REG CLI ? Mnemonic/Ordering Site: ??DIGSC/SPMAM Ordering Physician: ??TARIQ ROMERO MD Ava Screening Digital - 09/23/21 - 1431 EXAM: Ava Screening Digital EXAM DATE AND TIME: 09/23/2021 2:32 PM HISTORY: ??Screening. COMPARISON: ??12/14/20, 07/16/20, 05/28/19, 05/22/18 TECHNIQUE: CC and MLO views of both breasts were obtained using full field digital mammography. Bilateral digital breast tomosynthesis was performed in the MLO projection. Computer aided detection with the [employer] 7.2-H was employed. TISSUE DENSITY: a. The [...] Routine screening mammogram BILATERAL in 1 year. 15904, 32943 3341F, 7025F Dictating Physician: ??DIANA BHAT MD Electronically Signed by: ??DIANA BHAT MD Dic Date/Time: ??09/23/21 1457 Sign date/Time: ??09/23/21 145 Procedure Note Diana Bhat MD - 03/08/2022 [facility] Diagnostic Imaging Department [address] [place] [address] Patient: SUSYDUGLAS Kumari D.O.B./Age/Sex: 1965 - 56 - F Unit#: [id number] Location/Status: [facility]/REG CLI Mnemonic/Ordering Site: [facility] Ordering Physician: TARIQ ROMERO MD Ava Screening Digital - 09/23/21 - 2 EXAM: Ava Screening Digital EXAM DATE AND TIME: 09/23/2021 2:32 PM HISTORY: Screening. COMPARISON: 12/14/20, 07/16/20, 05/28/19, 05/22/18 TECHNIQUE: CC and MLO views of both breasts were obtained using fullfield digital mammography. Bilateral digital breast tomosynthesis was performedin the MLO projection. 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 TISSUE DENSITY: a. The breasts are [...] Routine screening mammogram BILATERAL in 1 year. [address]0582, 47097 3341F, 7025F Dictating Physician: DIANA BHAT MD Electronically Signed by: DIANA BHAT MD Dic Date/Time: 09/23/211456 Sign date/Time: 09/23/211456 Tariq Romero MD IMG BI PROCEDURES Final Result from Last 3 Months or Most Recently Relevant to Health Maintenance Insurance Care Teams Keymodule Assembly Machine Tender Relationship Specialty Start Date End Date Tariq Romero MD [address] [place] [address] [address] [facility] [place] [address] PCP - General Internal Medicine 03/03/11
== END 2024-05-28 16:21 | disposition home or self-care (01) ==
LOC: HO.HCS 15:53
PROVIDERS: PCP Internal Medicine; Visit Provider Internal Medicine Cardiovascular Disease
DX: R07.9 Chest pain, unspecified (principal)
CPT/HCPCS: 99214

== ENCOUNTER 2024-06-18 11:12 | Outpatient (REF) | payer BC, SELFPAY ==
--- OUTSIDE RECORDS SUMMARY | 2024-06-18 13:40 | XMS_ITS | Clinical Summary ---
Author Organization [address] Address [address] [place] [phone] Care Team Providers Care Boating Safety Officer Name Role Phone Unavailable Primary Care Provider [...] 04/11/2024 1:45 PM EST Office Visit [facility] [address] [place] [address] Joe Soni, PA Acute cough (Primary Dx); [...] (Td q 10,TDAP once) 06/20/2033 024 RSV Immunization (1 - 1-dose 75+ series) 2041 Meningococcal Vaccine Aged Out No bertha kb eligible based on patient's age to complete this topic Pneumococcal Vaccine (2 - 49 years) Aged Out No longer eligible b ased on patient's age to complete this topic Procedures Procedure Name Priority Date/Time Associated Diagnosis Comments POCT SARS COV-2 (COVID-19) PCR ([facility]) Routine 04/11/2024 2:19 PM EST Acute cough POCT INFLUENZA A+B/RSV ([facility]) Routine 04/11/2024 2:19 PM EST Acute cough from Last 3 Months Results * POCT LILIANA COV-2 (COVID-19) PCR (In-Clinic) (04/11/2024 2:19 PM EST) POC SARS-CoV-2 (COVID-19) PCR Not Detected Not Detected POC Kit Lot Number [id number] POC Expiration Date 01/16/2025 Nasal Swab 04/11/2024 2:19 PM EST Joe TOSCANO POINT OF CARE ORDERS W/FUTURE F inal Result * (ABNORMAL) POCT Influenza A+B/RSV (In-Clinic) (04/11/2024 2:19 PM EST) POC Influenza A Not Detected Not Detected POC Influenza B Not Detected Not Detected POC RSV Detected(A) Not Detected POC Kit Lot Number [id number] POC Expiration Date 11/16/2025 Nasal Swab 04/11/2024 2:19 PM EST Joe TOSCANO POINT OF CARE ORDERS W/FUTURE F inal Result from Last 3 Months Insurance BS ([facility]) [address] ([facility]) [address]
--- OUTSIDE RECORDS SUMMARY | 2024-06-18 13:40 | XMS_ITS | Clinical Summary ---
Author Organization [facility] Address [address] [place] [address] Care Team Providers Care Archaeology Professor Name Role Phone Tariq Romero MD Primary Care Provider [phone] Allergies Active Allergy Reactions Criticality Noted Date [...] age to complete this topic Care Teams Archaeology Professor Relationship Specialty Start Date End Date Tariq Romero MD [address] [place] [address] [address] [facility] [place] [address] PCP - General Internal Medicine 02/24/22
--- OUTSIDE RECORDS SUMMARY | 2024-06-18 13:40 | XMS_ITS | Encounter Summary ---
Author Organization [facility] Address [address] [place] [address] Care Team Providers Care Mechanical Engineering Specialist Name Role Phone Tariq Romero MD Primary Care Provider [phone] Encounter Details Date Type Department Care Team (Latest Contact Info) Description 05/13/2024 Lab Requisition [facility] - Main Lab [address] [facility] [place] [address] Maya Oshea MD [address] [place] [address] ATTN: HEMATOLOGY/[place] [address] Familial erythrocytosis Social History Tobacco Use Types [...] tube (05/13/2024 9:05 AM EST) Pathologist [facility] [place] Extra Tube Hold for add-ons. 05/13/2024 1:02 PM EST [facility] Comment:Auto resulted. Blood Venous blood specimen / Unknown 05/13/2024 9:05 AM EST 05/13/2024 11:01 AM EST us Maya Oshea MD LAB BLOOD ORDERABLES Final Resu lt [facility] [address] [place] [address], * (ABNORMAL) CBC auto differential (05/13/2024 9:05 AM EST) Pathologist [facility] [place] WBC 10.1 4.8 - 10.8 K/mcL LAB HEMETOLOGY METHOD 05/13/2024 12:14 PM [facility] RBC 5.80(H) 3.80 - 4.80 M/mcL LAB HEMETOLOGY METHOD 05/13/2024 12:14 PM [facility] Hemoglobin 18.2(H) 11.5 - 16.0 g/dL LAB HEMETOLOGY METHOD 05/13/2024 12:14 PM [facility] Hematocrit 55.7(H) 35.0 - 47.0 % LAB HEMETOLOGY METHOD 05/13/2024 12:14 PM [facility] MCV 96.7 79.0 - 98.0 FL LAB HEMETOLOGY METHOD 05/13/2024 12:14 PM [facility] MCH 31.6 27.0 - 32.0 pcg LAB HEMETOLOGY METHOD 05/13/2024 12:14 PM [facility] MCHC 32.7 32.0 - 37.0 g/dL LAB HEMETOLOGY METHOD 05/13/2024 12:14 PM [facility] RDW 15.5(H) 11.0 - 15.0 % LAB HEMETOLOGY METHOD 05/13/2024 12:14 PM [facility] Platelets 289 130 - 400 K/mcL LAB HEMETOLOGY METHOD 05/13/2024 12:14 PM [facility] MPV 10.9 7.0 - 11.0 FL LAB HEMETOLOGY METHOD 05/13/2024 12:14 PM [facility] NRBC 0.0 <1.0 % LAB HEMETOLOGY METHOD 05/13/2024 12:14 PM [facility] NRBC Absolute 0.00 <0.10 K/mcL LAB HEMETOLOGY METHOD 05/13/2024 12:14 PM [facility] Neutrophils Relative 60.2 % LAB HEMETOLOGY METHOD 05/13/2024 12:14 PM [facility] Lymphocytes Relative 28.4 % LAB HEMETOLOGY METHOD 05/13/2024 12:14 PM [facility] Monocytes Relative 9.0 % LAB HEMETOLOGY METHOD 05/13/2024 12:14 PM [facility] Eosinophils Relative 1.2 % LAB HEMETOLOGY METHOD 05/13/2024 12:14 PM [facility] Basophils Relative 0.6 % LAB HEMETOLOGY METHOD 05/13/2024 12:14 PM EST [facility] Immature Granulocytes Relative 0.6 % LAB HEMETOLOGY METHOD 05/13/2024 12:14 PM EST [facility] Neutrophils Absolute 6.05 1.50 - 7.00 K/[facility] LAB HEMETOLOGY METHOD 05/13/2024 12:14 PM EST [facility] Lymphocytes Absolute 2.86 1.00 - 5.00 K/[facility] LAB HEMETOLOGY METHOD 05/13/2024 12:14 PM EST [facility] Monocytes Absolute 0.91 0.20 - 1.00 K/[facility] LAB HEMETOLOGY METHOD 05/13/2024 12:14 PM EST [facility] Eosinophils Absolute 0.12 0.00 - 0.50 K/[facility] HEMETOLOGY METHOD 05/13/2024 12:14 PM [facility] Basophils Absolute 0.06 0.00 - [...] MD LAB BLOOD ORDERABLES Final Resu lt [facility]) [facility] [address] [place] [address], * JAK2 gene, V617F mutation, quantitative, molecular study (05/13/2024 9:05 AM EST) Scan Result See Scanned Result 05/18/2024 9:49 AM EST [facility] Blood Venous blood specimen / Unknown Venipuncture / Unknown 05/13/2024 9:05 AM EST 05/13/2024 11:01 AM EST Maya Oshea MD LAB MOLECULAR DIAGNOSTICS ORDER BENEDICTO Final Result Performing Organization Address [facility] de Phone Number [facility] * Carboxyhemoglobin (05/13/2024 9:05 AM EST) [facility] Carboxyhemoglobin 8 %TOTAL HGB 05/18/2024 7:40 PM EST [facility] Comment: ?Nonsmoker: ?? <2 % of Total HgB ? Average Smoker: ??4-5 % of Total HgB ? Heavy Smoker: 8-12 % of Total HgB ?Potentially Toxic: ??>15 % of Total HgB Test Performed at: [employer] [address] [place], [place] ? Zay Ramirez MD, PhD Blood Venous blood specimen / Unknown Venipuncture / Unknown 05/13/2024 9:05 AM EST 05/13/2024 11:01 AM EST Maya Oshea MD LAB BLOOD ORDERABLES Final Resu lt Performing Organization Address [facility] de Phone Number [facility] [address] [place] [address] * (ABNORMAL) Comprehensive metabolic panel (05/13/2024 9:05 AM EST) [facility] Sodium 139 133 - 145 mmol/L LAB CHEMISTRY METHOD 05/13/2024 1:39 PM EST [facility] Potassium 4.6 3.5 - 5.5 mmol/L LAB CHEMISTRY METHOD 05/13/2024 1:39 PM EST [facility] Chloride 109 96 - 110 mmol/L LAB CHEMISTRY METHOD 05/13/2024 1:39 PM [facility] CO2 21 21 - 32 mmol/L LAB CHEMISTRY METHOD 05/13/2024 1:39 PM [facility] Anion Gap 9 3 - 11 LAB CHEMISTRY METHOD 05/13/2024 1:39 PM [facility] Glucose 83 70 - 100 mg/dL LAB CHEMISTRY METHOD 05/13/2024 1:39 PM [facility] BUN 14 5 - 25 mg/dL LAB CHEMISTRY METHOD 05/13/2024 1:39 PM [facility] Creatinine 0.57 0.50 - 1.10 mg/dL LAB CHEMISTRY METHOD 05/13/2024 1:39 PM [facility] eGFR 106 >=60 mL/min/1. 73m2 LAB CHEMISTRY METHOD 05/13/2024 1:39 PM [facility] Comment:Calculation based on the??Chronic Kidney Disease Epidemiology Collaboration (CKD-EPI) equation refit??without adjustment for race. BUN/Creatinine Ratio 24.6 LAB CHEMISTRY METHOD 05/13/2024 1:39 PM [facility] Calcium 9.8 8.5 - 10.5 mg/dL LAB CHEMISTRY METHOD 05/13/2024 1:39 PM [facility] AST (SGOT) 79(H) 10 - 42 unit/L LAB CHEMISTRY METHOD 05/13/2024 1:39 PM [facility] ALT (SGPT) 102(H) 10 - 60 unit/L LAB CHEMISTRY METHOD 05/13/2024 1:39 PM [facility] Alkaline Phosphatase 120 42 - 121 unit/L LAB CHEMISTRY METHOD 05/13/2024 1:39 PM [facility] Total Protein 7.6 6.0 - 8.0 g/dL LAB CHEMISTRY METHOD 05/13/2024 1:39 PM [facility] Albumin 4.1 3.2 - 5.0 [...] Resu lt [facility] [address] [place] [address], documented in this encounter 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
--- OUTSIDE RECORDS SUMMARY | 2024-06-18 13:40 | XMS_ITS | Clinical Summary ---
Author Organization [facility] [address] [place] [address] [place] [phone] Phone Care Team Providers Care Back Panel Padder Name Role Phone Tariq Romero MD Primary Care Provider [phone] Allergies Active Allergy Reactions Criticality Noted Date [...] PM EST - 05/22/2024 5:19 PM EST [facility] [address] [place] [address] Chest pain, unspecified type (Primary Dx); Nicotine dependence with nicotine-induced disorder, unspecified nicotine product type Discharge Disposition: Left Against Medical Advice 05/13/2024 Lab Requisition [facility] - Main Lab [address] [place] [address] 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 Lab Requisition [facility] - Main Lab [address] [place] [address] from Last 3 Months Medical History Medical [...] 05/28/2019, Additional history exists COVID-19 Vaccine ( - season) 2023 04/28/2021, 05/06/2020, 04/15/2020 Influenza Vaccine [...] Routine 05/13/2024 9:05 AM EST Familial erythrocytosis CT LUNG SCREENING LOW DOSE Routine 01/06/2022 [...] METHOD 05/22/2024 5:08 PM EST [facility] Blood Venous blood specimen / Unknown Venipuncture / Unknown 05/22/2024 4:39 PM EST 05/22/2024 4:41 PM EST Narrative [facility] - 05/22/2024 5:08 PM EST HSTnI results stratify to HIGH RISK category if any value >100 ng/L or delta at 1 hour is greater than or equal to 15 ng/L (male and female). Note: Delta values are not applicable if symptoms began more than 12 hours pre-arrival. Risk stratification should include the calculation of the HEART score. Testing performed using [employer] AccuTnI+3 Assay. Chandrika TOSCANO LAB BLOOD ORDERABLES Final Result [facility] [address] [place] [address], * XR Chest 1 View (05/22/2024 1:57 PM EST) Anatomical Region Laterality Modality Body Radiographic Claire ging 05/22/2024 1:58 PM EST Impressions 05/22/2024 1:59 PM EST No acute cardiopulmonary abnormality. Report reviewed and signed by : Dr. Navneet Jang on 05/22/2024 1:59 PM. Workstation Name - [id number] -------- FINAL REPORT -------- Dictated By: Navneet Jang Dictated Date: 05/22/2024 13:58 ET Assigned Physician: Navneet Jang Reviewed and Electronically Signed By: Navneet Jang Signed Date: 05/22/2024 13:59 ET Workstation ID: [id number] Transcribed By: Self Edit Transcribed Date: 05/22/2024 [...] Jang on 05/22/2024 1:59 PM.Workstation Name - [id number] -------- FINAL REPORT -------- Dictated By: Navneet Jang Dictated Date: 05/22/2024 13:58 ET Assigned Physician: Navneet Jang Reviewed and Electronically Signed By: Navneet Jang Signed Date: 05/22/2024 13:59 ET Workstation ID: [id number] Transcribed By: Self Edit Transcribed Date: 05/22/2024 13:58 ET Italo Ellis MD IMG XR PROCEDURES Final Result * ECG 12 lead (05/22/2024 1:37 PM EST) Ventricular Rate ECG 80 BPM GEMUSE Atrial Rate 80 BPM GEMUSE P-R Interval 138 ms GEMUSE QRS Duration 74 ms GEMUSE Q-T Interval 418 ms GEMUSE QTc 482 ms GEMUSE P Wave [place] 58 degrees GEMUSE R [place] 56 degrees GEMUSE T [place] 55 degrees GEMUSE ECG Interpretation Normal sinus rhythm Prolonged QT Abnormal ECG When compared with ECG of 17-DEC-2022 19:36, Criteria for Septal infarct are no longer present Confirmed by Nikolay Christianson ([id number]) on 05/22/2024 5:02:56 PM GEMUSE 05/22/2024 1:37 PM EST 05/22/2024 5:02 PM EST us Italo Ellis MD ECG ORDERABLES Final Result GEMUSE * (ABNORMAL) CBC auto differential (05/22/2024 1:37 PM EST) Only the most recent of2 resultswithin the time period is included. WBC 11.7(H) 4.0 - 10.5 K/mcL LAB HEMETOLOGY METHOD 05/22/2024 1:45 PM EST [facility] RBC 5.47(H) 4.20 - 5.40 [...] METHOD 05/22/2024 1:45 PM [facility] Lymphocytes Relative 32.7 20.0 - 48.0 % LAB HEMETOLOGY METHOD 05/22/2024 1:45 PM [facility] Monocytes Relative 9.3 2.0 - 12.0 % LAB HEMETOLOGY METHOD 05/22/2024 1:45 PM [facility] Eosinophils Relative 1.2 0.0 - 6.0 % LAB HEMETOLOGY METHOD 05/22/2024 1:45 PM [facility] Basophils Relative 0.7 0.0 - 2.0 % LAB HEMETOLOGY METHOD 05/22/2024 1:45 PM [facility] Neutrophils Absolute 6.51 1.80 - 7.80 K/mcL LAB HEMETOLOGY METHOD 05/22/2024 1:45 PM [facility] Lymphocytes Absolute 3.83(H) 1.00 - 3.20 K/mcL LAB HEMETOLOGY METHOD 05/22/2024 1:45 PM [facility] Monocytes Absolute 1.09(H) 0.00 - 0.80 K/mcL LAB HEMETOLOGY METHOD 05/22/2024 1:45 PM [facility] Eosinophils Absolute 0.14 0.00 - 0.50 K/mcL LAB HEMETOLOGY METHOD 05/22/2024 1:45 PM [facility] Basophils Absolute 0.08 0.00 - 0.20 K/mcL LAB HEMETOLOGY METHOD 05/22/2024 1:45 PM [facility] Blood Venous blood specimen / Unknown Venipuncture / Unknown 05/22/2024 1:37 PM EST 05/22/2024 1:42 PM EST us Italo Ellis MD LAB BLOOD ORDERABLES Final Resu lt [facility] [address] [place] [address], [place] [phone] * B-type natriuretic peptide (05/22/2024 1:37 PM EST) BNP 12 0 - 100 pcg/mL LAB CHEMISTRY METHOD 05/22/2024 5:13 PM EST [facility] Blood Venous blood specimen / Unknown Venipuncture / Unknown 05/22/2024 1:37 PM EST 05/22/2024 4:42 PM EST us Italo Ellis MD LAB BLOOD ORDERABLES Final Resu lt Performing Organization Address City/[facility]/ZIP Co de Phone Number [facility] [address] [place] [address], [place] [phone] * Magnesium (05/22/2024 1:37 PM EST) Pathologist [facility] Magnesium 2.1 1.7 - 2.8 mg/dL LAB CHEMISTRY METHOD 05/22/2024 2:05 PM EST [facility] Comment:Slight Hemolysis may affect test result(s). Blood Venous blood specimen / Unknown Venipuncture / Unknown 05/22/2024 1:37 PM EST 05/22/2024 1:42 PM EST us Italo Ellis MD LAB BLOOD ORDERABLES Final Resu lt Performing Organization Address City/[facility]/ZIP Co de Phone Number [facility] [address] [place] [address], [place] [phone] * Lipase (05/22/2024 1:37 PM EST) Pathologist [facility] Lipase 16 11 - 82 unit/L LAB CHEMISTRY METHOD 05/22/2024 2:04 PM EST [facility] Blood Venous blood specimen / Unknown Venipuncture / Unknown 05/22/2024 1:37 PM EST 05/22/2024 1:42 PM EST us Italo Ellis MD LAB BLOOD ORDERABLES Final Resu lt [facility] [address] [place] [address], [place] [phone] * (ABNORMAL) Comprehensive metabolic panel (05/22/2024 1:37 PM EST) Only the most recent of2 resultswithin the time period is included. [facility] Sodium 138 135 - 145 [...] 05/22/2024 2:04 PM [facility] Total Protein 7.6 6.4 - 8.5 g/dL LAB CHEMISTRY METHOD 05/22/2024 2:04 PM [facility] Albumin 4.7 3.5 - 5.0 g/dL LAB CHEMISTRY METHOD 05/22/2024 2:04 PM [facility] Total Bilirubin 1.2(H) 0.3 - 1.0 mg/dL LAB CHEMISTRY METHOD 05/22/2024 2:04 PM [facility] Blood Venous blood specimen / Unknown Venipuncture / Unknown 05/22/2024 1:37 PM EST 05/22/2024 1:42 PM EST Italo Ellis MD LAB BLOOD ORDERABLES Final Resu lt Performing Organization Address City/[facility]/ZIP Co de Phone Number [facility] [address] [place] [address], [place] [phone] * JAK2 gene, V617F mutation, quantitative, molecular study (05/13/2024 9:05 AM EST) Scan Result See Scanned Result 05/18/2024 9:49 AM EST [facility] Blood Venous blood specimen / Unknown Venipuncture / Unknown 05/13/2024 9:05 AM EST 05/13/2024 11:01 AM EST Maya Oshea MD LAB MOLECULAR DIAGNOSTICS ORDER BENEDICTO Final Result Performing Organization Address City/[facility]/ZIP Co de Phone Number [facility] * Lavender tube (05/13/2024 9:05 AM EST) Pathologist [facility] Extra Tube Hold for add-ons. 05/13/2024 1:02 PM EST [facility] Comment:Auto resulted. Blood Venous blood specimen / Unknown 05/13/2024 9:05 AM EST 05/13/2024 11:01 AM EST Maya Oshea MD LAB BLOOD ORDERABLES Final Resu lt Performing Organization Address City/[facility]/ZIP Co de Phone Number [facility] [address] [place] [address], [place] [phone] * Carboxyhemoglobin (05/13/2024 9:05 AM EST) Pathologist [facility] Carboxyhemoglobin 8 %TOTAL HGB 05/18/2024 7:40 PM EST [facility] Comment: ?Nonsmoker: ?? <2 % of Total HgB ? Average Smoker: ??4-5 % of Total HgB ? Heavy Smoker: 8-12 % of Total HgB ?Potentially Toxic: ??>15 % of Total HgB Test Performed at: [employer] [place] ? Zay Ramirez MD, PhD Blood Venous blood specimen / Unknown Venipuncture / Unknown 05/13/2024 9:05 AM EST 05/13/2024 11:01 AM EST us Maya Oshea MD LAB BLOOD ORDERABLES Final Resu lt [facility] [address] [place] [phone] * CT LUNG SCREENING LOW DOSE (01/06/2022 6:06 PM EDT) Anatomical Region Laterality Modality Computed Tomogra phy 01/06/2022 2:26 PM EDT Narrative 01/06/2022 6:06 PM EDT [facility] Diagnostic Imaging Department [address] [place] [address] Patient: ??BROOKE,DUGLAS A ?/Age/Sex: 1965 - 56 - F Unit#: ??[id number] ? Location/Status: ??SPDICATLS/REG CLI ? Mnemonic/Ordering Site: ??CTLUNGLD/SPCT Ordering Physician: ??MEGAN ROSAS MD CT Lung Screening Low Dose - 01/06/22 - 1431 History: ??56 year-old 40 pack-year current smoker, asymptomatic, for lung cancer screening. Comparison: No comparison imaging at this institution. Technique: Helical volumetric imaging of the thorax was performed, using low- dose technique, without IV contrast. DLP: 101.52 mGy/cm ??CTDIvol: 3.22 mGy StylePuzzleT Iterative reconstruction technique Findings: Lungs and Airways: [...] annual screening with LDCT in 12 months. [id number] [id number] G9557 G9551 Dictating Physician: ??DIANA BHAT MD Electronically Signed by: ??DIANA BHAT MD Dic Date/Time: ??01/06/22 1800 Sign date/Time: ??01/06/22 1806 Procedure Note Diana Bhat MD - 03/08/2022 [facility] Diagnostic Imaging Department [address] [place] [id number] Patient: DUGLAS JAIN Lacey FarmerB./Age/Sex: 1965 - 56 - F Unit#: [id number] Location/Status: SPDICATLS/REG CLI Mnemonic/Ordering Site[facility] [place] Order[place] Physician: MEGAN ROSAS MD CT Lung Screening Low Dose - 01/06/22 - 1431 History: 56 year-old 40 pack-year current smoker, asymptomatic, for lungcancer screening. Comparison: No comparison imaging at this institution. Technique: Helical volumetric imaging of the thorax was performed, usinglow- dose technique, without IV contrast. DLP: 101.52 mGy/cm CTDIvol: 3.22 mGy ShuropodypeMassively Fun VCT Iterative reconstruction technique Findings: Lungs and [...] Continue annual screeningwith LDCT in 12 months. 82024 G9637 G9557 G9551 Dictating Physician: DIANA BHAT MD Electronically Signed by: DIANA BHAT MD Dic Date/Time: 01/06/22 1800 Sign date/Time: 01/06/22 180 us Megan Rosas MD IMG CT PROCEDURES Final Result * AVA SCREENING DIGITAL (09/23/2021 2:57 PM EDT) Anatomical Region Laterality Modality Mammography 09/23/2021 2:08 PM EDT Narrative 09/23/2021 2:57 PM EDT [facility] Diagnostic Imaging Department [address] [place], [place] [id number] Patient: ??DUGLAS JAIN ?/Age/Sex: 1965 - 56 - F Unit#: ??[id number] ? Location/Status: ??SPDIMAM/REG CLI ? Mnemonic/Ordering Site: ??DIGSC/SPMAM Ordering Physician: ??TARIQ ROMERO MD Ava Screening Digital - 09/23/21 - 1432 EXAM: [facility] Screening Digital EXAM DATE AND TIME: 09/23/2021 2:32 PM HISTORY: ??Screening. COMPARISON: ??12/14/20, 07/16/20, 05/28/19, 05/22/18 TECHNIQUE: CC and MLO views of both breasts were obtained using full field digital mammography. Bilateral digital breast tomosynthesis was performed in the MLO projection. 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 TISSUE DENSITY: a. The breasts [...] Routine screening mammogram BILATERAL in 1 year. [address]98, [address]7081 3341F, 7025F Dictating Physician: ??DIANA BHAT MD Electronically Signed by: ??DIANA BHAT MD Dic Date/Time: ??09/23/211456 Sign date/Time: ??09/23/211456 Procedure Note Diana Bhat MD - 03/08/2022 [facility] Diagnostic Imaging Department [address] [place] [address] Patient: BROOKEDUGLAS Perez/Age/Sex: 1965 - 56 - F Unit#: [id number] Location/Status: SPDIMAM/REG CLI Mnemonic/Ordering Site: DIGSC/SPMAM Ordering Physician: TARIQ ROMERO MD Ava Screening Digital - 09/23/21 - 1432 EXAM: Ava Screening Digital EXAM DATE AND TIME: 09/23/2021 2:32 PM HISTORY: Screening. COMPARISON: 12/14/20, 07/16/20, 05/28/19, 05/22/18 TECHNIQUE: CC and MLO views of both breasts were obtained using fullfield digital mammography. Bilateral digital breast tomosynthesis was performedin the MLO projection. 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 TISSUE DENSITY: a. The breasts are [...] Routine screening mammogram BILATERAL in 1 year. [address]3554, [address]176 3341F, 7025F Dictating Physician: DIANA BHAT MD Electronically Signed by: DIANA BHAT MD Dic Date/Time: 09/23/21 1457 Sign date/Time: 09/23/21 145 Tariq Romero MD IMG BI PROCEDURES Final Result from Last 3 Months or Most Recently Relevant to Health Maintenance [place] [address] [place] [address] [employer] Care Teams Back Panel Padder Relationship Specialty Start Date End Date Tariq Romero MD [address] [place] [address] [address] [facility] [place] [address] PCP - General Internal Medicine 03/03/11
--- OUTSIDE RECORDS SUMMARY | 2024-06-18 13:40 | XMS_ITS | Encounter Summary ---
Author Organization [facility] Address [address] [place] [address] Care Team Providers Care Roll Repairer Name Role Phone Tariq Romero MD Primary Care Provider [phone] Encounter Details Date Type Department Care Team (Late st Contact Info) Description 05/13/[address] [facility] - Main Lab [address] [facility] [place] [address] Social History Tobacco Use Types [...] on filedocumented in this encounter Care Teams Roll Repairer Relationship Specialty Start Date End Date Tariq Romero MD [address] [place] [address] [address] [facility] [place] [address] PCP - General Internal Medicine 03/03/11 documented as of this encounter
--- OUTSIDE RECORDS SUMMARY | 2024-06-18 13:40 | XMS_ITS | Encounter Summary ---
Author Organization [facility] Address [address] [place] [address] Care Team Providers Care Trailer Chief Name Role Phone Tariq Romero MD Primary Care Provider Encounter Details Date Type Department Care Team (Late st Contact Info) Description 01/29/2024 Lab Requisition [facility] - Main Lab [address] [facility] [place] [id number] Venkatesh Padilla MD [address] [place] [address] Dysuria Social History Tobacco Use Types Packs/Day [...] reflex microscopic (01/29/2024 7:00 AM EST) Specific [place] Urine >=1.030 1.003 - 1.030 LAB URINALYSIS - AUTOMATED METHOD 01/29/2024 9:32 AM [facility] pH, Urine 6.0 5.0 - 8.0 pH LAB URINALYSIS - AUTOMATED METHOD 01/29/2024 9:32 AM [facility] Leukocytes, Urine Negative Negative LAB URINALYSIS - AUTOMATED METHOD 01/29/2024 9:32 AM [facility] Nitrite, Urine Negative Negative LAB URINALYSIS - AUTOMATED METHOD 01/29/2024 9:32 AM [facility] Protein, Urine Trace <=Trace mg/dL LAB URINALYSIS - AUTOMATED METHOD 01/29/2024 9:32 AM [facility] Glucose, Urine Negative Negative mg/dL LAB URINALYSIS - AUTOMATED METHOD 01/29/2024 9:32 AM [facility] Ketones, Urine Trace(A) Negative mg/dL LAB URINALYSIS - AUTOMATED METHOD 01/29/2024 9:32 AM [facility] Urobilinogen , Urine 0.2 0.2 - 1.0 mg/dL LAB URINALYSIS - AUTOMATED METHOD 01/29/2024 9:32 AM [facility] Bilirubin, Urine Small(A) Negative LAB URINALYSIS - AUTOMATED METHOD 01/29/2024 9:32 AM [facility] Blood, Urine Trace(A) Negative LAB URINALYSIS - AUTOMATED METHOD 01/29/2024 9:32 AM [facility] RBC, Urine 4.0 0 - 4 /HPF LAB URINALYSIS - AUTOMATED METHOD 01/29/2024 9:32 AM [facility] WBC, Urine 2.6 0 - 4 /HPF LAB URINALYSIS - AUTOMATED METHOD 01/29/2024 9:32 AM [facility] Squamous Epithelial, Urine 69(H) 0 - 60 /LPF LAB URINALYSIS - AUTOMATED METHOD 01/29/2024 9:32 AM [facility] Crystals, Urine MOD CALCIUM OXALATE /LPF LAB URINALYSIS - AUTOMATED METHOD 01/29/2024 9:32 AM [facility] Bacteria, Urine Negative Negative /HPF LAB URINALYSIS - AUTOMATED METHOD 01/29/2024 9:32 AM [facility] Hyaline Casts, Urine 2.4 0 - 3 /LPF LAB URINALYSIS - AUTOMATED METHOD 01/29/2024 9:32 AM [facility] Urine Urine specimen obtained by clean catch procedure / Unknown 01/29/2024 7:00 AM EST 01/29/2024 9:12 AM EST Venkatesh Padilla MD LAB URINE ORDERABLES Final Result Performing Organization Address [facility]/ZIP Co de Phone Number [facility] [address] [place] [address], [place] [phone] * Culture urine (01/29/2024 7:00 AM EST) Culture, Urine No growth 01/30/2024 9:01 AM [facility] Urine Urine specimen obtained by clean catch procedure / Unknown 01/29/2024 7:00 AM EST 01/29/2024 9:12 AM EST Venkatesh Padilla MD LAB MICROBIOLOGY - GENERAL ORDERABLES Final Result Performing Organization Address [facility]/ZIP Co de Phone Number [facility] [address] [place] [address], [place] [phone] documented in this encounter Visit Diagnoses Diagnosis Dysuria documented in this encounter Care Teams Trailer Chief Relationship Specialty Start Date End Date Tariq Romero MD [address] [place] [address] [address] [facility] [place] [address] PCP - General Internal Medicine 03/03/11 documented as of this encounter
== END 2024-06-18 11:13 | disposition home or self-care (01) ==
LOC: HO.BBR 11:12
PROVIDERS: PCP Internal Medicine; Visit Provider Internal Medicine Medical Oncology
DX: D75.1 Secondary polycythemia (principal)
CPT/HCPCS: 85014; 85018; 99195

== ENCOUNTER 2024-08-25 14:14 | Outpatient (REF) | payer BC, SELFPAY ==
--- OUTSIDE RECORDS SUMMARY | 2024-08-25 16:09 | XMS_ITS | Clinical Summary ---
Author Organization [facility] Address [address] [place] [address] Care Team Providers Care Near Eastern Archaeology Lecturer Name Role Phone Tariq Romero MD Primary Care Provider [phone] Allergies Active Allergy Reactions Criticality Noted Date [...] 2023-2 5 season) 2023 04/28/2021 Influenza Vaccine (Season Ended) 2024 01/31/20 19 DTap / Tdap / Td (2 - Td or Tdap) 06/20/2033 024 RSV Ped < 20 months Aged Out No longe r eligible based on patient's age to complete this topic Care Teams Near [employer] Archaeology Lecturer Relationship Specialty Start Date End Date Tariq Romero MD [address] [place] [address] [address] [facility] [place] [address] PCP - General Internal Medicine 02/24/22
== END 2024-08-25 14:15 | disposition home or self-care (01) ==
LOC: HO.BBR 14:14
PROVIDERS: PCP Internal Medicine; Visit Provider Internal Medicine
DX: E83.119 Hemochromatosis, unspecified (principal)
CPT/HCPCS: 85014; 85018; 99195

== ENCOUNTER 2024-10-02 11:13 | Outpatient (REF) | payer BC, SELFPAY ==
--- OUTSIDE RECORDS SUMMARY | 2024-10-02 12:03 | XMS_ITS | Encounter Summary ---
Author Organization [facility] Address [address] [place] [address] Care Team Providers Care Detective Captain Name Role Phone Tariq Romero MD Primary Care Provider [phone] Encounter Details Date Type Department Care Team (Latest Contact Info) Description 05/13/2024 Lab Requisition [facility] - Main Lab [address] [facility] [place] [address] Maya Oshea MD [address] [place] [address] ATTN: HEMATOLOGY/[place] [address] Familial erythrocytosis Social History Tobacco Use Types [...] Lavender tube (05/13/2024 9:05 AM EST) Pathologist [facility] Extra Tube Hold for add-ons. 05/13/2024 1:02 PM EST [facility] Comment:Auto resulted. Blood Venous blood specimen / Unknown 05/13/2024 9:05 AM EST 05/13/2024 11:01 AM EST us Maya Oshea MD LAB BLOOD ORDERABLES Final Resu lt [facility] [address] [place] [address], * (ABNORMAL) CBC auto differential (05/13/2024 9:05 AM EST) Pathologist [facility] WBC 10.1 4.8 - 10.8 K/mcL LAB HEMETOLOGY METHOD 05/13/2024 12:[address] [facility] RBC 5.80(H) 3.80 - 4.80 M/mcL LAB HEMETOLOGY METHOD 05/13/2024 12:[address] [facility] Hemoglobin 18.2(H) 11.5 - 16.0 g/dL LAB HEMETOLOGY METHOD 05/13/2024 12:[address] [facility] Hematocrit 55.7(H) 35.0 - 47.0 % LAB HEMETOLOGY METHOD 05/13/2024 12:[address] [facility] MCV 96.7 79.0 - 98.0 FL LAB HEMETOLOGY METHOD 05/13/2024 12:[address] [facility] MCH 31.6 27.0 - 32.0 pcg LAB HEMETOLOGY METHOD 05/13/2024 12:[address] [facility] MCHC 32.7 32.0 - 37.0 g/dL LAB HEMETOLOGY METHOD 05/13/2024 12:[address] [facility] RDW 15.5(H) 11.0 - 15.0 % LAB HEMETOLOGY METHOD 05/13/2024 12:[address] [facility] Platelets 289 130 - 400 K/mcL LAB HEMETOLOGY METHOD 05/13/2024 12:[address] [facility] MPV 10.9 7.0 - 11.0 FL LAB HEMETOLOGY METHOD 05/13/2024 12:[address] [facility] NRBC 0.0 <1.0 % LAB HEMETOLOGY METHOD 05/13/2024 12:[address] [facility] NRBC Absolute 0.00 <0.10 K/mcL LAB HEMETOLOGY METHOD 05/13/2024 12:[address] [facility] Neutrophils Relative 60.2 % LAB HEMETOLOGY METHOD 05/13/2024 12:[address] [facility] Lymphocytes Relative 28.4 % LAB HEMETOLOGY METHOD 05/13/2024 12:[address] [facility] Monocytes Relative 9.0 % LAB HEMETOLOGY METHOD 05/13/2024 12:[address] [facility] Eosinophils Relative 1.2 % LAB HEMETOLOGY METHOD 05/13/2024 12:[address] [facility] Basophils Relative 0.6 % LAB HEMETOLOGY METHOD 05/13/2024 12:14 PM EST [facility] Immature Granulocytes Relative 0.6 % LAB HEMETOLOGY METHOD 05/13/2024 12:14 PM EST [facility] Neutrophils Absolute 6.05 1.50 - 7.00 K/[facility] LAB HEMETOLOGY METHOD 05/13/2024 12:14 PM EST [facility] Lymphocytes Absolute 2.86 1.00 - 5.00 K/[facility] LAB HEMETOLOGY METHOD 05/13/2024 12:14 PM EST [facility] Monocytes Absolute 0.91 0.20 - 1.00 K/[facility] LAB HEMETOLOGY METHOD 05/13/2024 12:14 PM EST [facility] Eosinophils Absolute 0.12 0.00 - 0.50 K/[facility] LAB HEMETOLOGY METHOD 05/13/2024 12:[address] [facility] Basophils Absolute 0.06 0.00 - 0.20 K/mcL LAB HEMETOLOGY METHOD 05/13/2024 12:14 PM EST [facility] Immature Granulocytes Absolute 0.06(H) 0.00 - 0.03 K/mcL LAB HEMETOLOGY METHOD 05/13/2024 12:14 PM EST [facility] Blood Venous blood specimen / Unknown Venipuncture / Unknown 05/13/2024 9:05 AM EST 05/13/2024 11:01 AM EST us Maya Oshea MD LAB BLOOD ORDERABLES Final Resu lt [facility] [address] [place] [address], * JAK2 gene, V617F mutation, quantitative, molecular study (05/13/2024 9:05 AM EST) Scan Result See Scanned Result 05/18/2024 9:49 AM EST [facility] Blood Venous blood specimen / Unknown Venipuncture / Unknown 05/13/2024 9:05 AM EST 05/13/2024 11:01 AM EST Maya Oshea MD LAB MOLECULAR DIAGNOSTICS ORDER BENEDICTO Final Result Performing Organization Address City/[facility]/ZIP Co de Phone Number [facility] * Carboxyhemoglobin (05/13/2024 9:05 AM EST) Pathologist [facility] Carboxyhemoglobin 8 %TOTAL HGB 05/18/2024 7:40 PM EST [facility] Comment: Nonsmoker: <2 % of Total HgB Average Smoker: 4-5 % of Total HgB Heavy Smoker: 8-12 % of Total HgB Potentially Toxic: >15 % of Total HgB Test Performed at: [facility] [address] [place] [address] Zay Ramirez MD, PhD Blood Venous blood specimen / Unknown Venipuncture / Unknown 05/13/2024 9:05 AM EST 05/13/2024 11:01 AM EST Maya Oshea MD LAB BLOOD ORDERABLES Final Resu lt Performing Organization Address City/[facility]/ZIP Co de Phone Number [facility] [address] [place] [address] * (ABNORMAL) Comprehensive metabolic panel (05/13/2024 9:05 AM EST) Pathologist [facility] Sodium 139 133 - 145 mmol/L LAB CHEMISTRY METHOD 05/13/2024 1:39 PM EST [facility] Potassium 4.6 3.5 - 5.5 mmol/L LAB CHEMISTRY METHOD 05/13/2024 1:39 PM EST [facility] Chloride 109 96 - 110 mmol/L LAB CHEMISTRY METHOD 05/13/2024 1:39 PM EST [facility] CO2 21 21 - 32 mmol/L LAB CHEMISTRY METHOD 05/13/2024 1:39 PM EST [facility] Anion Gap 9 3 - 11 LAB CHEMISTRY METHOD 05/13/2024 1:[address] [facility] Glucose 83 70 - 100 mg/dL LAB CHEMISTRY METHOD 05/13/2024 1:[address] [facility] BUN 14 5 - 25 mg/dL LAB CHEMISTRY METHOD 05/13/2024 1:[address] [facility] Creatinine 0.57 0.50 - 1.10 mg/dL LAB CHEMISTRY METHOD 05/13/2024 1:[address] [facility] eGFR 106 >=60 mL/min/1. 73m2 LAB CHEMISTRY METHOD 05/13/2024 1:[address] [facility] Comment:Calculation based on the Chronic Kidney Disease Epidemiology Collaboration (CKD-EPI) equation refit without adjustment for race. BUN/Creatinine Ratio 24.6 LAB CHEMISTRY METHOD 05/13/2024 1:[address] [facility] Calcium 9.8 8.5 - 10.5 mg/dL LAB CHEMISTRY METHOD 05/13/2024 1:[address] [facility] AST (SGOT) 79(H) 10 - 42 unit/L LAB CHEMISTRY METHOD 05/13/2024 1:[address] [facility] ALT (SGPT) 102(H) 10 - 60 unit/L LAB CHEMISTRY METHOD 05/13/2024 1:[address] [facility] Alkaline Phosphatase 120 42 - 121 unit/L LAB CHEMISTRY METHOD 05/13/2024 1:[address] [facility] Total Protein 7.6 6.0 - 8.0 g/dL LAB CHEMISTRY METHOD 05/13/2024 1:[address] [facility] Albumin 4.1 3.2 - 5.0 g/dL LAB CHEMISTRY METHOD 05/13/2024 1:[address] [facility] Total Bilirubin 1.0 0.0 - 1.4 mg/dL LAB CHEMISTRY METHOD 05/13/2024 1:[address] [facility] Blood Venous blood specimen / Unknown Venipuncture / Unknown 05/13/2024 9:05 AM EST 05/13/2024 11:01 AM EST Maya Oshea MD LAB BLOOD ORDERABLES Final Resu lt [facility] [address] [place] [address], documented in this encounter 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
--- OUTSIDE RECORDS SUMMARY | 2024-10-02 12:03 | XMS_ITS | Clinical Summary ---
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 Name Role Phone Tariq Romero MD Primary Care Provider [phone] Allergies Active Allergy Reactions Criticality Noted Date [...] 74 10/17/2023 4:05 PM EDT Temperature 36.6 C (97.9 F) 10/17/2023 4:05 PM EDT Respiratory Rate 18 10/17/2023 4:05 PM EDT [...] 5 season) 2023 04/28/2021 Influenza Vaccine (#1) 2024 01/30/2019 DTap / Tdap / Td (2 - Td or Tdap) 06/20/2033 024 RSV Ped < 20 months Aged Out No longe r eligible based on patient's age to complete this topic Care Teams Pick Up Truck Driver Relationship Specialty Start Date End Date Tariq Romero MD [address] [facility] [address] [facility] [place] [address] PCP - General Internal Medicine 02/24/22
--- OUTSIDE RECORDS SUMMARY | 2024-10-02 12:04 | XMS_ITS ---
[facility] Name [facility] Organization Unknown Results Test Name/Text Value Interpretation Date Range Source Troponin I SerPl HS-mCnc 3.0 ng/L Normal 05/22/2024 0 - 14 [facility] BNP SerPl-mCnc 12.0 pcg/mL Normal 05/22/2024 0 - 100 [facility] Troponin I SerPl HS-mCnc 4.0 ng/L Normal 05/22/2024 0 - 14 [facility] Magnesium SerPl-mCnc 2.1 mg/dL Normal 05/22/2024 1.7 - 2.8 [facility] Bilirub SerPl-mCnc 1.2 mg/dL Above high normal 05/22/2024 0. 3 - 1 [facility] BUN SerPl-mCnc 18.0 mg/dL Above high normal 05/22/2024 7 - 1 7 [facility] ALP SerPl-cCnc 100.0 unit/L Normal 05/22/2024 34 - 104 C [facility] Potassium SerPl-sCnc 3.9 mmol/L Normal 05/22/2024 3.5 - 5.1 [facility] AST SerPl-cCnc 67.0 unit/L Above high normal 05/22/2024 5 - 40 [facility] CO2 SerPl-sCnc 25.0 mmol/L Normal 05/22/2024 24 - 32 [facility] eGFRcr SerPlBld CKD-EPI 2020 96.0 mL/min/1.73m2 Normal 05/22/2024 - [facility] Anion Gap SerPl-sCnc 10.0 Normal 05/22/2024 5 - 14 [facility] BUN/Creat SerPl 24.7 Above high normal 05/22/2024 12 - 20 [facility] Sodium SerPl-sCnc 138.0 mmol/L Normal 05/22/2024 135 - 14 5 [facility] Glucose SerPl-mCnc 101.0 mg/dL Normal 05/22/2024 70 - 199 [facility] Calcium SerPl-mCnc 10.6 mg/dL Above high normal 05/22/2024 8 .4 - [facility] ALT Ser[facility]-cCnc 99.0 unit/L Above high normal 05/22/2024 7 - 52 [facility] Prot SerPl-mCnc 7.6 g/dL Normal 05/22/2024 6.4 - 8.5 [facility] Creat SerPl-mCnc 0.73 mg/dL Normal 05/22/2024 0.5 - 1 C [facility] Chloride SerPl-sCnc 103.0 mmol/L Normal 05/22/2024 98 - 1 07 [facility] Albumin SerPl-mCnc 4.7 g/dL Normal 05/22/2024 3.5 - 5 [facility] Lipase SerPl-cCnc 16.0 unit/L Normal 05/22/2024 11 - 82 [facility] Hct VFr Bld Auto 50.7 % Above high normal 05/22/2024 37 - 47 [facility] Basophils/leuk NFr Bld Auto 0.7 % Normal 05/22/2024 0 - 2 [facility] MCV RBC Auto 92.7 FL Normal 05/22/2024 78 - 100 [facility] Monocytes # Bld Auto 1.09 K/mcL Above high normal 05/22/2024 0 - 0.8 [facility] Lymphocytes/leuk NFr Bld Auto 32.7 % Normal 05/22/2024 20 - 48 [facility] Eosinophil # Bld Auto 0.14 K/mcL Normal 05/22/2024 0 - 0.5 [facility] MCHC RBC Auto-mCnc 35.7 g/dL Normal 05/22/2024 32 - 36 [facility] Lymphocytes # Bld Auto 3.83 K/mcL Above high normal 05/22/2024 1 - 3.2 [facility] Monocytes/leuk NFr Bld Auto 9.3 % Normal 05/22/2024 2 - 12 [facility] Neutrophils/leuk NFr Bld Auto 55.6 % Normal 05/22/2024 44 - 74 [facility] Basophils # Bld Auto 0.08 K/mcL Normal 05/22/2024 0 - 0.2 [facility] RBC # Bld Auto 5.47 M/mcL Above high normal 05/22/2024 4.2 - 5.4 [facility] PMV Bld Auto 10.1 FL Normal 05/22/2024 7.4 - 11.4 [facility] WBC # Bld Auto 11.7 K/mcL Above high normal 05/22/2024 4 - 1 0.5 [facility] Platelet # Bld Auto 293.0 K/mcL Normal 05/22/2024 150 - 4 50 [facility] Hgb Bld-mCnc 18.1 g/dL Above high normal 05/22/2024 12.5 - 1 6 [facility] Eosinophil/leuk NFr Bld Auto 1.2 % Normal 05/22/2024 0 - 6 [facility] MCH RBC Qn Auto 33.1 pcg Above high normal 05/22/2024 25 - 33 [facility] RDW RBC Auto-Rto 14.6 % Normal 05/22/2024 12.1 - 16.2 [facility] Neutrophils # Bld Auto 6.51 K/mcL Normal 05/22/2024 1.8 - 7.8 [facility] Albumin SerPl-mCnc 4.6 g/dL Normal 02/27/2024 3.5 - 5 [facility] BUN/Creat SerPl 28.1 Above high normal 02/27/2024 12 - 20 [facility] AST SerPl-cCnc 54.0 unit/L Above high normal 02/27/2024 5 - 40 [facility] BUN SerPl-mCnc 18.0 mg/dL Above high normal 02/27/2024 7 - 1 7 [facility] Creat SerPl-mCnc 0.64 mg/dL Normal 02/27/2024 0.5 - 1 C [facility] Calcium SerPl-mCnc 9.5 mg/dL Normal 02/27/2024 8.4 - 10.2 [facility] CO2 SerPl-sCnc 23.0 mmol/L Below low normal 02/27/2024 24 - 32 [facility] eGFRcr SerPlBld CKD-EPI 2020 103.0 mL/min/1.73m2 Normal 02/27/2024 - [facility] Sodium SerPl-sCnc 139.0 mmol/L Normal 02/27/2024 135 - 14 5 [facility] Prot SerPl-mCnc 7.5 g/dL Normal 02/27/2024 6.4 - 8.5 [facility]_ [facility] ALP SerPl-cCnc 99.0 unit/L Normal 02/27/2024 34 - 104 CT [facility] Anion Gap SerPl-sCnc 8.0 Normal 02/27/2024 5 - 14 [facility] Bilirub SerPl-mCnc 0.6 mg/dL Normal 02/27/2024 0.3 - 1 [facility] ALT SerPl-cCnc 76.0 unit/L Above high normal 02/27/2024 7 - 52 [facility] Glucose SerPl-mCnc 117.0 mg/dL Normal 02/27/2024 70 - 199 [facility] Chloride SerPl-sCnc 108.0 mmol/L Above high normal 98 - 107 [facility] Potassium SerPl-sCnc 4.0 mmol/L Normal 02/27/2024 3.5 - 5.1 [facility] Hct VFr Bld Auto 56.3 % Above high normal 02/27/2024 37 - 47 [facility] WBC # Bld Auto 9.8 K/mcL Normal 02/27/2024 4 - 10.5 [facility] Eosinophil # Bld Auto 0.19 K/mcL Normal 02/27/2024 0 - 0.5 [facility] Basophils/leuk NFr Bld Auto 0.7 % Normal 02/27/2024 0 - 2 [facility] Monocytes # Bld Auto 0.81 K/mcL Above high normal 02/27/2024 0 - 0.8 [facility] Monocytes/leuk NFr Bld Auto 8.2 % Normal 02/27/2024 2 - 12 [facility] PMV Bld Auto 10.3 FL Normal 02/27/2024 7.4 - 11.4 [facility] Platelet # Bld Auto 289.0 K/mcL Normal 02/27/2024 150 - 4 50 [facility] Lymphocytes/leuk NFr Bld Auto 27.2 % Normal 02/27/2024 20 - 48 [facility] Hgb Bld-mCnc 19.0 g/dL Above high normal 02/27/2024 12.5 - 1 6 [facility] MCV RBC Auto 93.8 FL Normal 02/27/2024 78 - 100 [facility] MCH RBC Qn Auto 31.7 pcg Normal 02/27/2024 25 - 33 [facility] RBC # Bld Auto 6.0 M/mcL Above high normal 02/27/2024 4.2 - 5.4 [facility] Neutrophils/leuk NFr Bld Auto 61.6 % Normal 02/27/2024 44 - 74 [facility] Basophils # Bld Auto 0.07 K/mcL Normal 02/27/2024 0 - 0.2 [facility] Eosinophil/leuk NFr Bld Auto 1.9 % Normal 02/27/2024 0 - 6 [facility] RDW RBC Auto-Rto 12.8 % Normal 02/27/2024 12.1 - 16.2 [facility] Neutrophils # Bld Auto 6.05 K/mcL Normal 02/27/2024 1.8 - 7.8 [facility] MCHC RBC Auto-mCnc 33.7 g/dL Normal 02/27/2024 32 - 36 [facility] Lymphocytes # Bld Auto 2.67 K/mcL Normal 02/27/2024 1 - 3.2 [facility] Lipase SerPl-cCnc 19.0 unit/L Normal 02/27/2024 11 - 82 [facility] CO2 SerPl-sCnc 30.0 mmol/L Normal 02/19/2024 24 - 32 CT [facility] Albumin SerPl-mCnc 4.8 g/dL Normal 02/19/2024 3.5 - 5 [facility] BUN SerPl-mCnc 13.0 mg/dL Normal 02/19/2024 7 - 17 [facility] AST SerPl-cCnc 66.0 unit/L Above high normal 02/19/2024 5 - 40 [facility] eGFRcr SerPlBld CKD-EPI 2020 95.0 mL/min/1.73m2 Normal 02/19/2024 - [facility] BUN/Creat SerPl 17.6 Normal 02/19/2024 12 - 20 [facility] ALP Ser[facility]-cCnc 91.0 unit/L Normal 02/19/2024 34 - 104 CT [facility] Potassium SerPl-sCnc 4.5 mmol/L Normal 02/19/2024 3.5 - 5.1 [facility] Prot SerPl-mCnc 7.8 g/dL Normal 02/19/2024 6.4 - 8.5 [facility] ALT SerPl-cCnc 117.0 unit/L Above high normal 02/19/2024 7 - 52 [facility] Calcium SerPl-mCnc 9.9 mg/dL Normal 02/19/2024 8.4 - 10.2 [facility] Creat SerPl-mCnc 0.74 mg/dL Normal 02/19/2024 0.5 - 1 C [facility] Sodium SerPl-sCnc 140.0 mmol/L Normal 02/19/2024 135 - 14 5 [facility] Anion Gap SerPl-sCnc 6.0 Normal 02/19/2024 5 - 14 [facility] Chloride SerPl-sCnc 104.0 mmol/L Normal 02/19/2024 98 - 1 07 [facility] Glucose SerPl-mCnc 89.0 mg/dL Normal 02/19/2024 70 - 199 [facility] Bilirub SerPl-mCnc 0.8 mg/dL Normal 02/19/2024 0.3 - 1 [facility] Basophils # Bld Auto 0.07 K/mcL Normal 02/19/2024 0 - 0.2 [facility] PMV Bld Auto 10.4 FL Normal 02/19/2024 7.4 - 11.4 [facility] MCH RBC Qn Auto 32.1 pcg Normal 02/19/2024 25 - 33 [facility]_ [facility] MCHC RBC Auto-mCnc 33.7 g/dL Normal 02/19/2024 32 - 36 [facility] Eosinophil/leuk NFr Bld Auto 2.3 % Normal 02/19/2024 0 - 6 [facility] Basophils/leuk NFr Bld Auto 0.8 % Normal 02/19/2024 0 - 2 [facility] Hct VFr Bld Auto 56.3 % Above high normal 02/19/2024 37 - 47 [facility] Monocytes # Bld Auto 0.78 K/mcL Normal 02/19/2024 0 - 0.8 [facility] Lymphocytes # Bld Auto 2.83 K/mcL Normal 02/19/2024 1 - 3.2 [facility] Neutrophils/leuk NFr Bld Auto 55.7 % Normal 02/19/2024 44 - 74 [facility] RBC # Bld Auto 5.92 M/mcL Above high normal 02/19/2024 4.2 - 5.4 [facility] Platelet # Bld Auto 251.0 K/mcL Normal 02/19/2024 150 - 4 50 [facility] Monocytes/leuk NFr Bld Auto 8.8 % Normal 02/19/2024 2 - 12 [facility] Hgb Bld-mCnc 19.0 g/dL Above high normal 02/19/2024 12.5 - 1 6 [facility] Lymphocytes/leuk NFr Bld Auto 31.9 % Normal 02/19/2024 20 - 48 [facility] WBC # Bld Auto 8.9 K/mcL Normal 02/19/2024 4 - 10.5 CT_[facility] RDW RBC Auto-Rto 13.0 % Normal 02/19/2024 12.1 - 16.2 [facility] Neutrophils # Bld Auto 4.95 K/mcL Normal 02/19/2024 1.8 - 7.8 [facility] Eosinophil # Bld Auto 0.2 K/mcL Normal 02/19/2024 0 - 0.5 [facility] MCV RBC Auto 95.1 FL Normal 02/19/2024 78 - 100 [facility] Nitrite Ur Ql Strip.auto NEGATIVE Normal 10/17/2023 - [facility] Glucose Ur Ql Strip.auto NEGATIVE Normal 10/17/2023 - COUNT [facility]CLUDES [facility] Hgb Ur Ql Strip.auto TRACE Abnormal 10/17/2023 - COUNT [facility]CLUDES [facility] pH Ur Strip.auto 5.5 Normal 10/17/2023 4.5 - 8 [facility] Sp Gr Ur Strip.auto >1.030 Above high normal 10/17/2023 1 .005 - 1.03 COUNT INCLUDES [facility] Clarity Ur Refract.auto CLEAR Normal 10/17/2023 COUNT INCLUDES [facility] Ketones Ur Ql Strip.auto TRACE Abnormal 10/17/2023 - COUNT [facility]CLUDES [facility] Prot Ur Ql Strip.auto NEGATIVE Normal 10/17/2023 - COUNT [facility]CLUDES [facility] Leukocyte esterase Ur Ql Strip.auto NEGATIVE Normal 10/17/2023 - COUNT [facility]CLUDES [facility] SPECIMEN SOURCE XXX URINE CLEAN CATCH Normal 10/17/2023 COUNT [facility]CLUDES [facility] WBC number/area UrnS Auto 3.0 /HPF Normal 10/17/2023 0 - 5 [facility]CLUD[facility] RBC number/area UrnS Auto 3.0 /HPF Normal 10/17/2023 0 - [facility] SQUAM[facility] NO./AREA URNS LPF 6.0 /LPF Above high normal 10/17/2023 0 - 5 [facility] LDH SERPL L TO P CCNC 269.0 U/L Above high normal 10/17/2023 125 - 220 [facility] AST SERPL CCNC 81.0 U/L Above high normal 10/17/2023 5 - 40 [facility] ALP SERPL-CCNC 101.0 U/L Normal 10/17/2023 34 - 104 [facility] 97.0 U/L Above high normal 10/17/2023 7 - 52 [facility] BILIRUB DIRECT SERPL MCNC 0.1 mg/dL Normal 10/17/2023 0 - 0.2 [facility] BILIRUB SERPL MCNC 0.7 mg/dL Normal 10/17/2023 0.3 - 1 [facility] LIPASE SERPL CCNC 16.0 U/L Normal 10/17/2023 11 - 82 [facility] BUN SERPL MCNC 16.0 mg/dL Normal 10/17/2023 7 - 17 [facility] SODIUM SERPL SCNC 138.0 mmol/L Normal 10/17/2023 135 - 14 5 [facility] CREAT SERPL MCNC 0.7 mg/dL Normal 10/17/2023 0.5 - 1 [facility] CHLORIDE SERPL SCNC 105.0 mmol/L Normal 10/17/2023 98 - 1 07 [facility] GLUCOSE SERPL MCNC 153.0 mg/dL Normal 10/17/2023 70 - 199 [facility] ANION GAP SERPL SCNC 9.0 mmol/L Normal 10/17/2023 5 - 14 [facility] CALCIUM SERPL MCNC 9.4 mg/dL Normal 10/17/2023 8.4 - 10.2 [facility] POTASSIUM SERPL SCNC 3.5 mmol/L Normal 10/17/2023 3.5 - 5.1 [facility]CLUDES [facility] Glomerular filtration rate/1.73 sq M. predicted 101.0 Normal 10/17/2023 60 - [facility] HCO3 SER SCNC 24.0 mmol/L Normal 10/17/2023 24 - 32 [facility] AMYLASE SERPL CCNC 36.0 U/L Normal 10/17/2023 29 - 103 [facility] PLATELET NO. BLD AUTO 260.0 K/uL Normal 10/17/2023 150 - 450 [facility] EOSINOPHIL NFR BLD AUTO 1.0 % Normal 10/17/2023 0 - 6 [facility] LYMPHOCYTES NO. BLD AUTO 3.1 K/uL Normal 10/17/2023 1 - 3.2 [facility] BASOPHILS IN BLOOD BY AUTOMATED COUNT 0.1 K/uL Normal 10/17/2023 0 - 0.2 COUNT [facility]CLUDES [facility] BASOPHILS NFR BLD AUTO 0.5 % Normal 10/17/2023 0 - 2 [facility]CLUDES [facility] NEUTROPHILS NO. BLD AUTO 6.4 K/uL Normal 10/17/2023 1.8 - 7.8 COUNT [facility]CLUDES [facility] MCHC RBC AUTO MCNC 34.2 g/dL Normal 10/17/2023 32 - 36 [facility] PMV BLD AUTO 10.5 fL Normal 10/17/2023 7.4 - 11.4 [facility] EOSINOP[facility]IL NO. BLD AUTO 0.1 K/uL Normal 10/17/2023 0 - 0.5 [facility] WBC NO. BLD AUTO 10.3 K/uL Normal 10/17/2023 4 - 10.5 CT [facility] HGB BLD MCNC 17.1 g/dL Above high normal 10/17/2023 12.5 - 1 6 [facility] HCT VFR BLD AUTO 50.0 % Above high normal 10/17/2023 37 - 47 [facility] NUCLEATED RBC 0.0 % Normal 10/17/2023 0 - 1 [facility] LYMPH[facility]TES NFR BLD AUTO 29.5 % Normal 10/17/2023 20 - 48 [facility] MCH RBC QN AUTO 32.0 pg Normal 10/17/2023 25 - 33 [facility] MCV RBC AUTO 93.5 fL Normal 10/17/2023 78 - 100 [facility] IMMATURE GRANULOCYTE, PERCENT 0.6 % Normal 10/17/2023 0 - 1 [facility] MONOCYTES NFR BLD AUTO 7.1 % Normal 10/17/2023 2 - 12 [facility] RBC NO. BLD AUTO 5.35 M/uL Normal 10/17/2023 4.2 - 5.4 CT [facility] IMMATURE GRANULOCYTE, ABSOLUTE 0.06 k/uL Normal 10/17/2023 - 0.1 COUNT [facility]CLUDES [facility] RDW RBC AUTO RTO 13.4 % Normal 10/17/2023 12.1 - 16.2 COUNT INCLUDES [facility] NEUTROPHILS NFR BLD AUTO 61.3 % Normal 10/17/2023 44 - 74 COUNT INCLUDES [facility] MONOCYTES NO. BLD AUTO 0.7 K/uL Normal 10/17/2023 0 - 0.8 COUNT [facility]CLUDES [facility] MAGNESIUM SERPL MCNC 2.1 mg/dL Normal 06/21/2023 1.7 - 2.8 [facility] CALCIUM SERPL MCNC 9.8 mg/dL Normal 06/21/2023 8.4 - 10.2 COUNT [facility]CLUDES [facility] POTASSIUM SERPL SCNC 3.8 mmol/L Normal 06/21/2023 3.5 - 5.1 [facility] SODIUM SERPL SCNC 137.0 mmol/L Normal 06/21/2023 135 - 14 5 [facility] CHLORIDE SERPL SCNC 103.0 mmol/L Normal 06/21/2023 98 - 1 07 [facility] GLUCOSE SERPL MCNC 105.0 mg/dL Normal 06/21/2023 70 - 199 [facility] BUN SERPL MCNC 17.0 mg/dL Normal 06/21/2023 7 - 17 [facility] Glomerular filtration rate/1.73 sq M. predicted 101.0 Normal 06/21/2023 60 - [facility] ANION GAP SERPL SCNC 8.0 mmol/L Normal 06/21/2023 5 - 14 [facility] HCO3 SER SCNC 26.0 mmol/L Normal 06/21/2023 24 - 32 C[facility] CREAT SERPL MCNC 0.7 mg/dL Normal 06/21/2023 0.5 - 1 [facility] LACTATE SERPL SCNC 1.3 mmol/L Normal 06/21/2023 0.5 - 2 [facility] NUCLEATED RBC 0.0 % Normal 06/21/2023 0 - 1 [facility] NEUTROPHILS NFR BLD AUTO 64.8 % Normal 06/21/2023 44 - 74 [facility] MCHC RBC AUTO MCNC 34.1 g/dL Normal 06/21/2023 32 - 36 [facility] MCV RBC AUTO 91.4 fL Normal 06/21/2023 78 - 100 [facility] WBC NO. BLD AUTO 10.7 K/uL Above high normal 06/21/2023 4 - 10.5 COUNT [facility]CLUDES [facility] PMV BLD AUTO 9.9 fL Normal 06/21/2023 7.4 - 11.4 [facility] HGB BLD MCNC 17.4 g/dL Above high normal 06/21/2023 12.5 - 1 6 [facility] IMMATURE GRANULOCYTE, ABSOLUTE 0.04 k/uL Normal 06/21/2023 - 0.1 [facility] MCH RBC QN AUTO 31.2 pg Normal 06/21/2023 25 - 33 [facility] IMMATURE GRANULOCYTE, PERCENT 0.4 % Normal 06/21/2023 0 - 1 [facility] HCT VFR BLD AUTO 51.0 % Above high normal 06/21/2023 37 - 47 COUNT [facility]CLUDES [facility] LYMPHOCYTES NO. BLD AUTO 2.8 K/uL Normal 06/21/2023 1 - 3.2 [facility] RBC NO. BLD AUTO 5.58 M/uL Above high normal 06/21/2023 4.2 - 5.4 [facility] MONOCYTES NO. BLD AUTO 0.8 K/uL Normal 06/21/2023 0 - 0.8 [facility] RDW RBC AUTO RTO 13.8 % Normal 06/21/2023 12.1 - 16.2 [facility] BASOPHILS IN BLOOD BY AUTOMATED COUNT 0.1 K/uL Normal 06/21/2023 0 - 0.2 COUNT INCLUDES [facility] MONOCYTES NFR BLD AUTO 7.0 % Normal 06/21/2023 2 - 12 [facility] BASOPHILS NFR BLD AUTO 0.6 % Normal 06/21/2023 0 - 2 [facility] PLATELET NO. BLD AUTO 269.0 K/uL Normal 06/21/2023 150 - 450 [facility] LYMPHOCYTES NFR BLD AUTO 26.5 % Normal 06/21/2023 20 - 48 [facility] NEUTROPHILS NO. BLD AUTO 6.9 K/uL Normal 06/21/2023 1.8 - 7.8 [facility] EOSINOPHIL NFR BLD AUTO 0.7 % Normal 06/21/2023 0 - 6 [facility] EOSINOPHIL NO. BLD AUTO 0.1 K/uL Normal 06/21/2023 0 - 0.5 COUNT [facility]CLUDES [facility] ALBUMIN SERPL BCG MCNC 4.3 g/dL Normal 06/21/2023 3.5 - 5 [facility] AST SERPL CCNC 47.0 U/L Above high normal 06/21/2023 5 - 40 [facility] ALT SERPL CCNC 71.0 U/L Above high normal 06/21/2023 7 - 52 [facility] BILIRUB SERPL MCNC 0.7 mg/dL Normal 06/21/2023 0.3 - 1 [facility] ALP SERPL-CCNC 117.0 U/L Above high normal 06/21/2023 34 - 1 04 [facility] PROT SERPL MCNC 7.2 g/dL Normal 06/21/2023 6.4 - 8.5 [facility] BILIRUB DIRECT SERPL MCNC 0.1 mg/dL Normal 06/21/2023 0 - 0.2 COUNT INCLUDES [facility] ALBUMIN/GLOB SERPL MRTO 1.5 Normal 06/21/2023 COUNT INCLUDES [facility] History of Medication Use Medication Directions Dispensed Refills Start Date End Date Status albuterol (PROVENTIL, VENTOLIN) 2.5 mg /3 mL (0.083 %) nebulizer solution Take 3 mLs by nebulization every 6 (six) hours as needed for shortness of breath. 5 active albuterol sulfate 90 mcg/actuation HFA aerosol inhaler Inhale 2 puffs into the lungs every 6 (six) hours as needed for wheezing. active predniSONE (DELTASONE) 20 mg tablet Take 2 tablets (40 mg total) by mouth daily for 5 days. Take with food. 5 active sodium chloride 0.9 % flush 10 mL 10 mL, intravenous, Once, On 02/27/24 at 1417, For 1 dose 4 02/27/20 24 completed carvediloL (COREG) 6.25 mg tablet Take 1 tablet (6.25 mg total) by mouth 2 (two) times a day with meals. 4 active iopamidol (ISOVUE-370) 76 % injection 0-150 mL 0-150 mL, Intravenous, IMG once as needed, contrast, Starting on Kelli 06/21/23 at 1612, For 1 dose, Radiology Contrast 4 06/21/19 24 completed amoxicillin-pot clavulanateTake 1 Tablet (oral) 2 times per day for 10 [id number] times per [id number] suspended MacrobidTake 1 Capsule 2 times per day for 7 [id number] times per dayNo route [id number] 3 suspended amLODIPine (NORVASC) tablet 10 mg 3 active famotidine (PEPCID) 20 MG tablet Twice A Day 6 active famotidine (PEPCID) 20 MG tablet Twice A Day 6 active metoprolol succinateTakeNo date recordedNo form recordedNo frequency recordedNo route recordedNo set duration recordedNo set duration amount recordedactiveNo dosage strength recordedNo dosage strength units of measure recorded active AlbuterolTakeNo date recordedNo form recordedNo frequency recordedNo route recordedNo set duration recordedNo set duration amount recordedactiveNo dosage strength recordedNo dosage strength units of measure recorded active KlonopinTakeNo date recordedNo form recordedNo frequency recordedNo route recordedNo set duration recordedNo set duration amount recordedactiveNo dosage strength recordedNo dosage strength units of measure recorded active amlodipineTakeNo date recordedNo form recordedNo frequency recordedNo route recordedNo set duration recordedNo set duration amount recordedactiveNo dosage strength recordedNo dosage strength units of measure recorded active ZoloftTakeNo date recordedNo form recordedNo frequency recordedNo [...] dosage strength units of measure recorded active amlodipine-atorvasta tin (CADUET) 10-10 mg per tablet Take 1 tablet by mouth daily. active cholecalciferol (VITAMIN D-3) 50 mcg (2,000 unit) capsule Take by mouth. active cholecalciferol (VITAMIN D-3) 50 mcg (2,000 unit) capsule Take by mouth. active Cholecalciferol 50 MCG (2000 UT) CAPS Take by mouth. ac tive clonazepam (KLONOPIN ORAL) KlonopinTakeNo date recordedNo form recordedNo frequency recordedNo route recordedNo set duration recordedNo set duration amount recordedactiveNo dosage strength recordedNo dosage strength units of measure recorded active fenofibrate (LOFIBRA) 160 mg tablet Take 1 tablet (160 mg total) by mouth 1 (one) time each day. active NORVASC 10 mg tablet 6.25 mg. ac tive Allergies Allergen Reaction Severity Comment Documented Date Source Status NITROFURANTOIN MONOHYD/M-CRYST 04/11/2024 [facility] active LISINOPRIL COUGH Cough* 01/09/2024 [facility] active NITROFURANTOIN HIVES 10/17/2023 [facility] acti ve SULFAMETHOXAZOLE-TRIMET HOPRIM ANAPHYLAXIS 12/17/2022 [facility] active BACTRIM ANAPHYLAXIS [facility] HYDROCHLOROTHIAZIDE Leg cramps* [facility] MACROBID NOT INDICATED [facility]PHY SON E Problems Problem Status Onset Date Problem Type Date of Resolution Source Chest pain, unspecified type active EncounterDiagnosisAct [facility] Hematuria active EncounterDiagnosisAct [facility] Elevated liver enzymes active EncounterDiagnosisAct [facility] Nicotine dependence with nicotine-induced disorder, unspecified nicotine product type active EncounterDiagnosisAct [facility] Other asthma active ProblemAct [facility] S[facility] Acute cough active 2024-04-11 ProblemAct [facility] EUC Urgency of urination active 2023-10-16 ProblemAct [facility] Hypertension active ProblemAct [facility] RSV infection active 2024-04-11 ProblemAct [facility] ALEUC Kidney stone active EncounterDiagnosisAct [facility] Urinary frequency active EncounterDiagnosisAct [facility] Urinary urgency active EncounterDiagnosisAct [facility] Pelvic pressure in female active EncounterDiagnosisAct [facility] MG Immunizations Vaccine Date Source Lot Number Status Tdap 06/21/2023 [facility] [id number] completed Encounters Encounter Type Encounter Reason Primary Diagnosis Location Date Emergency irregular ekg SOB Chest pain, unspecified [facility] 05/22/2024 Ambulatory Cough Cough [facility] 04/11/2024 Emergency WC abd fullness Unspecified abdominal pain [facility] 02/27/2024 Emergency FALL WC Unspecified fall , initial encounter [facility] 02/19/2024 Emergency Hematuria, unspecified Hematuria, unspecified [facility] 10/17/2023 Emergency Open bite of left hand, initial encounter Open bite of left hand, initial encounter [facility] 06/21/2023 Ambulatory [facility] 06/20/2023 Emergency Chronic obstructive pulmonary disease with (acute) exacerbation Chronic obstructive pulmonary disease with (acute) exacerbation [facility] 12/17/2022 Ambulatory [facility] 12/17/2022 Care Team Organization Name Specialty Phone Email Start Date End [facility] 09/12/2024 [facility] 04/11/2024 [facility] 02/22/2024 [facility] 02/20/2024 [facility] 04/08/2023 [facility] Not Found Primary Care 04/08/2023 [facility] 023 [facility] 202209/30/2024 [facility] 023 12/17/2022 [facility] 202212/17/2022
--- OUTSIDE RECORDS SUMMARY | 2024-10-02 12:04 | XMS_ITS | Clinical Summary ---
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 Name Role Phone Unavailable Primary Care Provider [...] Date Acute cough 04/11/2024 RSV infection 04/11/2024 Social History Tobacco Use Types Packs/Day Years [...] 101 04/11/2024 2:01 PM EST Temperature 37.4 C (99.4 F) 04/11/2024 2:01 PM EST Respiratory Rate 20 04/11/2024 2:01 PM EST [...] cancer screening, Colonoscopy 09/26/2011 Diabetes screening 09/26/2011 Pneumococcal Vaccine (50+ ye ars) (1 of 1 - PCV) 2016 Shingles vaccine (Shingrix) (1 of 2 - Shingrix (RZV) 2 Dose Standard Series) 2016 Covid-19 vaccine series ( - season) 2023 Influenza vaccine 11/17/2024 01/30/2019 Tetanus adult (Td q 10,TDAP once) 06/20/2033 024 RSV Immunization (1 - 1-dose 75+ series) 2041 Meningococcal Vaccine Aged Out No bertha kb eligible based on patient's age to complete this topic Insurance BCBS ([place]) [address]
== END 2024-10-02 11:14 | disposition home or self-care (01) ==
LOC: HO.BBR 11:13
PROVIDERS: PCP Internal Medicine; Visit Provider Internal Medicine Medical Oncology
DX: D75.1 Secondary polycythemia (principal)
CPT/HCPCS: 85018; 99195

== ENCOUNTER 2024-10-09 14:23 | Outpatient (AMB) | payer BC, SELFPAY ==
[2024-10-09 14:28] VITALS: BP 166/92; PULSE 88; RESP 18; TEMP 36.1; O2SAT 97; BMI 31.7
--- NOTE | 2024-10-09 14:28 | MHC.PC.OV ---
Vital Signs 10/09/24 14:28 Height 5 ft 5 in Weight 190 lb 8 oz BMI 31.7 BP 166/92 H Blood Pressure Location Lt brachial Position Sitting Respiration 18 Pulse 88 Pulse Source Pulse Oximeter Temp 96.9 F Temp Source Temporal Artery Scan Pulse Oximetry (%) 97 Oxygen Delivery Method Room Air Intake Visit Reasons: (L) calf pain Allergies hydrochlorothiazide Allergy (Unknown, Verified 10/09/24 14:28) Leg cramps lisinopril Allergy (Unknown, Verified 10/09/24 14:28) Cough sulfamethoxazole (From Bactrim) Allergy (Verified 10/09/24 14:28) Anaphylaxis trimethoprim (From Bactrim) Allergy (Verified 10/09/24 14:28) Anaphylaxis Tobacco use date assessed: 10/09/24 Dental Screening Dental Screen Date: 10/09/24 Did you have a dental visit in the last 12 months?: Yes Did you have a dental problem in the last 6 months where you did not have access to dental care?: No Was dental information given to patient?: Patient has dentist HPI (L) calf pain HPI Details CTA not done -- reschedule for 10/23/2024, BP and pusle is high. l left painful, PFSH Medical History Alcohol abuse, in remission High cholesterol High blood pressure Neck pain Leg pain COVID-19 virus infection Family history of cancer Surgical History History of fusion of cervical spine H/O: hysterectomy Family History Father Diabetes Prostate cancer HTN (hypertension) CVD (cardiovascular disease) Mother HTN (hypertension) Cervical cancer Lung cancer Maternal Grandmother Lung cancer Daughter In good health Daughter No problems noted. Brother In good health Son No problems noted. Maternal Grandfather Leukemia Paternal Grandfather CVD (cardiovascular disease) Paternal Aunt CVD (cardiovascular disease) Social History Housing: House Alcohol intake: former Comment: 2021 Patient Tobacco Use Status: Current everyday Tobacco user Tobacco use type: Cigarette Cigarette Packs Per Day: 0.5 Cigarettes Per Day: 10 Years Smoked: 40 +/- Packs Per Year: 0 Packs per year/per ci.00 e-Cigarette/Vaping Use: Never Used Second Hand Smoke Exposure: Yes service: No Current occupational status: employed Cognitive needs: No Hearing needs: No Vision needs: No Questionnaire PHQ-9 Over the last 2 weeks, how often have you been bothered by any of the following problems? 1. Little interest or pleasure in doing things: not at all 2. Feeling down, depressed, or hopeless: not at all 3. Trouble falling or staying asleep, or sleeping too much: not at all 4. Feeling tired or having little energy: not at all 5. Poor appetite or overeating: not at all 6. Feeling bad about yourself - or that you are a failure or have let yourself or your family down: not at all 7. Trouble concentrating on things, such as reading the newspaper or watching television: not at all 8. Moving or speaking so slowly that other people could have noticed. Or the opposite - being so fidgety or restless that you have been moving around a lot more than usual: not at all 9. Thoughts that you would be better off or of hurting yourself in some way: not at all Total score: 0 Depression Screening Interpretation: Negative Depression Screening Done: Yes Source: Developed by Drs. Rome Grullon, Ginny Reyes, Nikko Mahajan and colleagues, with an educational rodney from [employer]. Thrive Questionnaire Date Thrive assessed: 04/01/24 I am a: Patient What is your living situation today?: I have a steady place to live Within the past 12 months, did the food you bought not last and you didn't have the money to get more?: I choose not to answer this question Within the past 12 months, did you worry whether your food would run out before you got money to buy more?: I choose not to answer this question Do you have trouble paying for medicines?: No Do you have trouble getting transportation to medical appointments?: No Do you have trouble paying your heating and electricity bill?: No Do you have trouble taking care of your child, family member or friend?: No Do you have trouble with day-to-day activities such as bathing, preparing meals, shopping, managing finances, etc.?: No Are you currently unemployed and looking for a job?: No Are you interested in more education?: No Please select the resources that you would like help with: None Currently or been in a relationship where the following occur: No concerns reported THRIVE Score: 0 AUDIT C Alcohol Use Questionnaire (AUDIT-C) 1. How often do you have a drink containing alcohol?: Never 3. How often do you have six or more drinks on one occasion?: Never Total Score: 0 FREDY-7 AMB Questionnaire FREDY-7 Date FREDY - 7 assessed: 04/01/24 Feeling nervous, anxious, or on edge: 2 = More than half the days Not being able to stop or control worryin = Not at all Worrying too much about different things: 0 = Not at all Trouble relaxin = Not at all Being so restless that it is hard to sit still: 0 = Not at all Becoming easily annoyed or irritable: 0 = Not at all Feeling afraid as if something awful might happen: 0 = Not at all Total FREDY-7 score (0-4 normal; 5-9 mild; 10-14 moderate; 15-21 severe): 2 Source: Developed by Drs. Rome Grullon, Ginny Reyes, Nikko Mahajan and colleagues, with an educational rodney from [employer]. Physical exam (Primary Care) Vital Signs: Last Vital Signs Temp 96.9 F 10/09/24 14:28 Pulse 88 10/09/24 14:28 Resp 18 10/09/24 14:28 BP 166/92 H 10/09/24 14:28 Pulse Ox 97 10/09/24 14:28 Oxygen Delivery Method Room Air 10/09/24 14:28 BMI result Body Mass Index 31.7 Tobacco/Smoking Status: Tobacco use Status Tobacco use date assessed 10/09/24 10/09/24 14:38 Patient Tobacco Use Status Current everyday Tobacco 10/09/24 14:38 Tobacco use type Cigarette 10/09/24 14:38 e-Cigarette/Vaping Use Never Used 10/09/24 14:38 PHQ-9: PHQ-9 Score PHQ-9: Total score 0 10/09/24 14:38 Depression Screening Interpretation: Negative Thrive Assessment: Date of Thrive Assessment Date Thrive assessed 04/01/24 10/09/24 14:38 Currently or been in a relationship where the following occur: No concerns reported Const General: alert; No acute distress Eyes Conjunctivae: conjunctivae normal Resp Auscultation: clear to auscultation bilaterally Cardio Rate: regular rate Rhythm: regular rhythm GI Inspection: Yes normal to inspection Extrem General: Yes normal to inspection and No edema Coding Level of Care Code Est Pt Level 4 (94969) Complex EM visit Add On G2211 Diagnoses Essential hypertension I10 Hypertension type: essential hypertension Atherosclerosis I70.90 Hypercholesterolemia E78.00 Obesity (BMI 30.0-34.9) E66.9 Fatty liver K76.0 Nephrolithiasis N20.0 Erythrocytosis D75.1 Tobacco abuse Z72.0 Bilateral hand numbness R20.0 Pain of left calf M79.662 Assessment & Plan Assessment & Plan (1) Hypertension: Code(s): I10 - Essential (primary) hypertension Category: Medical Qualifiers: Hypertension type: essential hypertension Qualified Code(s): I10 - Essential (primary) hypertension Plan: Continue with blood pressure medication. Decrease salt intake and exercise patient is on amlodipine 10 mg once a day carvedilol 6.25 mg twice a day (2) Atherosclerosis: Comment: aortic Code(s): I70.90 - Unspecified atherosclerosis Category: Medical Plan: Avoid fried foods, chicken skin, eggs, butter margarine, pastries and meat. Be it pork or beef they have a lot of cholesterol patient on fenofibrate. Advised to get LDL goal below 70 Control the cholesterol, weight, blood pressure, (3) Hypercholesterolemia: Code(s): E78.00 - Pure hypercholesterolemia, unspecified Category: Medical Plan: Avoid fried foods, chicken skin, eggs, butter margarine, pastries and meat. Be it pork or beef they have a lot of cholesterol on fenofibrate LDL goal of less than 70 and triglyceride of less than 150 (4) Obesity (BMI 30.0-34.9): Code(s): E66.9 - Obesity, unspecified Category: Medical Plan: Diet and exercise (5) Fatty liver: Code(s): K76.0 - Fatty (change of) liver, not elsewhere classified Category: Medical Plan: Low-fat diet and exercise (6) Nephrolithiasis: Comment: February 2022 right renal calculi multiple Code(s): N20.0 - Calculus of kidney Category: Medical Plan: Patient is being followed up by Urology. Keep well hydrated (7) Erythrocytosis: Code(s): D75.1 - Secondary polycythemia Category: Medical Plan: Patient follows up with Hematology-Oncology and has therapeutic phlebotomy biliary. Patient was strongly advised to stop smoking (8) Tobacco abuse: Comment: Lung cancer screening program November 2021 Code(s): Z72.0 - Tobacco use Category: Medical Plan: Patient is strongly advised to stop smoking. Patient does belong to lung cancer screening program (9) Bilateral hand numbness: Code(s): R20.0 - Anesthesia of skin Category: Medical (10) Pain of left calf: Code(s): M79.662 - Pain in left lower leg Category: Medical Plan History of Present Illness The patient is a 59-year-old female presenting for follow-up of multiple chronic conditions including hypertension, hypercholesterolemia, and erythrocytosis. The patient has a history of obesity and hypertension, managed with amlodipine and carvedilol. Her blood pressure is not well controlled, and adjustments to her medication regimen are being considered. She also has hypercholesterolemia, with a total cholesterol of 266 mg/dL, triglycerides of 343 mg/dL, and LDL of 140 mg/dL. The patient is on fenofibrate, but her LDL levels remain above the target of less than 70 mg/dL. The patient has a history of smoking, contributing to her erythrocytosis, for which she undergoes therapeutic phlebotomy. She is advised to stop smoking and is part of a lung cancer screening program. She reports chest pain and has been evaluated by cardiology, with a stress test in 2019 being negative. A coronary CTA was recommended but not completed due to elevated heart rate. The patient experiences leg pain, described as a constant ache, and tingling in her hands, suspected to be carpal tunnel syndrome. She is advised to use a wrist brace and undergo nerve conduction studies. Health Maintenance - Mammogram due - Colonoscopy up to date until July 2023 - Lung cancer screening program participation Social History - Tobacco use: Patient is a smoker and advised to quit Review of Systems - Cardiovascular: Reports chest pain, denies syncope - Musculoskeletal: Reports leg pain, denies swelling - Neurological: Reports tingling in hands, denies dizziness Physical Exam Results - Labs: Hemoglobin A1c 5.5%, creatinine 1.1 mg/dL, GFR 59 mL/min/1.73 m?, cholesterol 266 mg/dL, triglycerides 343 mg/dL, LDL 140 mg/dL, vitamin D low - Imaging: Stress test in 2020 negative Plan The patient will continue with her current antihypertensive regimen, with consideration for increasing carvedilol to better control her blood pressure and heart rate. For hypercholesterolemia, the patient is advised to continue fenofibrate and consider adding a statin to achieve LDL goals. Smoking cessation is strongly advised, and the patient is encouraged to remain in the lung cancer screening program. Therapeutic phlebotomy will continue for erythrocytosis, and the patient is advised to follow up with hematology. For chest pain, a coronary CTA is planned once heart rate is controlled, and the patient is advised to monitor symptoms closely. Leg pain will be evaluated with an ultrasound to rule out deep vein thrombosis, and carpal tunnel syndrome will be assessed with nerve conduction studies. Patient was informed and verbally consented to the use of an ambient scribe for clinic note documentation during this visit. Discussion Notes I discussed with the patient the importance of controlling her blood pressure and cholesterol levels to reduce cardiovascular risks. We reviewed the need for smoking cessation and the benefits of remaining in the lung cancer screening program. I explained the plan for a coronary CTA once her heart rate is managed and the need for further evaluation of her leg pain and carpal tunnel symptoms. Patient Instructions - Continue current blood pressure medications and discuss any changes with your doctor. - Take fenofibrate as prescribed and consider discussing a statin with your doctor. - Stop smoking and continue participating in the lung cancer screening program. - Follow up with hematology for erythrocytosis management. - Monitor chest pain and seek immediate care if symptoms worsen. - Schedule an ultrasound for leg pain evaluation and nerve conduction studies for hand tingling. Orders: Orders NE electromyogram (EMG) Today R20.0 - Anesthesia of skin NE nerve conduction velocity Today R20.0 - Anesthesia of skin US venous duplex LE LT Today M79.662 - Pain in left lower leg Lipid Panel 3 Months E78.00 - Pure hypercholesterolemia, unspecified Comprehensive Met. Panel 3 Months E78.00 - Pure hypercholesterolemia, unspecified Medications: New rosuvastatin 5 mg PO DAILY 90 tabs 1RF E78.00 - Pure hypercholesterolemia, unspecified Changed From carvedilol must administer with a meal/food 6.25 mg PO BID 90 days 180 tabs 3RF I10 - Essential (primary) hypertension To carvedilol must administer with a meal/food 12.5 mg PO BID 180 tabs 3RF 90 days I10 - Essential (primary) hypertension
--- OUTSIDE RECORDS SUMMARY | 2024-10-09 14:29 | XMS_ITS | Clinical Summary ---
Author Organization [address] Address [address] [place] [id number] Care Team Providers Care Custodial Maintenance Worker Name Role Phone Unavailable Primary Care [...] age to complete this topic Insurance BCBS ([place]) [address]
--- OUTSIDE RECORDS SUMMARY | 2024-10-09 14:29 | XMS_ITS | Encounter Summary ---
Author Organization [facility] Address [address] [place] [address] Care Team Providers Care Propeller Mechanic Name Role Phone Tariq Romero MD Primary Care Provider [phone] Encounter Details Date Type Department Care Team (Latest Contact Info) Description 05/13/2024 Lab Requisition [facility] - Main Lab [address] [facility] [place] [address] Maya Oshea MD [address] [place] [address] ATTN: HEMATOLOGY/[place] [address] Familial erythrocytosis Social History Tobacco Use Types [...] Hold for add-ons. 05/13/2024 1:02 PM EST [facility] Comment:Auto resulted. Blood Venous blood specimen / Unknown 05/13/2024 9:05 AM EST 05/13/2024 11:01 AM EST us Maya Oshea MD LAB BLOOD ORDERABLES Final Resu lt [facility] [address] [place] [address], * (ABNORMAL) CBC auto differential (05/13/2024 9:05 AM EST) Pathologist [facility] WBC 10.1 4.8 - 10.8 K/mcL LAB HEMETOLOGY METHOD 05/13/2024 12:14 PM [facility] RBC 5.80(H) 3.80 - 4.80 M/mcL LAB HEMETOLOGY METHOD 05/13/2024 12:14 PM [facility] Hemoglobin 18.2(H) 11.5 - 16.0 g/dL LAB HEMETOLOGY METHOD 05/13/2024 12:14 PM [facility] Hematocrit 55.7(H) 35.0 - 47.0 % LAB HEMETOLOGY METHOD 05/13/2024 12:14 PM [facility] MCV 96.7 79.0 - 98.0 FL LAB HEMETOLOGY METHOD 05/13/2024 12:14 PM [facility] MCH 31.6 27.0 - 32.0 pcg LAB HEMETOLOGY METHOD 05/13/2024 12:14 PM [facility] MCHC 32.7 32.0 - 37.0 g/dL LAB HEMETOLOGY METHOD 05/13/2024 12:14 PM [facility] RDW 15.5(H) 11.0 - 15.0 % LAB HEMETOLOGY METHOD 05/13/2024 12:14 PM [facility] Platelets 289 130 - 400 K/mcL LAB HEMETOLOGY METHOD 05/13/2024 12:14 PM [facility] MPV 10.9 7.0 - 11.0 FL LAB HEMETOLOGY METHOD 05/13/2024 12:14 PM [facility] NRBC 0.0 <1.0 % LAB HEMETOLOGY METHOD 05/13/2024 12:14 PM [facility] NRBC Absolute 0.00 <0.10 K/mcL LAB HEMETOLOGY METHOD 05/13/2024 12:14 PM [facility] Neutrophils Relative 60.2 % LAB HEMETOLOGY METHOD 05/13/2024 12:14 PM [facility] Lymphocytes Relative 28.4 % LAB HEMETOLOGY METHOD 05/13/2024 12:14 PM [facility] Monocytes Relative 9.0 % LAB HEMETOLOGY METHOD 05/13/2024 12:14 PM [facility] Eosinophils Relative 1.2 % LAB HEMETOLOGY METHOD 05/13/2024 12:14 PM [facility] Basophils Relative 0.6 % LAB HEMETOLOGY METHOD 05/13/2024 12:14 PM EST [facility] Immature Granulocytes Relative 0.6 % LAB HEMETOLOGY METHOD 05/13/2024 12:14 PM EST [facility] Neutrophils Absolute 6.05 1.50 - 7.00 K/[facility] LAB HEMETOLOGY METHOD 05/13/2024 12:14 PM EST [facility] Lymphocytes Absolute 2.86 1.00 - 5.00 K/[facility] HEMETOLOGY METHOD 05/13/2024 12:14 PM EST [facility] Monocytes Absolute 0.91 0.20 - 1.00 K/[facility] HEMETOLOGY METHOD 05/13/2024 12:14 PM EST [facility] Eosinophils Absolute 0.12 0.00 - 0.50 K/[facility] HEMETOLOGY METHOD 05/13/2024 12:14 PM [facility] Basophils Absolute 0.06 0.00 - 0.20 K/mcL LAB HEMETOLOGY METHOD 05/13/2024 12:14 PM EST [facility] Immature Granulocytes Absolute 0.06(H) 0.00 - 0.03 K/mcL LAB HEMETOLOGY METHOD 05/13/2024 12:14 PM EST [facility] Blood Venous blood specimen / Unknown Venipuncture / Unknown 05/13/2024 9:05 AM EST 05/13/2024 11:01 AM EST us Maya Oshea MD LAB BLOOD ORDERABLES Final Resu lt [facility]) [facility] [address] [place] [address], * JAK2 gene, V617F mutation, quantitative, molecular study (05/13/2024 9:05 AM EST) Scan Result See Scanned Result 05/18/2024 9:49 AM EST [facility] Blood Venous blood specimen / Unknown Venipuncture / Unknown 05/13/2024 9:05 AM EST 05/13/2024 11:01 AM EST Maya Oshea MD LAB MOLECULAR DIAGNOSTICS ORDER BENEDICTO Final Result Performing Organization Address City/[facility]/ZIP Co de Phone Number [facility] * Carboxyhemoglobin (05/13/2024 9:05 AM EST) Pathologist [facility] Carboxyhemoglobin 8 %TOTAL HGB 05/18/2024 7:40 PM EST [facility] Comment: Nonsmoker: <2 % of Total HgB Average Smoker: 4-5 % of Total HgB Heavy Smoker: 8-12 % of Total HgB Potentially Toxic: >15 % of Total HgB Test Performed at: [facility] [address] [place] [address] Zay Ramirez MD, PhD Blood Venous blood specimen / Unknown Venipuncture / Unknown 05/13/2024 9:05 AM EST 05/13/2024 11:01 AM EST Maya Oshea MD LAB BLOOD ORDERABLES Final Resu lt Performing Organization Address City/[facility]/ZIP Co de Phone Number [facility] [address] [place] [address] * (ABNORMAL) Comprehensive metabolic panel (05/13/2024 9:05 AM EST) Pathologist [facility] Sodium 139 133 - 145 mmol/L LAB CHEMISTRY METHOD 05/13/2024 1:39 PM EST [facility] Potassium 4.6 3.5 - 5.5 mmol/L LAB CHEMISTRY METHOD 05/13/2024 1:39 PM EST [facility] Chloride 109 96 - 110 mmol/L LAB CHEMISTRY METHOD 05/13/2024 1:39 PM EST [facility] CO2 21 21 - 32 mmol/L LAB CHEMISTRY METHOD 05/13/2024 1:39 PM EST [facility] Anion Gap 9 3 - 11 LAB CHEMISTRY METHOD 05/13/2024 1:39 PM [facility] Glucose 83 70 - 100 mg/dL LAB CHEMISTRY METHOD 05/13/2024 1:39 PM [facility] BUN 14 5 - 25 mg/dL LAB CHEMISTRY METHOD 05/13/2024 1:39 PM [facility] Creatinine 0.57 0.50 - 1.10 mg/dL LAB CHEMISTRY METHOD 05/13/2024 1:39 PM [facility] eGFR 106 >=60 mL/min/1. 73m2 LAB CHEMISTRY METHOD 05/13/2024 1:39 PM [facility] Comment:Calculation based on the Chronic Kidney Disease Epidemiology Collaboration (CKD-EPI) equation refit without adjustment for race. BUN/Creatinine Ratio 24.6 LAB CHEMISTRY METHOD 05/13/2024 1:39 PM [facility] Calcium 9.8 8.5 - 10.5 mg/dL LAB CHEMISTRY METHOD 05/13/2024 1:39 PM [facility] AST (SGOT) 79(H) 10 - 42 unit/L LAB CHEMISTRY METHOD 05/13/2024 1:39 PM [facility] ALT (SGPT) 102(H) 10 - 60 unit/L LAB CHEMISTRY METHOD 05/13/2024 1:39 PM [facility] Alkaline Phosphatase 120 42 - 121 unit/L LAB CHEMISTRY METHOD 05/13/2024 1:39 PM [facility] Total Protein 7.6 6.0 - 8.0 g/dL LAB CHEMISTRY METHOD 05/13/2024 1:39 PM [facility] Albumin 4.1 3.2 - 5.0 g/dL LAB CHEMISTRY METHOD 05/13/2024 1:39 PM [facility] Total Bilirubin 1.0 0.0 - 1.4 mg/dL LAB CHEMISTRY METHOD 05/13/2024 1:39 PM [facility] Blood Venous blood specimen / Unknown Venipuncture / Unknown 05/13/2024 9:05 AM EST 05/13/2024 11:01 AM EST Maya Oshea MD LAB BLOOD ORDERABLES Final Resu lt [facility] [address] [place] [address], documented in this encounter Visit Diagnoses Diagnosis Familial erythrocytosis Familial polycythemia documented in this encounter Care Teams Propeller Mechanic Relationship Specialty Start Date End Date Tariq Romero MD [address] [place] [address] Dr [address] [facility] [place] [address] PCP - General Internal Medicine 03/03/11 documented as of this encounter
--- OUTSIDE RECORDS SUMMARY | 2024-10-09 14:29 | XMS_ITS | Clinical Summary ---
Author Organization [facility] Address [address] [place] [address] Care Team Providers Care Sugar Grinder Name Role Phone Tariq Romero MD Primary Care Provider [phone] Allergies Active Allergy Reactions Criticality Noted Date [...] age to complete this topic Care Teams Sugar Grinder Relationship Specialty Start Date End Date Tariq Romero MD [address] [facility] [address] [facility] [place] [address] PCP - General Internal Medicine 02/24/22
== END 2024-10-09 15:23 | disposition home or self-care (01) ==
PROVIDERS: PCP Internal Medicine; Visit Provider Internal Medicine
DX: I10 Essential (primary) hypertension (principal); I70.90 Unspecified atherosclerosis; E66.9 Obesity, unspecified; Z68.31 Body mass index [BMI] 31.0-31.9, adult; E78.00 Pure hypercholesterolemia, unspecified; K76.0 Fatty (change of) liver, not elsewhere classified; N20.0 Calculus of kidney; D75.1 Secondary polycythemia; Z72.0 Tobacco use; R20.0 Anesthesia of skin; M79.662 Pain in left lower leg

== ENCOUNTER 2024-11-06 11:05 | Outpatient (REF) | payer BC, SELFPAY ==
--- OUTSIDE RECORDS SUMMARY | 2024-11-06 12:42 | XMS_ITS | Encounter Summary ---
Author Organization [facility] Address [address] [place] [address] Care Team Providers Care Shrimp Header Name Role Phone Tariq Romero MD Primary Care Provider [phone] Encounter Details Date Type Department Care Team (Latest Contact Info) Description 05/13/2024 Lab Requisition [facility] - Main Lab [address] [facility] [place] [address] Maya Oshea MD [address] [place] [address] ATTN: HEMATOLOGY/[facility] [place] [address] Familial erythrocytosis Social History Tobacco Use Types [...] Lavender tube (05/13/2024 9:05 AM EST) Pathologist [facility] Extra Tube Hold for add-ons. 05/13/2024 1:02 PM EST [facility] Comment:Auto resulted. Blood Venous blood specimen / Unknown 05/13/2024 9:05 AM EST 05/13/2024 11:01 AM EST us Maya Oshea MD LAB BLOOD ORDERABLES Final Resu lt [facility] [address] [place] [address], * (ABNORMAL) CBC auto differential (05/13/2024 9:05 AM EST) Pathologist [facility] WBC 10.1 4.8 - 10.8 K/mcL LAB HEMETOLOGY METHOD 05/13/2024 12:14 PM [facility] RBC 5.80(H) 3.80 - 4.80 M/mcL LAB HEMETOLOGY METHOD 05/13/2024 12:14 PM EST [facility] Hemoglobin 18.2(H) 11.5 - 16.0 g/dL LAB HEMETOLOGY METHOD 05/13/2024 12:14 PM [facility] Hematocrit 55.7(H) 35.0 - 47.0 % LAB HEMETOLOGY METHOD 05/13/2024 12:14 PM [facility] MCV 96.7 79.0 - 98.0 FL LAB HEMETOLOGY METHOD 05/13/2024 12:14 PM [facility] MCH 31.6 27.0 - 32.0 pcg LAB HEMETOLOGY METHOD 05/13/2024 12:14 PM [facility] MCHC 32.7 32.0 - 37.0 g/dL LAB HEMETOLOGY METHOD 05/13/2024 12:14 PM [facility] RDW 15.5(H) 11.0 - 15.0 % LAB HEMETOLOGY METHOD 05/13/2024 12:14 PM [facility] Platelets 289 130 - 400 K/mcL LAB HEMETOLOGY METHOD 05/13/2024 12:14 PM [facility] MPV 10.9 7.0 - 11.0 FL LAB HEMETOLOGY METHOD 05/13/2024 12:14 PM [facility] NRBC 0.0 <1.0 % LAB HEMETOLOGY METHOD 05/13/2024 12:14 PM [facility] NRBC Absolute 0.00 <0.10 K/mcL LAB HEMETOLOGY METHOD 05/13/2024 12:14 PM [facility] Neutrophils Relative 60.2 % LAB HEMETOLOGY METHOD 05/13/2024 12:14 PM [facility] Lymphocytes Relative 28.4 % LAB HEMETOLOGY METHOD 05/13/2024 12:14 PM [facility] Monocytes Relative 9.0 % LAB HEMETOLOGY METHOD 05/13/2024 12:14 PM [facility] Eosinophils Relative 1.2 % LAB HEMETOLOGY METHOD 05/13/2024 12:14 PM [facility] Basophils Relative 0.6 % LAB HEMETOLOGY METHOD 05/13/2024 12:14 PM EST [facility] Immature Granulocytes Relative 0.6 % LAB HEMETOLOGY METHOD 05/13/2024 12:14 PM EST [facility] Neutrophils Absolute 6.05 1.50 - 7.00 [facility] LAB HEMETOLOGY METHOD 05/13/2024 12:14 PM [facility] Lymphocytes Absolute 2.86 1.00 - 5.00 K/mcL LAB HEMETOLOGY METHOD 05/13/2024 12:14 PM EST [facility] Monocytes Absolute 0.91 0.20 - 1.00 K/[facility] LAB HEMETOLOGY METHOD 05/13/2024 12:14 PM EST [facility] Eosinophils Absolute 0.12 0.00 - 0.50 K/[facility] LAB HEMETOLOGY METHOD 05/13/2024 12:14 PM [facility] Basophils Absolute 0.06 0.00 - 0.20 K/mcL LAB HEMETOLOGY METHOD 05/13/2024 12:14 PM [facility] Immature Granulocytes Absolute 0.06(H) 0.00 - 0.03 K/mcL LAB HEMETOLOGY METHOD 05/13/2024 12:14 PM EST [facility] Blood Venous blood specimen / Unknown Venipuncture / Unknown 05/13/2024 9:05 AM EST 05/13/2024 11:01 AM EST us Maya Oshea MD LAB BLOOD ORDERABLES Final Resu lt [facility]) [facility] [address] [place] [address], * JAK2 gene, V617F mutation, quantitative, molecular study (05/13/2024 9:05 AM EST) Scan Result See Scanned Result 05/18/2024 9:49 AM EST [facility] Blood Venous blood specimen / Unknown Venipuncture / Unknown 05/13/2024 9:05 AM EST 05/13/2024 11:01 AM EST Maya Oshea MD LAB MOLECULAR DIAGNOSTICS ORDER BENEDICTO Final Result Performing Organization Address City/[facility]/ZIP Co de Phone Number [facility] * Carboxyhemoglobin (05/13/2024 9:05 AM EST) Pathologist [facility] Carboxyhemoglobin 8 %TOTAL HGB 05/18/2024 7:40 PM EST [facility] Comment: Nonsmoker: <2 % of Total HgB Average Smoker: 4-5 % of Total HgB Heavy Smoker: 8-12 % of Total HgB Potentially Toxic: >15 % of Total HgB Test Performed at: [facility] [address] [place] [address] Zay Ramirez MD, PhD Blood Venous blood specimen / Unknown Venipuncture / Unknown 05/13/2024 9:05 AM EST 05/13/2024 11:01 AM EST Maya Oshea MD LAB BLOOD ORDERABLES Final Resu lt Performing Organization Address City/[facility]/ZIP Co de Phone Number [facility] [address] [place] [address] * (ABNORMAL) Comprehensive metabolic panel (05/13/2024 9:05 AM EST) Pathologist [facility] Sodium 139 133 - 145 mmol/L LAB CHEMISTRY METHOD 05/13/2024 1:39 PM EST [facility] Potassium 4.6 3.5 - 5.5 mmol/L LAB CHEMISTRY METHOD 05/13/2024 1:39 PM [facility] Chloride 109 96 - 110 mmol/L LAB CHEMISTRY METHOD 05/13/2024 1:39 PM [facility] CO2 21 21 - 32 mmol/L LAB CHEMISTRY METHOD 05/13/2024 1:39 PM [facility] Anion Gap 9 3 - 11 LAB CHEMISTRY METHOD 05/13/2024 1:39 PM [facility] Glucose 83 70 - 100 mg/dL LAB CHEMISTRY METHOD 05/13/2024 1:39 PM [facility] BUN 14 5 - 25 mg/dL LAB CHEMISTRY METHOD 05/13/2024 1:39 PM [facility] Creatinine 0.57 0.50 - 1.10 mg/dL LAB CHEMISTRY METHOD 05/13/2024 1:39 PM [facility] eGFR 106 >=60 mL/min/1. 73m2 LAB CHEMISTRY METHOD 05/13/2024 1:39 PM [facility] Comment:Calculation based on the Chronic Kidney Disease Epidemiology Collaboration (CKD-EPI) equation refit without adjustment for race. BUN/Creatinine Ratio 24.6 LAB CHEMISTRY METHOD 05/13/2024 1:39 PM [facility] Calcium 9.8 8.5 - 10.5 mg/dL LAB CHEMISTRY METHOD 05/13/2024 1:39 PM [facility] AST (SGOT) 79(H) 10 - 42 unit/L LAB CHEMISTRY METHOD 05/13/2024 1:39 PM [facility] ALT (SGPT) 102(H) 10 - 60 unit/L LAB CHEMISTRY METHOD 05/13/2024 1:39 PM [facility] Alkaline Phosphatase 120 42 - 121 unit/L LAB CHEMISTRY METHOD 05/13/2024 1:39 PM [facility] Total Protein 7.6 6.0 - 8.0 g/dL LAB CHEMISTRY METHOD 05/13/2024 1:39 PM [facility] Albumin 4.1 3.2 - 5.0 g/dL LAB CHEMISTRY METHOD 05/13/2024 1:39 PM [facility] Total Bilirubin 1.0 0.0 - 1.4 mg/dL LAB CHEMISTRY METHOD 05/13/2024 1:39 PM [facility] Blood Venous blood specimen / Unknown Venipuncture / Unknown 05/13/2024 9:05 AM EST 05/13/2024 11:01 AM EST Maya Oshea MD LAB BLOOD ORDERABLES Final Resu lt [facility] [address] [place] [address], documented in this encounter 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
--- OUTSIDE RECORDS SUMMARY | 2024-11-06 12:42 | XMS_ITS | Clinical Summary ---
Author Organization [address] Address [address] [place] [address] Care Team Providers Care Fast Food Supervisor Name Role Phone Unavailable Primary Care Provider [...] age to complete this topic Insurance BCBS ([place]) [address]
--- OUTSIDE RECORDS SUMMARY | 2024-11-06 12:42 | XMS_ITS | Clinical Summary ---
Author Organization [facility] Address [address] [place] [address] Care Team Providers Care French Translator Name Role Phone Tariq Romero MD Primary Care Provider [phone] Allergies Active Allergy Reactions Criticality Noted Date [...] age to complete this topic Care Teams French Translator Relationship Specialty Start Date End Date Tariq Romero MD [address] [facility] [address] [facility] [place] [address] PCP - General Internal Medicine 02/24/22
== END 2024-11-06 11:06 | disposition home or self-care (01) ==
LOC: HO.BBR 11:05
PROVIDERS: PCP Internal Medicine; Visit Provider Internal Medicine Medical Oncology
DX: D75.1 Secondary polycythemia (principal)
CPT/HCPCS: 85018; 99195

== ENCOUNTER 2024-11-12 10:34 | Outpatient (AMB) | payer BC, SELFPAY ==
--- NOTE | 2024-11-12 10:40 | A.OFFVIS_ITS ---
Vital Signs 11/12/24 10:43 Height 5 ft 5 in Weight 191 lb 5.78 oz BMI 31.8 BP 136/72 Blood Pressure Location Lt brachial Position Sitting Pulse 73 Pulse Source Pulse Oximeter Intake Visit Reasons: 4 mth f/up-cta 10/08 Intake Note: 4 mth f/up External Grinder Tool Required: No Accompanied by: Self / Same As Patient Allergies hydrochlorothiazide Allergy (Unknown, Verified 10/21/24 16:02) Leg cramps lisinopril Allergy (Unknown, Verified 10/21/24 16:02) Cough sulfamethoxazole (From Bactrim) Allergy (Verified 10/21/24 16:02) Anaphylaxis trimethoprim (From Bactrim) Allergy (Verified 10/21/24 16:02) Anaphylaxis Medication List - Last Reconciled 11/12/24 by Giuliano Shelton MD albuterol sulfate 90 mcg/actuation 2 inhalations inhalation Q4-6H PRN amlodipine 10 mg PO DAILY 90 days aspirin (Adult Aspirin Regimen) 81 mg PO DAILY carvedilol 12.5 mg PO BID 90 days cholecalciferol (vitamin D3) 50 mcg PO DAILY 90 days clonazepam 0.5 mg PO TID PRN 30 days fenofibrate 160 mg PO DAILY rosuvastatin 5 mg PO DAILY HPI Comments Details: 59-year-old female here for follow-up. She was seen for chest pain previously. She was referred for stress echocardiogram. She underwent stress test on 12/18/2019 which she was able to exercise for 8 minutes achieving 10.[address] No abnormal ST-T changes were noticed on the EKG and no significant wall motion abnormalities were noticed pre and post stress. She is here for follow-up today. Blood pressure is 142/84. She has been taking amlodipine 2 times a week. She was started on Toprol by Dr. Romero but she has not started Toprol yet. She is worried that her blood pressure may drop from it. She has no chest pain or shortness of breath. She is very anxious and seems quite stressed. She is saying that she is stressed at work all the time. 11/08/22/: She returns for follow-up. She has been taking amlodipine 10 mg daily and Toprol-XL 25 mg at bedtime. She said her blood pressure readings have been high and at work specially when she is under stress blood pressure readings at are as high as 200/130. She also has been experiencing some pressure-like feeling in her chest which is again random and can happen at any time. She was experiencing it during the office visit today too. She has significant is ID and has been using clonazepam as needed. She was given sertraline but could not tolerate it. She has never tried bupropion before. March 2023: She returns for follow-up. She continues to have mildly elevated blood pressures. 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 We will send a script for her and she plans to pick it up and start taking it. She continues to get chest pains off and on. These are usually nonexertional. She also is complaining of fatigue and tiredness. She gets out of breath easily. 08/01/23: She returns for follow-up. Blood pressure is better controlled while she is taking amlodipine and carvedilol 6.25 mg twice a day. On last visit we discussed about doing stress echocardiogram. She is saying that she needs to arrange it in [facility] because the her insurance will not cover it. We will arrange a date [facility]. She continues to get some chest tightness off and on. No background history of asthma. 05/28/24: She is here for f/u. She had CP and went to [facility] and was ruled out. ECG was normal and troponins negative. She had prolonged QTc 480 msec on one ECG. It appears she had atypical chest pain. She was due to get stress testing. 11/12/2024: She is here for follow-up. On last visit we discussed about doing coronary CTA. She said she went for the appointment but her heart rate was fast and she was anxious. She was given oral beta-blockers and she was advised to get IV beta-geoff but she did not agree to any IV medications and the CT was canceled. She is saying she continues to get chest pains off and on. These are vague and random but happening regularly. [facility] Medical History Alcohol abuse, in remission High cholesterol High blood pressure Neck pain Leg pain COVID-19 virus infection Family history of cancer Surgical History History of fusion of cervical spine H/O: hysterectomy Family History Father Diabetes Prostate cancer HTN (hypertension) CVD (cardiovascular disease) Mother HTN (hypertension) Cervical cancer Lung cancer Maternal Grandmother Lung cancer Daughter In good health Daughter No problems noted. Brother In good health Son No problems noted. Maternal Grandfather Leukemia Paternal Grandfather CVD (cardiovascular disease) Paternal Aunt CVD (cardiovascular disease) Social History Housing: House Alcohol intake: former Comment: 2021 Patient Tobacco Use Status: Current everyday Tobacco user Tobacco use type: Cigarette Cigarette Packs Per Day: 0.5 Cigarettes Per Day: 10 Years Smoked: 40 +/- e-Cigarette/Vaping Use: Never Used Second Hand Smoke Exposure: Yes service: No Current occupational status: employed Cognitive needs: No Hearing needs: No Vision needs: No Review of Systems Const Denies chills, Denies fatigue, Denies fever(s), Denies frequent falls, Denies weakness, Denies weight gain and Denies weight loss ENT Denies dizziness Card Denies chest pain, Denies leg edema, Denies lightheadedness, Denies palpitations, Denies dyspnea and Denies dyspnea on exertion Resp Denies cough, Denies dyspnea and Denies dyspnea on exertion GI Denies hematochezia Musc Denies abnormal gait, Denies muscle weakness, Denies numbness, Denies radiating pain into limb and Denies tingling Neuro Denies abnormal gait, Denies dizziness, Denies frequent falls, Denies numbness, Denies tingling and Denies weakness Endo Denies fatigue and Denies palpitations Physical Exam Vital Signs: Last Vital Signs Pulse 73 11/12/24 10:43 BP 136/72 11/12/24 10:43 BMI result Body Mass Index 31.8 GENERAL APPEARANCE: in no acute distress, pleasant. NECK: no carotid bruit, no jugular venous distention. SKIN: no suspicious lesions, warm and dry. HEART: no murmurs, regular rate and rhythm. LUNGS: clear to auscultation bilaterally. ABDOMEN: soft, nontender. EXTREMITIES: no edema. PERIPHERAL PULSES: equal. NEUROLOGIC: No gross deficits, AAO X 3 Assessment & Plan Assessment & Plan (1) Chest pain: Code(s): R07.9 - Chest pain, unspecified Category: Medical Plan 59 female here for f/u. She has been experiencing chest pains off and on and plan was to do a stress test. She apparently can only get it done at [facility]. I have discussed with her to do a coronary CTA instead as it will provide more information about nonobstructive plaque too and may help risk stratify her better. She went for the coronary CTA but had tachycardia and did not agree to IV beta-blockers. I have advised her that she should get the CTA done. She is agreeable and we will arrange coronary CTA. f/u in few months. Coding Level of Care Code Est Pt Level 3 (53695) Diagnoses Chest pain R07.9
[2024-11-12 10:43] VITALS: BP 136/72; PULSE 73; BMI 31.8
--- OUTSIDE RECORDS SUMMARY | 2024-11-12 11:27 | XMS_ITS | Clinical Summary ---
Author Organization [facility] Address [address] [place] [address] Care Team Providers Care Financial Recording Clerk Name Role Phone Tariq Romero MD Primary Care Provider Allergies Active Allergy Reactions Criticality Noted Date [...] age to complete this topic Care Teams Financial Recording Clerk Relationship Specialty Start Date End Date Tariq Romero MD [address] [facility] [address] [facility] [facility] [place] [address] PCP - General Internal Medicine 02/24/22
--- OUTSIDE RECORDS SUMMARY | 2024-11-12 11:28 | XMS_ITS | Encounter Summary ---
Author Organization [employer] [place] [place] [address] Care Team Providers Care Rn Staffing Name Role Phone Tariq Romero MD Primary Care Provider [phone] Encounter Details Date Type Department Care Team (Late st Contact Info) Description 01/29/2024 Lab Requisition [facility] - Main Lab [address] [facility] [place] [place] [address] Venkatesh Padilla MD [address] [place] [address] Dysuria Social History Tobacco Use Types Packs/Day [...] reflex microscopic (01/29/2024 7:00 AM EST) Specific [place] Urine >=1.030 1.003 - 1.030 LAB URINALYSIS - AUTOMATED METHOD 01/29/2024 9:[address] [facility] pH, Urine 6.0 5.0 - 8.0 pH LAB URINALYSIS - AUTOMATED METHOD 01/29/2024 9:[address] [facility] Leukocytes, Urine Negative Negative LAB URINALYSIS - AUTOMATED METHOD 01/29/2024 9:[address] [facility] Nitrite, Urine Negative Negative LAB URINALYSIS - AUTOMATED METHOD 01/29/2024 9:[address] [facility] Protein, Urine Trace <=Trace mg/dL LAB URINALYSIS - AUTOMATED METHOD 01/29/2024 9:[address] [facility] Glucose, Urine Negative Negative mg/dL LAB URINALYSIS - AUTOMATED METHOD 01/29/2024 9:[address] [facility] Ketones, Urine Trace(A) Negative mg/dL LAB URINALYSIS - AUTOMATED METHOD 01/29/2024 9:[address] [facility] Urobilinogen , Urine 0.2 0.2 - 1.0 mg/dL LAB URINALYSIS - AUTOMATED METHOD 01/29/2024 9:[address] [facility] Bilirubin, Urine Small(A) Negative LAB URINALYSIS - AUTOMATED METHOD 01/29/2024 9:[address] [facility] Blood, Urine Trace(A) Negative LAB URINALYSIS - AUTOMATED METHOD 01/29/2024 9:[address] [facility] RBC, Urine 4.0 0 - 4 /HPF LAB URINALYSIS - AUTOMATED METHOD 01/29/2024 9:[address] [facility] WBC, Urine 2.6 0 - 4 /HPF LAB URINALYSIS - AUTOMATED METHOD 01/29/2024 9:[address] [facility] Squamous Epithelial, Urine 69(H) 0 - 60 /LPF LAB URINALYSIS - AUTOMATED METHOD 01/29/2024 9:[address] [facility] Crystals, Urine MOD CALCIUM OXALATE /LPF LAB URINALYSIS - AUTOMATED METHOD 01/29/2024 9:[address] [facility] Bacteria, Urine Negative Negative /HPF LAB URINALYSIS - AUTOMATED METHOD 01/29/2024 9:[address] [facility] Hyaline Casts, Urine 2.4 0 - 3 /LPF LAB URINALYSIS - AUTOMATED METHOD 01/29/2024 9:[address] [facility] Urine Urine specimen obtained by clean catch procedure / Unknown 01/29/2024 7:00 AM EST 01/29/2024 9:12 AM EST Venkatesh Padilla MD LAB URINE ORDERABLES Final Result Performing Organization Address City/[facility]/ZIP Co de Phone Number [facility] [address] [place] [address], [place] [phone] * Culture urine (01/29/2024 7:00 AM EST) Culture, Urine No growth 01/30/2024 9:[address] [facility] Urine Urine specimen obtained by clean catch procedure / Unknown 01/29/2024 7:00 AM EST 01/29/2024 9:12 AM EST us Venkatesh Padilla MD LAB MICROBIOLOGY - GENERAL ORDERABLES Final Result Performing Organization Address [facility]/ZIP Co de Phone Number [facility] [address] [place] [address], [place] [phone] documented in this encounter Visit Diagnoses Diagnosis Dysuria documented in this encounter Care Teams Rn Staffing Relationship Specialty Start Date End Date Tariq Romero MD [address] [place] [address] [address] [facility] [place] [address] PCP - General Internal Medicine 03/03/11 documented as of this encounter
--- OUTSIDE RECORDS SUMMARY | 2024-11-12 11:28 | XMS_ITS | Clinical Summary ---
Author Organization [address] Address [address] [place] [phone] Phone Care Team Providers Care Mds Coordinator Name Role Phone Tariq Romero MD Primary Care Provider [phone] Allergies Active Allergy Reactions Criticality Noted Date [...] Encounters Date Type Department Care Team Description 10/29/2024 1:40 PM EDT - 10/29/2024 11:59 PM EDT [facility] [address] [place] [phone] Encounter for screening mammogram for breast cancer Discharge Disposition: Home or Self Care 10/13/2024 12:52 PM EDT - 10/13/2024 11:59 PM EDT Hospital Encounter [facility] Ultrasound [address] [place] [address] Pain Discharge Disposition: Home or Self Care from [...] 72 05/22/2024 3:04 PM EST Temperature 36.9 C (98.4 F) 05/22/2024 1:22 PM EST Respiratory Rate 18 05/22/2024 3:04 PM EST [...] Years (1 of 2 - PCV) 1985 Cervical Cancer Screening: Pap Smear 09/26/1987 Zoster Vaccines (1 of 2) 2016 Colorectal Cancer Screening: Colonoscopy 02/25/2022 HIV Screening 02/25/2022 Hepatitis C Screening 02/25/2022 Social Influencers of Health Screening 02/25/2022 Lung Cancer Screening (Low Dose CT) 01/06/2023 01/06/2022 COVID-19 Vaccine ( season) 2023 12/29/2021, 04/28/2021, 05/06/2020, Additional history exists Depression Screening 03/19/2024 Influenza Vaccine (#1) 2024 , 01/04/2021, 01/30/2019, Additional history exists Breast Cancer Screening 10/29/2026 10/30/19, 09/23/2021, 07/16/2020, Additional history exists Cholesterol Screening (Lipid Panel) 07/24/2029 07/24/2024 DTaP,Tdap,and Td Vaccines (4 - Td or Tdap) 06/20/2033 06/21/2023, 04/24/2015, 04/16/2015 HIB Vaccines Aged Out No longer [...] age to complete this topic Meningococcal B Vaccine Aged Out No l onger eligible based on patient's age to complete this topic RSV Immunization Patients Under 20 months Aged Out No longer eligible based on patient's age to complete this topic Varicella Vaccines Aged Out No longer eligible based on patient's age to complete this topic Procedures Procedure Name Priority Date/Time Associated Diagnosis Comments MG MAMMO DIGITAL SCREENING W EMMANUEL BILAT Routine 10/29/2024 2:40 PM EDT Encounter for screening mammogram for breast cancer VAS US DUPLEX LOWER EXT VENOUS LEFT Routine 10/13/2024 1:14 PM EDT Pain LIPID PANEL Routine 07/24/2024 2:31 PM EDT Pure hypercholesterolemi a Avitaminosis D CT LUNG SCREENING LOW DOSE Routine 01/06/2022 6:06 PM EDT Personal history of nicotine dependence from Last 3 Months or Most Recently Relevant to Health Maintenance Results * MG Mammo Digital Screening w Emmanuel bilat (10/29/2024 2:40 PM EDT) Anatomical Region Laterality Modality Breast Bilateral Mammography 10/29/2024 3:26 PM EDT Impressions 10/29/2024 3:33 PM EDT No mammographic evidence of malignancy. No suspicious interval change. A negative mammogram in the presence of a clinically suspicious palpable abnormality does not preclude the possibility of malignancy or alter the indications for biopsy. ASSESSMENT: BI-RADS 1: NEGATIVE RECOMMENDATION(S): 1: Routine screening mammogram BILATERAL in 1 year. [facility] [address], [address] -------- FINAL REPORT -------- Dictated By: Ruiz Chacon Dictated Date: 10/29/2024 15:26 ET Assigned Physician: Ruiz Chacon Reviewed and Electronically Signed By: Ruiz Chacon Signed Date: 10/29/2024 15:33 ET Workstation ID: [id number] Transcribed By: Self Edit Transcribed Date: 10/29/2024 15:26 ET Narrative 10/29/2024 3:33 PM EDT EXAM: SCREENING MAMMOGRAPHY, BILATERAL HISTORY: SCREENING. No additional history. COMPARISON: 09/23/21, 07/16/20, 05/22/18 TECHNIQUE: Synthesized CC and MLO projections of each breast. Tomosynthesis of each breast in the CC and MLO projections. ADDITIONAL IMAGING: None Computer-aided detection was employed with the [employer] AI 3-D. TISSUE DENSITY: There are scattered areas of fibroglandular density. (BI-RADS category B) FINDINGS: RIGHT BREAST: No suspicious mass. No suspicious calcification. No distortion. No additional suspicious right breast findings LEFT BREAST: No suspicious mass. No suspicious calcification. No distortion. No additional suspicious left breast findings Procedure Note Ruiz Chacon MD - 10/29/2024 EXAM: SCREENING MAMMOGRAPHY, BILATERAL HISTORY: SCREENING. No additional history. COMPARISON: 09/23/21, 07/16/20, 05/22/18 TECHNIQUE: Synthesized CC and MLO projections of each breast.Tomosynthesis of each breast in the CC and MLO projections. ADDITIONAL IMAGING: None Computer-aided detection was employed with the [employer] AI 3-D. TISSUE DENSITY: There are scattered areas of fibroglandular density.(BI-RADS category B) FINDINGS: RIGHT BREAST: No suspicious mass. No suspicious calcification. No distortion. Noadditional suspicious right breast findings LEFT BREAST: No suspicious mass. No suspicious calcification. No distortion. Noadditional suspicious left breast findings IMPRESSION: No mammographic evidence of malignancy. No suspicious interval change. A negative mammogram in the presence of a clinically suspicious palpableabnormality does not preclude the possibility of malignancy or alter theindications for biopsy. ASSESSMENT: BI-RADS 1: NEGATIVE RECOMMENDATION(S): 1: Routine screening mammogram BILATERAL in 1 year. [facility] location[facility] [address], [address] -------- FINAL REPORT -------- Dictated By: Ruiz Chacon Dictated Date: 10/29/2024 15:26 ET Assigned Physician: Ruiz Chacon Reviewed and Electronically Signed By: Ruiz Chacon Signed Date: 10/29/2024 15:33 ET Workstation ID: [id number] Transcribed By: Self Edit Transcribed Date: 10/29/2024 15:26 ET us Self Referral Sppl IMG BI PROCEDURES Final Resul t * Vascular US duplex lower extremity venous left (10/13/2024 1:14 PM EDT) Anatomical Region Laterality Modality Vascular, Abdomen Ultrasound 10/13/2024 1:34 PM EDT Impressions 10/13/2024 1:35 PM EDT Impression: No evidence of deep vein thrombosis in the left femoral-popliteal venous segment. Telegeraldine TOSCANO ([id number]) -------- FINAL REPORT -------- Dictated By: Diana Bhat Dictated Date: 10/13/2024 13:34 ET Assigned Physician: Diana Bhat Reviewed and Electronically Signed By: Diana Bhat Signed Date: 10/13/2024 13:35 ET Workstation ID: [id number] Transcribed By: Self Edit Transcribed Date: 10/13/2024 13:34 ET Narrative 10/13/2024 1:35 PM EDT History: Left calf pain. Findings: Duplex and color Doppler imaging of the left lower extremity was performed from the inguinal ligament to the popliteal fossa. The common femoral, femoral and popliteal veins are patent and compress completely. Normal spontaneous and phasic venous flow is demonstrated with Doppler. There is normal flow augmentation with calf compression. The deep calf veins, as visualized, are compressible Procedure Note Diana Bhat MD - 10/13/2024 History: Left calf pain. Findings: Duplex and color Doppler imaging of the left lower extremity was performedfrom the inguinal ligament to the popliteal fossa. The common femoral,femoral and popliteal veins are patent and compress completely. Normalspontaneous and phasic venous flow is demonstrated with Doppler. There isnormal flow augmentation with calf compression. The deep calf veins, as visualized, are compressible IMPRESSION: Impression: No evidence of deep vein thrombosis in the leftfemoral-popliteal venous segment. Telerad [place]ERTON ([id number]) -------- FINAL REPORT -------- Dictated By: Diana Bhat Dictated Date: 10/13/2024 13:34 ET Assigned Physician: Diana Bhat Reviewed and Electronically Signed By: Diana Bhat Signed Date: 10/13/2024 13:35 ET Workstation ID: [id number] Transcribed By: Self Edit Transcribed Date: 10/13/2024 13:34 ET Tariq Romero MD CV VASCULAR PROCEDURES Final Res ult * (ABNORMAL) Lipid panel (07/24/2024 2:31 PM EDT) [facility] Cholesterol 266(H) 0 - 200 mg/dL LAB CHEMISTRY METHOD 07/24/2024 8:01 PM EDT [facility] Triglycerides 343(H) <150 mg/dL LAB CHEMISTRY METHOD 07/24/2024 8:01 PM EDT [facility] HDL 57 37 - 92 mg/dL LAB CHEMISTRY METHOD 07/24/2024 8:01 PM EDT [facility] LDL Calculated 140(H) 50 - 130 mg/dL LAB CHEMISTRY METHOD 07/24/2024 8:01 PM EDT [facility] VLDL Cholesterol Markus 68.6 mg/dL LAB CHEMISTRY METHOD 07/24/2024 8:01 PM EDT [facility] Comment:No established refer ence range. Blood Venous blood specimen / Unknown Venipuncture / Unknown 07/24/2024 2:31 PM EDT 07/24/2024 2:31 PM EDT Tariq Romero MD LAB BLOOD ORDERABLES Final Resul t [facility] [address] [place] [address], [place] [phone] * CT LUNG SCREENING LOW DOSE (01/06/2022 6:06 PM EDT) Anatomical Region Laterality Modality Computed Tomogra phy 01/06/2022 2:26 PM EDT Narrative 01/06/2022 6:06 PM EDT [facility] Diagnostic Imaging Department [address] [place] [address] Patient: DUGLAS JAIN Lacey Perez/Age/Sex: 1965 - 56 - F Unit#: [id number] Location/Status: SPDICATLS/REG CLI Mnemonic/[facility] Ordering Physician: MEGAN NOLEN MD CT Lung Screening Low Dose - 01/06/22 - 1431 History: 56 year-old 40 pack-year current smoker, asymptomatic, for lung cancer screening. Comparison: No comparison imaging at this institution. Technique: Helical volumetric imaging of the thorax was performed, using low- dose technique, without IV contrast. DLP: 101.52 mGy/cm CTDIvol: 3.22 mGy [email or web address] Iterative reconstruction technique Findings: Lungs and Airways: [...] annual screening with LDCT in 12 months. [id number] [id number] [id number] Dictating Physician: DIANA BHAT MD Electronically Signed by: DIANA BHAT MD Dic Date/Time: 01/06/22 1800 Sign date/Time: 01/06/22 180 Procedure Note Diana Bhat MD - 03/08/2022 [facility] Diagnostic Imaging Department [address] [place] [id number] Patient: DUGLAS JAIN Lacey FarmerB./Age/Sex: 1965 - 56 - F Unit#: [id number] Location/Status: SPDICATLS/REG CLI Mnemonic[facility] Ordering Physician: MEGAN NOLEN MD CT Lung Screening Low Dose - 01/06/22 - 1431 History: 56 year-old 40 pack-year current smoker, asymptomatic, for lungcancer screening. Comparison: No comparison imaging at this institution. Technique: Helical volumetric imaging of the thorax was performed, usinglow- dose technique, without IV contrast. DLP: 101.52 mGy/cm CTDIvol: 3.22 mGy [email or web address] VCT Iterative reconstruction technique Findings: Lungs and [...] Continue annual screeningwith LDCT in 12 months. [id number] [id number] G9557 G9551 Dictating Physician: DIANA BHAT MD Electronically Signed by: DIANA BHAT MD Dic Date/Time: 01/06/22 1800 Sign date/Time: 01/06/22 180 Megan Nolen MD IMG CT PROCEDURES Final Result from Last 3 Months or Most Recently Relevant to Health Maintenance Insurance [facility] Care Teams Mds Coordinator Relationship Specialty Start Date End Date Tariq Romero MD 2 [facility] [address] [facility] [place] [address] PCP - General Internal Medicine 03/03/11
--- OUTSIDE RECORDS SUMMARY | 2024-11-12 11:28 | XMS_ITS | Clinical Summary ---
Author Organization [address] Address [address] [place] [phone] Care Team Providers Care Steam Flattener Name Role Phone Unavailable Primary Care Provider [...] (1 - 1-dose 75+ series) 2041 Meningococcal B Vaccine Aged Out No l onger eligible based on patient's age to complete this topic Meningococcal Vaccine Aged Out No bertha kb eligible based on patient's age to complete this topic Insurance
--- OUTSIDE RECORDS SUMMARY | 2024-11-12 11:28 | XMS_ITS | Encounter Summary ---
Author Organization [facility] Address [address] [place] [address] Care Team Providers Care Precision Mechanical Instrument Maker Name Role Phone Tariq Romero MD Primary Care Provider [phone] Encounter Details Date Type Department Care Team (Late st Contact Info) Description 05/13/2024 Lab Requisition [facility] - Main Lab [address] [facility] [place] [address] Social History Tobacco Use Types [...] on filedocumented in this encounter Care Teams Precision Mechanical Instrument Maker Relationship Specialty Start Date End Date Tariq Romero MD [address] [place] [address] Dr [address] [facility] [place] [address] PCP - General Internal Medicine 03/03/11 documented as of this encounter
--- OUTSIDE RECORDS SUMMARY | 2024-11-12 11:28 | XMS_ITS | Encounter Summary ---
Author [place] [address] Care Team Providers Care Trial Justice Name Role Phone Tariq Romero MD Primary Care Provider [phone] Encounter Details Date Type Department Care Team (Latest Contact Info) Description 05/13/2024 Lab Requisition [facility] - Main Lab [address] [facility] [place] [address] Maya Oshea MD [address] [place] [address] ATTN: HEMATOLOGY/[facility] [place] [address] Familial erythrocytosis Social History Tobacco Use Types [...] Resu lt [facility] [address] [place] [address], * (ABNORMAL) CBC auto differential (05/13/2024 9:05 AM EST) Pathologist [facility] WBC 10.1 4.8 - 10.8 K/mcL LAB HEMETOLOGY METHOD 05/13/2024 12:14 PM [facility] RBC 5.80(H) 3.80 - 4.80 M/mcL LAB HEMETOLOGY METHOD 05/13/2024 12:14 PM EST [facility] Hemoglobin 18.2(H) 11.5 - 16.0 g/dL LAB HEMETOLOGY METHOD 05/13/2024 12:14 PM [facility] Hematocrit 55.7(H) 35.0 - 47.0 % LAB HEMETOLOGY METHOD 05/13/2024 12:14 PM [facility] MCV 96.7 79.0 - 98.0 FL LAB HEMETOLOGY METHOD 05/13/2024 12:14 PM [facility] MCH 31.6 27.0 - 32.0 pcg LAB HEMETOLOGY METHOD 05/13/2024 12:14 PM [facility] MCHC 32.7 32.0 - 37.0 g/dL LAB HEMETOLOGY METHOD 05/13/2024 12:14 PM [facility] RDW 15.5(H) 11.0 - 15.0 % LAB HEMETOLOGY METHOD 05/13/2024 12:14 PM [facility] Platelets 289 130 - 400 K/mcL LAB HEMETOLOGY METHOD 05/13/2024 12:14 PM [facility] MPV 10.9 7.0 - 11.0 FL LAB HEMETOLOGY METHOD 05/13/2024 12:14 PM [facility] NRBC 0.0 <1.0 % LAB HEMETOLOGY METHOD 05/13/2024 12:14 PM [facility] NRBC Absolute 0.00 <0.10 K/mcL LAB HEMETOLOGY METHOD 05/13/2024 12:14 PM [facility] Neutrophils Relative 60.2 % LAB HEMETOLOGY METHOD 05/13/2024 12:14 PM [facility] Lymphocytes Relative 28.4 % LAB HEMETOLOGY METHOD 05/13/2024 12:14 PM [facility] Monocytes Relative 9.0 % LAB HEMETOLOGY METHOD 05/13/2024 12:14 PM [facility] Eosinophils Relative 1.2 % LAB HEMETOLOGY METHOD 05/13/2024 12:14 PM [facility] Basophils Relative 0.6 % LAB HEMETOLOGY METHOD 05/13/2024 12:14 PM EST [facility] Immature Granulocytes Relative 0.6 % LAB HEMETOLOGY METHOD 05/13/2024 12:14 PM EST [facility] Neutrophils Absolute 6.05 1.50 - 7.00 K/[facility] LAB HEMETOLOGY METHOD 05/13/2024 12:14 PM [facility] Lymphocytes Absolute 2.86 1.00 - 5.00 K/mcL LAB HEMETOLOGY METHOD 05/13/2024 12:14 PM EST [facility] Monocytes Absolute 0.91 0.20 - 1.00 K/[facility] LAB HEMETOLOGY METHOD 05/13/2024 12:14 PM EST [facility] Eosinophils Absolute 0.12 0.00 - 0.50 K/[facility] LAB HEMETOLOGY METHOD 05/13/2024 12:14 PM [facility] Basophils Absolute 0.06 0.00 - 0.20 K/mcL LAB HEMETOLOGY METHOD 05/13/2024 12:14 PM [facility] Immature Granulocytes Absolute 0.06(H) 0.00 - 0.03 K/mcL LAB HEMETOLOGY METHOD 05/13/2024 12:14 PM EST [facility] Blood Venous blood specimen / Unknown Venipuncture / Unknown 05/13/2024 9:05 AM EST 05/13/2024 11:01 AM EST us Maya Oshea MD LAB BLOOD ORDERABLES Final Resu lt [facility]) [facility] [address] [place] [address], * JAK2 gene, V617F mutation, quantitative, molecular study (05/13/2024 9:05 AM EST) Scan Result See Scanned Result 05/18/2024 9:49 AM EST [facility] Blood Venous blood specimen / Unknown Venipuncture / Unknown 05/13/2024 9:05 AM EST 05/13/2024 11:01 AM EST Maya Oshea MD LAB MOLECULAR DIAGNOSTICS ORDER BENEDICTO Final Result Performing Organization Address City/[facility]/ZIP Co de Phone Number [facility] * Carboxyhemoglobin (05/13/2024 9:05 AM EST) Pathologist [facility] Carboxyhemoglobin 8 %TOTAL HGB 05/18/2024 7:40 PM EST [facility] Comment: Nonsmoker: <2 % of Total HgB Average Smoker: 4-5 % of Total HgB Heavy Smoker: 8-12 % of Total HgB Potentially Toxic: >15 % of Total HgB Test Performed at: [place] [place] [address] [place] [address] Zay Ramirez MD, PhD Blood Venous blood specimen / Unknown Venipuncture / Unknown 05/13/2024 9:05 AM EST 05/13/2024 11:01 AM EST Maya Oshea MD LAB BLOOD ORDERABLES Final Resu lt Performing Organization Address City/[facility]/ZIP Co de Phone Number [facility] [address] [place] [address] * (ABNORMAL) Comprehensive metabolic panel (05/13/2024 9:05 AM EST) Pathologist [facility] Sodium 139 133 - 145 mmol/L LAB CHEMISTRY METHOD 05/13/2024 1:39 PM EST [facility] Potassium 4.6 3.5 - 5.5 mmol/L LAB CHEMISTRY METHOD 05/13/2024 1:39 PM [facility] Chloride 109 96 - 110 mmol/L LAB CHEMISTRY METHOD 05/13/2024 1:39 PM [facility] CO2 21 21 - 32 mmol/L LAB CHEMISTRY METHOD 05/13/2024 1:39 PM [facility] Anion Gap 9 3 - 11 LAB CHEMISTRY METHOD 05/13/2024 1:39 PM [facility] Glucose 83 70 - 100 mg/dL LAB CHEMISTRY METHOD 05/13/2024 1:39 PM [facility] BUN 14 5 - 25 mg/dL LAB CHEMISTRY METHOD 05/13/2024 1:39 PM [facility] Creatinine 0.57 0.50 - 1.10 mg/dL LAB CHEMISTRY METHOD 05/13/2024 1:39 PM [facility] eGFR 106 >=60 mL/min/1. 73m2 LAB CHEMISTRY METHOD 05/13/2024 1:39 PM [facility] Comment:Calculation based on the Chronic Kidney Disease Epidemiology Collaboration (CKD-EPI) equation refit without adjustment for race. BUN/Creatinine Ratio 24.6 LAB CHEMISTRY METHOD 05/13/2024 1:39 PM [facility] Calcium 9.8 8.5 - 10.5 mg/dL LAB CHEMISTRY METHOD 05/13/2024 1:39 PM [facility] AST (SGOT) 79(H) 10 - 42 unit/L LAB CHEMISTRY METHOD 05/13/2024 1:39 PM [facility] ALT (SGPT) 102(H) 10 - 60 unit/L LAB CHEMISTRY METHOD 05/13/2024 1:39 PM [facility] Alkaline Phosphatase 120 42 - 121 unit/L LAB CHEMISTRY METHOD 05/13/2024 1:39 PM [facility] Total Protein 7.6 6.0 - 8.0 g/dL LAB CHEMISTRY METHOD 05/13/2024 1:39 PM [facility] Albumin 4.1 3.2 - 5.0 g/dL LAB CHEMISTRY METHOD 05/13/2024 1:39 PM [facility] Total Bilirubin 1.0 0.0 - 1.4 mg/dL LAB CHEMISTRY METHOD 05/13/2024 1:39 PM [facility] Blood Venous blood specimen / Unknown Venipuncture / Unknown 05/13/2024 9:05 AM EST 05/13/2024 11:01 AM EST Maya Oshea MD LAB BLOOD ORDERABLES Final Resu lt [facility] [address] [place] [address], documented in this encounter 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
== END 2024-11-12 11:05 | disposition home or self-care (01) ==
LOC: HO.HCS 10:35
PROVIDERS: PCP Internal Medicine; Visit Provider Internal Medicine Cardiovascular Disease
DX: R07.9 Chest pain, unspecified (principal)
CPT/HCPCS: 99213

== ENCOUNTER 2025-01-02 14:04 | Outpatient (REF) | payer BC, SELFPAY ==
--- OUTSIDE RECORDS SUMMARY | 2025-01-02 16:46 | XMS_ITS | Encounter Summary ---
Author Organization [facility] [place] [address] Care Team Providers Care Burner Machine Operator Name Role Phone Tariq Romero MD Primary Care Provider [phone] Encounter Details Date Type Department Care Team (Latest Contact Info) Description 05/13/2024 Lab Requisition [facility] - Main Lab [address] [facility] [place] [address] Maya Oshea MD [address] [place] [address] ATTN: HEMATOLOGY[facility] [place] [address] Familial erythrocytosis Social History Tobacco Use Types [...] Lavender tube (05/13/2024 9:05 AM EST) Pathologist [facility] Extra Tube Hold for add-ons. 05/13/2024 1:02 PM EST [facility] Comment:Auto resulted. Blood Venous blood specimen / Unknown 05/13/2024 9:05 AM EST 05/13/2024 11:01 AM EST us Maya Oshea MD LAB BLOOD ORDERABLES Final Resu lt [facility] [address] [place] [address], * (ABNORMAL) CBC auto differential (05/13/2024 9:05 AM EST) Pathologist [facility] WBC 10.1 4.8 - 10.8 K/mcL LAB HEMETOLOGY METHOD 05/13/2024 12:14 PM [facility] RBC 5.80(H) 3.80 - 4.80 M/mcL LAB HEMETOLOGY METHOD 05/13/2024 12:14 PM EST [facility] Hemoglobin 18.2(H) 11.5 - 16.0 g/dL LAB HEMETOLOGY METHOD 05/13/2024 12:14 PM [facility] Hematocrit 55.7(H) 35.0 - 47.0 % LAB HEMETOLOGY METHOD 05/13/2024 12:14 PM [facility] MCV 96.7 79.0 - 98.0 FL LAB HEMETOLOGY METHOD 05/13/2024 12:14 PM [facility] MCH 31.6 27.0 - 32.0 pcg LAB HEMETOLOGY METHOD 05/13/2024 12:14 PM [facility] MCHC 32.7 32.0 - 37.0 g/dL LAB HEMETOLOGY METHOD 05/13/2024 12:14 PM [facility] RDW 15.5(H) 11.0 - 15.0 % LAB HEMETOLOGY METHOD 05/13/2024 12:14 PM [facility] Platelets 289 130 - 400 K/mcL LAB HEMETOLOGY METHOD 05/13/2024 12:14 PM [facility] MPV 10.9 7.0 - 11.0 FL LAB HEMETOLOGY METHOD 05/13/2024 12:14 PM [facility] NRBC 0.0 <1.0 % LAB HEMETOLOGY METHOD 05/13/2024 12:14 PM [facility] NRBC Absolute 0.00 <0.10 K/mcL LAB HEMETOLOGY METHOD 05/13/2024 12:14 PM [facility] Neutrophils Relative 60.2 % LAB HEMETOLOGY METHOD 05/13/2024 12:14 PM [facility] Lymphocytes Relative 28.4 % LAB HEMETOLOGY METHOD 05/13/2024 12:14 PM [facility] Monocytes Relative 9.0 % LAB HEMETOLOGY METHOD 05/13/2024 12:14 PM [facility] Eosinophils Relative 1.2 % LAB HEMETOLOGY METHOD 05/13/2024 12:14 PM [facility] Basophils Relative 0.6 % LAB HEMETOLOGY METHOD 05/13/2024 12:14 PM EST [facility] Immature Granulocytes Relative 0.6 % LAB HEMETOLOGY METHOD 05/13/2024 12:14 PM EST [facility] Neutrophils Absolute 6.05 1.50 - 7.00 K/[facility] LAB HEMETOLOGY METHOD 05/13/2024 12:14 PM [facility] Lymphocytes Absolute 2.86 1.00 - 5.00 K/mcL LAB HEMETOLOGY METHOD 05/13/2024 12:14 PM EST [facility] Monocytes Absolute 0.91 0.20 - 1.00 K/[facility] LAB HEMETOLOGY METHOD 05/13/2024 12:14 PM EST [facility] Eosinophils Absolute 0.12 0.00 - 0.50 K/[facility] LAB HEMETOLOGY METHOD 05/13/2024 12:14 PM [facility] Basophils Absolute 0.06 0.00 - 0.20 K/mcL LAB HEMETOLOGY METHOD 05/13/2024 12:14 PM [facility] Immature Granulocytes Absolute 0.06(H) 0.00 - 0.03 K/mcL LAB HEMETOLOGY METHOD 05/13/2024 12:14 PM EST [facility] Blood Venous blood specimen / Unknown Venipuncture / Unknown 05/13/2024 9:05 AM EST 05/13/2024 11:01 AM EST us Maya Oshea MD LAB BLOOD ORDERABLES Final Resu lt [facility]) [facility] [address] [place] [address], * JAK2 gene, [id number] mutation, quantitative, molecular study (05/13/2024 9:05 AM EST) Scan Result See Scanned Result 05/18/2024 9:49 AM EST [facility] Blood Venous blood specimen / Unknown Venipuncture / Unknown 05/13/2024 9:05 AM EST 05/13/2024 11:01 AM EST Maya Oshea MD LAB MOLECULAR DIAGNOSTICS ORDER BENEDICTO Final Result Performing Organization Address City/[facility]/ZIP Co de Phone Number [facility] * Carboxyhemoglobin (05/13/2024 9:05 AM EST) Pathologist [facility] Carboxyhemoglobin 8 %TOTAL HGB 05/18/2024 7:40 PM EST [facility] Comment: Nonsmoker: <2 % of Total HgB Average Smoker: 4-5 % of Total HgB Heavy Smoker: 8-12 % of Total HgB Potentially Toxic: >15 % of Total HgB Test Performed at: [facility] [address] [place] [address] Zay Ramirez MD, PhD Blood Venous blood specimen / Unknown Venipuncture / Unknown 05/13/2024 9:05 AM EST 05/13/2024 11:01 AM EST Maya Oshea MD LAB BLOOD ORDERABLES Final Resu lt Performing Organization Address City/[facility]/ZIP Co de Phone Number [facility] [address] [place] [address] * (ABNORMAL) Comprehensive metabolic panel (05/13/2024 9:05 AM EST) Pathologist [facility] Sodium 139 133 - 145 mmol/L LAB CHEMISTRY METHOD 05/13/2024 1:39 PM EST [facility] Potassium 4.6 3.5 - 5.5 mmol/L LAB CHEMISTRY METHOD 05/13/2024 1:39 PM [facility] Chloride 109 96 - 110 mmol/L LAB CHEMISTRY METHOD 05/13/2024 1:39 PM [facility] CO2 21 21 - 32 mmol/L LAB CHEMISTRY METHOD 05/13/2024 1:39 PM [facility] Anion Gap 9 3 - 11 LAB CHEMISTRY METHOD 05/13/2024 1:39 PM [facility] Glucose 83 70 - 100 mg/dL LAB CHEMISTRY METHOD 05/13/2024 1:39 PM [facility] BUN 14 5 - 25 mg/dL LAB CHEMISTRY METHOD 05/13/2024 1:39 PM [facility] Creatinine 0.57 0.50 - 1.10 mg/dL LAB CHEMISTRY METHOD 05/13/2024 1:39 PM [facility] eGFR 106 >=60 mL/min/1. 73m2 LAB CHEMISTRY METHOD 05/13/2024 1:39 PM [facility] Comment:Calculation based on the Chronic Kidney Disease Epidemiology Collaboration (CKD-EPI) equation refit without adjustment for race. BUN/Creatinine Ratio 24.6 LAB CHEMISTRY METHOD 05/13/2024 1:39 PM [facility] Calcium 9.8 8.5 - 10.5 mg/dL LAB CHEMISTRY METHOD 05/13/2024 1:39 PM [facility] AST (SGOT) 79(H) 10 - 42 unit/L LAB CHEMISTRY METHOD 05/13/2024 1:39 PM [facility] ALT (SGPT) 102(H) 10 - 60 unit/L LAB CHEMISTRY METHOD 05/13/2024 1:39 PM [facility] Alkaline Phosphatase 120 42 - 121 unit/L LAB CHEMISTRY METHOD 05/13/2024 1:39 PM [facility] Total Protein 7.6 6.0 - 8.0 g/dL LAB CHEMISTRY METHOD 05/13/2024 1:39 PM [facility] Albumin 4.1 3.2 - 5.0 g/dL LAB CHEMISTRY METHOD 05/13/2024 1:39 PM [facility] Total Bilirubin 1.0 0.0 - 1.4 mg/dL LAB CHEMISTRY METHOD 05/13/2024 1:39 PM [facility] Blood Venous blood specimen / Unknown Venipuncture / Unknown 05/13/2024 9:05 AM EST 05/13/2024 11:01 AM EST Maya Oshea MD LAB BLOOD ORDERABLES Final Resu lt [facility] ([facility]) [facility] [address] [place] [address], documented in this encounter 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
--- OUTSIDE RECORDS SUMMARY | 2025-01-02 16:46 | XMS_ITS | Clinical Summary ---
Author Organization [address] Address [address] [place] [id number] Care Team Providers Care Chemical Dependency Attendant Name Role Phone No, Pcp (Do Not Change Name) Primary Care Provid er Unavailable Allergies Active Allergy Reactions Criticality Noted Date [...] of breath. 25 mL 04/11/19 25 Active carvediloL (COREG) 12.5 mg Immediate Release tablet 10/10/19 25 Active Active Problems Problem Noted Date Diagnosed Date Acute cough 04/11/2024 RSV infection 04/11/2024 Encounters Date Type Department Care Team Description 12/15/2024 2:30 PM EDT Office Visit [facility] [address] [place] [address] Joe Soni PA Sore throat (Primary Dx) from Last 3 Months Social History Tobacco Use Types Packs/Day Years Used Date Smoking Tobacco: Every Day Cigarettes Smokeless Tobacco: Never Tobacco Cessation:Ready to Q [...] Sign Reading Time Taken Comments Blood Pressure 119/82 12/15/2024 2:44 PM EDT Pulse 92 12/15/2024 2:44 PM EDT Temperature 36.3 C (97.4 F) 12/15/2024 2:44 PM EDT Respiratory Rate 16 12/15/2024 2:44 PM EDT Oxygen Saturation 96% 12/15/2024 2:44 PM EDT Inhaled Oxygen Concentration - - Weight 86.2 kg (190 lb) 12/15/2024 2:44 PM EDT Height 165.1 cm (5' 5 ) 12/15/2024 2:44 PM EDT Body Mass Index 31.62 12/15/2024 2:44 PM EDT Plan of Treatment Health Maintenance Due Date Last Done Comments HIV screening 09/26/1979 Hepatitis C screening 1984 Pneumococcal Vaccine (50+ years) (1 of 2 - PCV) 1985 Cervical cancer screening 09/26/1987 Lipid disorder screening 2006 Colon cancer screening, Colonoscopy 09/26/2011 Diabetes screening 09/26/2011 Shingles vaccine (Shingrix) (1 of 2 - Shingrix (RZV) 2 Dose Standard Series) 2016 Influenza vaccine 10/17/2024 01/30/2019 Covid-19 vaccine series ( - season) 2024 Lung Cancer Screening 02/26/2025 02/27/2024 , 02/27/2024, 02/19/2024, Additional history exists Breast cancer screening 10/29/2026 10/29/2024, 10/29 Tetanus adult (Td q 10,TDAP once) 06/20/2033 06/21/2023 RSV Immunization (1 - 1-dose 75+ series) 2041 Meningococcal B Vaccine Aged Out No l onger eligible based on patient's age to complete this topic Meningococcal Vaccine Aged Out No bertha kb eligible based on patient's age to complete this topic Procedures Procedure Name Priority Date/Time Associated Diagnosis Comments POCT STREP A ([facility]) Routine 12/15/2024 2:59 PM EDT Sore throat POCT INFLUENZA A+B/RSV ([facility]) Routine 12/15/2024 2:58 PM EDT Sore throat POCT SARS COV-2 (COVID-19) PCR ([facility]) Routine 12/15/2024 2:57 PM EDT Sore throat from Last 3 Months Results * POCT Strep A(In-Clinic) (12/15/2024 2:59 PM EDT) Pathologist [facility] POC Strep A Not Detected Not Detected POC Kit Lot Number [id number] POC Expiration Date 11/16/2025 Throat 12/15/2024 2:59 PM EDT us Joe TOSCANO POINT OF CARE ORDERS W/FUTURE F inal Result * POCT Influenza A+B/RSV (In-Clinic) (12/15/2024 2:58 PM EDT) Pathologist [facility] POC Influenza A Not Detected Not Detected POC Influenza B Not Detected Not Detected POC RSV Not Detected Not Detected POC Kit Lot Number [id number] POC Expiration Date 11/16/2025 Nasal Swab 12/15/2024 2:58 PM EDT us Joe TOSCANO POINT OF CARE ORDERS W/FUTURE F inal Result * POCT LILIANA COV-2 (COVID-19) PCR (In-Clinic) (12/15/2024 2:57 PM EDT) POC SARS-CoV-2 (COVID-19) PCR Not Detected Not Detected POC Kit Lot Number [id number] POC Expiration Date 12/16/2025 Nasal Swab 12/15/2024 2:57 PM EDT Joe TOSCANO POINT OF CARE ORDERS W/FUTURE F inal Result from Last 3 Months Insurance BS ([place]) [address] [id number] BCBS Care Teams Chemical Dependency Attendant Relationship Specialty Start Date End Date No, Pcp (Do Not Change Name) PCP - General 12/15/24
--- OUTSIDE RECORDS SUMMARY | 2025-01-02 16:46 | XMS_ITS | Encounter Summary ---
Author Organization [facility] [place] [address] Care Team Providers Care Proposal Manager Name Role Phone Tariq Romero MD Primary Care Provider [phone] Encounter Details Date Type Department Care Team (Late st Contact Info) Description 01/29/2024 Lab Requisition [facility] - Main Lab [address] [facility] [place] [address] Venkatesh Padilla MD [address] [place] [address] Dysuria Social History Tobacco Use Types Packs/Day [...] reflex microscopic (01/29/2024 7:00 AM EST) Specific [place] Urine >=1.030 1.003 - 1.030 LAB URINALYSIS - AUTOMATED METHOD 01/29/2024 9:32 AM [facility] pH, Urine 6.0 5.0 - 8.0 pH LAB URINALYSIS - AUTOMATED METHOD 01/29/2024 9:32 AM [facility] Leukocytes, Urine Negative Negative LAB URINALYSIS - AUTOMATED METHOD 01/29/2024 9:32 AM [facility] Nitrite, Urine Negative Negative LAB URINALYSIS - AUTOMATED METHOD 01/29/2024 9:32 AM [facility] Protein, Urine Trace <=Trace mg/dL LAB URINALYSIS - AUTOMATED METHOD 01/29/2024 9:32 AM [facility] Glucose, Urine Negative Negative mg/dL LAB URINALYSIS - AUTOMATED METHOD 01/29/2024 9:32 AM [facility] Ketones, Urine Trace(A) Negative mg/dL LAB URINALYSIS - AUTOMATED METHOD 01/29/2024 9:32 AM [facility] Urobilinogen , Urine 0.2 0.2 - 1.0 mg/dL LAB URINALYSIS - AUTOMATED METHOD 01/29/2024 9:32 AM [facility] Bilirubin, Urine Small(A) Negative LAB URINALYSIS - AUTOMATED METHOD 01/29/2024 9:32 AM [facility] Blood, Urine Trace(A) Negative LAB URINALYSIS - AUTOMATED METHOD 01/29/2024 9:32 AM [facility] RBC, Urine 4.0 0 - 4 /HPF LAB URINALYSIS - AUTOMATED METHOD 01/29/2024 9:32 AM [facility] WBC, Urine 2.6 0 - 4 /HPF LAB URINALYSIS - AUTOMATED METHOD 01/29/2024 9:32 AM [facility] Squamous Epithelial, Urine 69(H) 0 - 60 /LPF LAB URINALYSIS - AUTOMATED METHOD 01/29/2024 9:32 AM [facility] Crystals, Urine MOD CALCIUM OXALATE /LPF LAB URINALYSIS - AUTOMATED METHOD 01/29/2024 9:32 AM [facility] Bacteria, Urine Negative Negative /HPF LAB URINALYSIS - AUTOMATED METHOD 01/29/2024 9:32 AM [facility] Hyaline Casts, Urine 2.4 0 - 3 /LPF LAB URINALYSIS - AUTOMATED METHOD 01/29/2024 9:32 AM [facility] Urine Urine specimen obtained by clean catch procedure / Unknown 01/29/2024 7:00 AM EST 01/29/2024 9:12 AM EST Venkatesh Padilla MD LAB URINE ORDERABLES Final Result Performing Organization Address City/[facility]/ZIP Co de Phone Number [facility] [address] [place] [address], [place] [phone] * Culture urine (01/29/2024 7:00 AM EST) Culture, Urine No growth 01/30/2024 9:01 AM [facility] Urine Urine specimen obtained by clean catch procedure / Unknown 01/29/2024 7:00 AM EST 01/29/2024 9:12 AM EST us Venkatesh Padilla MD LAB MICROBIOLOGY - GENERAL ORDERABLES Final Result Performing Organization Address [facility]/ZIP Co de Phone Number [facility] [address] [place] [address], [place] [phone] documented in this encounter Visit Diagnoses Diagnosis Dysuria documented in this encounter Care Teams Proposal Manager Relationship Specialty Start Date End Date Tariq Romero MD [address] [place] [address] [address] [facility] [place] [address] PCP - General Internal Medicine 03/03/11 documented as of this encounter
--- OUTSIDE RECORDS SUMMARY | 2025-01-02 16:46 | XMS_ITS | Clinical Summary ---
Author Organization [facility] Address [address] [place] [address] Care Team Providers Care Metalizer Name Role Phone Tariq Romero MD Primary Care Provider [phone] Allergies Active Allergy Reactions Criticality Noted Date [...] of 2) 2016 COVID-19 Vaccine (2 - 2024-2 6 season) 2024 04/28/2021 Influenza Vaccine (#1) 2024 01/30/2019 DTap / Tdap / Td (2 - Td or Tdap) 06/20/2033 024 RSV Ped < 20 months Aged Out No longe r eligible based on patient's age to complete this topic Care Teams Metalizer Relationship Specialty Start Date End Date Tariq Romero MD [address] [facility] [address] [facility] [place] [address] PCP - General Internal Medicine 02/24/22
--- OUTSIDE RECORDS SUMMARY | 2025-01-02 16:46 | XMS_ITS | Encounter Summary ---
Author Organization [facility] Address [address] [place] [address] Care Team Providers Care Multi Skilled Operator Name Role Phone Tariq Romero MD Primary Care Provider Encounter Details Date Type Department Care Team (Late st Contact Info) Description 05/13/[address] [facility] - Main Lab [address] [facility] [place] [address] Social History Tobacco Use Types [...] on filedocumented in this encounter Care Teams Multi Skilled Operator Relationship Specialty Start Date End Date Tariq Romero MD [address] [place] [address] [address] [facility] [place] [address] PCP - General Internal Medicine 03/03/11 documented as of this encounter
--- OUTSIDE RECORDS SUMMARY | 2025-01-02 16:46 | XMS_ITS | Clinical Summary ---
Author Organization [address] Address [address] [place] [address] Phone Care Team Providers Care Refining Machine Operator Name Role Phone Tariq Romero MD Primary Care Provider [phone] Allergies Active Allergy Reactions Criticality Noted Date [...] EDT Hospital [facility] [address] [place] [phone] Encounter for screening mammogram for breast cancer Discharge Disposition: Home or Self Care 10/13/2024 12:52 PM EDT - 10/13/2024 11:59 PM EDT Hospital Encounter [facility] Ultrasound [address] [place] [address] Pain Discharge Disposition: Home or [...] Health Maintenance Due Date Last Done Comments Colorectal Cancer Screening: Colonoscopy 1965 Hepatitis B Vaccines (1 of 3 - 19+ 3-dose series) 1985 Pneumococcal Vaccine: 50+ Years (1 of 2 - PCV) 1985 Cervical Cancer Screening: Pap Smear 09/26/1987 RSV Immunization Adult Patients (1 - Risk 50-74 years 1-dose series) 2016 Zoster Vaccines (1 of 2) 2016 HIV Screening 02/25/2022 Hepatitis C Screening 02/25/2022 Social Influencers of Health Screening 02/25/2022 Lung Cancer Screening (Low Dose CT) 01/06/2023 01/06/2022 Depression Screening 03/19/2024 COVID-19 Vaccine ( season) 2024 12/29/2021, 04/28/2021, 05/06/2020, Additional history exists Influenza Vaccine (#1) 2024 3, 01/04/2021, 01/30/2019, Additional history exists Breast Cancer [...] year. [facility]amm[facility] [address], [address] -------- FINAL REPORT -------- Dictated By: Ruiz Chacon Dictated Date: 10/29/2024 15:26 ET Assigned Physician: Ruiz Chacon Reviewed and Electronically Signed By: Ruiz Chacon Signed Date: 10/29/2024 15:33 ET Workstation ID: [id number] Transcribed By: Self Edit Transcribed Date: 10/29/2024 15:26 ET Narrative 10/29/2024 3:33 PM EDT EXAM: SCREENING MAMMOGRAPHY, BILATERAL HISTORY: SCREENING. No additional history. COMPARISON: 09/23/21, 07/16/20, 05/22/18 TECHNIQUE: Synthesized CC and MLO projections of each breast. Tomosynthesis of each breast in the CC and MLO projections. ADDITIONAL IMAGING: None Computer-aided detection was employed with the Gliph AI 3-D. TISSUE DENSITY: There are scattered [...] year. [facility]ammography location[facility] [address], [address] -------- FINAL REPORT -------- Dictated By: Ruiz Chacon Dictated Date: 10/29/2024 15:26 ET Assigned Physician: Ruiz Chacon Reviewed and Electronically Signed By: Ruiz Chacon Signed Date: 10/29/2024 15:33 ET Workstation ID: [id number] Transcribed By: Self Edit Transcribed Date: 10/29/2024 15:26 ET us Self Referral Sppl IMG BI PROCEDURES Final Resul t * Vascular US duplex lower extremity venous left (10/13/2024 1:14 PM EDT) Anatomical Region Laterality Modality Vascular, Abdomen Ultrasound 10/13/2024 1:34 PM EDT Impressions 10/13/2024 1:35 PM EDT Impression: No evidence of deep vein thrombosis in the left femoral-popliteal venous segment. Telegeraldine TOSCANO ([id number]) -------- FINAL REPORT -------- Dictated By: Diana Bhat Dictated Date: 10/13/2024 13:34 ET Assigned Physician: Diana Bhat Reviewed and Electronically Signed By: Diana Bhat Signed Date: 10/13/2024 13:35 ET Workstation ID: [id number] Transcribed By: Self Edit Transcribed Date: 10/13/2024 [...] thrombosis in the leftfemoral-popliteal venous segment. Telerad PA ([id number]) -------- FINAL REPORT -------- Dictated By: Diana Bhat Dictated Date: 10/13/2024 13:34 ET Assigned Physician: Diana Bhat Reviewed and Electronically Signed By: Diana Bhat Signed Date: 10/13/2024 13:35 ET Workstation ID: [id number] Transcribed By: Self Edit Transcribed Date: 10/13/2024 13:34 ET Tariq Romero MD CV VASCULAR PROCEDURES Final Res ult * (ABNORMAL) Lipid panel (07/24/2024 2:31 PM EDT) Cholesterol 266(H) 0 - 200 mg/dL LAB CHEMISTRY METHOD 07/24/2024 8:01 PM EDT [facility] Triglycerides 343(H) <150 mg/dL LAB CHEMISTRY METHOD 07/24/2024 8:01 PM EDT [facility] HDL 57 37 - 92 mg/dL LAB CHEMISTRY METHOD 07/24/2024 8:01 PM EDT [facility] LDL Calculated 140(H) 50 - 130 mg/dL LAB CHEMISTRY METHOD 07/24/2024 8:01 PM EDT [facility] VLDL Cholesterol Markus 68.6 mg/dL LAB CHEMISTRY METHOD 07/24/2024 8:01 PM EDT [facility] Comment:No established refer ence range. Blood Venous blood specimen / Unknown Venipuncture / Unknown 07/24/2024 2:31 PM EDT 07/24/2024 2:31 PM EDT us Tariq Romero MD LAB BLOOD ORDERABLES Final Resul t [facility] [address] [place] [address], [place] [phone] * CT LUNG SCREENING LOW DOSE (01/06/2022 6:06 PM EDT) Anatomical Region Laterality Modality Computed Tomogra phy 01/06/2022 2:26 PM EDT Narrative 01/06/2022 6:06 PM EDT [facility] Diagnostic Imaging Department [address] [place] [address] Patient: ROSALIA JAIN./Age/Sex: 1965 - 56 - F Unit#: [id number] Location/Status: SPDICATLS/REG CLI Mnemonic/Ordering Site: [facility] Ordering Physician: ABEL ROSAS MD CT Lung Screening Low Dose - 01/06/22 - 1431 History: 56 year-old 40 pack-year current smoker, asymptomatic, for lung cancer screening. Comparison: No comparison imaging at this institution. Technique: Helical volumetric imaging of the thorax was performed, using low- dose technique, without IV contrast. DLP: 101.52 mGy/cm CTDIvol: 3.22 mGy Zentric VCT Iterative reconstruction technique Findings: Lungs and [...] annual screening with LDCT in 12 months. [id number] [id number] [id number] Dictating Physician: DIANA BHAT MD Electronically Signed by: DIANA BHAT MD Dic Date/Time: 01/06/22 1800 Sign date/Time: 01/06/22 180 Procedure Note Diana Bhat MD - 03/08/2022 [facility] Diagnostic Imaging Department [address] [place] [address] Patient: JASMIN JAINEmla Jiménez./Age/Sex: 1965 - 56 - F Unit#: [id number] Location/Status: SPDICATLS/REG CLI Mnemonic/Ordering Site: [facility] Ordering Physician: ABEL ROSAS MD CT Lung Screening Low Dose - 01/06/22 - 1431 History: 56 year-old 40 pack-year current smoker, asymptomatic, for lungcancer screening. Comparison: No comparison imaging at this institution. Technique: Helical volumetric imaging of the thorax was performed, usinglow- dose technique, without IV contrast. DLP: 101.52 mGy/cm CTDIvol: 3.22 mGy Gu[employer] Solutionspeed VCT Iterative reconstruction technique Findings: Lungs and [...] Continue annual screeningwith LDCT in 12 months. [id number] G9637 G9557 G9551 Dictating Physician: DIANA BHAT MD Electronically Signed by: DIANA BHAT MD Dic Date/Time: 01/06/22 1800 Sign date/Time: 01/06/22 180 Abel Rosas MD IM CT PROCEDURES Final Result from Last 3 Months or Most Recently Relevant to Health Maintenance Insurance [facility] [employer] Care Teams Refining Machine Operator Relationship Specialty Start Date End Date Tariq Romero MD [address] [place] [address] [address] [facility] [place] [address] PCP - General Internal Medicine 03/03/11
== END 2025-01-02 14:05 | disposition home or self-care (01) ==
LOC: HO.BBR 14:04
PROVIDERS: PCP Internal Medicine; Visit Provider Internal Medicine Medical Oncology
DX: D75.1 Secondary polycythemia (principal)
CPT/HCPCS: 85018; 99195

== ENCOUNTER 2025-02-03 14:05 | Outpatient (REF) | payer BC, SELFPAY ==
--- OUTSIDE RECORDS SUMMARY | 2025-02-04 08:56 | XMS_ITS | Clinical Summary ---
Author Organization [facility] Address [address] [place] [address] Care Team Providers Care Restorer Paper And Prints Name Role Phone Tariq Romero MD Primary Care Provider [phone] Allergies Active Allergy Reactions Criticality Noted Date [...] age to complete this topic Care Teams Restorer Paper And Prints Relationship Specialty Start Date End Date Tariq Romero MD [address] [facility] [address] [facility] [place] [address] PCP - General Internal Medicine 02/24/22
--- OUTSIDE RECORDS SUMMARY | 2025-02-04 08:57 | XMS_ITS | Encounter Summary ---
Author Organization [employer] [place] [address] Care Team Providers Care Environmental Resource Specialist Name Role Phone Tariq Romero MD Primary Care Provider [phone] Encounter Details Date Type Department Care Team (Late st Contact Info) Description 01/29/2024 Lab Requisition [facility] - Main Lab [address] [facility] [place] [address] Venkatesh Padilla MD [address] [place] [address] Dysuria Social History Tobacco Use Types Packs/Day [...] reflex microscopic (01/29/2024 7:00 AM EST) Specific [place] Urine >=1.030 1.003 - 1.030 LAB URINALYSIS - AUTOMATED METHOD 01/29/2024 9:32 AM [facility] pH, Urine 6.0 5.0 - 8.0 pH LAB URINALYSIS - AUTOMATED METHOD 01/29/2024 9:32 AM [facility] Leukocytes, Urine Negative Negative LAB URINALYSIS - AUTOMATED METHOD 01/29/2024 9:32 AM [facility] Nitrite, Urine Negative Negative LAB URINALYSIS - AUTOMATED METHOD 01/29/2024 9:32 AM [facility] Protein, Urine Trace <=Trace mg/dL LAB URINALYSIS - AUTOMATED METHOD 01/29/2024 9:32 AM [facility] Glucose, Urine Negative Negative mg/dL LAB URINALYSIS - AUTOMATED METHOD 01/29/2024 9:32 AM [facility] Ketones, Urine Trace(A) Negative mg/dL LAB URINALYSIS - AUTOMATED METHOD 01/29/2024 9:32 AM [facility] Urobilinogen , Urine 0.2 0.2 - 1.0 mg/dL LAB URINALYSIS - AUTOMATED METHOD 01/29/2024 9:32 AM [facility] Bilirubin, Urine Small(A) Negative LAB URINALYSIS - AUTOMATED METHOD 01/29/2024 9:32 AM [facility] Blood, Urine Trace(A) Negative LAB URINALYSIS - AUTOMATED METHOD 01/29/2024 9:32 AM [facility] RBC, Urine 4.0 0 - 4 /HPF LAB URINALYSIS - AUTOMATED METHOD 01/29/2024 9:32 AM [facility] WBC, Urine 2.6 0 - 4 /HPF LAB URINALYSIS - AUTOMATED METHOD 01/29/2024 9:32 AM [facility] Squamous Epithelial, Urine 69(H) 0 - 60 /LPF LAB URINALYSIS - AUTOMATED METHOD 01/29/2024 9:32 AM [facility] Crystals, Urine MOD CALCIUM OXALATE /LPF LAB URINALYSIS - AUTOMATED METHOD 01/29/2024 9:32 AM [facility] Bacteria, Urine Negative Negative /HPF LAB URINALYSIS - AUTOMATED METHOD 01/29/2024 9:32 AM [facility] Hyaline Casts, Urine 2.4 0 - 3 /LPF LAB URINALYSIS - AUTOMATED METHOD 01/29/2024 9:32 AM [facility] Urine Urine specimen obtained by clean catch procedure / Unknown 01/29/2024 7:00 AM EST 01/29/2024 9:12 AM EST Venkatesh Padilla MD LAB URINE ORDERABLES Final Result Performing Organization Address City/[facility]/ZIP Co de Phone Number [facility] [address] [place] [address], [place] [phone] * Culture urine (01/29/2024 7:00 AM EST) Culture, Urine No growth 01/30/2024 9:01 AM [facility] Urine Urine specimen obtained by clean catch procedure / Unknown 01/29/2024 7:00 AM EST 01/29/2024 9:12 AM EST us Venkatesh Padilla MD LAB MICROBIOLOGY - GENERAL ORDERABLES Final Result Performing Organization Address [facility]/ZIP Co de Phone Number [facility] [address] [place] [address], [place] [phone] documented in this encounter Visit Diagnoses Diagnosis Dysuria documented in this encounter Care Teams Environmental Resource Specialist Relationship Specialty Start Date End Date Tariq Romero MD [address] [place] [address] Dr [address] [facility] [place] [address] PCP - General Internal Medicine 03/03/11 documented as of this encounter
--- OUTSIDE RECORDS SUMMARY | 2025-02-04 08:57 | XMS_ITS | Clinical Summary ---
Author Organization [address] Address [address] [place] [address] Care Team Providers Care Cuprous Chloride Helper Name Role Phone No, Pcp (Do Not [...] Description 12/15/2024 2:30 PM EDT Office Visit [facility] [address] [place] [address] Joe Soni PA Sore throat (Primary Dx) [...] Date/Time Associated Diagnosis Comments POCT STREP A ([facility]) Routine 12/15/2024 2:59 PM EDT Sore throat POCT INFLUENZA A+B/RSV ([facility]) Routine 12/15/2024 2:58 PM EDT Sore throat POCT SARS COV-2 (COVID-19) PCR ([facility]) Routine 12/15/2024 2:57 PM EDT Sore throat from Last 3 Months Results * POCT Strep A(In-Clinic) (12/15/2024 2:59 PM EDT) Pathologist [facility] POC Strep A Not Detected Not Detected POC Kit Lot Number [id number] POC Expiration Date 11/16/2025 Throat 12/15/2024 2:59 PM EDT us Joe TOSCANO POINT OF CARE ORDERS W/FUTURE F inal Result * POCT Influenza A+B/RSV (In-Clinic) (12/15/2024 2:58 PM EDT) Pathologist [facility] POC Influenza A Not Detected Not Detected POC Influenza B Not Detected Not Detected POC RSV Not Detected Not Detected POC Kit Lot Number [id number] POC Expiration Date 11/16/2025 Nasal Swab 12/15/2024 2:58 PM EDT us Joe TOSCANO POINT OF CARE ORDERS W/FUTURE F inal Result * POCT LILIANA COV-2 (COVID-19) PCR (In-Clinic) (12/15/2024 2:57 PM EDT) POC SARS-CoV-2 (COVID-19) PCR Not Detected Not Detected POC Kit Lot Number [id number] POC Expiration Date 12/16/2025 Nasal Swab 12/15/2024 2:57 PM EDT Joe TOSCANO POINT OF CARE ORDERS W/FUTURE F inal Result from Last 3 Months Insurance BS ([place]) [address] [id number] BCBS Care Teams Cuprous Chloride Helper Relationship Specialty Start Date End Date No, Pcp (Do Not Change Name) PCP - General 12/15/24
--- OUTSIDE RECORDS SUMMARY | 2025-02-04 08:57 | XMS_ITS | Encounter Summary ---
Author Organization [facility] Address [address] [place] [address] Care Team Providers Care Export Traffic Department Manager Name Role Phone Tariq Romero MD Primary Care Provider [phone] Encounter Details Date Type Department Care Team (Late st Contact Info) Description 05/13/2024 Lab Requisition [facility] - Main Lab [address] [facility] [place] [address] Social History Tobacco Use Types [...] on filedocumented in this encounter Care Teams Export Traffic Department Manager Relationship Specialty Start Date End Date Tariq Romero MD [address] [place] [address] [address] [facility] [place] [address] PCP - General Internal Medicine 03/03/11 documented as of this encounter
--- OUTSIDE RECORDS SUMMARY | 2025-02-04 08:57 | XMS_ITS | Encounter Summary ---
Author Organization [facility] Address [address] [place] [address] Care Team Providers Care Vice President Commercial Bank Name Role Phone Tariq Romero MD Primary Care Provider Encounter Details Date Type Department Care Team (Latest Contact Info) Description 05/13/2024 Lab Requisition [facility] - Main Lab [address] [facility] [place] [address] Maya Oshea MD [address] [place] [address] ATTN: HEMATOLOGY/[facility] [place] [address] Familial erythrocytosis Social History Tobacco Use Types [...] Lavender tube (05/13/2024 9:05 AM EST) Pathologist [facility] Extra Tube Hold for add-ons. 05/13/2024 1:02 PM EST [facility] Comment:Auto resulted. Blood Venous blood specimen / Unknown 05/13/2024 9:05 AM EST 05/13/2024 11:01 AM EST us Maya Oshea MD LAB BLOOD ORDERABLES Final Resu lt [facility] [address] [place] [address], * (ABNORMAL) CBC auto differential (05/13/2024 9:05 AM EST) Pathologist [facility] WBC 10.1 4.8 - 10.8 K/mcL LAB HEMETOLOGY METHOD 05/13/2024 12:[address] [facility] RBC 5.80(H) 3.80 - 4.80 M/mcL LAB HEMETOLOGY METHOD 05/13/2024 12:14 PM EST [facility] Hemoglobin 18.2(H) 11.5 - 16.0 g/dL LAB HEMETOLOGY METHOD 05/13/2024 12:[address] [facility] Hematocrit 55.7(H) 35.0 - 47.0 % LAB HEMETOLOGY METHOD 05/13/2024 12:[address] [facility] MCV 96.7 79.0 - 98.0 FL LAB HEMETOLOGY METHOD 05/13/2024 12:[address] [facility] MCH 31.6 27.0 - 32.0 pcg LAB HEMETOLOGY METHOD 05/13/2024 12:[address] [facility] MCHC 32.7 32.0 - 37.0 g/dL LAB HEMETOLOGY METHOD 05/13/2024 12:[address] [facility] RDW 15.5(H) 11.0 - 15.0 % LAB HEMETOLOGY METHOD 05/13/2024 12:[address] [facility] Platelets 289 130 - 400 K/mcL LAB HEMETOLOGY METHOD 05/13/2024 12:[address] [facility] MPV 10.9 7.0 - 11.0 FL LAB HEMETOLOGY METHOD 05/13/2024 12:[address] [facility] NRBC 0.0 <1.0 % LAB HEMETOLOGY METHOD 05/13/2024 12:[address] [facility] NRBC Absolute 0.00 <0.10 K/mcL LAB HEMETOLOGY METHOD 05/13/2024 12:[address] [facility] Neutrophils Relative 60.2 % LAB HEMETOLOGY METHOD 05/13/2024 12:[address] [facility] Lymphocytes Relative 28.4 % LAB HEMETOLOGY METHOD 05/13/2024 12:[address] [facility] Monocytes Relative 9.0 % LAB HEMETOLOGY METHOD 05/13/2024 12:[address] [facility] Eosinophils Relative 1.2 % LAB HEMETOLOGY METHOD 05/13/2024 12:[address] [facility] Basophils Relative 0.6 % LAB HEMETOLOGY METHOD 05/13/2024 12:14 PM EST [facility] Immature Granulocytes Relative 0.6 % LAB HEMETOLOGY METHOD 05/13/2024 12:14 PM EST [facility] Neutrophils Absolute 6.05 1.50 - 7.00 K/[facility] LAB HEMETOLOGY METHOD 05/13/2024 12:[address] [facility] Lymphocytes Absolute 2.86 1.00 - 5.00 K/mcL LAB HEMETOLOGY METHOD 05/13/2024 12:14 PM EST [facility] Monocytes Absolute 0.91 0.20 - 1.00 K/[facility] LAB HEMETOLOGY METHOD 05/13/2024 12:14 PM EST [facility] Eosinophils Absolute 0.12 0.00 - 0.50 K/[facility] LAB HEMETOLOGY METHOD 05/13/2024 12:[address] [facility] Basophils Absolute 0.06 0.00 - 0.20 K/mcL LAB HEMETOLOGY METHOD 05/13/2024 12:[address] [facility] Immature Granulocytes Absolute 0.06(H) 0.00 - 0.03 K/mcL LAB HEMETOLOGY METHOD 05/13/2024 12:14 PM EST [facility] Blood Venous blood specimen / Unknown Venipuncture / Unknown 05/13/2024 9:05 AM EST 05/13/2024 11:01 AM EST us Maya Oshea MD LAB BLOOD ORDERABLES Final Resu lt [facility]) [facility] [address] [place] [address], * JAK2 gene, V617F mutation, quantitative, molecular study (05/13/2024 9:05 AM EST) Scan Result See Scanned Result 05/18/2024 9:49 AM EST [facility] Blood Venous blood specimen / Unknown Venipuncture / Unknown 05/13/2024 9:05 AM EST 05/13/2024 11:01 AM EST Maya Oshea MD LAB MOLECULAR DIAGNOSTICS ORDER BENEDICTO Final Result Performing Organization Address City/[facility]/ZIP Co de Phone Number [facility] * Carboxyhemoglobin (05/13/2024 9:05 AM EST) Pathologist [facility] Carboxyhemoglobin 8 %TOTAL HGB 05/18/2024 7:40 PM EST [facility] Comment: Nonsmoker: <2 % of Total HgB Average Smoker: 4-5 % of Total HgB Heavy Smoker: 8-12 % of Total HgB Potentially Toxic: >15 % of Total HgB Test Performed at: [place] [address] [facility] [place] [address] Zay Ramirez MD, PhD Blood Venous blood specimen / Unknown Venipuncture / Unknown 05/13/2024 9:05 AM EST 05/13/2024 11:01 AM EST Maya Oshea MD LAB BLOOD ORDERABLES Final Resu lt Performing Organization Address City/[facility]/ZIP Co de Phone Number [facility] [address] [place] [address] * (ABNORMAL) Comprehensive metabolic panel (05/13/2024 9:05 AM EST) Pathologist [facility] Sodium 139 133 - 145 mmol/L LAB CHEMISTRY METHOD 05/13/2024 1:39 PM EST [facility] Potassium 4.6 3.5 - 5.5 mmol/L LAB CHEMISTRY METHOD 05/13/2024 1:[address] [facility] Chloride 109 96 - 110 mmol/L LAB CHEMISTRY METHOD 05/13/2024 1:[address] [facility] CO2 21 21 - 32 mmol/L LAB CHEMISTRY METHOD 05/13/2024 1:[address] [facility] Anion Gap 9 3 - 11 LAB CHEMISTRY METHOD 05/13/2024 1:[address] [facility] Glucose 83 70 - 100 mg/dL LAB CHEMISTRY METHOD 05/13/2024 1:[address] [facility] BUN 14 5 - 25 mg/dL LAB CHEMISTRY METHOD 05/13/2024 1:[address] [facility] Creatinine 0.57 0.50 - 1.10 mg/dL LAB CHEMISTRY METHOD 05/13/2024 1:[address] [facility] eGFR 106 >=60 mL/min/1. 73m2 LAB CHEMISTRY METHOD 05/13/2024 1:[address] [facility] Comment:Calculation based on the Chronic Kidney Disease Epidemiology Collaboration (CKD-EPI) equation refit without adjustment for race. BUN/Creatinine Ratio 24.6 LAB CHEMISTRY METHOD 05/13/2024 1:[address] [facility] Calcium 9.8 8.5 - 10.5 mg/dL LAB CHEMISTRY METHOD 05/13/2024 1:[address] [facility] AST (SGOT) 79(H) 10 - 42 unit/L LAB CHEMISTRY METHOD 05/13/2024 1:[address] [facility] ALT (SGPT) 102(H) 10 - 60 unit/L LAB CHEMISTRY METHOD 05/13/2024 1:[address] [facility] Alkaline Phosphatase 120 42 - 121 unit/L LAB CHEMISTRY METHOD 05/13/2024 1:[address] [facility] Total Protein 7.6 6.0 - 8.0 g/dL LAB CHEMISTRY METHOD 05/13/2024 1:[address] [facility] Albumin 4.1 3.2 - 5.0 g/dL LAB CHEMISTRY METHOD 05/13/2024 1:[address] [facility] Total Bilirubin 1.0 0.0 - 1.4 mg/dL LAB CHEMISTRY METHOD 05/13/2024 1:[address] 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
--- OUTSIDE RECORDS SUMMARY | 2025-02-04 08:58 | XMS_ITS | Clinical Summary ---
Author Organization [address] Address [address] [place] [phone] Phone Care Team Providers Care Pizza Delivery Name Role Phone Tariq Romero MD Primary Care Provider [phone] Allergies Active Allergy Reactions Criticality Noted Date [...] Active Active Problems No known active problems Medical History Medical History Date Comments Bronchitis [...] Additional history exists Influenza Vaccine (#1) 2024 , 01/04/2021, 01/30/2019, Additional history exists Breast Cancer Screening 10/29/2026 10/30/19 25, 09/23/2021, 07/16/2020, Additional history exists Cholesterol Screening [...] Encounter for screening mammogram for breast cancer LIPID PANEL Routine 07/24/2024 2:31 PM EDT [...] year. [facility]amm[facility] [address], [address] -------- FINAL REPORT -------- Dictated By: Ruiz Chacon Dictated Date: 10/29/2024 15:26 ET Assigned Physician: Ruiz Chacon Reviewed and Electronically Signed By: Ruiz Chacon Signed Date: 10/29/2024 15:33 ET Workstation ID: [id number] Transcribed By: Self Edit Transcribed Date: 10/29/2024 15:26 ET Narrative 10/29/2024 3:33 PM EDT EXAM: SCREENING MAMMOGRAPHY, BILATERAL HISTORY: SCREENING. No additional history. COMPARISON: 09/23/21, 07/16/20, 05/22/18 TECHNIQUE: Synthesized CC and MLO projections of each breast. Tomosynthesis of each breast in the CC and MLO projections. ADDITIONAL IMAGING: None Computer-aided detection was employed with the [employer] AI 3-D. TISSUE DENSITY: There are [...] None Computer-aided detection was employed with the [employer] AI 3-D. TISSUE DENSITY: There are [...] year. Mamm[facility] location[facility] at [address], [address] -------- FINAL REPORT -------- Dictated By: Ruiz Chacon Dictated Date: 10/29/2024 15:26 ET Assigned Physician: Ruiz Chacon Reviewed and Electronically Signed By: Ruiz Chacon Signed Date: 10/29/2024 15:33 ET Workstation ID: [id number] Transcribed By: Self Edit Transcribed Date: 10/29/2024 15:26 ET us Self Referral Sppl IMG BI PROCEDURES Final Resul t * (ABNORMAL) Lipid panel (07/24/2024 2:31 PM EDT) Cholesterol 266(H) 0 - 200 mg/dL LAB CHEMISTRY METHOD 07/24/2024 8:[address] [facility] Triglycerides 343(H) <150 mg/dL LAB CHEMISTRY METHOD 07/24/2024 8:[address] [facility] HDL 57 37 - 92 mg/dL LAB CHEMISTRY METHOD 07/24/2024 8:[address] [facility] LDL Calculated 140(H) 50 - 130 mg/dL LAB CHEMISTRY METHOD 07/24/2024 8:[address] [facility] VLDL Cholesterol Markus 68.6 mg/dL LAB CHEMISTRY METHOD 07/24/2024 8:[address] [facility] Comment:No established refer ence range. Blood Venous blood specimen / Unknown Venipuncture / Unknown 07/24/2024 2:31 PM EDT 07/24/2024 2:31 PM EDT us Tariq Romero MD LAB BLOOD ORDERABLES Final Resul t [facility] [address] [place] [address], [place] [phone] * CT LUNG SCREENING LOW DOSE (01/06/2022 6:06 PM EDT) Anatomical Region Laterality Modality Computed Tomogra phy 01/06/2022 2:26 PM EDT Narrative 01/06/2022 6:06 PM EDT [facility] Diagnostic Imaging Department [address] [place] [address] Patient: ROSALIA JAIN./Age/Sex: 1965 - 56 - F Unit#: [id number] Location/Status: SPDICATLS/REG CLI Mnemonic/Ordering Site: [facility] Ordering Physician: ABEL ROSAS MD CT Lung Screening Low Dose - 01/06/22 - 5071 History: 56 year-old 40 pack-year current smoker, asymptomatic, for lung cancer screening. Comparison: No comparison imaging at this institution. Technique: Helical volumetric imaging of the thorax was performed, using low- dose technique, without IV contrast. DLP: 101.52 mGy/cm CTDIvol: 3.22 mGy [employer] VCT Iterative reconstruction technique Findings: Lungs and [...] annual screening with LDCT in 12 months. [id number] G9637 G9557 G9551 Dictating Physician: DIANA BHAT MD Electronically Signed by: DIANA BHAT MD Dic Date/Time: 01/06/22 1800 Sign date/Time: 01/06/22 1806 Procedure Note Diana Bhat MD - 03/08/2022 [facility] Diagnostic Imaging Department [address] [place] [address] Patient: ROSALIA JAIN Lacey /Age/Sex: 1965 - 56 - F Unit#: [id number] Location/Status: SPDICATLS/REG CLI Mnemonic/Ordering Site: [facility] Ordering Physician: ABEL ROSAS MD CT Lung Screening Low Dose - 01/06/22 - 1431 History: 56 year-old 40 pack-year current smoker, asymptomatic, for lungcancer screening. Comparison: No comparison imaging at this institution. Technique: Helical volumetric imaging of the thorax was performed, usinglow- dose technique, without IV contrast. DLP: 101.52 mGy/cm CTDIvol: 3.22 mGy [employer] VCT Iterative reconstruction technique Findings: Lungs and [...] Continue annual screeningwith LDCT in 12 months. 93583 G9637 G9557 G9551 Dictating Physician: DIANA BHAT MD Electronically Signed by: DIANA BHAT MD Dic Date/Time: 01/06/22 1800 Sign date/Time: 01/06/22 180 Abel Rosas MD IMG CT PROCEDURES Final Result from Last 3 Months or Most Recently Relevant to Health Maintenance Insurance Care Teams Pizza Delivery Relationship Specialty Start Date End Date Tariq Romero MD [address] [place] [address] [place] [address] In Internal Medicine [place], [place] [id number] PCP - General Internal Medicine 03/03/11
== END 2025-02-03 14:06 | disposition home or self-care (01) ==
LOC: HO.BBR 14:05
PROVIDERS: PCP Internal Medicine; Visit Provider Internal Medicine Medical Oncology
DX: D75.1 Secondary polycythemia (principal)
CPT/HCPCS: 85018; 99195

== ENCOUNTER 2025-02-18 12:47 | Outpatient (AMB) | payer BC, SELFPAY ==
[2025-02-18 12:49] VITALS: BP 130/72; PULSE 80; O2SAT 98; BMI 31.6
--- NOTE | 2025-02-18 12:49 | MHC.PC.OV ---
Vital Signs 02/18/25 12:49 Height 5 ft 5 in Weight 190 lb BMI 31.6 BP 130/72 Blood Pressure Location Lt brachial Position Sitting Pulse 80 Pulse Source Pulse Oximeter Pulse Oximetry (%) 98 Oxygen Delivery Method Room Air Intake Visit Reasons: Med follow Up Allergies hydrochlorothiazide Allergy (Unknown, Verified 02/18/25 12:50) Leg cramps lisinopril Allergy (Unknown, Verified 02/18/25 12:50) Cough sulfamethoxazole (From Bactrim) Allergy (Verified 02/18/25 12:50) Anaphylaxis trimethoprim (From Bactrim) Allergy (Verified 02/18/25 12:50) Anaphylaxis Tobacco use date assessed: 10/09/24 Dental Screening Dental Screen Date: 10/09/24 HPI HPI Comments History of Present Illness Details History of Present Illness The patient is a 59 year old individual with a history of obesity, hypertension, hypercholesterolemia, generalized anxiety disorder, hepatic steatosis, and atherosclerosis, presenting for a follow-up visit. The last office visit was in September 2024. The patient has a diagnosis of secondary polycythemia, believed to be from smoking, and follows up with hematology/oncology. The patient is undergoing therapeutic phlebotomy, and the most recent fingerstick blood count was 16.1, which is noted to be coming down. For a history of chest pains, the patient was seen by cardiology in October. A coronary CTA was planned but not completed due to anxiety and tachycardia. The patient reports persistent daily chest tightness and discomfort. Regarding health maintenance, the patient is enrolled in a lung cancer screening program as a smoker and has a low-dose CT scheduled for March 25. The patient's last mammogram was in October 2024, and the last colonoscopy was in July 2023, which revealed 8 polyps, leading to a recommendation for a repeat procedure in 3 years. A bone density scan is also due. The patient reported a fall on an icy driveway the previous night, landing on the back. The patient did not hit the head during the fall. Health Maintenance The patient was advised to get follow-up blood work and a requisition was provided. The patient will proceed with the scheduled low-dose CT scan for lung cancer screening on March 25. The patient should follow up for a bone density scan. The patient was advised to continue a low-fat diet and exercise. Social History - Tobacco Use: The patient is a current smoker and reports no change in smoking habits. - Diet: The patient was advised to follow a low-fat diet. - Exercise: The patient was advised to exercise. Results - Labs: A recent fingerstick blood count was 16.1. - Procedures: A colonoscopy in July 2023 revealed 8 polyps. [facility] Medical History Alcohol abuse, in remission High cholesterol High blood pressure Neck pain Leg pain COVID-19 virus infection Family history of cancer Surgical History History of fusion of cervical spine H/O: hysterectomy Family History Father Diabetes Prostate cancer HTN (hypertension) CVD (cardiovascular disease) Mother HTN (hypertension) Cervical cancer Lung cancer Maternal Grandmother Lung cancer Daughter In good health Daughter No problems noted. Brother In good health Son No problems noted. Maternal Grandfather Leukemia Paternal Grandfather CVD (cardiovascular disease) Paternal Aunt CVD (cardiovascular disease) Social History Housing: House Alcohol intake: former Comment: 2021 Patient Tobacco Use Status: Current everyday Tobacco user Tobacco use type: Cigarette Cigarette Packs Per Day: 0.5 Cigarettes Per Day: 10 Years Smoked: 40 +/- e-Cigarette/Vaping Use: Never Used Second Hand Smoke Exposure: Yes service: No Current occupational status: employed Cognitive needs: No Hearing needs: No Vision needs: No Questionnaire PHQ-9 Over the last 2 weeks, how often have you been bothered by any of the following problems? 1. Little interest or pleasure in doing things: not at all 2. Feeling down, depressed, or hopeless: not at all 3. Trouble falling or staying asleep, or sleeping too much: not at all 4. Feeling tired or having little energy: not at all 5. Poor appetite or overeating: not at all 6. Feeling bad about yourself - or that you are a failure or have let yourself or your family down: not at all 7. Trouble concentrating on things, such as reading the newspaper or watching television: not at all 8. Moving or speaking so slowly that other people could have noticed. Or the opposite - being so fidgety or restless that you have been moving around a lot more than usual: not at all 9. Thoughts that you would be better off or of hurting yourself in some way: not at all Total score: 0 Depression Screening Interpretation: Negative Depression Screening Done: Yes Source: Developed by Drs. Rome Grullon, Ginny Reyes, Nikko Mahajan and colleagues, with an educational rodney from [employer]. Thrive Questionnaire Date Thrive assessed: 04/01/24 I am a: Patient What is your living situation today?: I choose not to answer this question Within the past 12 months, did the food you bought not last and you didn't have the money to get more?: I choose not to answer this question Within the past 12 months, did you worry whether your food would run out before you got money to buy more?: I choose not to answer this question Do you have trouble paying for medicines?: I choose not to answer this question Do you have trouble getting transportation to medical appointments?: No Do you have trouble paying your heating and electricity bill?: No Do you have trouble taking care of your child, family member or friend?: No Do you have trouble with day-to-day activities such as bathing, preparing meals, shopping, managing finances, etc.?: No Are you currently unemployed and looking for a job?: No Are you interested in more education?: No Please select the resources that you would like help with: None Currently or been in a relationship where the following occur: No concerns reported THRIVE Score: 0 AUDIT C Alcohol Use Questionnaire (AUDIT-C) 1. How often do you have a drink containing alcohol?: Never 3. How often do you have six or more drinks on one occasion?: Never Total Score: 0 FREDY-7 AMB Questionnaire FREDY-7 Date FREDY - 7 assessed: 04/01/24 Feeling nervous, anxious, or on edge: 1 = Several days Not being able to stop or control worryin = Several days Worrying too much about different things: 0 = Not at all Trouble relaxin = Not at all Being so restless that it is hard to sit still: 0 = Not at all Becoming easily annoyed or irritable: 0 = Not at all Feeling afraid as if something awful might happen: 0 = Not at all Total FREDY-7 score (0-4 normal; 5-9 mild; 10-14 moderate; 15-21 severe): 2 Source: Developed by Drs. Rome Grullon, Ginny Reyes, Nikko Mahajan and colleagues, with an educational rodney from [employer]. FREDY-7 Assessment Billing FREDY-7 Assessment Tool: FREDY-7 Assessment 36670 Review of Systems Narrative Review of Systems - Cardiovascular: Reports daily chest tightness and discomfort. - Musculoskeletal: Reports back pain and tenderness after a fall. - Neurological: Denies head injury with the recent fall. - Integumentary: Reports having a bruise on the back. - Psychiatric: Reports anxiety, particularly related to medical procedures involving IV injections. - Constitutional: Denies loss of consciousness with fall. Physical exam (Primary Care) Vital Signs: Last Vital Signs Pulse 80 02/18/25 12:49 BP 130/72 02/18/25 12:49 Pulse Ox 98 02/18/25 12:49 Oxygen Delivery Method Room Air 02/18/25 12:49 BMI result Body Mass Index 31.6 Tobacco/Smoking Status: Tobacco use Status Tobacco use date assessed 10/09/24 02/18/25 12:54 Patient Tobacco Use Status Current everyday Tobacco 02/18/25 12:54 Tobacco use type Cigarette 02/18/25 12:54 e-Cigarette/Vaping Use Never Used 02/18/25 12:54 PHQ-9: PHQ-9 Score PHQ-9: Total score 0 02/18/25 16:51 Depression Screening Interpretation: Negative Thrive Assessment: Date of Thrive Assessment Date Thrive assessed 04/01/24 02/18/25 12:54 Currently or been in a relationship where the following occur: No concerns reported Narrative Physical Exam - Back: Tenderness noted on palpation. Const General: alert; No acute distress Eyes Conjunctivae: conjunctivae normal Resp Auscultation: clear to auscultation bilaterally Cardio Rate: regular rate Rhythm: regular rhythm GI Inspection: Yes normal to inspection Extrem General: Yes normal to inspection and No edema Coding Level of Care Code Est Pt Level 4 (54047) Complex visit Add On G2211 Diagnoses Essential hypertension I10 Hypertension type: essential hypertension Hypercholesterolemia E78.00 Atherosclerosis I70.90 Obesity (BMI 30.0-34.9) E66.9 Fatty liver K76.0 Erythrocytosis D75.1 Tobacco abuse Z72.0 Additional Codes FREDY-7 Assessment Billing - FREDY-7 Assessment Tool: FREDY-7 Assessment 18328 ([id number]) Assessment & Plan Assessment & Plan (1) Hypertension: Code(s): I10 - Essential (primary) hypertension Category: Medical Qualifiers: Hypertension type: essential hypertension Qualified Code(s): I10 - Essential (primary) hypertension Plan: Continue with blood pressure medication. Decrease salt intake and exercise on amlodipine 10 mg once a day carvedilol 12.5 mg twice a day (2) Hypercholesterolemia: Code(s): E78.00 - Pure hypercholesterolemia, unspecified Category: Medical Plan: Avoid fried foods, chicken skin, eggs, butter margarine, pastries and meat. Be it pork or beef they have a lot of cholesterol on fenofibrate and rosuvastatin LDL goal of less than 70 and triglyceride of less than 150 (3) Atherosclerosis: Comment: aortic Code(s): I70.90 - Unspecified atherosclerosis Category: Medical Plan: Control the cholesterol, weight, blood pressure, patient was advised to get blood work (4) Obesity (BMI 30.0-34.9): Code(s): E66.9 - Obesity, unspecified Category: Medical Plan: Diet and exercise (5) Fatty liver: Code(s): K76.0 - Fatty (change of) liver, not elsewhere classified Category: Medical Plan: Low-fat diet and exercise (6) Erythrocytosis: Comment: Most likely secondary to smoking Code(s): D75.1 - Secondary polycythemia Category: Medical Plan: Patient follows up with Hematology-Oncology and has been having therapeutic phlebotomy. (7) Tobacco abuse: Comment: Lung cancer screening program November 2021, 02/2024 Code(s): Z72.0 - Tobacco use Category: Medical Plan: Patient is strongly advised to stop smoking last CT 02/2024 Plan Plan Patient was informed and verbally consented to the use of an ambient scribe for clinic note documentation during this visit. 1. Secondary Polycythemia The patient will continue with therapeutic phlebotomy as per hematology/oncology recommendations for secondary polycythemia, which is likely secondary to smoking. 2. Tobacco Use Disorder The patient was strongly advised to stop smoking, as it is the most likely cause of the secondary erythrocytosis. 3. Chest Tightness The patient will be scheduled for a coronary CTA to evaluate the daily chest tightness, as a previous attempt was aborted due to anxiety and tachycardia. 4. Essential Hypertension The patient will continue the current medication regimen of amlodipine 10 mg once a day and carvedilol 12.5 mg twice a day. 5. Hypercholesterolemia The patient will continue treatment with fenofibrate and rosuvastatin with a goal LDL of less than 70 mg/dL and triglycerides less than 150 mg/dL. 6. Recent Fall The patient was advised that pain from the fall may increase over the next day. The patient declined examination of the bruise. Discussion Notes I reviewed the patient's ongoing medical issues, including hypertension, hypercholesterolemia, and secondary polycythemia. I strongly advised the patient to stop smoking, emphasizing its likely connection to the secondary erythrocytosis, but the patient reported no change in habit. We discussed rescheduling the coronary CTA to investigate the daily chest tightness, and the patient feels it may be more manageable now that pulse and blood pressure are better controlled. I addressed the patient's recent fall, noted tenderness on the back, and provided anticipatory guidance that the pain may worsen. I provided a requisition for follow-up blood work and confirmed the patient's upcoming low-dose CT scan. We also discussed the need for a bone density scan and future colonoscopy. The patient declined the shingles vaccine. Patient Instructions - Please get your blood work done; we have provided you with the necessary form. - Continue taking your medications for blood pressure (amlodipine, carvedilol) and cholesterol (fenofibrate, rosuvastatin) as prescribed. - Attend your scheduled low-dose CT scan on March 25. - A new coronary CTA will be arranged to check on your chest tightness. - It is strongly recommended that you stop smoking, as it is likely causing your high red blood cell count. - Continue your therapeutic phlebotomy appointments with the associate biological sales. - Follow a low-fat diet and get regular exercise. - Be careful with your back after your fall. The pain might get worse over the next day or so. - Remember to schedule your bone density test. - To prevent getting sick during flu season, wash your hands often and consider wearing a mask in crowded places. Orders: Orders Complete Blood Count Auto Diff Today D75.1 - Secondary polycythemia Ferritin Today D75.1 - Secondary polycythemia IRON PROFILE Today D75.1 - Secondary polycythemia Comprehensive Met. Panel Today D75.1 - Secondary polycythemia Magnesium Today D75.1 - Secondary polycythemia Vitamin B12 and Folate Today D75.1 - Secondary polycythemia
--- OUTSIDE RECORDS SUMMARY | 2025-02-18 15:04 | XMS_ITS | Clinical Summary ---
Author Organization [address] Address [address] [place] [id number] Care Team Providers Care Heating Mechanic Name Role Phone No, Pcp (Do Not [...] Description 12/15/2024 2:30 PM EDT Office Visit [facility] [place] [address] [place] [address] Joe Soni PA Sore throat (Primary Dx) [...] Date/Time Associated Diagnosis Comments POCT STREP A ([facility]) Routine 12/15/2024 2:59 PM EDT Sore throat POCT INFLUENZA A+B/RSV ([facility]) Routine 12/15/2024 2:58 PM EDT Sore throat POCT SARS COV-2 (COVID-19) PCR ([facility]) Routine 12/15/2024 2:57 PM EDT Sore throat from Last 3 Months Results * POCT Strep A(In-Clinic) (12/15/2024 2:59 PM EDT) Pathologist [facility] POC Strep A Not Detected Not Detected POC Kit Lot Number [id number] POC Expiration Date 11/16/2025 Throat 12/15/2024 2:59 PM EDT us Joe TOSCANO POINT OF CARE ORDERS W/FUTURE F inal Result * POCT Influenza A+B/RSV (In-Clinic) (12/15/2024 2:58 PM EDT) Pathologist [facility] POC Influenza A Not Detected Not Detected POC Influenza B Not Detected Not Detected POC RSV Not Detected Not Detected POC Kit Lot Number [id number] POC Expiration Date 11/16/2025 Nasal Swab 12/15/2024 2:58 PM EDT us Joe TOSCANO POINT OF CARE ORDERS W/FUTURE F inal Result * POCT LILIANA COV-2 (COVID-19) PCR (In-Clinic) (12/15/2024 2:57 PM EDT) POC SARS-CoV-2 (COVID-19) PCR Not Detected Not Detected POC Kit Lot Number [id number] POC Expiration Date 12/16/2025 Nasal Swab 12/15/2024 2:57 PM EDT Joe TOSCANO POINT OF CARE ORDERS W/FUTURE F inal Result from Last 3 Months Insurance BS ([place]) [address] [id number] [employer] Care Teams Heating Mechanic Relationship Specialty Start Date End Date No, Pcp (Do Not Change Name) PCP - General 12/15/24
--- OUTSIDE RECORDS SUMMARY | 2025-02-18 15:04 | XMS_ITS | Clinical Summary ---
Author Organization Formerly [facility] Prior to 08/16/24 Address [address] [place] [address] Care Team Providers Care Rim Roller Setter Name Role Phone Tariq Romero MD Primary Care Provider [phone] Allergies Active Allergy Reactions Criticality Noted Date [...] age to complete this topic Care Teams Rim Roller Setter Relationship Specialty Start Date End Date Tariq Romero MD [address] [place] [address] [address] [facility] [place] [address] PCP - General Internal Medicine 02/24/22
== END 2025-02-18 14:20 | disposition home or self-care (01) ==
LOC: HO.HMCH 12:49
PROVIDERS: PCP Internal Medicine; Visit Provider Internal Medicine
DX: I10 Essential (primary) hypertension (principal); E78.00 Pure hypercholesterolemia, unspecified; E66.9 Obesity, unspecified; Z68.31 Body mass index [BMI] 31.0-31.9, adult; I70.90 Unspecified atherosclerosis; K76.0 Fatty (change of) liver, not elsewhere classified; D75.1 Secondary polycythemia; Z72.0 Tobacco use

== ENCOUNTER → 2025-02-18 12:47 | Outpatient (BNVA) | payer BC, SELFPAY | PROVIDERS: PCP Internal Medicine; Visit Provider Internal Medicine | DX: I10 Essential (primary) hypertension (principal); E78.00 Pure hypercholesterolemia, unspecified; I70.90 Unspecified atherosclerosis; E66.9 Obesity, unspecified; K76.0 Fatty (change of) liver, not elsewhere classified; D75.1 Secondary polycythemia; F17.210 Nicotine dependence, cigarettes, uncomplicated | CPT/HCPCS: 96127 ==

== ENCOUNTER 2025-03-16 15:27 | Outpatient (REF) | payer BC, SELFPAY ==
--- OUTSIDE RECORDS SUMMARY | 2025-03-16 17:31 | XMS_ITS | Encounter Summary ---
Author Organization [place] [address] Care Team Providers Care Outsewer Name Role Phone Tariq Romero MD Primary Care Provider [phone] Encounter Details Date Type Department Care Team (Late st Contact Info) Description 01/29/2024 Lab Requisition [facility] [address] [facility] [place] [address] Venkatesh Padilla MD [address] [place] [address] Dysuria Social History Tobacco Use Types Packs/Day [...] reflex microscopic (01/29/2024 7:00 AM EST) Specific [place] Urine >=1.030 1.003 - 1.030 LAB URINALYSIS [...] URINE ORDERABLES Final Result Performing Organization Address City/[facility]/ZIP Co de Phone Number [facility] [address] [place] [address], [place] [phone] * Culture urine (01/29/2024 7:00 AM EST) Culture, Urine No growth 01/30/2024 9:01 AM [facility] Urine Urine specimen obtained by clean catch procedure / Unknown 01/29/2024 7:00 AM EST 01/29/2024 9:12 AM EST us Venkatesh Padilla MD LAB MICROBIOLOGY - GENERAL ORDERABLES Final Result Performing Organization Address [facility]/ZIP Co de Phone Number [facility] [address] [place] [address], [place] [phone] documented in this encounter Visit Diagnoses Diagnosis Dysuria documented in this encounter Care Teams Outsewer Relationship Specialty Start Date End Date Tariq Romero MD [address] [place] [address] Dr [address] [facility] [place] [address] PCP - General Internal Medicine 03/03/11 documented as of this encounter
--- OUTSIDE RECORDS SUMMARY | 2025-03-16 17:31 | XMS_ITS | Encounter Summary ---
Author Organization [facility] Address [address] [place] [address] Care Team Providers Care Community Development Manager Name Role Phone Tariq Romero MD Primary Care Provider Encounter Details Date Type Department Care Team (Late st Contact Info) Description 05/13/2024 Lab Requisition [facility] - Main Lab [address] [facility] [place] [address] Social History Tobacco Use Types [...] on filedocumented in this encounter Care Teams Community Development Manager Relationship Specialty Start Date End Date Tariq Romero MD [address] [place] [address] [address] [facility] [place] [address] PCP - General Internal Medicine 03/03/11 documented as of this encounter
--- OUTSIDE RECORDS SUMMARY | 2025-03-16 17:31 | XMS_ITS | Clinical Summary ---
Author Organization [facility] Prior to 08/16/24 Address [address] [place] [address] Care Team Providers Care Hose Tender Name Role Phone Tariq Romero MD Primary Care Provider [phone] Allergies Active Allergy Reactions Criticality Noted Date [...] age to complete this topic Care Teams Hose Tender Relationship Specialty Start Date End Date Tariq Romero MD [address] [place] [address] [address] [facility] [place] [address] PCP - General Internal Medicine 02/24/22
--- OUTSIDE RECORDS SUMMARY | 2025-03-16 17:31 | XMS_ITS | Encounter Summary ---
Author Organization [facility] [place] [address] Care Team Providers Care Make Up Man Name Role Phone Tariq Romero MD Primary Care Provider [phone] Encounter Details Date Type Department Care Team (Latest Contact Info) Description 05/13/2024 Lab Requisition [facility] - Main Lab [address] [facility] [place] [address] Maya Oshea MD [address] [place] [address] ATTN: HEMATOLOGY/[place] [address] Familial erythrocytosis Social History Tobacco Use Types [...] Hold for add-ons. 05/13/2024 1:02 PM EST [facility] Comment:Auto resulted. Blood Venous blood specimen / Unknown 05/13/2024 9:05 AM EST 05/13/2024 11:01 AM EST us Maya Oshea MD LAB BLOOD ORDERABLES Final Resu lt [facility] [address] [place] [address], * (ABNORMAL) CBC auto differential (05/13/2024 9:05 AM EST) Pathologist [facility] WBC 10.1 4.8 - 10.8 K/mcL LAB HEMETOLOGY METHOD 05/13/2024 12:14 PM [facility] RBC 5.80(H) 3.80 - 4.80 M/mcL LAB HEMETOLOGY METHOD 05/13/2024 12:14 PM EST [facility] Hemoglobin 18.2(H) 11.5 - 16.0 g/dL LAB HEMETOLOGY METHOD 05/13/2024 12:14 PM [facility] Hematocrit 55.7(H) 35.0 - 47.0 % LAB HEMETOLOGY METHOD 05/13/2024 12:14 PM [facility] MCV 96.7 79.0 - 98.0 FL LAB HEMETOLOGY METHOD 05/13/2024 12:14 PM [facility] MCH 31.6 27.0 - 32.0 pcg LAB HEMETOLOGY METHOD 05/13/2024 12:14 PM [facility] MCHC 32.7 32.0 - 37.0 g/dL LAB HEMETOLOGY METHOD 05/13/2024 12:14 PM [facility] RDW 15.5(H) 11.0 - 15.0 % LAB HEMETOLOGY METHOD 05/13/2024 12:14 PM [facility] Platelets 289 130 - 400 K/mcL LAB HEMETOLOGY METHOD 05/13/2024 12:14 PM [facility] MPV 10.9 7.0 - 11.0 FL LAB HEMETOLOGY METHOD 05/13/2024 12:14 PM [facility] NRBC 0.0 <1.0 % LAB HEMETOLOGY METHOD 05/13/2024 12:14 PM [facility] NRBC Absolute 0.00 <0.10 K/mcL LAB HEMETOLOGY METHOD 05/13/2024 12:14 PM [facility] Neutrophils Relative 60.2 % LAB HEMETOLOGY METHOD 05/13/2024 12:14 PM [facility] Lymphocytes Relative 28.4 % LAB HEMETOLOGY METHOD 05/13/2024 12:14 PM [facility] Monocytes Relative 9.0 % LAB HEMETOLOGY METHOD 05/13/2024 12:14 PM [facility] Eosinophils Relative 1.2 % LAB HEMETOLOGY METHOD 05/13/2024 12:14 PM [facility] Basophils Relative 0.6 % LAB HEMETOLOGY METHOD 05/13/2024 12:14 PM EST [facility] Immature Granulocytes Relative 0.6 % LAB HEMETOLOGY METHOD 05/13/2024 12:14 PM EST [facility] Neutrophils Absolute 6.05 1.50 - 7.00 K/[facility] LAB HEMETOLOGY METHOD 05/13/2024 12:14 PM [facility] Lymphocytes Absolute 2.86 1.00 - 5.00 K/mcL LAB HEMETOLOGY METHOD 05/13/2024 12:14 PM EST [facility] Monocytes Absolute 0.91 0.20 - 1.00 K/[facility] LAB HEMETOLOGY METHOD 05/13/2024 12:14 PM EST [facility] Eosinophils Absolute 0.12 0.00 - 0.50 K/[facility] LAB HEMETOLOGY METHOD 05/13/2024 12:14 PM [facility] Basophils Absolute 0.06 0.00 - 0.20 K/mcL LAB HEMETOLOGY METHOD 05/13/2024 12:14 PM [facility] Immature Granulocytes Absolute 0.06(H) 0.00 - 0.03 K/mcL LAB HEMETOLOGY METHOD 05/13/2024 12:14 PM EST [facility] Blood Venous blood specimen / Unknown Venipuncture / Unknown 05/13/2024 9:05 AM EST 05/13/2024 11:01 AM EST us Maya Oshea MD LAB BLOOD ORDERABLES Final Resu lt [facility]) [facility] [address] [place] [address], * JAK2 gene, V617F mutation, quantitative, molecular study (05/13/2024 9:05 AM EST) Scan Result See Scanned Result 05/18/2024 9:49 AM EST [facility] Blood Venous blood specimen / Unknown Venipuncture / Unknown 05/13/2024 9:05 AM EST 05/13/2024 11:01 AM EST Maya Oshea MD LAB MOLECULAR DIAGNOSTICS ORDER BENEDICTO Final Result Performing Organization Address City/[facility]/ZIP Co de Phone Number [facility] * Carboxyhemoglobin (05/13/2024 9:05 AM EST) Pathologist [facility] Carboxyhemoglobin 8 %TOTAL HGB 05/18/2024 7:40 PM EST [facility] Comment: Nonsmoker: <2 % of Total HgB Average Smoker: 4-5 % of Total HgB Heavy Smoker: 8-12 % of Total HgB Potentially Toxic: >15 % of Total HgB Test Performed at: [facility] [address] [facility] [place] [address] Zay Ramirez MD, PhD Blood Venous blood specimen / Unknown Venipuncture / Unknown 05/13/2024 9:05 AM EST 05/13/2024 11:01 AM EST Maya Oshea MD LAB BLOOD ORDERABLES Final Resu lt Performing Organization Address City/[facility]/ZIP Co de Phone Number [facility] [address] [place] [address] * (ABNORMAL) Comprehensive metabolic panel (05/13/2024 9:05 AM EST) Pathologist [facility] Sodium 139 133 - 145 mmol/L LAB CHEMISTRY METHOD 05/13/2024 1:39 PM EST [facility] Potassium 4.6 3.5 - 5.5 mmol/L LAB CHEMISTRY METHOD 05/13/2024 1:39 PM [facility] Chloride 109 96 - 110 mmol/L LAB CHEMISTRY METHOD 05/13/2024 1:39 PM [facility] CO2 21 21 - 32 mmol/L LAB CHEMISTRY METHOD 05/13/2024 1:39 PM [facility] Anion Gap 9 3 - 11 LAB CHEMISTRY METHOD 05/13/2024 1:39 PM [facility] Glucose 83 70 - 100 mg/dL LAB CHEMISTRY METHOD 05/13/2024 1:39 PM [facility] BUN 14 5 - 25 mg/dL LAB CHEMISTRY METHOD 05/13/2024 1:39 PM [facility] Creatinine 0.57 0.50 - 1.10 mg/dL LAB CHEMISTRY METHOD 05/13/2024 1:39 PM [facility] eGFR 106 >=60 mL/min/1. 73m2 LAB CHEMISTRY METHOD 05/13/2024 1:39 PM [facility] Comment:Calculation based on the Chronic Kidney Disease Epidemiology Collaboration (CKD-EPI) equation refit without adjustment for race. BUN/Creatinine Ratio 24.6 LAB CHEMISTRY METHOD 05/13/2024 1:39 PM [facility] Calcium 9.8 8.5 - 10.5 mg/dL LAB CHEMISTRY METHOD 05/13/2024 1:39 PM [facility] AST (SGOT) 79(H) 10 - 42 unit/L LAB CHEMISTRY METHOD 05/13/2024 1:39 PM [facility] ALT (SGPT) 102(H) 10 - 60 unit/L LAB CHEMISTRY METHOD 05/13/2024 1:39 PM [facility] Alkaline Phosphatase 120 42 - 121 unit/L LAB CHEMISTRY METHOD 05/13/2024 1:39 PM [facility] Total Protein 7.6 6.0 - 8.0 g/dL LAB CHEMISTRY METHOD 05/13/2024 1:39 PM [facility] Albumin 4.1 3.2 - 5.0 g/dL LAB CHEMISTRY METHOD 05/13/2024 1:39 PM [facility] Total Bilirubin 1.0 0.0 - 1.4 mg/dL LAB CHEMISTRY METHOD 05/13/2024 1:39 PM [facility] Blood Venous blood specimen / Unknown Venipuncture / Unknown 05/13/2024 9:05 AM EST 05/13/2024 11:01 AM EST Maya Oshea MD LAB BLOOD ORDERABLES Final Resu lt 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
--- OUTSIDE RECORDS SUMMARY | 2025-03-16 17:31 | XMS_ITS | Clinical Summary ---
Author Organization [address] Address [address] [place] [address] Care Team Providers Care Loading Dock Helper Name Role Phone No, Pcp (Do [...] Description 12/15/2024 2:30 PM EDT Office Visit [facility] [address] [place] [address] Joe Soni PA Sore throat (Primary Dx) [...] Date/Time Associated Diagnosis Comments POCT STREP A ([facility]) Routine 12/15/2024 2:59 PM EDT Sore throat POCT INFLUENZA A+B/RSV ([facility]) Routine 12/15/2024 2:58 PM EDT Sore throat POCT SARS COV-2 (COVID-19) PCR ([facility]) Routine 12/15/2024 2:57 PM EDT Sore throat from Last 3 Months Results * POCT Strep A(In-Clinic) (12/15/2024 2:59 PM EDT) Pathologist [facility] POC Strep A Not Detected Not Detected POC Kit Lot Number [id number] POC Expiration Date 11/16/2025 Throat 12/15/2024 2:59 PM EDT us Joe TOSCANO POINT OF CARE ORDERS W/FUTURE F inal Result * POCT Influenza A+B/RSV (In-Clinic) (12/15/2024 2:58 PM EDT) Pathologist [facility] POC Influenza A Not Detected Not Detected POC Influenza B Not Detected Not Detected POC RSV Not Detected Not Detected POC Kit Lot Number [id number] POC Expiration Date 11/16/2025 Nasal Swab 12/15/2024 2:58 PM EDT us Joe TOSCANO POINT OF CARE ORDERS W/FUTURE F inal Result * POCT LILIANA COV-2 (COVID-19) PCR (In-Clinic) (12/15/2024 2:57 PM EDT) POC SARS-CoV-2 (COVID-19) PCR Not Detected Not Detected POC Kit Lot Number [id number] POC Expiration Date 12/16/2025 Nasal Swab 12/15/2024 2:57 PM EDT Joe TOSCANO POINT OF CARE ORDERS W/FUTURE F inal Result from Last 3 Months Insurance BS ([place]) [address] [id number] [employer] Care Teams Loading Dock Helper Relationship Specialty Start Date End Date No, Pcp (Do Not Change Name) PCP - General 12/15/24
--- OUTSIDE RECORDS SUMMARY | 2025-03-16 17:32 | XMS_ITS | Clinical Summary ---
Author Organization [address] Address [address] [place] [phone] Phone Care Team Providers Care Deckhand Clam Dredge Name Role Phone Tariq Romero MD Primary Care Provider [phone] Allergies Active Allergy Reactions Criticality Noted Date [...] Orientation Straight 02/19/2024 4: 26 PM EST Last Filed Vital Signs Vital Sign Reading [...] Done Comments Colorectal Cancer Screening: Colonoscopy 1965 Drug Screen 1965 Non-Opioid Controlled Substance Agreement 1965 Hepatitis B Vaccines (1 of 3 - 19+ 3-dose series) 1985 Pneumococcal Vaccine: 50+ Years (1 of 2 - PCV) 1985 Cervical Cancer Screening: Pap Smear 09/26/1987 Zoster Vaccines (1 of 2) 2016 HIV [...] Td or Tdap) 06/20/2033 06/21/2023, 04/24/2015, 04/16/2015 RSV Immunization Adult Patients (1 - 1-dose 75+ series) 2041 HIB Vaccines Aged Out No longer eligi [...] year. [facility]amm[facility] [address], [address] -------- FINAL REPORT -------- Dictated By: Ruiz Chacon Dictated Date: 10/29/2024 15:26 ET Assigned Physician: Ruiz Chacon Reviewed and Electronically Signed By: Ruiz Chacon Signed Date: 10/29/2024 15:33 ET Workstation ID: [id number] Transcribed By: Self Edit Transcribed Date: 10/29/2024 15:26 ET Narrative 10/29/2024 3:33 PM EDT EXAM: SCREENING MAMMOGRAPHY, BILATERAL HISTORY: SCREENING. No additional history. COMPARISON: 09/23/21, 07/16/20, 05/22/18 TECHNIQUE: Synthesized CC and MLO projections of each breast. Tomosynthesis of each breast in the CC and MLO projections. ADDITIONAL IMAGING: None Computer-aided detection was employed with the [employer] AI 3-D. TISSUE DENSITY: There are scattered [...] None Computer-aided detection was employed with the [employer] AI 3-D. TISSUE DENSITY: There are scattered [...] year. Mammography location: [facility] at [address], [address] -------- FINAL REPORT -------- Dictated By: Ruiz Chacon Dictated Date: 10/29/2024 15:26 ET Assigned Physician: Ruiz Chacon Reviewed and Electronically Signed By: Ruiz Chacon Signed Date: 10/29/2024 15:33 ET Workstation ID: [id number] Transcribed By: Self Edit Transcribed Date: 10/29/2024 15:26 ET us Self Referral Sppl IMG BI PROCEDURES Final Resul t * (ABNORMAL) Lipid panel (07/24/2024 2:31 PM EDT) Cholesterol 266(H) 0 - 200 mg/dL LAB CHEMISTRY METHOD 07/24/2024 8:01 PM EDT [facility] Triglycerides 343(H) <150 mg/dL LAB CHEMISTRY METHOD 07/24/2024 8:01 PM EDT [facility] HDL 57 37 - 92 mg/dL LAB CHEMISTRY METHOD 07/24/2024 8:01 PM EDT [facility] LDL Calculated 140(H) 50 - 130 mg/dL LAB CHEMISTRY METHOD 07/24/2024 8:01 PM EDT [facility] VLDL Cholesterol Markus 68.6 mg/dL LAB CHEMISTRY METHOD 07/24/2024 8:01 PM EDT [facility] Comment:No established refer ence range. Blood Venous blood specimen / Unknown Venipuncture / Unknown 07/24/2024 2:31 PM EDT 07/24/2024 2:31 PM EDT us Tariq Romero MD LAB BLOOD ORDERABLES Final Resul t [facility] [address] [place] [address], [place] [phone] * CT LUNG SCREENING LOW DOSE (01/06/2022 6:06 PM EDT) Anatomical Region Laterality Modality Computed Tomogra phy 01/06/2022 2:26 PM EDT Narrative 01/06/2022 6:06 PM EDT [facility] Diagnostic Imaging Department [address] [place], [place] [id number] Patient: ROSALIA JAIN Lacey /Age/Sex: 1965 - 56 - F Unit#: [id number] Location/Status: [facility]emonic[facility] Ordering Physician: ABEL ROSAS MD CT Lung Screening Low Dose - 01/06/22 - 5603 History: 56 year-old 40 pack-year current smoker, asymptomatic, for lung cancer screening. Comparison: No comparison imaging at this institution. Technique: Helical volumetric imaging of the thorax was performed, using low- dose technique, without IV contrast. DLP: 101.52 mGy/cm CTDIvol: 3.22 mGy Beeminder VCT Iterative reconstruction technique Findings: Lungs and [...] annual screening with LDCT in 12 months. [id number] [id number] [id number] [id number] Dictating Physician: DIANA BHAT MD Electronically Signed by: DIANA BHAT MD Dic Date/Time: 01/06/22 1800 Sign date/Time: 01/06/22 180 Procedure Note Diana Bhat MD - 03/08/2022 [facility] Diagnostic Imaging Department [address] [place], [place] [id number] Patient: LUCIA JAINElma Rahman /Age/Sex: 1965 - 56 - F Unit#: [id number] Location/Status: SPDICATLS/REG CLI Mnemonic/Ordering Site: [facility] Ordering Physician: ABEL ROSAS MD CT Lung Screening Low Dose - 01/06/22 - 1431 History: 56 year-old 40 pack-year current smoker, asymptomatic, for lungcancer screening. Comparison: No comparison imaging at this institution. Technique: Helical volumetric imaging of the thorax was performed, usinglow- dose technique, without IV contrast. DLP: 101.52 mGy/cm CTDIvol: 3.22 mGy Beeminder VCT Iterative reconstruction technique Findings: Lungs and [...] Continue annual screeningwith LDCT in 12 months. [id number] [id number] G9557 [id number] Dictating Physician: DIANA BHAT MD Electronically Signed by: DIANA BHAT MD Dic Date/Time: 01/06/22 1800 Sign date/Time: 01/06/22 180 Abel Rosas MD IM CT PROCEDURES Final Result from Last 3 Months or Most Recently Relevant to Health Maintenance Insurance [employer] [facility] [employer] [facility] Care Teams Deckhand Clam Dredge Relationship Specialty Start Date End Date Tariq Romero MD [address] [place] [address] [place] [address] [place] [address] PCP - General Internal Medicine 03/03/11
== END 2025-03-16 15:28 ==
LOC: HO.BBR 15:27
PROVIDERS: PCP Internal Medicine; Visit Provider Internal Medicine Medical Oncology
DX: D75.0 Familial erythrocytosis (principal)
CPT/HCPCS: 85018; 99195